=== PATIENT | female | born 1945 | race Caucasian/White ===

== ENCOUNTER 2024-04-15 18:54 | Inpatient (IN) ==
[2024-04-15 19:12] VITALS: TEMP 98.8
[2024-04-15] MEDS: SODIUM CHLORIDE 0.9% 1,000 ML IV ONE ×2 (19:20→19:53)
[2024-04-15] MEDS: ONDANSETRON INJ 2 MG/ML 2 ML VIAL IV STA (19:20)
--- NOTE | 2024-04-15 19:23 | Emergency Department Note ---
Impression & Plan Nausea, vomiting, and diarrhea, Acute hyponatremia, Hypomagnesemia, Hypocalcemia ED Provider Note HISTORY OF PRESENT ILLNESS: Patient is a 78-year-old female presenting with nausea, vomiting and diarrhea. Patient reports that she woke up this morning was feeling very nauseous. She went to get a CT scan from "my neck to my pelvis" earlier today. She reports that she was given contrast during that study and was feeling quite nauseous after the CT imaging. She went home and had a small breakfast and started vomiting that up. She also has had 3 episodes of vomiting throughout the day today. She went to [facility] to have radiation treatment for the metastases to her C1 and C2 vertebrae. Patient reports she has thyroid cancer with mets to the spine. Reports that she was very nauseous during her radiation, but on her way home to [place] she had multiple episodes of vomiting. She states has been unable to keep anything down since this morning. Reports feeling very weak and rundown. She reports that she was previously on oral chemotherapy, but has not been on any since mid February 2024. Denies any fevers or chills. Denies any abdominal pain. Denies any sick contact exposures. She denies any dysuria or hematuria. She currently feels very dehydrated and like her mouth is very dry. ROS: as above PHYSICAL EXAM: Constitutional: Patient appears in no acute distress. HENT: Head: Normocephalic and atraumatic. Eyes: EOMI, PERRL Mouth/Throat: Mucous membranes dry. Neck: Trachea midline. Neck supple. Cardiovascular: RRR, No murmurs, rubs or gallops. Intact distal pulses. Pulmonary/Chest: No respiratory distress. Breath sounds clear and equal bilaterally. No wheezes or rales. Abdominal: Abdomen soft, no tenderness, rebound or guarding. Musculoskeletal: No edema, tenderness or deformity noted. Skin: Warm and dry. No rash, erythema, pallor or cyanosis Psychiatric: Appropriate mood and affect for situation. Neurological: Alert and keenly responsive. CN II-XII grossly intact, moving all extremities equally and fully. MDM: - Vitals signs showed hypertension - History obtained via patient. History as above. - Chronic conditions affecting care: HTN; metastatic thyroid cancer; hx of Afib - Differential diagnoses include, but are not limited to: Electrolyte abnormality; ACS; dysrhythmia; bowel obstruction; viral syndrome - Order placed for continuous cardiac monitoring. At this time, monitor showed rate of 66 bpm with normal sinus rhythm, per my interpretation. - External medical records reviewed. [facility] radiation oncology note from [facility] dated 04/15/2024 was reviewed. Patient was being seen in clinic for her recurrent/metastatic papillary carcinoma of the thyroid with new osseous involvement of her C1/C2 spine causing pain. She declined surgical stabilization and was proceeding with palliative radiation. Patient had a CT chest/abdomen/pelvis with IV and oral contrast at [facility], but imaging has not been released as of yet. - EKG interpreted by myself showed normal sinus rhythm. Rate 65 bpm. QT 470. No acute ischemic changes. - Laboratory workup interpreted by myself showed normal WBC; normal PT/INR; hyponatremia (Na 128); hypomagnesemia (Mg 1.4); hypocalcemia (Ca 8.3); normal troponin; normal lipase; low TSH - Viral respiratory panel negative - UA negative for infection, but noted to have ketonuria. - Patient given 2L NS in ER. Given 4 mg IV zofran for nausea. Given 1g IV calcium and 1g IV magnesium for electrolyte abnormality - CT abdomen/pelvis with IV contrast was ordered to further workup the patient's nausea and vomiting. However, the patient declined her CT imaging because she just had it performed through the [facility] system earlier today. However, we do not have access to reports as of yet. - Discussion was had with family service caseworker about patient's case and need for admission - Hospitalist, Dr. Machuca, consulted for admission - Patient admitted to [facility] hospitalist service for further evaluation and management. ASSESSMENT AND PLAN: Diagnosis: Nausea, vomiting and diarrhea; acute hyponatremia; hypocalcemia; hypomagnesemia Plan: Admit Past Med/Surg History Problem List Hypocalcemia (Acute) Hypomagnesemia (Acute) Acute hyponatremia (Acute) Nausea, vomiting, and diarrhea (Acute) COVID-19 (Acute) Anal fissure (Chronic) Hypertension (Chronic) Encounter for pre-operative examination Thyroid cancer (Chronic) dx 2011; sx + radioactive iodine x 2 History of cholecystectomy (Chronic) H/O thyroidectomy (Chronic) Hx of tonsillectomy (Chronic) H/O knee surgery (Chronic) Medical History DDD (degenerative disc disease) History of atrial fibrillation follows with Dr. Alvarenga History of COVID-19 03/2021; fatigue, congestion, sore throat, cough, fever, poor appetite; resolved. 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 Osteoarthritis PONV (postoperative nausea and vomiting) Thyroid cancer dx 2011; sx + radioactive iodine x 2 Surgical History H/O knee surgery H/O thyroidectomy History of cardiac catheterization 2013 - no stents History of cataract surgery RT History of cholecystectomy History of colonoscopy History of eyelid surgery Hx of tonsillectomy S/P anal fissurectomy Family History Other Myocardial infarction Social History Smoking Status: Never smoker Second Hand Exposure: Yes (as a child); Do You Dip or Chew Tobacco: No; Hx Alcohol Use: No Hx Substance Use: No Preferred Language: Yi Communication Ability: Effective [employer]creational [employer] Director Required: No Beliefs That Will Affect Care: None Current Living Situation: Spouse Feels Safe at Home: Yes Assistive Devices: Glasses Allergies Allergies Allergy/AdvReac Type Severity Reaction Status Date / Time adhesive Allergy Mild Rash Verified 07/19/22 21:51 latex Allergy Mild Rash Verified 07/19/22 21:51 Home Meds Home Medications Medication Instructions Recorded Confirmed ascorbic acid (vitamin C) 500 mg 500 mg PO QPM 12/10/17 04/15/24 tablet (Vitamin C) cholecalciferol (vitamin D3) 50 2,000 unit PO QAM 12/10/17 04/15/24 mcg (2,000 unit) capsule ibuprofen 200 mg tablet (Advil) 400 mg PO BID PRN Fever Or Pain 12/10/17 04/15/24 levothyroxine 125 mcg tablet 125 mcg PO QAM 12/10/17 04/15/24 lisinopril 5 mg tablet 5 mg PO QAM 12/10/17 04/15/24 omega-3 fatty acids 1,000 mg 1,000 mg PO QAM 12/10/17 04/15/24 capsule aspirin 81 mg tablet,delayed 81 mg PO QPM 06/07/21 04/15/24 release metoprolol succinate 50 mg 50 mg PO BID 05/17/23 04/15/24 tablet,extended release 24 hr Results & Data (ED) Vital Signs Vital Signs - 24 hr 04/15/24 19:03 04/15/24 19:06 04/15/24 21:15 Temperature 37.1 C Temperature Source Oral Pulse Rate 73 70 66 Pulse Rate from SpO2 Sensor 65 Respiratory Rate 14 22 Blood Pressure 165/84 H 135/83 Blood Pressure Mean 111 100 Pulse Oximetry 96 95 Oxygen Delivery Method Room Air Sepsis Recent Fever Within 48 Hours No Sepsis New/Unexplained Change in Mental Status No Sepsis Action Taken by Nursing No Action Required Laboratory Data 04/15/24 19:03 04/15/24 19:03 Lab Results 04/15/24 04/15/24 04/15/24 Range/Units 19:03 19:06 Unknown WBC 6.64 (4.8-10.8) K/ul RBC 4.44 (4.20-5.40) M/uL Hgb 12.7 (12.0-16.0) g/dl Hct 37.2 (37.0-47.0) % MCV 83.8 (80.0-100.0) fL MCH 28.6 (25.0-34.0) pg MCHC 34.1 (32.0-36.0) g/dL RDW Std Deviation 42.9 (36.4-46.3) fL RDW Coeff of [place] 14.0 (11.5-14.5) % Plt Count 227 (130-400) K/uL MPV 9.2 L (9.4-12.4) fL Immature Gran % (Auto) 0.5 % Neut % (Auto) 83.3 % Lymph % (Auto) 9.3 % [place] % (Auto) 6.3 % Eos % (Auto) 0.3 % Baso % (Auto) 0.3 % Neut # (Auto) 5.53 (1.40-6.50) K/uL Lymph # (Auto) 0.62 L (1.20-3.40) K/uL [place] # (Auto) 0.42 (0.11-0.59) K/uL Eos # (Auto) 0.02 (0.00-0.50) K/uL Baso # (Auto) 0.02 (0.00-0.20) K/uL Immature Gran # (Auto) 0.03 (0.01-0.20) K/uL PT 10.7 (9.0-12.0) Seconds INR 1.0 (0.9-1.1) Sodium 128 L (136-145) mmol/L Potassium 4.0 (3.5-5.1) mmol/L Chloride 96 L (98-107) mmol/L Carbon Dioxide 25 (21-32) mmol/L Anion Gap 7 (3-11) BUN 13 (6-23) mg/dl Creatinine 0.69 (0.6-1.2) mg/dl Est Cr Clr Drug Dosing 70.6 ml/min eGFR 88.23 BUN/Creatinine Ratio 18.8 (10-20) Glucose 117 H (70-99(Fasting)) mg/dl Osmolality 270 L (280-300) mOsm/kg Calcium 8.3 L (8.6-10.3) mg/dl Magnesium 1.4 L (1.7-2.4) mg/dl Total Bilirubin 0.8 (0.2-1.0) mg/dl AST 17 (13-39) U/L ALT 12 (7-52) U/L Alkaline Phosphatase 67 (34-104) U/L Troponin I High Sens 6.8 (0-14) pg/ml Total Protein 6.8 (6.0-8.3) gm/dl Albumin 3.7 (3.4-5.0) gm/dl Globulin 3.1 (2.5-4.0) gm/dl Albumin/Globulin Ratio 1.2 (0.9-2) Lipase 11 (11-82) U/L TSH 0.226 L (0.300-4.500) uIu/ml Free T4 1.83 H (0.61-1.60) ng/dl Urine Color Yellow Urine Appearance Clear (Clear) Urine pH 6.5 (4.5-7.5) Ur Specific [place] 1.008 (1.000-1.030) Urine Protein Negative (Negative) Urine Glucose (UA) Negative (Negative) Urine Ketones 1+ H (Negative) Urine Blood Negative (Negative) Urine Nitrite Negative (Negative) Urine Bilirubin Negative (Negative) Urine Urobilinogen Negative (Negative) Ur Leukocyte Esterase Negative (Negative) Urine Osmolality 173 L (500-800) mOsm/kg Ur Random Sodium 45 mmol/L Adenovirus (PCR) Not Detected (NotDetected) B. pertussis DNA (PCR) Not Detected (NotDetected) B.parapertussis DNA PCR Not Detected (NotDetected) C. pneumoniae DNA (PCR) Not Detected (NotDetected) Coronavirus OC43 (PCR) Not Detected (NotDetected) Coronavirus HKU1 (PCR) Not Detected (NotDetected) Coronavirus 229E (PCR) Not Detected (NotDetected) SARS-CoV-2 (PCR) Not Detected (NotDetected) Coronavirus NL63 (PCR) Not Detected (NotDetected) Human Metapneumovir PCR Not Detected (NotDetected) Influenza Type A (PCR) Not Detected (NotDetected) Influenza Type B (PCR) Not Detected (NotDetected) M. pneumoniae (PCR) Not Detected (NotDetected) Parainfluenza 1 (PCR) Not Detected (NotDetected) Parainfluenza 2 (PCR) Not Detected (NotDetected) Parainfluenza 3 (PCR) Not Detected (NotDetected) Parainfluenza 4 (PCR) Not Detected (NotDetected) RSV (PCR) Not Detected (NotDetected) Entero/Rhino (PCR) Not Detected (NotDetected) Administered Medications Discontinued Medications Sodium Chloride (Nss) 1,000 mls @ 999 mls/hr IV .Q1H1M ONE Stop: 04/15/24 20:04 Last Infusion: 04/15/24 19:53 Dose: Infused Documented By: Admin: 04/15/24 19:20 Dose: 999 mls/hr Documented By: RINA Sodium Chloride (Nss) 1,000 mls @ 999 mls/hr IV .Q1H1M ONE Stop: 04/15/24 20:41 Last Infusion: 04/15/24 20:47 Dose: Infused Documented By: NRRafaela Admin: 04/15/24 19:53 Dose: 999 mls/hr Documented By: RINA Magnesium Sulfate/Dextrose (Magnesium Sulfate / D5w) 1 gm in 100 mls @ 100 mls/hr IV NOW STA Stop: 04/15/24 20:40 Last Infusion: 04/15/24 21:29 Dose: Infused Documented By: Admin: 04/15/24 20:13 Dose: 100 mls/hr Documented By: RINA Calcium Gluconate () 1,000 mg in 60 mls @ 240 mls/hr IV NOW STA Stop: 04/15/24 19:55 Last Infusion: 04/15/24 20:13 Dose: Infused Documented By: NRRafaela Admin: 04/15/24 19:49 Dose: 240 mls/hr Documented By: RINA Ondansetron HCl (Ondansetron Inj 2 Mg/Ml 2 Ml Vial) 4 mg IV NOW STA Stop: 04/15/24 19:05 Last Admin: 04/15/24 19:20 Dose: 4 mg Documented By: RINA Discharge Plan Visit Data Chief Complaint: Nausea Stated Complaint: NAUSEA ED Provider: Lupis Zhong Discharge Problem: Nausea, vomiting, and diarrhea, Acute hyponatremia, Hypomagnesemia, Hypocalcemia Forms Stand Alone Forms: My [facility] [employer] Prescriptions Prescriptions: No Action omega-3 fatty acids 1,000 mg Capsule 1,000 mg PO QAM ascorbic acid (vitamin C) [Vitamin C] 500 mg Tablet 500 mg PO QPM levothyroxine 125 mcg Tablet 125 mcg PO QAM Rx Instructions: PER PT "ON THE 7TH DAY, TAKE 250 MCG, ALL OTHER DAYS 125 MCG". tuesdays take 2 ibuprofen [Advil] 200 mg Tablet 400 mg PO BID PRN (Reason: Fever Or Pain) lisinopril 5 mg Tablet 5 mg PO QAM cholecalciferol (vitamin D3) 2,000 unit Capsule 2,000 unit PO QAM aspirin 81 mg Tablet,Delayed Release (Dr/Ec) 81 mg PO QPM metoprolol succinate 50 mg tablet extended release 24 hr 50 mg PO BID Referrals Referrals: Otilia Burgos DO [Primary Care Provider] -
[2024-04-15 19:24] LABS: Basophils # (auto) 0.02 K/uL (0.00-0.20); Basophils % (auto) 0.3 %; Eosinophils # (auto) 0.02 K/uL (0.00-0.50); Eosinophils % (auto) 0.3 %; Hematocrit (blood only) 37.2 % (37.0-47.0); Hemoglobin 12.7 g/dl (12.0-16.0); Immature Granulocytes # (auto) 0.03 K/uL (0.01-0.20); Immature Granulocytes % (auto) 0.5 %; Lymphocytes # (auto) 0.62 K/uL (1.20-3.40); Lymphocytes % (auto) 9.3 %; Mean Corpuscular Hemoglobin 28.6 pg (25.0-34.0); Mean Corpuscular Hgb Conc 34.1 g/dL (32.0-36.0); Mean Corpuscular Volume 83.8 fL (80.0-100.0); Mean Platelet Volume 9.2 fL (9.4-12.4); Monocytes # (auto) 0.42 K/uL (0.11-0.59); Monocytes % (auto) 6.3 %; Neutrophils # (auto) 5.53 K/uL (1.40-6.50); Neutrophils % (auto) 83.3 %; Platelet Count 227 K/uL (130-400); RDW Standard Deviation 42.9 fL (36.4-46.3); Red Blood Count 4.44 M/uL (4.20-5.40); White Blood Count 6.64 K/ul (4.8-10.8)
[2024-04-15 19:38] LABS: Albumin Globulin Ratio 1.2 (0.9-2); Albumin Level 3.7 gm/dl (3.4-5.0); BUN Creatinine Ratio 18.8 (10-20); Bilirubin,Total 0.8 mg/dl (0.2-1.0); Calcium 8.3 mg/dl (8.6-10.3); Creatinine Clr Calc Pharmacy 70.6 ml/min; Globulin 3.1 gm/dl (2.5-4.0); Magnesium 1.4 mg/dl (1.7-2.4); Total Protein 6.8 gm/dl (6.0-8.3)
[2024-04-15 19:45] LABS: Troponin I High Sensitivity 6.8 pg/ml (0-14)
[2024-04-15 19:49] LABS: Prothrombin Time 10.7 Seconds (9.0-12.0)
[2024-04-15] MEDS: CALCIUM GLUCONATE 1,000 MG/60 ML BAG IV STA (19:49)
[2024-04-15] MEDS: MAGNESIUM SULFATE / D5W 1 GM/100 ML BAG IV STA (20:13)
[2024-04-15 20:32] LABS: Adenovirus PCR Not Detected (NotDetected); Bordetella parapertussis PCR Not Detected (NotDetected); Bordetella pertussis PCR Not Detected (NotDetected); Chlamydia pneumoniae PCR Not Detected (NotDetected); Coronavirus 229E PCR Not Detected (NotDetected); Coronavirus CoV-2 (COVID19)PCR Not Detected (NotDetected); Coronavirus HKU1 PCR Not Detected (NotDetected); Coronavirus NL63 PCR Not Detected (NotDetected); Coronavirus OC43PCR Not Detected (NotDetected); Human Metapneumovirus PCR Not Detected (NotDetected); Influenza A PCR Not Detected (NotDetected); Influenza B PCR Not Detected (NotDetected); Mycoplasma pneumoniae PCR Not Detected (NotDetected); Parainfluenza Virus 1 PCR Not Detected (NotDetected); Parainfluenza Virus 2 PCR Not Detected (NotDetected); Parainfluenza Virus 3 PCR Not Detected (NotDetected); Parainfluenza Virus 4 PCR Not Detected (NotDetected); Respiratory Syncytial VirusPCR Not Detected (NotDetected); Rhinovirus/Enterovirus PCR Not Detected (NotDetected)
[2024-04-15 21:38] LABS: Appearance Urine Clear (Clear); Bilirubin Urine Negative (Negative); Blood Urine Negative (Negative); Color Urine Yellow; Glucose Urine UA Negative (Negative); Ketones Urine 1+ (Negative); Leukocyte Esterase Urine Negative (Negative); Nitrite Urine Negative (Negative); Protein Urine Negative (Negative); Specific Gravity Urine 1.008 (1.000-1.030); Urobilinogen Urine Negative (Negative); pH Urine 6.5 (4.5-7.5)
[2024-04-15 21:39] LABS: Thyroid Stimulating Hormone 0.226 uIu/ml (0.300-4.500)
[2024-04-15 22:15] LABS: T4 Free Thyroxine 1.83 ng/dl (0.61-1.60)
[2024-04-16] MEDS ORDERED: ONDANSETRON INJ 2 MG/ML 2 ML VIAL IV PRN
[2024-04-16] MEDS ORDERED: NITROGLYCERIN SL 0.4 MG/TAB TAB SL PRN
[2024-04-16] MEDS ORDERED: HYDROmorphone INJ 0.5 MG/0.5 ML SYR IV PRN
[2024-04-16] MEDS ORDERED: ACETAMINOPHEN 1,000 MG/100 ML VIAL IV PRN
[2024-04-16] MEDS: MAGNESIUM SULFATE / D5W 1 GM/100 ML BAG IV SCH (00:05)
[2024-04-16] MEDS: D5W AND 1/2NSS 1,000 ML IV SCH (00:31)
[2024-04-16] MEDS: D5W AND NSS 1,000 ML IV SCH (04:06)
--- OUTSIDE RECORDS SUMMARY | 2024-04-16 04:50 | External Medical Summary | Summary of Care ---
Author Name Unknown Organization [facility] Address [address] [place] [address] Phone [phone] Care Team Providers Care Mobile Home Park Manager Name Role Phone Otilia Burgos Primary Care Provider Reason for Visit * Reason Onset Date Comments Patient Assistance Program 03/23/2024 28 Ch ristine B mek/taf f/u apr 24 Encounter Details Date Type Department Care Team (Late st Contact Info) Description 03/23/2024 Telephone Hematology Oncology [facility] [address] [place] [address] Rafi Goncalves MD [address] [place] [address] Patient Assistance Program (28 Blanka Winston.. Allergies Active Allergy Reactions Criticality Noted Date Comments Adhesive Tape Other (Please comment) Low 04/16/2013 Skin becomes red and sore Other reaction(s): Rash Lactose Diarrhea 08/12/2015 Latex Low 06/26/2021 Other reaction(s): Rash documented as of this encounter (statuses as of 04/15/2024) Medications FISH OIL 1000 MG PO CAPS 1 daily Active VITAMIN D 2000 UNITS PO CAPS 1 daily Active Aspirin EC 81 MG Oral Tablet Delayed Release Take 1 Tablet by mouth in the morning. 12/07/19 20 Active Emergen-C Vitamin C Oral Packet Take by mouth. Act alexis Ketoconazole 2 % External Cream Apply to right foot as needed 60 g 3 10/03/19 23 Active Mupirocin 2 % External Ointment (Bactroban)Indicati ons:Internal nasal lesion Apply to lesion on inside of nose three times daily 22 g 3 10/24/19 23 Active Ketoconazole 2 % External Shampoo (Nizoral)Indication s:Seborrheic dermatitis Apply topically to affected area every 3 days. Apply to scalp 120 mL 11 10/24/19 23 Active Multivitamin Adult Oral Tablet Take by mouth. Act alexis Clotrimazole-Betame thasone 1-0.05 % External Cream (Lotrisone)Indicati ons:Tinea pedis of right foot Apply topically to affected area 2 times a day. 45 g 3 06/17/19 24 Active Dabrafenib Mesylate 50 MG Oral Capsule (Tafinlar)Indicatio ns:Malignant neoplasm metastatic to lung, unspecified laterality (HCC),Papillary thyroid carcinoma (HCC),Recurrent thyroid cancer (HCC),Secondary and unspecified ma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, face and neck (HCC) Take 100 mg by mouth in the morning and 100 mg before bedtime. Take on an empty stomach.. 120 Capsule 5 06/26/19 24 Active Additional Information Patient not taking.Reported on 04/13/2024 Trametinib Dimethyl Sulfoxide 0.5 MG Oral Tablet (Mekinist)Indicatio ns:Malignant neoplasm metastatic to lung, unspecified laterality (HCC),Papillary thyroid carcinoma (HCC),Recurrent thyroid cancer (HCC),Secondary and unspecified ma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, face and neck (HCC) Take 1.5 mg by mouth daily. Take on an empty stomach. Keep refrigerated. 90 Tablet 5 06/26/19 24 Active Additional Information Patient not taking.Reported on 04/13/2024 Trametinib Dimethyl Sulfoxide 0.5 MG Oral Tablet (Mekinist)Indicatio ns:Malignant neoplasm metastatic to lung, unspecified laterality (HCC),Papillary thyroid carcinoma (HCC),Recurrent thyroid cancer (HCC),Secondary and unspecified ma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, face and neck (HCC) Take 1.5 mg by mouth daily. For 21 days on then 7 day off. Take on an empty stomach. Keep refrigerated. 63 Tablet 5 09/19/19 24 Active Additional Information Patient not taking.Reported on 04/13/2024 Dabrafenib Mesylate 50 MG Oral Capsule (Tafinlar)Indicatio ns:Malignant neoplasm metastatic to lung, unspecified laterality (HCC),Papillary thyroid carcinoma (HCC),Recurrent thyroid cancer (HCC),Secondary and unspecified ma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, face and neck (HCC) Take 100 mg by mouth in the morning and 100 mg before bedtime. Take 21 days on then 7 days off. Take on an empty stomach.. 84 Capsule 5 09/19/19 24 Active Additional Information Patient not taking.Reported on 04/13/2024 Sennosides 8.6 MG Oral Tablet (Senokot) Take 1 Tablet by mouth at bedtime as needed for Constipation. Active Docusate Sodium 100 MG Oral Capsule (Colace) Take 3 Capsules by mouth daily. Active Lisinopril 5 MG Oral Tablet (Prinivil)Indicatio ns:HTN, goal below 140/90 TAKE ONE TABLET BY MOUTH EVERY MORNING 100 Tablet 3 4 10:06 AM EST 11/03/19 24 025 Active Hydrocortisone 2.5 % External CreamIndications:Dr eddy rash Apply topically to affected area 2 times a day. 30 g 1 11/15/19 24 Active Fluocinonide 0.05 % External Solution Apply to scalp once to twice a day when scalp is inflamed and itchy. Can apply up to 2 weeks then as needed 60 mL 1 11/26/19 24 Active Additional Information Patient not taking.Reported on 04/13/2024 Synthroid 125 MCG Oral TabletIndications:P ostoperative hypothyroidism Take one tablet by mouth six days a week and take two tablets once weekly 105 Tablet 3 4 10:12 AM EST 02/17/20 24 Active tiZANidine HCl 2 MG Oral Tablet (Zanaflex)Ernytio ns:Neck pain Take 1 Tablet by mouth every 8 hours as needed for Muscle spasms. 30 Tablet 03/10/20 24 Active Additional Information Patient not taking.Reported on 04/13/2024 Metoprolol Succinate ER 50 MG Oral Tablet Extended Release 24 Hour (toPROL XL)Indications:HTN, goal below 140/90,Paroxysmal atrial fibrillation (HCC),PSVT (paroxysmal supraventricular tachycardia) (HCC) Take 1 Tablet by mouth in the morning and 1 Tablet before bedtime. 180 Tablet 5 1:56 PM EST 03/20/19 25 Active predniSONE 10 MG Oral Tablet (Deltasone)Indicati ons:DDD (degenerative disc disease), cervical,Recurrent thyroid cancer (HCC),Neck pain Take 5 tabs for 2 days, 4 tabs for 2 days, 3 tabs for 2 days, 2 tabs for 2 days 1 tab for 2 days 30 Tablet 03/12/19 25 025 Discontin ued(End of Procedure ) documented as of this encounter (statuses as of 04/15/2024) Active Problems Problem Noted Date Diagnosed Date Metastatic cancer to spine 03/30/2024 Hyponatremia 05/30/2023 Malignant neoplasm metastatic to both lungs 04/12 Malignant neoplasm metastatic to lung 04/11/2021 Secondary and unspecified ma 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, face and neck 11/05/2017 Lung nodules 10/01/2016 Recurrent thyroid cancer 02/08/2016 Paroxysmal atrial fibrillation 08/23/2015 Postoperative hypothyroidism 03/23/2015 Papillary thyroid carcinoma 08/22/2011 Vitamin D deficiency 08/09/2011 HTN, goal below 140/90 05/13/2009 Dyslipidemia, goal LDL below 130 05/13/2009 documented as of this encounter (statuses as of 04/15/2024) Resolved Problems Problem Noted Date Diagnosed Date Resolved Date Kidney disease, chronic, sta ge III (GFR 30-59 ml/min) 09/19/2015 06/04/2016 Overview: Per CKD protocol #1 Other stomatitis and mucositis (ulcerative) 07/27/2012 12/16/2017 Hypothyroidism 06/30/2012 03/23/2015 Throat pain 01/07/2012 05/07/2017 Dyspareunia 03/13/2010 07/05/2016 Joint pain, hip 03/13/2010 03/19/2017 Palpitations 03/13/2010 03/19/2017 documented as of this encounter (statuses as of 04/15/2024) Immunizations Name Administration Dates Next Due COVID-19 mRNA, LNP-s, No Pre serve, 2-Dose Series ([employer]) 06/09/2020,05/19/2020 Pneumococcal Conjugate Vacc, 13 Valent (Prevnar) 01/17/2016 Pneumococcal Polysaccharide PPV23 (Pneumovax) TDAP (age 10 and older)(Boostrix) 09/15/2013 Zoster Vaccine Recombinant (Shingrix) 04/12/2022 ,09/14/2021 documented as of this encounter Social History Tobacco Use Types Packs/Day Years Used Date Smoking Tobacco: Never Passive Smoke Exposure: Past Smokeless Tobacco: Never Alcohol Use Standard Drinks/Week Comments Not Currently 0 (1 standard drink = 0.6 oz pur e alcohol) PHQ-2 Answer Date Recorded PHQ Adult Total Score 3 05/10/2023 Hunger Vital Sign Answer Date Recorded Within the past 12 months, y ou worried that your food would run out before you got the money to buy more. Never true 01/20/20 24 Within the past 12 months, t he food you bought just didn't last and you didn't have money to get more. Never true 01/20/2024 Childcare Answer Date Recorded Do you feel overwhelmed with taking care of a child, family member or friend? No 01/20/2024 Does your family need help f inding childcare? (Household - for ages 0-17 years) Not on file 01/20/2024 Clothing Answer Date Recorded Have you been unable to get clothing when it was really needed? No 01/20/2024 Is your family able to get c lothes or diapers when needed? (Household - for ages 0-17 years) Not on file 01/20/2024 Personal Safety Answer Date Recorded Do you feel unsafe or have concerns for your saf ety? No 01/20/2024 Do you have concerns for you r family's safety? (Household - for ages 0-17 years) Not on file 01/20/2024 Utilities Answer Date Recorded Do you have trouble paying y our heating, water, or electric bill? No 01/20/2024 Is your family able to pay t he heat, water, or electric bill? (Household - for ages 0-17 years) Not on file 01/20/2024 Does your family have access to good internet? (Household - for ages 0-17 years) Not on file 01/20/2024 Employment Status Answer Date Recorded Are you unemployed or without regular income? No 01/20/2024 Does the household have a re gular source of income? (Household - for ages 0-17 years) Not on file 01/20/2024 Social Connections Answer Date Recorded How often do you feel lonely or isolated from th ose around you? Rarely 01/20/2024 Financial Resource Strain Answer Date R ecorded Do you have any trouble payi ng for your medications, or do you think you might in the future? No 01/20/2024 Does your family have troubl e paying for medicine? (Household - for ages 0-17 years) Not on file 01/20/2024 Transportation Needs Answer Date Record ed Do you have trouble getting a ride to medical visits or work? (Adult - for ages 18 years and over) Not on file 01/20/2024 Does your family have a hard time getting a ride to doctors visits? (Household - for ages 0-17 years) Not on file 01/20/2024 Has lack of transportation k ept you from medical appointments, meetings, work, or from getting things needed for daily living? Check all that apply. No 01/20/2024 Do you (or your family) have trouble finding or paying for a ride (transportation)? (Household - for ages 0-17 years) Not on file 01/20/2024 Housing Stability Answer Date Recorded Do you currently live in a s helter or have no steady place to sleep at night? No 01/20/2024 Do you think you are at risk of becoming homeless? (Adult - for ages 18 years and over) Not on file 01/20/2024 Does your family worry about paying for your home or becoming homeless? (Household - for ages 0-17 years) Not on file 1 03/21/2023 Are you homeless or worried that you might be in the future? No 01/20/2024 Are you (or your family) chavez eless or worried that you might be in the future? (Household - for ages 0-17 years) Not on file Food Insecurity Answer Date Recorded Do you need food for this week? No 01/20/2024 Are you able to get enough f ood for your family? (Household - for ages 0-17 years) Not on file 01/20/2024 Does your family need food t his week? (Household - for ages 0-17 years) Not on file 01/20/2024 Do you always have enough fo od for your family? (Household - for ages 0-17 years) Not on file 01/20/2024 Comments No Sex and Gender Information Value Date Recorded Sex Assigned at Female 09/23/2018 10:07 AM EDT Legal Sex Female 6:45 AM EST Gender Identity Female 09/23/2018 10:07 AM EDT Sexual Orientation Straight 09/23/2018 10 :07 AM EDT Occupation Industry Job Start Date Job End Date Not on file Not on file Not on file Not on file documented as of this encounter Miscellaneous Notes * Telephone Encounter - Blanka Montesinos OSA - 04/14/2024 4:20 PM EST Patient has stopped mekinst and Taflinar / she goes and see him on apr 24 to see if she will continue, she no longer eligible for [employer], we will wait until apr 24 to see if patient will continue. I will follow up with patient than, she has enough medication until June 2024 ,Blanka Montesinos Medication Wind Site Manager 04/14/24.4:20 PM * Telephone Encounter - Blanka Montesinos OSA - 04/07/2024 12:19 PM EST Additional information requested from [facility] foundation on dx submitted today pending davon. Blanka Montesinos Medication Wind Site Manager 04/07/24.12:19 PM * Telephone Encounter - Blanka Montesinos OSA - 04/02/2024 9:05 AM EST Faxed request form to [facility] to [phone] pending review. Blanka Montesinos Medication Wind Site Manager 04/02/2024.9:05 AM * Telephone Encounter - Blanka Montesinos OSA - 03/31/2024 12:04 PM EST Received provider form that needs to be completed by Dr. Mckee sent to be signed. Blanka Montesinos Medication Wind Site Manager 03/31/2024.12:04 PM * Telephone Encounter - Blanka Montesinos OSA - 03/23/2024 7:03 AM EST Patient Assistance Name of Medication: mekinist /taflinar Was patient spoken to: : YES Type of assistance: other grants open for this medication but not dx , [facility] however application is pending review. Applications mailed: : NO Follow up: 2 days Blanka Montesinos Medication Wind Site Manager 03/23/2024.7:03 AM * Telephone Encounter - Amparo Gaspar OSA - 03/23/2024 5:49 AM EST [facility] can fill mekinist. Please route prescription to [phone]. Patient's co-pay will be $1994.76. Co-pay assistance required: yes [facility] will help search for additional assistance Thank you, ABDIEL Braga [facility] 03/23/24,5:48 AM documented in this encounter Plan of Treatment Upcoming Encounters Date Type Department Care Team (Late st Contact Info) Description 04/15/2024 8:45 AM EST Imaging Radiology [address], [place] [address] [place] [phone] 04/15/2024 9:30 AM EST Treatment Radiation Oncology, [facility] [address] [facility] [place] [address] 04/15/2024 9:45 AM EST Documentation Radiation Oncology, [facility] [address] [facility] [place] [address] IovolDelonte lopez MD [address] [place] [id number] 04/16/2024 1:00 PM EST Office Visit Family Practice [address], [place] [address] [place] [address] Otilia Burgos DO [address] [place] [address] 04/23/2024 2:00 PM EST Office Visit Hematology Oncology [facility] [address] [place] [phone] Rafi Goncalves MD [address] [place] [address] 04/30/2024 11:45 AM EST Pharmacy Pharmacy Hematology Oncology [facility] [address] [place] [address] [facility] [address] [place] [address] 06/18/2024 3:00 PM EDT Office Visit Cardiology, [facility] [address] [place] [address] Lucinda Ryan CRNP [address] [place] [address] 06/29/2024 2:15 PM EDT Imaging Radiology [facility] [address] [facility] [address] [place] [phone] 08/17/2024 10:30 AM EDT Imaging Radiology [facility] 2nd [facility], [place] [address] [place] [address] 11/26/2024 12:50 PM EDT Office Visit Dermatology, [facility] [address] [place] [address] Vanda Manrique PA-C [address] [place] [address] 02/22/2025 3:00 PM EST Office Visit Endocrinology Rohit Bansal Dr [address] [place] [phone] Shaina George MD [address] [facility] [place] [address] Scheduled Procedures Name Priority Associated Diagnoses Date/Ti me COLONOSCOPY FLEXIBLE PROXIMA L DIAGNOSTIC Recall History of colonic polyps Health Maintenance Due Date Last Done Comments DXA Scan 04/04/2018 04/04/2011, 04/04/2011 COVID-19 Vaccine (3 - Pfizer risk series) 07/07/2020 06/09/2020, 05/19/2020 DTap/Tdap Vaccines (2 - Td or Tdap) 09/16/2023 09/15/2013 Influenza Vaccine (FLU shot) (#1) 2023 12/16/2017 (Refused) Adult Wellness Visit 05/09/2024 05/10/2023, 05/08/19 23 Depression Screening 05/09/2024 05/10/2023 Albumin/Creatinine Ratio 09/18/2024 09/18/2021 GFR 11/28/2024 11/29/2023, 0 08/2023, 09/11/2023, Additional history exists TSH 02/04/2025 02/05/2024, 090 08/2023, 10/15/2023, Additional history exists Colonoscopy 02/15/2027 02/15/2022, 120 10/2021, 07/06/2015, Additional history exists Pneumococcal Vaccine: 50+ Years Completed 03/19/2017, 01/17/2016 RETIRED - COLONOSCOPY-EVERY 5 YRS AGES 18-100 Discontinued 02/15/2022, 02/15/2022, 07/06/2015, Additional history exists Zoster Vaccines Completed 04/12/2022, 09/14/2021 HPV (Gardasil) Vaccine Aged Out No lo nger eligible based on patient's age to complete this topic Hepatitis B Vaccine Aged Out No longe r eligible based on patient's age to complete this topic MENINGOCOCCAL (MENACTRA/MENVEO) Aged Out No longer eligible based on patient's age to complete this topic documented as of this encounter Medical Devices Not on filedocumented as of this encounter Advance Directives Documents on File Type Date Recorded Patient Frozen Meat Cutter Expl anation POLST 09/26/2021 1:05 PM POLST * Full Code (Latest Code Status on File) Date Activated Date Inactivated Comments 06/28/2011 6:10 PM 06/29/2011 4:46 PM This order r eflects the patients wishes and were consensually agreed upon. Care Teams Mobile Home Park Manager Relationship Specialty Start Date End Date Otilia Burgos DO [address] [place] [address] PCP - General Family Medicine 10/14/23 documented as of this encounter
--- OUTSIDE RECORDS SUMMARY | 2024-04-16 04:50 | External Medical Summary | Summary of Care ---
Author Name Unknown Organization [facility] Address [address] [place] [address] Phone [phone] Care Team Providers Care Page Technician Name Role Phone Otilia Burgos Primary Care Provider Reason for Visit * Reason Comments Weekly Check C1-C2 Encounter Details Date Type Department Care Team (Late st Contact Info) Description 04/13/2024 9:45 AM EST Documentation Radiation Oncology, [facility] [address] [place] [address] Sid Flores MD [address] [place] [address] [place] [id number] Metastatic cancer to spine (HCC)*; Xerostomia; Recurrent thyroid cancer (HCC) Allergies Active Allergy Reactions Criticality Noted Date Comments Adhesive Tape Other (Please comment) Low 04/16/2013 Skin becomes red and sore Other reaction(s): Rash Lactose Diarrhea 08/12/2015 Latex Low 06/26/2021 Other reaction(s): Rash documented as of this encounter (statuses as of 04/13/2024) Medications FISH OIL 1000 MG PO CAPS 1 daily Active VITAMIN D 2000 UNITS PO CAPS 1 daily Active Aspirin EC 81 MG Oral Tablet Delayed Release Take 1 Tablet by mouth in the morning. 12/07/19 20 Active Emergen-C Vitamin C Oral Packet Take by mouth. Act alexis Ketoconazole 2 % External Cream Apply to right foot as needed 60 g 10/03/19 23 Active Mupirocin 2 % External Ointment (Bactroban)Indicatio ns:Internal nasal lesion Apply to lesion on inside of nose three times daily 22 g 10/24/19 23 Active Ketoconazole 2 % External Shampoo (Nizoral)Indications :Seborrheic dermatitis Apply topically to affected area every 3 days. Apply to scalp 120 mL 10/24/19 23 Active Multivitamin Adult Oral Tablet Take by mouth. Act alexis Clotrimazole-Betamet hasone 1-0.05 % External Cream (Lotrisone)Indicatio ns:Tinea pedis of right foot Apply topically to affected area 2 times a day. 45 g 06/17/19 24 Active Dabrafenib Mesylate 50 MG Oral Capsule (Tafinlar)Indication s:Malignant neoplasm metastatic to lung, unspecified laterality (HCC),Papillary thyroid carcinoma (HCC),Recurrent thyroid cancer (HCC),Secondary and unspecified ma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, face and neck (HCC) Take 100 mg by mouth in the morning and 100 mg before bedtime. Take on an empty stomach.. 120 Capsule 06/26/19 24 Active Additional Information Patient not taking.Reported on 04/13/2024 Trametinib Dimethyl Sulfoxide 0.5 MG Oral Tablet (Mekinist)Indication s:Malignant neoplasm metastatic to lung, unspecified laterality (HCC),Papillary thyroid carcinoma (HCC),Recurrent thyroid cancer (HCC),Secondary and unspecified ma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, face and neck (HCC) Take 1.5 mg by mouth daily. Take on an empty stomach. Keep refrigerated. 90 Tablet 06/26/19 24 Active Additional Information Patient not taking.Reported on 04/13/2024 Trametinib Dimethyl Sulfoxide 0.5 MG Oral Tablet (Mekinist)Indication s:Malignant neoplasm metastatic to lung, unspecified laterality (HCC),Papillary thyroid carcinoma (HCC),Recurrent thyroid cancer (HCC),Secondary and unspecified ma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, face and neck (HCC) Take 1.5 mg by mouth daily. For 21 days on then 7 day off. Take on an empty stomach. Keep refrigerated. 63 Tablet 09/19/19 24 Active Additional Information Patient not taking.Reported on 04/13/2024 Dabrafenib Mesylate 50 MG Oral Capsule (Tafinlar)Indication s:Malignant neoplasm metastatic to lung, unspecified laterality (HCC),Papillary [...] daily. Active Lisinopril 5 MG Oral Tablet (Prinivil)Indication s:HTN, goal below 140/90 TAKE ONE TABLET BY MOUTH EVERY MORNING 100 Tablet 3 4 10:06 AM EST 11/03/19 24 025 Active Hydrocortisone 2.5 % External CreamIndications:Patrick g rash Apply topically to affected area 2 times a day. 30 g 1 11/15/19 24 Active Fluocinonide 0.05 % External Solution Apply to scalp once to twice a day when scalp is inflamed and itchy. Can apply up to 2 weeks then as needed 60 mL 1 11/26/19 24 Active Additional Information Patient not taking.Reported on 04/13/2024 Synthroid 125 MCG Oral TabletIndications:Po stoperative hypothyroidism Take one tablet by mouth six days a week and take two tablets once weekly 105 Tablet 3 4 10:12 AM EST 02/17/20 24 Active tiZANidine HCl 2 MG Oral Tablet (Zanaflex)Indication s:Neck pain Take 1 Tablet by mouth every [...] 5 1:56 PM EST 03/20/19 25 Active Pilocarpine HCl 7.5 MG Oral Tablet (Salagen)Indications :Xerostomia Take 1 Tablet by mouth in the morning and 1 Tablet before bedtime. 60 Tablet 5 04/13/19 25 025 Active HYDROcodone-Acetamin ophen 5-325 MG Oral TabletIndications:Me tastatic cancer to spine (HCC) Take 1 Tablet by mouth every 6 hours as needed for Pain, Mild. 20 Tablet 04/13/19 25 Active documented as of this encounter (statuses as of 04/13/2024) Active Problems Problem Noted Date Diagnosed Date [...] as of this encounter (statuses as of 04/13/2024) Resolved Problems Problem Noted Date Diagnosed Date Resolved Date Kidney disease, chronic, sta ge III (GFR 30-59 ml/min) 09/19/2015 06/04/2016 Overview: Per CKD protocol #1 Other stomatitis and mucositis (ulcerative) 07/27/2012 12/16/2017 Hypothyroidism 06/30/2012 03/23/2015 Throat pain 01/07/2012 05/07/2017 Dyspareunia 03/13/2010 07/05/2016 Joint pain, hip 03/13/2010 03/19/2017 Palpitations 03/13/2010 03/19/2017 documented as of this encounter (statuses as of 04/13/2024) Immunizations Name Administration Dates Next Due COVID-19 mRNA, LNP-s, No Pre serve, 2-Dose Series (Symetis) 06/09/2020,05/19/2020 Pneumococcal Conjugate Vacc, 13 Valent (Prevnar) 01/17/2016 Pneumococcal Polysaccharide PPV23 (Pneumovax) TDAP (age 10 and older)(Boostrix) 09/15/2013 Zoster Vaccine Recombinant (Shingrix) 04/12/2022 ,09/14/2021 documented as of this encounter Social History Tobacco Use Types Packs/Day Years Used Date Smoking Tobacco: Never Passive Smoke Exposure: Past Smokeless Tobacco: Never Tobacco Cessation:Counseling Given: Not Answered Alcohol Use Standard Drinks/Week Comments Not Currently [...] No 01/20/2024 Are you (or your family) chavze eless or worried that you might be [...] on file documented as of this encounter Last Filed Vital Signs Vital Sign Reading Time Taken Comments Blood Pressure 163/89 04/13/2024 9:43 AM EST Pulse 56 04/13/2024 9:43 AM EST Temperature 36.2 C (97.2 F) 04/13/2024 9:43 AM ES T Respiratory Rate 16 04/13/2024 9:43 AM EST Oxygen Saturation 100% 04/13/2024 9:43 AM EST Inhaled Oxygen Concentration - - Weight 78.1 kg (172 lb 1.6 oz) 04/13/2024 9:43 A M EST Height - - Body Mass Index 27.99 03/10/2024 10:16 AM EST documented in this encounter Progress Notes * Sid Flores MD - 04/13/2024 9:43 AM EST RADIATION ONCOLOGY: ON TREATMENT PROGRESS NOTE Megan Dvorsky [id number] 04/13/2024 Radiation Treatments Plan Last Treated On Elapsed Days Fractions Treated Prescribed Fraction Dose (cGy) Prescribed TotalDose (cGy) 10-C1-C2 04/13/2024 11 8 of 10 300 3,000 Reference Point Last Treated On Elapsed Days Most Recent Session Dose (cGy) Total Dose (cGy) PTV C1-C2 04/13/2024 11 300 2,400 VITAL SIGNS: Wt Readings from Last 2 Encounters: 04/13/24 78.1 kg (172 lb 1.6 oz) 04/06/24 79.4 kg (175 lb) LABORATORY STUDIES: COMMENTS: 1. Patient notes increasing neck pain at night and in the morning. As bad as 8/10 in the morning but usually gets better during the day. She reports no dysphagia or odynophagia. 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 2. Medications were reviewed and reconciled. 3. Concurrent chemotherapy: no 4. Examination reveals no radiation-induced changes. 5. Weight graph was reviewed. 6. Recent labs were reviewed. 7. Weekly localization images, patient setup, and dosimetery were reviewed by myself. ECOG Performance Status: (1) Restricted in physically strenuous activity, ambulatory and able to dowork of light nature Acute Radiation Toxicity (CTCAE version 5.0) Grade 3 or higher acute radiation toxicity-none PLAN/RECOMMENDATIONS: Continue radiation therapy. Prescribed a short course of low-dose (5 mg) hydrocodone. She is currently taking significant amounts of ibuprofen and acetaminophen. Also offered her a trial course of pilocarpine (7.5 mg b.i.d.) for her chronic xerostomia. Sid Flores MD Radiation Oncology, [place] [address] documented in this encounter Nursing Notes * Alisia Smith CMA - 04/13/2024 9:50 AM EST Chief Complaint Patient presents with Weekly Check C1-C2 Patient presents alone for weekly check today. She has completed 8 out of 10 fractions to C1-C2. Patient reports she had a rough weekend due to neck pain. She is taking Tylenol (650 mg) and ibuprofen (400 mg) OTC for this at one time in addition to 600mg ibuprofen 6 hours later. Patient was instructed to not get up on the exam table/exam chair until directed and assisted by their provider; patient is to remain seated in the chair/wheelchair/exam table/exam chair for fall prevention and safety reasons. Patient is aware to have assistance to step down off exam table/exam chair with personnel. Patient voiced full comprehension of instructions. documented in this encounter Miscellaneous Notes * Addendum Note - Sid Flores MD - 04/13/2024 11:21 AM ESTAddended by: SID FLORES on: 04/13/2024 11:21 AM Modules accepted: Orders documented in this encounter Plan of Treatment Upcoming Encounters Date Type Department Care Team (Late st Contact Info) Description 04/14/2024 9:30 AM EST Treatment Radiation Oncology, [facility] [address] [place] [address] 04/15/2024 8:45 AM EST Imaging Radiology [place] 1st [facility] [address] [place] [phone] 04/15/2024 9:30 AM EST Treatment Radiation Oncology, [facility] [address] [place] [address] 04/15/2024 9:45 AM EST Documentation Radiation Oncology, [facility] [address] [place] [address] IovoliDelonte MD [address] [place] [address] 04/16/2024 1:00 PM EST Office Visit Family [address] [place] [address] Otilia Burgos DO [address] [place] [address] 04/23/2024 2:00 PM EST Office Visit Hematology Oncology [address] [phone] Rafi Goncalves MD [address] [place] [address] 04/30/2024 11:45 AM EST Pharmacy Pharmacy Hematology Oncology [address] [place] [address] [facility] Hem/Onc [address] [place] [address] 06/18/2024 3:00 PM EDT Office Visit Cardiology, [facility] 132 [facility] [place] [address] Lucinda Ryan CRNP 132 [facility] [place] [address] 06/29/2024 2:15 PM EDT Imaging Radiology [address] 132 [facility] [place] [phone] 08/17/2024 10:30 AM EDT Imaging Radiology [place] [facility] 132 [facility] [place] [address] 11/26/2024 12:50 PM EDT Office Visit Dermatology, [facility] [address] [place] [address] Vanda Manrique PA-C [address] [place] [address] 02/22/2025 3:00 PM EST Office Visit Endocrinology Rohit [address] [place] [phone] Shaina George MD [address] [place] [address] Scheduled Procedures Name Priority Associated Diagnoses Date/Ti [...] Albumin/Creatinine Ratio 09/18/2024 09/18/2021 GFR 11/28/2024 11/29/2023, 09/0 08/2023, 09/11/2023, Additional history exists TSH 02/04/2025 02/05/2024, 09/0 08/2023, 10/15/2023, Additional history exists Colonoscopy 02/15/2027 02/15/2022, 10/2021, 07/06/2015, Additional history exists Pneumococcal Vaccine: [...] Not on filedocumented as of this encounter Visit Diagnoses Diagnosis Metastatic cancer to spine (HCC)- Primary Secondary malignant neoplasm of bone and bone marrow Xerostomia Disturbance of salivary secretion Recurrent thyroid cancer (HCC) Malignant neoplasm of thyroid gland documented in this encounter Advance Directives Documents on File Type Date Recorded Patient Long Distance 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 Care Teams Page Technician Relationship Specialty Start Date End Date Otilia Burgos DO [address] [place] [address] PCP - General Family Medicine 10/14/23 documented as of this encounter
--- OUTSIDE RECORDS SUMMARY | 2024-04-16 04:50 | External Medical Summary | Summary of Care ---
Author Name Unknown Organization [facility] Address [address] [place] [address] Phone [phone] Care Team Providers Care Sprinkler Tender Name Role Phone Otilia Burgos Primary Care Provider Reason for Visit * Reason Comments Weekly Check C1-C2 Encounter Details Date Type Department Care Team (Late st Contact Info) Description 04/13/2024 9:45 AM EST Documentation Radiation Oncology, [facility] [address] [place] [address] Sid Flores MD [address] [place] [address] [place] [address] Metastatic cancer to spine [...] mRNA, LNP-s, No Pre serve, 2-Dose Series (KartoonArt) 06/09/2020,05/19/2020 Pneumococcal Conjugate Vacc, 13 Valent (Prevnar) [...] ONCOLOGY: ON TREATMENT PROGRESS NOTE Megan Dvorsky [id number] 04/13/2024 Radiation Treatments Plan Last Treated On [...] chronic xerostomia. Sid Flores MD Radiation Oncology, [place] [address] documented in this encounter Nursing Notes * [...] 04/14/2024 9:30 AM EST Treatment Radiation Oncology, [facility] [address] [place] [address] 04/15/2024 8:45 AM EST Imaging Radiology [facility] 1st [facility] [address] [place] [phone] 04/15/2024 9:30 AM EST Treatment Radiation Oncology, [facility] [address] [place] [address] 04/15/2024 9:45 AM EST Documentation Radiation Oncology, [facility] [address] [place] [address] IovoliDelonte MD [address] [place] [address] 04/16/2024 1:00 PM EST Office Visit Family [address] [place] [address] Otilia Burgos DO [address] [place] [address] 04/23/2024 2:00 PM EST Office Visit Hematology Oncology [address] [phone] Rafi Goncalves MD [address] [place] [address] 04/30/2024 11:45 AM EST Pharmacy Pharmacy Hematology Oncology [address] [place] [address] [facility] [place] Hem/Onc [address] [place] [address] 06/18/2024 3:00 PM EDT Office Visit Cardiology, [facility] 132 [place] [address] Lucinda Ryan CRNP 132 [facility] [place] [address] 06/29/2024 2:15 PM EDT Imaging Radiology [address] 132 [facility] [place] [phone] 08/17/2024 10:30 AM EDT Imaging Radiology [facility] 2nd [facility] [address] [facility] [place] [address] 11/26/2024 12:50 PM EDT Office Visit Dermatology, [facility] [address] [place] [address] Vanda Manrique PA-C [address] [place] [address] 02/22/2025 3:00 PM EST Office Visit Endocrinology Rohit [address]al Dr [address] [place] [phone] Shaina George MD [address] [place] [address] Scheduled Procedures Name Priority Associated Diagnoses Date/Ti [...] Documents on File Type Date Recorded Patient Display Fabricator Expl anation POLST 09/26/2021 1:05 PM POLST * Full Code (Latest Code Status on File) Date Activated Date Inactivated Comments 06/28/2011 6:10 PM 06/29/2011 4:46 PM This order r eflects the patients wishes and were consensually agreed upon. Care Teams Sprinkler Tender Relationship Specialty Start Date End Date Otilia Burgos DO [address] [place] [address] PCP - General Family Medicine 10/14/23 documented as of this encounter
--- OUTSIDE RECORDS SUMMARY | 2024-04-16 04:50 | External Medical Summary | Summary of Care ---
Author Name Unknown Organization [facility] Address [address] [place] [address] Phone [phone] Care Team Providers Care Armoured Car Escort Name Role Phone Otilia Burgos Primary Care Provider Reason for Visit * Reason Onset Date Comments Patient Assistance Program 03/23/2024 28 Ch ristine B mek/taf f/u apr 24 Encounter Details Date Type Department Care Team (Late st Contact Info) Description 03/23/2024 Telephone Hematology Oncology [facility] [address] [place] [address] Rafi Goncalves MD [address] [place] [address] Patient Assistance Program (28 Blanka [...] Active tiZANidine HCl 2 MG Oral Tablet (Zanaflex)Eryntio ns:Neck pain Take 1 Tablet by mouth [...] mRNA, LNP-s, No Pre serve, 2-Dose Series ([employer]) 06/09/2020,05/19/2020 Pneumococcal Conjugate Vacc, 13 Valent (Prevnar) [...] medication until June 2024 ,Blanka Montesinos Medication French Professor 04/14/24.4:20 PM * Telephone Encounter - Blanka Montesinos OSA - 04/07/2024 12:19 PM EST Additional information requested from [facility] foundation on dx submitted today pending davon. Blanka Montesinos Medication French Professor 04/07/24.12:19 PM * Telephone Encounter - Blanka Montesinos OSA - 04/02/2024 9:05 AM EST Faxed request form to [facility] to [phone] pending review. Blanka Montesinos Medication French Professor 04/02/2024.9:05 AM * Telephone Encounter - Blanka Montesinos OSA - 03/31/2024 12:04 PM EST Received provider form that needs to be completed by Dr. Mckee sent to be signed. Blanka Montesinos Medication French Professor 03/31/2024.12:04 PM * Telephone Encounter - Blanka Montesinos OSA - 03/23/2024 7:03 AM EST Patient Assistance Name of Medication: mekinist /taflinar Was patient spoken to: : YES Type of assistance: other grants open for this medication but not dx , [facility] however application is pending review. Applications mailed: : NO Follow up: 2 days Blanka Montesinos Medication French Professor 03/23/2024.7:03 AM * Telephone Encounter - Amparo Gaspar OSA - 03/23/2024 5:49 AM EST [facility] can fill mekinist. Please route prescription to [id number]. Patient's co-pay will be $1994.76. Co-pay assistance required: yes [facility] will help search for additional assistance Thank you, ABDIEL Braga [facility] 03/23/24,5:48 AM documented in this encounter Plan of Treatment Upcoming Encounters Date Type Department Care Team (Late st Contact Info) Description 04/15/2024 8:45 AM EST Imaging Radiology [address], [place] [address] [place] [phone] 04/15/2024 9:30 AM EST Treatment Radiation Oncology, [facility] [address] [facility] [place] [address] 04/15/2024 9:45 AM EST Documentation Radiation Oncology, [facility] [address] [facility] [place] [address] IovolDelonte lopez MD [address] [place] [phone] 04/16/2024 1:00 PM EST Office Visit Family Practice [address], [place] [address] [facility] [place] [address] Otilia Burgos DO [address] [facility] [place] [address] 04/23/2024 2:00 PM EST Office Visit Hematology Oncology [facility] [address] [place] [phone] Rafi Goncalves MD [address] [place] [address] 04/30/2024 11:45 AM EST Pharmacy Pharmacy Hematology Oncology [facility] [address] [place] [address] [facility] [address] [place] [address] 06/18/2024 3:00 PM EDT Office Visit Cardiology, [facility] [address] [place] [address] Lucinda Ryan CRNP [address] [place] [address] 06/29/2024 2:15 PM EDT Imaging Radiology [facility] 1st [facility] [address] [place] [phone] 08/17/2024 10:30 AM EDT Imaging Radiology [facility] 2nd [facility], [place] [address] [place] [address] 11/26/2024 12:50 PM EDT Office Visit Dermatology, [facility] [address] [place] [address] Vanda Manrique PA-C [address] [place] [address] 02/22/2025 3:00 PM EST Office Visit Endocrinology Rohit [address]ansal Dr [address] [place] [phone] Shaina George MD [address] [facility] [place] [address] Scheduled Procedures Name Priority [...] Documents on File Type Date Recorded Patient Grocery Packer Expl anation POLST 09/26/2021 1:05 PM POLST * Full Code (Latest Code Status on File) Date Activated Date Inactivated Comments 06/28/2011 6:10 PM 06/29/2011 4:46 PM This order r eflects the patients wishes and were consensually agreed upon. Care Teams Armoured Car Escort Relationship Specialty Start Date End Date Otilia Burgos DO [address] [place] [facility] [place] [address] PCP - General Family Medicine 10/14/23 documented as of this encounter
--- OUTSIDE RECORDS SUMMARY | 2024-04-16 04:50 | External Medical Summary | Summary of Care ---
Author Name Unknown Organization [facility] Address [address] [place] [address] Phone [phone] Care Team Providers Care Golf Instructor Name Role Phone Otilia Burgos Primary Care Provider Reason for Visit * Reason Onset Date Comments Patient Assistance Program 03/23/2024 28 Ch ristine B mek/taf f/u apr 24 Encounter Details Date Type Department Care Team (Late st Contact Info) Description 03/23/2024 Telephone Hematology Oncology [facility] [address] [place] [address] Rafi Goncalves MD [address] [place] [address] Patient Assistance Program (28 Blanka [...] mRNA, LNP-s, No Pre serve, 2-Dose Series (Chirply) 06/09/2020,05/19/2020 Pneumococcal Conjugate Vacc, 13 Valent (Prevnar) [...] medication until June 2024 ,Blanka Montesinos Medication Anode Worker 04/14/24.4:20 PM * Telephone Encounter - Blanka Montesinos OSA - 04/07/2024 12:19 PM EST Additional information requested from [facility] foundation on dx submitted today pending davon. Blanka Montesinos Medication Anode Worker 04/07/24.12:19 PM * Telephone Encounter - Blanka Montesinos OSA - 04/02/2024 9:05 AM EST Faxed request form to [facility] to [phone] pending review. Blanka Montesinos Medication Anode Worker 04/02/2024.9:05 AM * Telephone Encounter - Blanka Montesinos OSA - 03/31/2024 12:04 PM EST Received provider form that needs to be completed by Dr. Mkcee sent to be signed. Blanka Montesinos Medication Anode Worker 03/31/2024.12:04 PM * Telephone Encounter - Blanka Montesinos OSA - 03/23/2024 7:03 AM EST Patient Assistance Name of Medication: mekinist /taflinar Was patient spoken to: : YES Type of assistance: other grants open for this medication but not dx , [facility] however application is pending review. Applications mailed: : NO Follow up: 2 days Blanka Montesinos Medication Anode Worker 03/23/2024.7:03 AM * Telephone Encounter - Amparo Gaspar OSA - 03/23/2024 5:49 AM EST [facility] can fill mekinist. Please route prescription to [phone]. Patient's co-pay will be $1994.76. Co-pay assistance required: yes [facility] will help search for additional assistance Thank you, ABDIEL Braga [facility] 03/23/24,5:48 AM documented in this encounter Plan of Treatment Upcoming Encounters Date Type Department Care Team (Late st Contact Info) Description 04/15/2024 8:45 AM EST Imaging Radiology [address], [place] [address] [place] [address] 04/15/2024 9:30 AM EST Treatment Radiation Oncology, [facility] [address] [facility] [place] [address] 04/15/2024 9:45 AM EST Documentation Radiation Oncology, [facility] [address] [facility] [place] [address] IovolDelonte lopez MD [address] [place] [phone] 04/16/2024 1:00 PM EST Office Visit Family Practice [address], [place] 293 [facility] [place] [address] Otilia Burgos DO 293 [place] [address] 04/23/2024 2:00 PM EST Office Visit Hematology Oncology [facility] [address] [place] [phone] Rafi Goncalves MD [address] [place] [address] 04/30/2024 11:45 AM EST Pharmacy Pharmacy Hematology Oncology [facility] [address] [place] [address] [facility] [address] [place] [address] 06/18/2024 3:00 PM EDT Office Visit Cardiology, [facility] [address] [place] [address] Lucinda Ryan CRNP [address] [place] [address] 06/29/2024 2:15 PM EDT Imaging Radiology [facility] 1st [facility] [address] [place] [phone] 08/17/2024 10:30 AM EDT Imaging Radiology [facility] 2nd [facility], [place] [address] [place] [address] 11/26/2024 12:50 PM EDT Office Visit Dermatology, [facility] [address] [place] [address] Vanda Manrique PA-C [address] [place] [address] 02/22/2025 3:00 PM EST Office Visit Endocrinology Rohit Bansal Dr [address] [place] [address] Shaina George MD [address] [facility] [place] [address] Scheduled Procedures Name Priority [...] Documents on File Type Date Recorded Patient Sole Stitcher Hand Expl anation POLST 09/26/2021 1:05 PM POLST * Full Code (Latest Code Status on File) Date Activated Date Inactivated Comments 06/28/2011 6:10 PM 06/29/2011 4:46 PM This order r eflects the patients wishes and were consensually agreed upon. Care Teams Golf Instructor Relationship Specialty Start Date End Date Otilia Burgos DO [address] [facility] [address] PCP - General Family Medicine 10/14/23 documented as of this encounter
--- OUTSIDE RECORDS SUMMARY | 2024-04-16 04:51 | External Medical Summary | Summary of Care ---
Author Name Unknown Organization [facility] Address [address] [place] [address] Phone [phone] Care Team Providers Care Eyedotter Name Role Phone Otilia Burgos Primary Care Provider Encounter Details Date Type Department Care Team (Late st Contact Info) Description 04/13/2024 Orders Only Radiation Oncology, [facility] [address] [place] [address] IovolDelonte lopez MD [address] [place] [address] Allergies Active Allergy Reactions Criticality Noted Date [...] Active Additional Information Patient not taking.Reported on 03/31/2024 Trametinib Dimethyl Sulfoxide 0.5 MG Oral Tablet (Mekinist)Indication s:Malignant neoplasm metastatic to lung, unspecified laterality (HCC),Papillary thyroid carcinoma (HCC),Recurrent thyroid cancer (HCC),Secondary and unspecified ma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, face and neck (HCC) Take 1.5 mg by mouth daily. Take on an empty stomach. Keep refrigerated. 90 Tablet 06/26/19 24 Active Additional Information Patient not taking.Reported on 03/31/2024 Trametinib Dimethyl Sulfoxide 0.5 MG Oral Tablet [...] Active Additional Information Patient not taking.Reported on 03/31/2024 Dabrafenib Mesylate 50 MG Oral Capsule (Tafinlar)Indication [...] Active Additional Information Patient not taking.Reported on 03/31/2024 Sennosides 8.6 MG Oral Tablet (Senokot) Take [...] needed 60 mL 1 11/26/19 24 Active Synthroid 125 MCG Oral TabletIndications:Po stoperative hypothyroidism Take one tablet by mouth six days a week and take two tablets once weekly 105 Tablet 3 4 10:12 AM EST 02/17/20 24 Active tiZANidine HCl 2 MG Oral Tablet (Zanaflex)Indication s:Neck pain Take 1 Tablet by mouth every 8 hours as needed for Muscle spasms. 30 Tablet 03/10/20 24 Active Metoprolol Succinate ER 50 MG Oral Tablet Extended Release 24 Hour (toPROL XL)Indications:HTN, goal below 140/90,Paroxysmal atrial fibrillation (HCC),PSVT (paroxysmal supraventricular tachycardia) (HCC) Take 1 Tablet by mouth in the morning and 1 Tablet before bedtime. 180 Tablet 5 1:56 PM EST 03/20/19 25 Active documented as of this encounter [...] mRNA, LNP-s, No Pre serve, 2-Dose Series (Pfizer) 06/09/2020,05/19/2020 Pneumococcal Conjugate Vacc, 13 Valent (Prevnar) [...] 01/20/2024 Does the household have a re lar source of income? (Household - for ages [...] on file documented as of this encounter Plan of Treatment Upcoming Encounters Date Type Department Care Team (Late st Contact Info) Description 04/14/2024 9:30 AM EST Treatment Radiation Oncology, [facility] [address] [place] [address] 04/15/2024 8:45 AM EST Imaging Radiology [address] 132 [facility] [place] [phone] 04/15/2024 9:30 AM EST Treatment Radiation Oncology, [facility] [address] [place] [address] 04/15/2024 9:45 AM EST Documentation Radiation Oncology, [facility] [address] [place] [address] IovoliDelonte MD [address] [place] [address] 04/16/2024 1:00 PM EST Office Visit Family [address] [place] [address] Otilia Burgos DO [address] [place] [address] 04/23/2024 2:00 PM EST Office Visit Hematology Oncology [place] [address] [place] [phone] Rafi Goncalves MD [address] [place] [address] 04/30/2024 11:45 AM EST Pharmacy Pharmacy Hematology Oncology [facility] [address] [place] [address] [facility] Hem/Onc [address] [place] [address] 06/18/2024 3:00 PM EDT Office Visit Cardiology, [facility] 132 [facility] [place] [address] Lucinda Ryan CRNP [address] [place] [address] 06/29/2024 2:15 PM EDT Imaging Radiology [address] [place] [address] 08/17/2024 10:30 AM EDT Imaging Radiology [address] [place] [address] 11/26/2024 12:50 PM EDT Office Visit Dermatology, [place] [address] [place] [address] Vanda Manrique PA-C [address] [place] [address] 02/22/2025 3:00 PM EST Office Visit Endocrinology Rohit Bansal Dr [address] [place] [phone] Shaina George MD [address] [facility] [place] [address] Scheduled Procedures Name Priority Associated Diagnoses [...] Albumin/Creatinine Ratio 09/18/2024 09/18/2021 GFR 11/28/2024 11/29/2023, 08/2023, 09/11/2023, Additional history exists TSH 02/04/2025 02/05/2024, 08/2023, 10/15/2023, Additional history exists Colonoscopy 02/15/2027 [...] Not on filedocumented as of this encounter Procedures Procedure Name Priority Date/Time Associated Diagnosis Comments RAD ONC ARIA SESSION SUMMARY Routine 04/13/2024 9:38 AM EST documented in this encounter Results * RAD ONC ARIA SESSION SUMMARY (04/13/2024 9:38 AM EST) Course ID C1 ARIA RADIATION ONCOLOGY Course Intent Palliative ARIA RADIATION ONCOLOGY Course Start Date 03/30/2024 1:12 PM ARIA RADIATION ONCOLOGY RAD ONC ARIA SESSION NUMBER 8 ARIA RADIATION ONCOLOGY Course First Treatment Date 04/02/2024 9:33 AM ARIA RADIATION ONCOLOGY Course Last Treatment Date 04/13/2024 9:36 AM ARIA RADIATION ONCOLOGY Course Elapsed Days 11 ARIA RADIATION ONCOLOGY Reference Point ID PTV C1-C2 ARIA RADIATION ONCOLOGY Reference Point Dosage Given to Date 24 Gy ARIA RADIATION ONCOLOGY Reference Point Session Dosage Given 3 Gy ARIA RADIATION ONCOLOGY Plan ID 10-C1-C2 ARIA RADIATION ONCOLOGY Plan Fractions Treated to Date 8 ARIA RADIATION ONCOLOGY Plan Total Fractions Prescribed 10 ARIA RADIATION ONCOLOGY Plan Prescribed Dose Per Fraction 3 Gy ARIA RADIATION ONCOLOGY Plan Total Prescribed Dose 3,000 cGy ARIA RADIATION ONCOLOGY Plan Primary Reference Point PTV C1-C2 ARIA RADIATION ONCOLOGY 04/13/2024 9:38 AM EST us No Physician Data Unknown DRESSINGS Final Result DARELL RADIATION ONCOLOGY documented in this encounter Advance Directives Documents on File Type Date Recorded Patient Speech Pathologist Expl anation POLST 09/26/2021 1:05 PM POLST * Full Code (Latest Code Status on File) Date Activated Date Inactivated Comments 06/28/2011 6:10 PM 06/29/2011 4:46 PM This order r eflects the patients wishes and were consensually agreed upon. Care Teams Eyedotter Relationship Specialty Start Date End Date Otilia Burgos DO [address] [facility] [place] [address] PCP - General Family Medicine 10/14/23 documented as of this encounter
--- OUTSIDE RECORDS SUMMARY | 2024-04-16 04:51 | External Medical Summary | Summary of Care ---
Author Name Unknown Organization [facility] Address [address] [place] [address] Phone [phone] Care Team Providers Care Printer Machine Name Role Phone Otilia Burgos Primary Care Provider Reason for Visit * Reason Comments Weekly Check C1-C2 Encounter Details Date Type Department Care Team (Late st Contact Info) Description 04/06/2024 9:45 AM EST Documentation Radiation Oncology, [facility] [address] [place] [address] IovolDelonte lopez MD [address] [place] [address] Allergies Active Allergy Reactions Criticality Noted Date Comments Adhesive Tape Other (Please comment) Low 04/16/2013 Skin becomes red and sore Other reaction(s): Rash Lactose Diarrhea 08/12/2015 Latex Low 06/26/2021 Other reaction(s): Rash documented as of this encounter (statuses as of 04/06/2024) Medications FISH OIL 1000 MG PO CAPS [...] as of this encounter (statuses as of 04/06/2024) Active Problems Problem Noted Date Diagnosed Date [...] as of this encounter (statuses as of 04/06/2024) Resolved Problems Problem Noted Date Diagnosed Date Resolved Date Kidney disease, chronic, sta ge III (GFR 30-59 ml/min) 09/19/2015 06/04/2016 Overview: Per CKD protocol #1 Other stomatitis and mucositis (ulcerative) 07/27/2012 12/16/2017 Hypothyroidism 06/30/2012 03/23/2015 Throat pain 01/07/2012 05/07/2017 Dyspareunia 03/13/2010 07/05/2016 Joint pain, hip 03/13/2010 03/19/2017 Palpitations 03/13/2010 03/19/2017 documented as of this encounter (statuses as of 04/06/2024) Immunizations Name Administration Dates Next Due COVID-19 mRNA, LNP-s, No Pre serve, 2-Dose Series (GetIntent) 06/09/2020,05/19/2020 Pneumococcal Conjugate Vacc, 13 Valent (Prevnar) [...] No 01/20/2024 Does the household have a unm cancer centerlar source of income? (Household - for ages [...] Sign Reading Time Taken Comments Blood Pressure 163/84 04/06/2024 9:15 AM EST Pulse 60 04/06/2024 9:15 AM EST Temperature 36.3 C (97.3 F) 04/06/2024 9:15 AM ES T Respiratory Rate 18 04/06/2024 9:15 AM EST Oxygen Saturation 100% 04/06/2024 9:15 AM EST Inhaled Oxygen Concentration - - Weight 79.4 kg (175 lb) 04/06/2024 9:15 AM EST Height - - Body Mass Index 28.46 03/10/2024 10:16 AM EST documented in this encounter Nursing Notes * Michelle Hurtado LPN - 04/06/2024 9:16 AM EST Chief Complaint Patient presents with Weekly Check C1-C2 Patient presents alone for weekly check. She has completed 3 out of 10 fractions to the C1-C2 area so far. Reports she has some discomfort in her neck/shoulders today. No falls reported. Patient was instructed to not get up on the exam table/exam chair until directed and assisted by their provider; patient is to remain seated in the chair/wheelchair/exam table/exam chair for fall prevention and safety reasons. Patient is aware to have assistance to step down off exam table/exam chair with personnel. Patient voiced full comprehension of instructions. documented in this encounter Miscellaneous Notes * Radiation OTV Note - Delonte Morocho MD - 04/06/2024 9:17 AM EST RADIATION ONCOLOGY WEEKLY ON TREATMENT VISIT NOTE Date: 04/06/2024 Patient: Megan Phillips HISTORY OF PRESENT ILLNESS Ms. Phillips is a 78 year old female with recurrent/metastatic papillary carcinoma of the thyroid presenting with new osseous involvement of her C1-2 spine causing pain. She was evaluated at neuro [facility] felt to have stable findings. She has declined surgical stabilization and we are proceeding with palliative radiation. Concurrent chemotherapy: no RADIATION TREATMENT Lab Results Component Value Date/Time ARIA PLAN ID 10-C1-C2 04/03/2024 09:34 AM ARIA COURSE INTENT Palliative 04/03/2024 09:34 AM ARIA PLAN TOTAL PRESCRIBED DOSE 3,000 04/03/2024 09:34 AM ARIA COURSE ELAPSED DAYS 1 04/03/2024 09:34 AM ARIA COURSE FIRST TREATMENT DATE 04/02/2024 9:33 AM 04/03/2024 09:34 AM ARIA COURSE LAST TREATMENT DATE 04/03/2024 9:32 AM 04/03/2024 09:34 AM ARIA PLAN FRACTIONS TREATED TO DATE 2 04/03/2024 09:34 AM ARIA PLAN TOTAL FRACTIONS PRESCRIBED 10 04/03/2024 09:34 AM SUBJECTIVE Patient notes no radiation side effects. Her cervical neck pain has been hit or miss depending on the day, she does not note any improvement yet. She is wearing a cervical neck brace and feels this has helped. She is worried about cervical spine compression fracture. OBJECTIVE Examination reveals no radiation-induced changes. ECOG Performance Status: 0 = Fully active, able to carry on all pre-disease performance without restriction VITAL SIGNS: Temp 36.3 C (97.3 F) (Infrared ) | Resp 18 | Wt 79.4 kg (175 lb) | BMI 28.46 kg/m | BSA 1.92 m Wt Readings from Last 5 Encounters: 04/06/24 79.4 kg (175 lb) 03/31/24 78.7 kg (173 lb 9.6 oz) 03/30/24 78.6 kg (173 lb 3.2 oz) 03/10/24 78.2 kg (172 lb 4.8 oz) 02/27/24 78.9 kg (173 lb 14.4 oz) IMAGING/LAB RESULTS: Weekly localization images, patient setup, dosimetry, and patient labs were reviewed by myself. Results for orders placed or performed in visit on 11/29/23 CBC Result Value Ref Range WBC 3.44 (L) 4.00 - 10.80 K/uL RBC 4.39 3.85 - 5.15 M/uL HGB 12.7 12.0 - 15.3 g/dL HCT 38.4 36.0 - 45.2 % MCV 87.5 81.5 - 97.5 fL MCH 28.9 27.0 - 34.0 pg MCHC 33.1 32.0 - 36.0 g/dL RDW 15.0 11.5 - 15.5 % PLT 180 140 - 400 K/uL MPV 8.9 6.6 - 11.1 fL Results for orders placed or performed in visit on 11/29/23 COMPREHENSIVE METABOLIC PANEL Result Value Ref Range BUN 22 (H) 6 - 20 mg/dL CREATININE 1.1 (H) 0.5 - 1.0 mg/dL EGFR 51 (L) >=60 mL/min SODIUM 134 (L) 135 - 146 mmol/L POTASSIUM 4.3 3.5 - 5.1 mmol/L CHLORIDE 99 98 - 107 mmol/L CO2 24 22 - 32 mmol/L ANION GAP 11 7 - 15 mmol/L GLUCOSE 110 70 - 120 mg/dL Albumin 3.5 (L) 3.8 - 5.0 g/dL AST 34 10 - 35 U/L Alkaline Phosphatase 109 35 - 130 U/L Bilirubin, Total 0.3 <=1.2 mg/dL CALCIUM 8.5 8.4 - 10.2 mg/dL Protein 6.4 6.0 - 8.3 g/dL ALT 17 10 - 35 U/L Acute Radiation Toxicity (CTCAE version 5.0): Dermatitis radiation: no Dry mouth: no Mucositis: no Esophagitis: no Nausea: no Vomiting: no Cystitis non-infective: no Proctitis: no Diarrhea: no Weight loss: no Fatigue: no Other (specify): N/A ASSESSMENT/PLAN: Tolerating treatment well with no radiation side effects. Discussed with her risk of cervical spine compression fracture is low. Continue radiation therapy. Delonte Morocho MD Radiation Oncology, [address] [address] documented in this encounter Plan of Treatment Upcoming Encounters Date Type Department Care Team (Late st Contact Info) Description 04/07/2024 9:30 AM EST Treatment Radiation Oncology, [address] [address] 04/15/2024 8:45 AM EST Imaging Radiology [address] [place] [address] 04/16/2024 1:00 PM EST Office Visit Family Practice [address], [place] [address] [place] [address] Otilia Burgos DO [address] [place] [address] 04/23/2024 2:00 PM EST Office Visit Hematology Oncology [facility] [address] [place] [phone] Rafi Goncalves MD [address] [place] [address] 04/30/2024 11:45 AM EST Pharmacy Pharmacy Hematology Oncology [facility] [address] [place] [address] [facility] [address] [place] [address] 06/18/2024 3:00 PM EDT Office Visit Cardiology, [facility] 132 [facility] [place] [address] Lucinda Ryan CRNP 132 [facility] [place] [address] 08/17/2024 10:30 AM EDT Imaging Radiology [facility] 2nd [facility] 132 [facility] [place] [address] 11/26/2024 12:50 PM EDT Office Visit Dermatology, Jarrod Olguin [address] [place] [address] Vanda Manrique PA-C [address] [place] [address] 02/22/2025 3:00 PM EST Office Visit Endocrinology Rohit Bansal Dr [address] [place] [address] Shaina George MD [address] [place] [address] Scheduled Procedures Name Priority Associated Diagnoses Date/Ti [...] Documents on File Type Date Recorded Patient Rivet Hammer Machine 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 Care Teams Printer Machine Relationship Specialty Start Date End Date Otilia Burgos DO [address] [place] [address] PCP - General Family Medicine 10/14/23 documented as of this encounter"
--- OUTSIDE RECORDS SUMMARY | 2024-04-16 04:51 | External Medical Summary | Summary of Care ---
Author Name Unknown Organization [facility] Address [address] [place] [address] Phone [phone] Care Team Providers Care Sales Promotion Officer Name Role Phone Otilia Burgos Primary Care Provider Encounter Details Date Type Department Care Team (Late st Contact Info) Description 04/09/2024 Orders Only Radiation Oncology, [facility] [address] [place] [address] IovolDelonte lopez MD [address] [place] [address] Allergies Active Allergy Reactions Criticality Noted Date Comments Adhesive Tape Other (Please comment) Low 04/16/2013 Skin becomes red and sore Other reaction(s): Rash Lactose Diarrhea 08/12/2015 Latex Low 06/26/2021 Other reaction(s): Rash documented as of this encounter (statuses as of 04/09/2024) Medications FISH OIL 1000 MG PO CAPS [...] as of this encounter (statuses as of 04/09/2024) Active Problems Problem Noted Date Diagnosed Date [...] as of this encounter (statuses as of 04/09/2024) Resolved Problems Problem Noted Date Diagnosed Date Resolved Date Kidney disease, chronic, sta ge III (GFR 30-59 ml/min) 09/19/2015 06/04/2016 Overview: Per CKD protocol #1 Other stomatitis and mucositis (ulcerative) 07/27/2012 12/16/2017 Hypothyroidism 06/30/2012 03/23/2015 Throat pain 01/07/2012 05/07/2017 Dyspareunia 03/13/2010 07/05/2016 Joint pain, hip 03/13/2010 03/19/2017 Palpitations 03/13/2010 03/19/2017 documented as of this encounter (statuses as of 04/09/2024) Immunizations Name Administration Dates Next Due COVID-19 [...] Description 04/15/2024 8:45 AM EST Imaging Radiology [facility] 1st [facility] 132 [facility] [place] [phone] 04/16/2024 1:00 PM EST Office Visit Family Practice [address], [place] [address] [place] [address] Otilia Bugros DO 293 [facility] [address] 04/23/2024 2:00 PM EST Office Visit Hematology Oncology [facility] [address] [place] [phone] Rafi Goncalves MD [address] [place] [address] 04/30/2024 11:45 AM EST Pharmacy Pharmacy Hematology Oncology [facility] [address] [place] [address] [facility], [facility] Hem/Onc [address] [place] [address] 06/18/2024 3:00 PM EDT Office Visit Cardiology, [facility] [address] [facility] [place] [address] Lucinda Ryan CRNP 132 [facility] [place] [address] 08/17/2024 10:30 AM EDT Imaging Radiology [facility] 2nd [facility] [address] [facility] [place] [address] 11/26/2024 12:50 PM EDT Office Visit Dermatology, Jarrod Olguin [address] [place] [address] Vanda Manrique PA-C [address] [place] [address] 02/22/2025 3:00 PM EST Office Visit Endocrinology Rohit Bansal Dr [address] [place], [place] [phone] Shaina George MD [address] [facility] [place] [address] Scheduled Procedures Name Priority [...] Comments RAD ONC ARIA SESSION SUMMARY Routine 04/09/2024 9:25 AM EST documented in this encounter Results * RAD ONC ARIA SESSION SUMMARY (04/09/2024 9:25 AM EST) Course ID C1 ARIA RADIATION ONCOLOGY Course Intent Palliative ARIA RADIATION ONCOLOGY Course Start Date 03/30/2024 1:12 PM ARIA RADIATION ONCOLOGY RAD ONC ARIA SESSION NUMBER 6 ARIA RADIATION ONCOLOGY Course First Treatment Date 04/02/2024 9:33 AM ARIA RADIATION ONCOLOGY Course Last Treatment Date 04/09/2024 9:23 AM ARIA RADIATION ONCOLOGY Course Elapsed Days 7 ARIA RADIATION ONCOLOGY Reference Point ID PTV C1-C2 ARIA RADIATION ONCOLOGY Reference Point Dosage Given to Date 18 Gy ARIA RADIATION ONCOLOGY Reference Point Session Dosage Given 3 Gy ARIA RADIATION ONCOLOGY Plan ID 10-C1-C2 ARIA RADIATION ONCOLOGY Plan Fractions Treated to Date 6 ARIA RADIATION ONCOLOGY Plan Total Fractions Prescribed 10 ARIA RADIATION ONCOLOGY Plan Prescribed Dose Per Fraction 3 Gy ARIA RADIATION ONCOLOGY Plan Total Prescribed Dose 3,000 cGy ARIA RADIATION ONCOLOGY Plan Primary Reference Point PTV C1-C2 ARIA RADIATION ONCOLOGY 04/09/2024 9:25 AM EST us No Physician Data Unknown DRESSINGS Final Result ARIA RADIATION ONCOLOGY documented in this encounter Advance Directives Documents on File Type Date Recorded Patient Blind Escort Expl anation POLST 09/26/2021 1:05 PM POLST * Full Code (Latest Code Status on File) Date Activated Date Inactivated Comments 06/28/2011 6:10 PM 06/29/2011 4:46 PM This order r eflects the patients wishes and were consensually agreed upon. Care Teams Sales Promotion Officer Relationship Specialty Start Date End Date Otilia Burgos DO [address] [place] [address] PCP - General Family Medicine 10/14/23 documented as of this encounter
--- OUTSIDE RECORDS SUMMARY | 2024-04-16 04:51 | External Medical Summary | Summary of Care ---
Author Name Unknown Organization [facility] Address [address] [place] [address] Phone [phone] Care Team Providers Care Needle Punch Operator Name Role Phone Otilia uBrgos DO Primary Care Provider Reason for Visit * Reason Onset Date Comments Patient Assistance Program 03/23/2024 28 Ch ristine B mek/taf PAF davon pending Encounter Details Date Type Department Care Team (Late st Contact Info) Description 03/23/2024 Telephone Hematology Oncology [facility] [address] [place] [address] Rafi Goncalves MD [address] [place] [address] Patient Assistance Program (28 Blanka Russo... Allergies Active Allergy Reactions Criticality Noted Date [...] 03/31/2024 Dabrafenib Mesylate 50 MG Oral Capsule (Tafinlar)Indicatio [...] 025 Active Hydrocortisone 2.5 % External CreamIndications:Dr surjit rash Apply topically to affected area 2 times a day. 30 g 1 11/15/19 24 Active Fluocinonide 0.05 % External Solution Apply to scalp once to twice a day when scalp is inflamed and itchy. Can apply up to 2 weeks then as needed 60 mL 1 11/26/19 24 Active Synthroid 125 MCG Oral TabletIndications:P ostoperative hypothyroidism Take one tablet by mouth six days a week and take two tablets once weekly 105 Tablet 3 4 10:12 AM EST 02/17/20 24 Active tiZANidine HCl 2 MG Oral Tablet (Zanaflex)Indicatio ns:Neck pain Take 1 Tablet by mouth [...] mRNA, LNP-s, No Pre serve, 2-Dose Series ([employer]) 06/09/2020,05/19/2020 Pneumococcal Conjugate Vacc, 13 Valent (Prevnar) [...] 12:19 PM EST Additional information requested from [facility] foundation on dx submitted today pending davon. Blanka Montesinos Medication English Lecturer 04/07/24.12:19 PM * Telephone Encounter - Blanka Montesinos OSA - 04/02/2024 9:05 AM EST Faxed request form to [facility] to [phone] pending review. Blanka Montesinos Medication English Lecturer 04/02/2024.9:05 AM * Telephone Encounter - Blanka Montesinos OSA - 03/31/2024 12:04 PM EST Received provider form that needs to be completed by Dr. Mckee sent to be signed. Blanka Montesinos Medication English Lecturer 03/31/2024.12:04 PM * Telephone Encounter - Blanka Montesinos OSA - 03/23/2024 7:03 AM EST Patient Assistance Name of Medication: tacho /silvia Was patient spoken to: : YES Type of assistance: other grants open for this medication but not dx , was able to apply to [employer] davon however application is pending review. Applications mailed: : NO Follow up: 2 days Blanka Montesinos Medication English Lecturer 03/23/2024.7:03 AM * Telephone Encounter - Amparo Gaspar OSA - 03/23/2024 5:49 AM EST [facility] can fill mekinist. Please route prescription to [phone]. Patient's co-pay will be $1994.76. Co-pay assistance required: yes [facility] will help search for additional assistance Thank you, ABDIEL Braga [facility] 03/23/24,5:48 AM documented in this encounter Plan of Treatment Upcoming Encounters Date Type Department Care Team (Late st Contact Info) Description 04/15/2024 8:45 AM EST Imaging Radiology [facility] 1st [facility] [address] [place] [phone] 04/16/2024 1:00 PM EST Office Visit Family Practice [address], [place] [address] [place] [address] Otilia Burgos DO [address] [place] [address] 04/23/2024 2:00 PM EST Office Visit Hematology Oncology [facility] [address] [place] [address] Rafi Goncalves MD [address] [place] [address] 04/30/2024 11:45 AM EST Pharmacy Pharmacy Hematology Oncology [facility] [address] [place], [place] [phone] [facility], [facility] Hem/Onc [address] [place] [address] 06/18/2024 3:00 PM EDT Office Visit Cardiology, [facility] [address] [place] [address] Lucinda Ryan CRNP [address] [place] [address] 08/17/2024 10:30 AM EDT Imaging Radiology [facility] 2nd [facility] 132 [facility] [place] [address] 11/26/2024 12:50 PM EDT Office Visit Dermatology, Jarrod Olguin [address] [place] [address] Vanda Manrique PA-C [address] [place] [address] 02/22/2025 3:00 PM EST Office Visit Endocrinology Rohit Bansal Dr [address] [place] [phone] Shaina George MD [address] [facility] [place] [address] Scheduled Procedures Name Priority Associated Diagnoses Date/Ti [...] Albumin/Creatinine Ratio 09/18/2024 09/18/2021 GFR 11/28/2024 11/29/2023, 090 08/2023, 09/11/2023, Additional history exists TSH 02/04/2025 [...] Documents on File Type Date Recorded Patient Instruction Assistant Principal Expl anation POLST 09/26/2021 1:05 PM POLST * Full Code (Latest Code Status on File) Date Activated Date Inactivated Comments 06/28/2011 6:10 PM 06/29/2011 4:46 PM This order r eflects the patients wishes and were consensually agreed upon. Care Teams Needle Punch Operator Relationship Specialty Start Date End Date Otilia Burgos DO [address] [place] [address] PCP - General Family Medicine 10/14/23 documented as of this encounter
--- OUTSIDE RECORDS SUMMARY | 2024-04-16 04:51 | External Medical Summary | Summary of Care ---
Author Name Unknown Organization [facility] Address [address] [place] [address] Phone [phone] Care Team Providers Care Education Intern Name Role Phone Otilia Burgos Primary Care Provider Encounter Details Date Type Department Care Team (Late st Contact Info) Description 04/10/2024 Orders Only Radiation Oncology, [facility] [address] [place] [address] IovolDelonte lopez MD [address] [place] [address] Allergies Active Allergy Reactions Criticality Noted Date Comments Adhesive Tape Other (Please comment) Low 04/16/2013 Skin becomes red and sore Other reaction(s): Rash Lactose Diarrhea 08/12/2015 Latex Low 06/26/2021 Other reaction(s): Rash documented as of this encounter (statuses as of 04/10/2024) Medications FISH OIL 1000 MG PO CAPS [...] as of this encounter (statuses as of 04/10/2024) Active Problems Problem Noted Date Diagnosed Date [...] as of this encounter (statuses as of 04/10/2024) Resolved Problems Problem Noted Date Diagnosed Date Resolved Date Kidney disease, chronic, sta ge III (GFR 30-59 ml/min) 09/19/2015 06/04/2016 Overview: Per CKD protocol #1 Other stomatitis and mucositis (ulcerative) 07/27/2012 12/16/2017 Hypothyroidism 06/30/2012 03/23/2015 Throat pain 01/07/2012 05/07/2017 Dyspareunia 03/13/2010 07/05/2016 Joint pain, hip 03/13/2010 03/19/2017 Palpitations 03/13/2010 03/19/2017 documented as of this encounter (statuses as of 04/10/2024) Immunizations Name Administration Dates Next Due COVID-19 [...] Description 04/15/2024 8:45 AM EST Imaging Radiology [facility] 1st [facility] [place] [phone] 04/15/2024 9:45 AM EST Documentation Radiation Oncology, [facility] [address] [facility] [place] [address] IovoliDelonte MD [address] [place] [phone] 04/16/2024 1:00 PM EST Office Visit Family Practice [address], [place] [address] [facility] [place] [address] Otilia Burgos DO 293 [place] [address] 04/23/2024 2:00 PM EST Office Visit Hematology Oncology [facility] [address] [place] [phone] Rafi Goncalves MD [address] [place] [address] 04/30/2024 11:45 AM EST Pharmacy Pharmacy Hematology Oncology [facility] [address] [place] [address] [facility], [facility] Hem/Onc [address] [place] [address] 06/18/2024 3:00 PM EDT Office Visit Cardiology, [facility] 132 [facility] [place] [address] Lucinda Ryan CRNP [address] [place] [address] 08/17/2024 10:30 AM EDT Imaging Radiology [facility] 2nd [facility] [address] [place] [address] 11/26/2024 12:50 PM EDT Office Visit Dermatology, [place] JonesJar[place] [address] [place] [address] Vanda Manrique PA-C [address] [place] [address] 02/22/2025 3:00 PM EST Office Visit Endocrinology Rohit Bansal Dr [address] [place], [place] [address] Shaina George MD 100 [address] [facility] [place] [address] Scheduled Procedures Name [...] Comments RAD ONC ARIA SESSION SUMMARY Routine 04/10/2024 9:23 AM EST documented in this encounter Results * RAD ONC ARIA SESSION SUMMARY (04/10/2024 9:23 AM EST) Course ID C1 ARIA RADIATION ONCOLOGY Course Intent Palliative ARIA RADIATION ONCOLOGY Course Start Date 03/30/2024 1:12 PM ARIA RADIATION ONCOLOGY RAD ONC ARIA SESSION NUMBER 7 ARIA RADIATION ONCOLOGY Course First Treatment Date 04/02/2024 9:33 AM ARIA RADIATION ONCOLOGY Course Last Treatment Date 04/10/2024 9:21 AM ARIA RADIATION ONCOLOGY Course Elapsed Days 8 ARIA RADIATION ONCOLOGY Reference Point ID PTV C1-C2 ARIA RADIATION ONCOLOGY Reference Point Dosage Given to Date 21 Gy ARIA RADIATION ONCOLOGY Reference Point Session Dosage Given 3 Gy ARIA RADIATION ONCOLOGY Plan ID 10-C1-C2 ARIA RADIATION ONCOLOGY Plan Fractions Treated to Date 7 ARIA RADIATION ONCOLOGY Plan Total Fractions Prescribed 10 ARIA RADIATION ONCOLOGY Plan Prescribed Dose Per Fraction 3 Gy ARIA RADIATION ONCOLOGY Plan Total Prescribed Dose 3,000 cGy ARIA RADIATION ONCOLOGY Plan Primary Reference Point PTV C1-C2 ARIA RADIATION ONCOLOGY 04/10/2024 9:23 AM EST us No Physician Data Unknown DRESSINGS Final Result ARIA RADIATION ONCOLOGY documented in this encounter Advance Directives Documents on File Type Date Recorded Patient Dynamo Tender Expl anation POLST 09/26/2021 1:05 PM POLST * Full Code (Latest Code Status on File) Date Activated Date Inactivated Comments 06/28/2011 6:10 PM 06/29/2011 4:46 PM This order r eflects the patients wishes and were consensually agreed upon. Care Teams Education Intern Relationship Specialty Start Date End Date Otilia Burgos DO [address] [facility] [place] [address] PCP - General Family Medicine 10/14/23 documented as of this encounter
--- OUTSIDE RECORDS SUMMARY | 2024-04-16 04:52 | External Medical Summary | Summary of Care ---
Author Name Unknown Organization [facility] Address [address] [place] [address] Phone [phone] Care Team Providers Care Honing Job Setter Name Role Phone Otilia Burgos DO Primary Care Provider Reason for Visit * Reason Onset Date Comments Patient Assistance Program 03/23/2024 23 Ch ristine B mek/taf PAF davon pending Encounter Details Date Type Department Care Team (Late st Contact Info) Description 03/23/2024 Telephone Hematology Oncology [facility] [address] [place] [address] Rafi Goncalves MD [address] [place] [address] Patient Assistance Program (23 Blanka B... Allergies Active Allergy Reactions Criticality Noted Date Comments Adhesive Tape Other (Please comment) Low 04/16/2013 Skin becomes red and sore Other reaction(s): Rash Lactose Diarrhea 08/12/2015 Latex Low 06/26/2021 Other reaction(s): Rash documented as of this encounter (statuses as of 04/03/2024) Medications FISH OIL 1000 MG PO CAPS [...] as of this encounter (statuses as of 04/03/2024) Active Problems Problem Noted Date Diagnosed Date [...] as of this encounter (statuses as of 04/03/2024) Resolved Problems Problem Noted Date Diagnosed Date Resolved Date Kidney disease, chronic, sta ge III (GFR 30-59 ml/min) 09/19/2015 06/04/2016 Overview: Per CKD protocol #1 Other stomatitis and mucositis (ulcerative) 07/27/2012 12/16/2017 Hypothyroidism 06/30/2012 03/23/2015 Throat pain 01/07/2012 05/07/2017 Dyspareunia 03/13/2010 07/05/2016 Joint pain, hip 03/13/2010 03/19/2017 Palpitations 03/13/2010 03/19/2017 documented as of this encounter (statuses as of 04/03/2024) Immunizations Name Administration Dates Next Due COVID-19 mRNA, LNP-s, No Pre serve, 2-Dose Series ([employer]) 06/09/2020,05/19/2020 Pneumococcal Conjugate Vacc, 13 Valent (Prevnar) [...] 9:05 AM EST Faxed request form to [facility] to [phone] pending review. Blanka Montesinos Medication Packer And Carry Out 04/02/2024.9:05 AM * Telephone Encounter - Blanka Montesinos OSA - 03/31/2024 12:04 PM EST Received provider form that needs to be completed by Dr. Mckee sent to be signed. Blanka Montesinos Medication Packer And Carry Out 03/31/2024.12:04 PM * Telephone Encounter - Blanka Montesinos OSA - 03/23/2024 7:03 AM EST Patient Assistance Name of Medication: mekinist /taflinar Was patient spoken to: : YES Type of assistance: other grants open for this medication but not dx , was able to apply to [employer] davon however application is pending review. Applications mailed: : NO Follow up: 2 days Blanka Montesinos Medication Packer And Carry Out 03/23/2024.7:03 AM * Telephone Encounter - Amparo Gaspar OSA - 03/23/2024 5:49 AM EST [facility] can fill mekinist. Please route prescription to [phone]. Patient's co-pay will be $1994.76. Co-pay assistance required: yes [facility] will help search for additional assistance Thank you, ABDIEL Braga [facility] 03/23/24,5:48 AM documented in this encounter Plan of Treatment Upcoming Encounters Date Type Department Care Team (Late st Contact Info) Description 04/06/2024 9:30 AM EST Treatment Radiation Oncology, [facility] [address] [place] [address] 04/07/2024 9:30 AM EST Treatment Radiation Oncology, [facility] [address] [place] [address] 04/15/2024 8:45 AM EST Imaging Radiology [facility] 1st [facility] [address] [place] [phone] 04/16/2024 1:00 PM EST Office Visit Family Practice 65 [facility] [address] [place] [address] tOilia Burgos DO [address] [place] [address] 04/23/2024 2:00 PM EST Office Visit Hematology Oncology [address] [phone] Rafi Goncalves MD [address] [place] [address] 04/30/2024 11:45 AM EST Pharmacy Pharmacy Hematology Oncology [address] [address] [facility], [facility] Hem/Onc [facility] [address] [place], [place] [address] 06/18/2024 3:00 PM EDT Office Visit Cardiology, [facility] [address] [place] [address] Lucinda Ryan CRNP 132 [facility] [place] [address] 08/17/2024 10:30 AM EDT Imaging Radiology [facility] 2nd [facility] [address] [place] [address] 11/26/2024 12:50 PM EDT Office Visit Dermatology, Jarrod Olguin [address] [place] [phone] Vanda Manrique PA-C [address] [place] [address] 02/22/2025 3:00 PM EST Office Visit Endocrinology Rohit Bansal Dr [address] [place] [address] Shaina George MD [address] [place] [facility] [place] [address] Scheduled Procedures Name Priority Associated Diagnoses Date/Ti me COLONOSCOPY FLEXIBLE PROXIMA L DIAGNOSTIC Recall History of colonic polyps Health Maintenance Due Date Last Done Comments DXA Scan 04/04/2018 04/04/2011, 04/04/2011 COVID-19 Vaccine (3 - Pfizer risk series) 07/07/2020 06/09/2020, 05/19/2020 DTap/Tdap Vaccines (2 - Td or Tdap) 09/16/2023 09/15/2013 Influenza Vaccine (FLU shot) (#1) 2023 12/16/2017 (Refused) Adult Wellness Visit 05/09/2024 05/10/2023, 05/08/19 Depression Screening 05/09/2024 05/10/2023 Albumin/Creatinine Ratio 09/18/2024 09/18/2021 GFR 11/28/2024 11/29/2023, 0 08/2023, 09/11/2023, Additional history exists TSH 02/04/2025 02/05/2024, 0 08/2023, 10/15/2023, Additional history exists Colonoscopy 02/15/2027 [...] Documents on File Type Date Recorded Patient Associate Project Manager Expl anation POLST 09/26/2021 1:05 PM POLST * Full Code (Latest Code Status on File) Date Activated Date Inactivated Comments 06/28/2011 6:10 PM 06/29/2011 4:46 PM This order r eflects the patients wishes and were consensually agreed upon. Care Teams Honing Job Setter Relationship Specialty Start Date End Date Otilia Burgos DO [address] [place] [address], [place] [address] PCP - General Family Medicine 10/14/23 documented as of this encounter
--- OUTSIDE RECORDS SUMMARY | 2024-04-16 04:52 | External Medical Summary | Summary of Care ---
Author Name Unknown Organization [facility] Address [address] [place] [address] Phone [phone] Care Team Providers Care Sock And Stocking Ironer Name Role Phone Otilia Burgos Primary Care Provider Encounter Details Date Type Department Care Team (Late st Contact Info) Description 04/02/2024 Orders Only Radiation Oncology, [facility] [address] [place] [address] IovolDelonte lopez MD [address] [place] [address] Allergies Active Allergy Reactions Criticality Noted Date Comments Adhesive Tape Other (Please comment) Low 04/16/2013 Skin becomes red and sore Other reaction(s): Rash Lactose Diarrhea 08/12/2015 Latex Low 06/26/2021 Other reaction(s): Rash documented as of this encounter (statuses as of 04/02/2024) Medications FISH OIL 1000 MG PO CAPS [...] as of this encounter (statuses as of 04/02/2024) Active Problems Problem Noted Date Diagnosed Date [...] as of this encounter (statuses as of 04/02/2024) Resolved Problems Problem Noted Date Diagnosed Date Resolved Date Kidney disease, chronic, sta ge III (GFR 30-59 ml/min) 09/19/2015 06/04/2016 Overview: Per CKD protocol #1 Other stomatitis and mucositis (ulcerative) 07/27/2012 12/16/2017 Hypothyroidism 06/30/2012 03/23/2015 Throat pain 01/07/2012 05/07/2017 Dyspareunia 03/13/2010 07/05/2016 Joint pain, hip 03/13/2010 03/19/2017 Palpitations 03/13/2010 03/19/2017 documented as of this encounter (statuses as of 04/02/2024) Immunizations Name Administration Dates Next Due COVID-19 [...] Care Team (Late st Contact Info) Description 04/03/2024 9:30 AM EST Treatment Radiation Oncology, [facility] [address] [facility] [place] [address] 04/06/2024 9:30 AM EST Treatment Radiation Oncology, [facility] [address] [facility] [place] [address] 04/07/2024 9:30 AM EST Treatment Radiation Oncology, [facility] [address] [place] [address] 04/15/2024 8:45 AM EST Imaging Radiology [facility] 1st [facility] [address] [facility] [phone] 04/16/2024 1:00 PM EST Office Visit Family Practice [address] [place] [address] [address] [place] [address] Otilia Burgos DO [address] [place] [address] 04/23/2024 2:00 PM EST Office Visit Hematology Oncology [facility] [address] [place] [phone] Rafi Goncalves MD [address] [place] [address] 04/30/2024 11:45 AM EST Pharmacy Pharmacy Hematology Oncology [facility] [address] [place] [address] [facility]c [address] [place] [address] 06/18/2024 3:00 PM EDT Office Visit Cardiology, [facility] 132 [facility] [place] [address] Lucinda Ryan CRNP [facility] [place] [address] 08/17/2024 10:30 AM EDT Imaging Radiology [facility] 2nd [facility] [place] [address] [place] [address] 11/26/2024 12:50 PM EDT Office Visit Dermatology, [facility] [address] [place] [address] Vanda Manrique PA-C [address] [place] [address] 02/22/2025 3:00 PM EST Office Visit Endocrinology Rohit Bansal Dr [address] [place] [phone] Shaina George MD 100 [address] [facility] [place] [address] Scheduled Procedures Name [...] Comments RAD ONC ARIA SESSION SUMMARY Routine 04/02/2024 9:37 AM EST documented in this encounter Results * RAD ONC ARIA SESSION SUMMARY (04/02/2024 9:37 AM EST) Course ID C1 ARIA RADIATION ONCOLOGY Course Intent Palliative ARIA RADIATION ONCOLOGY Course Start Date 03/30/2024 1:12 PM ARIA RADIATION ONCOLOGY RAD ONC ARIA SESSION NUMBER 1 ARIA RADIATION ONCOLOGY Course First Treatment Date 04/02/2024 9:33 AM ARIA RADIATION ONCOLOGY Course Last Treatment Date 04/02/2024 9:34 AM ARIA RADIATION ONCOLOGY Course Elapsed Days 0 ARIA RADIATION ONCOLOGY Reference Point ID PTV C1-C2 ARIA RADIATION ONCOLOGY Reference Point Dosage Given to Date 3 Gy ARIA RADIATION ONCOLOGY Reference Point Session Dosage Given 3 Gy ARIA RADIATION ONCOLOGY Plan ID 10-C1-C2 ARIA RADIATION ONCOLOGY Plan Fractions Treated to Date 1 ARIA RADIATION ONCOLOGY Plan Total Fractions Prescribed 10 ARIA RADIATION ONCOLOGY Plan Prescribed Dose Per Fraction 3 Gy ARIA RADIATION ONCOLOGY Plan Total Prescribed Dose 3,000 cGy ARIA RADIATION ONCOLOGY Plan Primary Reference Point PTV C1-C2 ARIA RADIATION ONCOLOGY 04/02/2024 9:37 AM EST us No Physician Data Unknown DRESSINGS Final Result ARIA RADIATION ONCOLOGY documented in this encounter Advance Directives Documents on File Type Date Recorded Patient Scooper Expl anation POLST 09/26/2021 1:05 PM POLST * Full Code (Latest Code Status on File) Date Activated Date Inactivated Comments 06/28/2011 6:10 PM 06/29/2011 4:46 PM This order r eflects the patients wishes and were consensually agreed upon. Care Teams Sock And Stocking Ironer Relationship Specialty Start Date End Date Otilia Burgos DO [address] [place] [address] PCP - General Family Medicine 10/14/23 documented as of this encounter
--- OUTSIDE RECORDS SUMMARY | 2024-04-16 04:52 | External Medical Summary | Summary of Care ---
Author Name Unknown Organization [facility] Address [address] [place] [address] Phone [phone] Care Team Providers Care Peoplesoft Programmer Name Role Phone Otilia Burgos DO Primary Care Provider [phone] Reason for Referral * Precert (Within 10 days (routine)) - Pending Review Specialty Diagnoses / Procedures Referred By Nina silverman Referred To Contact Radiology Diagnoses DDD (degenerative disc disease), cervical Recurrent thyroid cancer (HCC) Neck pain Procedures MRI C SPINE W WO CONTRAST MRI C SPINE W CONT Keon Bautista DO [address] [place] [address] Phone: tel: fax: Referral ID Status Reason Start Date Expiration Date V isits Requested Visits Authorized [id number] Pending Review 03/12/[phone] * Evaluate & Treat - Unlimited Visits (Within 30 days (routine)) - Pending Review Specialty Diagnoses / Procedures Referred By Nina silverman Referred To Contact Physical Therapy / Physical Medicine And Rehab Diagnoses DDD (degenerative disc disease), cervical Recurrent thyroid cancer (HCC) Neck pain Otilia Burgos DO [address] [place] [address] Phone: tel: fax: Referral ID Status Reason Start Date Expiration Date Visits Requested Visits Authorized [id number] Pending Review Specialty Services Required 03/12/2024 [id number] Question Answer Referral Priority Within 30 days (routine) Where should this appointment be scheduled? [facility] Reason for Visit * Reason Onset Date Comments Test Results 03/12/202403/12 Appointment 03/12/2024 Encounter Details Date Type Department Care Team (Late st Contact Info) Description 03/12/2024 Telephone Family Practice [address], [place] [address] [place] [address] Otilia Burgos DO [address] [place] [address] Test Results (03/12); Appointment Allergies Active Allergy Reactions Criticality Noted Date [...] Vitamin C Oral Packet Take by mouth. Active Ketoconazole 2 % External Cream Apply to [...] Multivitamin Adult Oral Tablet Take by mouth. Active Clotrimazole-Betamet hasone 1-0.05 % External Cream (Lotrisone)Indicatio [...] empty stomach.. 120 Capsule 06/26/19 24 Active Trametinib Dimethyl Sulfoxide 0.5 MG Oral Tablet (Mekinist)Indication s:Malignant neoplasm metastatic to lung, unspecified laterality (HCC),Papillary thyroid carcinoma (HCC),Recurrent thyroid cancer (HCC),Secondary and unspecified ma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, face and neck (HCC) Take 1.5 mg by mouth daily. Take on an empty stomach. Keep refrigerated. 90 Tablet 06/26/19 24 Active Trametinib Dimethyl Sulfoxide 0.5 MG Oral Tablet (Mekinist)Indication s:Malignant neoplasm metastatic to lung, unspecified laterality (HCC),Papillary thyroid carcinoma (HCC),Recurrent thyroid cancer (HCC),Secondary and unspecified ma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, face and neck (HCC) Take 1.5 mg by mouth daily. For 21 days on then 7 day off. Take on an empty stomach. Keep refrigerated. 63 Tablet 09/19/19 24 Active Dabrafenib Mesylate 50 MG Oral [...] Take on an empty stomach.. 84 Capsule 09/19/19 24 Active Sennosides 8.6 MG Oral Tablet (Senokot) Take [...] Muscle spasms. 30 Tablet 03/10/20 24 Active methylPREDNISolone 4 MG Oral Tablet Therapy Pack (Medrol Dosepack)Indications :Rash follow package directions 21 Tablet 06/05/19 24 025 Discontin ued(Medic ation List Clean Up) Metoprolol Succinate ER 50 MG Oral Tablet Extended Release 24 Hour (toPROL XL)Indications:HTN, goal below 140/90,Paroxysmal atrial fibrillation (HCC),PSVT (paroxysmal supraventricular tachycardia) (HCC) Take 1 Tablet by mouth in the morning and 1 Tablet before bedtime. 180 Tablet 4 9:27 AM EDT 12/24/19 24 025 Discontin ued(Refil l) predniSONE 10 MG Oral Tablet (Deltasone)Indicatio ns:DDD (degenerative disc disease), cervical,Recurrent thyroid cancer (HCC),Neck pain Take 5 tabs for 2 days, 4 tabs for 2 days, 3 tabs for 2 days, 2 tabs for 2 days 1 tab for 2 days 30 Tablet 03/12/19 25 025 Discontin ued(End of Procedure ) documented as of this encounter (statuses as of 04/06/2024) Active Problems Problem Noted Date Diagnosed Date Hyponatremia 05/30/2023 Malignant neoplasm metastatic to both [...] No 01/20/2024 Does the household have a [facility] source [facility] income? (Household - for ages [...] encounter Miscellaneous Notes * Telephone Encounter - Rafi Goncalves MD - 03/26/2024 4:24 PM EST Thank you. Hard to know how long this has been present. I will reach otu to her. She is due to see me 04/23 with scans and we can move that up. Rafi Goncalves MD * Telephone Encounter - Otilia Burgos DO - 03/26/2024 3:31 PM EST Attempted to call pt to review. Message left. Please let pt know: MRI shows like spread of the cancer to her spine. I have sent a message to her oncologist. Dr. Goncalves, please see MRI results. 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 * Telephone Encounter - Carmen Kaur OSA - 03/13/2024 10:37 AM EST Contacted patient and was able to schedule the MRI. Pt was also setting up her PT while I was talking to her. * Telephone Encounter - Keon Bautista DO - 03/12/2024 3:42 PM EST Schedule MRI cervical spine * Telephone Encounter - Hillary Johnson LPN - 03/12/2024 3:39 PM EST No implanted devices. * Telephone Encounter - Hillary Johnson LPN - 03/12/2024 1:12 PM EST Patient is aware and will comply. Patient does have a concern of the cancer diagnosis with prednisone, she can take prednisone with cancer and being off chemo? Just to confirm. Will call back with which PT she prefers to use. Will complete mri Pharmacy confirmed. * Telephone Encounter - Keon Bautista DO - 03/12/2024 11:53 AM EST Start prednisone taper Refer to PT Check MRI of cervical spine. * Telephone Encounter - Hillary Johnson LPN - 03/12/2024 10:55 AM EST Patient is aware, can't take muscle relaxers due to fatigue. Took advil and tylenol this morning. States extreme pain.. Does not want pain med, afraid that she will fall. Could PT be ordered, other medication? Thank you * Telephone Encounter - Hillary Johnson LPN - 03/12/2024 10:55 AM EST DJD/DDD of cervical spine present on X-rays * Telephone Encounter - Hillary Johnson LPN - 03/12/2024 10:54 AM EST ----- Message from Keon Bautista DO sent at 03/11/2024 5:44 PM EST ----- ... documented in this encounter Plan of Treatment Upcoming Encounters Date Type Department Care Team (Late st Contact Info) Description 04/06/2024 9:30 AM EST Treatment Radiation On[facility], [facility] [address] 04/06/2024 9:45 AM EST Documentation Radiation Oncology, [facility] [address] Delonte Morocho MD [address] [place] [phone] 04/07/2024 9:30 AM EST Treatment Radiation Oncology, [place] [address] [address] [facility] [place] [address] 04/15/2024 8:45 AM EST Imaging Radiology [facility] [address] [facility] [address] [place] [phone] 04/16/2024 1:00 PM EST Office Visit Family Practice [address], [place] [address] [place] [address] Otilia Burgos, 293 [facility] [place] [address] 04/23/2024 2:00 PM EST Office Visit Hematology Oncology [facility] [address] [place] [phone] Rafi Goncalves MD [address] [place] [address] 04/30/2024 11:45 AM EST Pharmacy Pharmacy Hematology Oncology [facility] [address] [place] [address] [facility] [place], [facility] Hem/Onc [address] [place] [address] 06/18/2024 3:00 PM EDT Office Visit Cardiology, [facility] [address] [place] [address] Lucinda Ryan CRNP 132 [facility] [place] [address] 08/17/2024 10:30 AM EDT Imaging Radiology [facility] [address] [facility] [address] [place] [address] 11/26/2024 12:50 PM EDT Office Visit Dermatology, [place]in [address] [place] [address] Vanda Manrique PA-C [address] [place] [address] 02/22/2025 3:00 PM EST Office Visit Endocrinology Rohit Bansal Dr [address] [place], [place] [address] Shaina George MD [address] [facility] [place] [address] Scheduled Procedures Name Priority Associated Diagnoses Date/Ti me COLONOSCOPY FLEXIBLE PROXIMA L DIAGNOSTIC Recall History of colonic polyps Scheduled Referrals Name Type Priority Associated Diagnoses Orde r Schedule PHYSICAL THERAPY REFERRAL OP Referral Within 30 days (routine) DDD (degenerative disc disease), cervical Recurrent thyroid cancer (HCC) Neck pain Ordered: 03/12/2024 Health Maintenance Due Date Last Done Comments [...] 10/15/2023, Additional history exists Colonoscopy 02/15/2027 02/15/2022, 1210/2021, 07/06/2015, Additional history exists Pneumococcal Vaccine: 50+ [...] Not on filedocumented as of this encounter Results * MRI C SPINE W WO CONTRAST (03/26/2024 1:33 PM EST) Anatomical Region Laterality Modality Vertebra, Spine Magnetic Resonan ce 03/26/2024 2:46 PM EST Narrative 03/26/2024 2:44 PM EST EXAM: MRI CERVICAL SPINE WITHOUT AND WITH CONTRAST HISTORY: Cervical disc disease and metastatic cancer with uncontrolled pain COMPARISON: Radiograph 03/10/2024 TECHNIQUE: Multiplanar multisequence MRI of the cervical spine without and with intravenous contrast was performed and reviewed. FINDINGS: VERTEBRAE: Marrow replacing enhancing lesions involving the odontoid, C2 body, odontoid, anterior arch and left lateral body of C1 with probable pathological fracture/cortical dehiscence mild bony expansion. Areas of marrow replacement shoe restricted diffusion with low ADC values. Surrounding inflammatory changes with edema in the prevertebral soft tissues and retro dental ligamentous thickening. C1-C2 articulation is otherwise preserved. Mild retrolisthesis of C4 on C5 and anterolisthesis of C5 on C6. Anterolisthesis of C7 on T1. Other vertebral body heights are maintained. POSTERIOR FOSSA/CERVICAL CORD: Normal cord signal characteristics without expansion or atrophy. Visualized posterior fossa is unremarkable. DISC LEVELS: C2-C3: Facet arthrosis with mild bilateral foraminal stenosis C3-C4: Uncovertebral facet hypertrophy with moderate right and mild left foraminal stenosis C4-C5: Left central disc osteophyte indenting the underlying cord. Uncovertebral facet hypertrophy with severe left and moderate right foraminal stenosis C5-C6: Mild bilateral foraminal stenosis due to uncovertebral hypertrophy C6-C7: Uncovertebral facet hypertrophy with moderate left and mild right foraminal stenosis C7-T1: Anterolisthesis and facet arthrosis with mild bilateral foraminal stenosis. IMPRESSION: Marrow replacing enhancing lesions involving the C1 and C2, likely osseous metastasis, with mild bony expansion, cortical break/fracture and no extraosseous soft tissue component. Procedure Note Andrea Hills MD - 03/26/2024 EXAM: MRI CERVICAL SPINE WITHOUT AND WITH CONTRAST HISTORY: Cervical disc disease and metastatic cancer with uncontrolled pain COMPARISON: Radiograph 03/10/2024 TECHNIQUE: Multiplanar multisequence MRI of the cervical spine without and withintravenous contrast was performed and reviewed. FINDINGS: VERTEBRAE: Marrow replacing enhancing lesions involving the odontoid, C2body, odontoid, anterior arch and left lateral body of C1 with probablepathological fracture/cortical dehiscence mild bony expansion. Areas ofmarrow replacement shoe restricted diffusion with low ADC values.Surrounding inflammatory changes with edema in the prevertebral softtissues and retro dental ligamentous thickening. C1-C2 articulation isotherwise preserved. Mild retrolisthesis of C4 on C5 and anterolisthesisof C5 on C6. Anterolisthesis of C7 on T1. Other vertebral body heightsare maintained. POSTERIOR FOSSA/CERVICAL CORD: Normal cord signal characteristics withoutexpansion or atrophy. Visualized posterior fossa is unremarkable. DISC LEVELS: C2-C3: Facet arthrosis with mild bilateral foraminal stenosis C3-C4: Uncovertebral facet hypertrophy with moderate right and mild leftforaminal stenosis C4-C5: Left central disc osteophyte indenting the underlying cord.Uncovertebral facet hypertrophy with severe left and moderate rightforaminal stenosis C5-C6: Mild bilateral foraminal stenosis due to uncovertebralhypertrophy C6-C7: Uncovertebral facet hypertrophy with moderate left and mild rightforaminal stenosis C7-T1: Anterolisthesis and facet arthrosis with mild bilateral foraminalstenosis. IMPRESSION: Marrow replacing enhancing lesions involving the C1 and C2, likely osseousmetastasis, with mild bony expansion, cortical break/fracture and noextraosseous soft tissue component. 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 Care Teams Peoplesoft Programmer Relationship Specialty Start Date End Date Otilia Burgos DO [address] [place] [address] PCP - General Family Medicine 10/14/23 documented as of this encounter
--- OUTSIDE RECORDS SUMMARY | 2024-04-16 04:52 | External Medical Summary | Summary of Care ---
Author Name Unknown Organization [facility] Address [address] [place] [address] Phone [phone] Care Team Providers Care Manager Underwriting Name Role Phone Otilia Burgos Primary Care Provider Encounter Details Date Type Department Care Team (Late st Contact Info) Description 04/06/2024 Orders Only Radiation Oncology, [facility] [address] [place] [address] IovolDelonte lopez MD [address] [place] [address] Allergies Active Allergy Reactions Criticality [...] 04/07/2024 9:30 AM EST Treatment Radiation Oncology, [facility] [address] [place], [place] [address] 04/15/2024 8:45 AM EST Imaging Radiology [facility] 1st [facility] [address] [place] [address] 04/16/2024 1:00 PM EST Office Visit Family Practice [address], [place] [address] [place] [address] Otilia Burgos DO [address] [place] [address] 04/23/2024 2:00 PM EST Office Visit Hematology Oncology [facility] [address] [place] [phone] Rafi Goncalves MD [address] [place] [address] 04/30/2024 11:45 AM EST Pharmacy Pharmacy Hematology Oncology [facility] [address] [place] [address] [facility] [place] Hem[facility]Onc [address] [place] [address] 06/18/2024 3:00 PM EDT Office Visit Cardiology, [facility] [address] [place] [address] Lucinda Ryan CRNP 132 [facility] [place] [address] 08/17/2024 10:30 AM EDT Imaging Radiology [facility] 2nd [facility] [address] [address] 11/26/2024 12:50 PM EDT Office Visit Dermatology, Jarrod Olguin [address] [facility] [address] [place] [address] Vanda Manrique PA-C [address] [place] [address] 02/22/2025 3:00 PM EST Office Visit Endocrinology Rohit Bansal Dr [address] [place] [address] Shaina George MD 100 [address] [facility] [place] [address] Scheduled Procedures Name Priority [...] Comments RAD ONC ARIA SESSION SUMMARY Routine 04/06/2024 9:37 AM EST documented in this encounter Results * RAD ONC ARIA SESSION SUMMARY (04/06/2024 9:37 AM EST) Course ID C1 ARIA RADIATION ONCOLOGY Course Intent Palliative ARIA RADIATION ONCOLOGY Course Start Date 03/30/2024 1:12 PM ARIA RADIATION ONCOLOGY RAD ONC ARIA SESSION NUMBER 3 ARIA RADIATION ONCOLOGY Course First Treatment Date 04/02/2024 9:33 AM ARIA RADIATION ONCOLOGY Course Last Treatment Date 04/06/2024 9:34 AM ARIA RADIATION ONCOLOGY Course Elapsed Days 4 ARIA RADIATION ONCOLOGY Reference Point ID PTV C1-C2 ARIA RADIATION ONCOLOGY Reference Point Dosage Given to Date 9 Gy ARIA RADIATION ONCOLOGY Reference Point Session Dosage Given 3 Gy ARIA RADIATION ONCOLOGY Plan ID 10-C1-C2 ARIA RADIATION ONCOLOGY Plan Fractions Treated to Date 3 ARIA RADIATION ONCOLOGY Plan Total Fractions Prescribed 10 ARIA RADIATION ONCOLOGY Plan Prescribed Dose Per Fraction 3 Gy ARIA RADIATION ONCOLOGY Plan Total Prescribed Dose 3,000 cGy ARIA RADIATION ONCOLOGY Plan Primary Reference Point PTV C1-C2 ARIA RADIATION ONCOLOGY 04/06/2024 9:37 AM EST us No Physician Data Unknown DRESSINGS Final Result Performing Organization Address City/State/[facility] Co de Phone Number ARIA RADIATION ONCOLOGY documented in this encounter Advance Directives Documents on File Type Date Recorded Patient Pad Tufter Expl anation POLST 09/26/2021 1:05 PM POLST * Full Code (Latest Code Status on File) Date Activated Date Inactivated Comments 06/28/2011 6:10 PM 06/29/2011 4:46 PM This order r eflects the patients wishes and were consensually agreed upon. Care Teams Manager Underwriting Relationship Specialty Start Date End Date Otilia Burgos DO [address] [place], [place] [address] [place] [address] PCP - General Family Medicine 10/14/23 documented as of this encounter
--- OUTSIDE RECORDS SUMMARY | 2024-04-16 04:52 | External Medical Summary | Summary of Care ---
Author Name Unknown Organization [facility] Address [address] [place] [address] Phone [phone] Care Team Providers Care Outlet Manager Name Role Phone Otilia Burgos DO Primary Care Provider Reason for Visit * Reason Onset Date Comments Patient Assistance Program 03/23/2024 23 Ch ristine B mek/taf PAF davon pending Encounter Details Date Type Department Care Team (Late st Contact Info) Description 03/23/2024 Telephone Hematology Oncology [facility] ([facility] [address] [place] [address] Rafi Goncalves MD [address] [place] [address] Patient Assistance Program (23 Blanka [...] mRNA, LNP-s, No Pre serve, 2-Dose Series (CybEye) 06/09/2020,05/19/2020 Pneumococcal Conjugate Vacc, 13 Valent (Prevnar) [...] 9:05 AM EST Faxed request form to [facility] to [phone] pending review. Blanka Montesinos Medication Pleat Patternmaker 04/02/2024.9:05 AM * Telephone Encounter - Blanka Montesinos OSA - 03/31/2024 12:04 PM EST Received provider form that needs to be completed by Dr. Mckee sent to be signed. Blanka Montesinos Medication Pleat Patternmaker 03/31/2024.12:04 PM * Telephone Encounter - Blanka Montesinos OSA - 03/23/2024 7:03 AM EST Patient Assistance Name of Medication: mekinist /taflinar Was patient spoken to: : YES Type of assistance: other grants open for this medication but not dx , was able to apply to [employer] davon however application is pending review. Applications mailed: : NO Follow up: 2 days Blanka Montesinos Medication Pleat Patternmaker 03/23/2024.7:03 AM * Telephone Encounter - Amparo Gaspar OSA - 03/23/2024 5:49 AM EST [facility] can fill mekinist. Please route prescription to . Patient's co-pay will be $1994.76. Co-pay assistance required: yes [facility] will help search for additional assistance Thank you, ABDIEL Braga [facility] 03/23/24,5:48 AM documented in this encounter Plan of Treatment Upcoming Encounters Date Type Department Care Team (Late st Contact Info) Description 04/02/2024 9:30 AM EST Treatment Radiation Oncology, [address] [address] 04/03/2024 9:30 AM EST Treatment Radiation Oncology, [address] [address] 04/06/2024 9:30 AM EST Treatment Radiation Oncology, [address] [address] 04/07/2024 9:30 AM EST Treatment Radiation Oncology, [address] [address] 04/15/2024 8:45 AM EST Imaging Radiology [address] [place] [phone] 04/16/2024 1:00 PM EST Office Visit Family Practice 65 [facility] [place] [address] [place] [address] Otilia Burgos DO 293 [place] [address] 04/23/2024 2:00 PM EST Office Visit Hematology Oncology [facility] ([facility] [address] [place] [phone] Rafi Goncalves MD [address] [place] [address] 04/30/2024 11:45 AM EST Pharmacy Pharmacy Hematology Oncology [facility] [place] [address] [place] [facility] [place] [address] [facility], [facility] Hem/Onc [address] [place] [address] 06/18/2024 3:00 PM EDT Office Visit Cardiology, [facility] 132 [place] [address] Lucinda Ryan CRNP 132 [place] [address] 08/17/2024 10:30 AM EDT Imaging Radiology [facility] 2nd [facility] 132 [place] [address] 11/26/2024 12:50 PM EDT Office Visit Dermatology, [place] [address] [place] [address] Vanda Manrique PA-C [address] [place] [address] 02/22/2025 3:00 PM EST Office Visit Endocrinology Rohit [address] [place] 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 Care Teams Outlet Manager Relationship Specialty Start Date End Date Otilia Burgos DO 293 [facility] [address] PCP - General Family Medicine 10/14/23 documented as of this encounter
--- OUTSIDE RECORDS SUMMARY | 2024-04-16 04:52 | External Medical Summary | Summary of Care ---
Author Name Unknown Organization [facility] Address [address] [place] [address] Phone [phone] Care Team Providers Care Air Bag Builder Name Role Phone Otilia Burgos Primary Care Provider Reason for Visit * Reason Onset Date Comments Patient Assistance Program 03/23/2024 21 Ch ristine B mek/taf PAF davon pending Encounter Details Date Type Department Care Team (Late st Contact Info) Description 03/23/2024 Telephone Hematology Oncology [facility] [address] [place] [address] Rafi Goncalves MD [address] [place] [address] Patient Assistance Program (21 Blanka B... Allergies Active Allergy Reactions Criticality [...] mRNA, LNP-s, No Pre serve, 2-Dose Series ([employer]) 06/09/2020,05/19/2020 Pneumococcal Conjugate Vacc, 13 Valent (Prevnar) [...] sent to be signed. Blanka Montesinos Medication Rug Frame Mounter 03/31/2024.12:04 PM * Telephone Encounter - Blanka Montesinos OSA - 03/23/2024 7:03 AM EST Patient Assistance Name of Medication: mekinist /taflinar Was patient spoken to: : YES Type of assistance: other grants open for this medication but not dx , was able to apply to [employer] davon however application is pending review. Applications mailed: : NO Follow up: 2 days Blanka Montesinos Medication Rug Frame Mounter 03/23/2024.7:03 AM * Telephone Encounter - Amparo Gaspar OSA - 03/23/2024 5:49 AM EST [facility] can fill mekinist. Please route prescription to [id number]. Patient's co-pay will be $1994.76. Co-pay assistance required: yes [facility] will help search for additional assistance Thank you, ABDIEL Braga [facility] 03/23/24,5:48 AM documented in this encounter Plan of Treatment Upcoming Encounters Date Type Department Care Team (Late st Contact Info) Description 04/02/2024 9:30 AM EST Treatment Radiation Oncology, [facility] [address] [facility] [place] [address] 04/03/2024 9:30 AM EST Treatment Radiation Oncology, [facility] [address] [place] [address] 04/06/2024 9:30 AM EST Treatment Radiation Oncology, [facility] [address] [place] [address] 04/07/2024 9:30 AM EST Treatment Radiation Oncology, [facility] [address] [place] [address] 04/15/2024 8:45 AM EST Imaging Radiology [address] [place] [address] 04/16/2024 1:00 PM EST Office Visit Family Practice 65 [facility] [place] [address] [place] [address] Otilia Burgos DO [address] [place] [address] 04/23/2024 2:00 PM EST Office Visit Hematology Oncology [address] [phone] Rafi Goncalves MD [facility] [place] [address] 04/30/2024 11:45 AM EST Pharmacy Pharmacy Hematology Oncology [place] [address] [place] [address] [facility] Hem/Onc [facility] [place] [address] 06/18/2024 3:00 PM EDT Office Visit Cardiology, [facility] [address] [place] [address] Lucinda Ryan CRNP [address] [place] [address] 08/17/2024 10:30 AM EDT Imaging Radiology [facility] 2nd [facility] [place] [address] [place] [address] 11/26/2024 12:50 PM EDT Office Visit Dermatology, [place] [address] [place] [address] Vanda Manrique PA-C [address] [place] [address] 02/22/2025 3:00 PM EST Office Visit Endocrinology Rohit [address] [place] [address] Shaina George MD [address] [place] [address] Scheduled Procedures Name Priority Associated Diagnoses [...] Documents on File Type Date Recorded Patient Roofing Subcontractor Expl anation POLST 09/26/2021 1:05 PM POLST * Full Code (Latest Code Status on File) Date Activated Date Inactivated Comments 06/28/2011 6:10 PM 06/29/2011 4:46 PM This order r eflects the patients wishes and were consensually agreed upon. Care Teams Air Bag Builder Relationship Specialty Start Date End Date Otilia Burgos DO [address] [place] [address] PCP - General Family Medicine 10/14/23 documented as of this encounter
--- OUTSIDE RECORDS SUMMARY | 2024-04-16 04:52 | External Medical Summary | Summary of Care ---
Author Name Unknown Organization [facility] Address [address] [place] [address] Phone [phone] Care Team Providers Care Credit Relationship Manager Name Role Phone Otilia Burgos DO Primary Care Provider [phone] Reason for Visit * Reason Onset Date Comments Patient Assistance Program 03/23/2024 23 Ch ristine B mek/taf PAF davon pending Encounter Details Date Type Department Care Team (Late st Contact Info) Description 03/23/2024 Telephone Hematology Oncology [facility] [address] [place] [address] Rafi Goncalves MD [address] [place] [address] Patient Assistance Program (23 Blanka [...] mRNA, LNP-s, No Pre serve, 2-Dose Series ([employer]) 06/09/2020,05/19/2020 Pneumococcal Conjugate Vacc, 13 Valent (Prevnar) [...] 9:05 AM EST Faxed request form to [facility] to [phone] pending review. Blanka Montesinos Medication Grinding Machine Operator Automatic 04/02/2024.9:05 AM * Telephone Encounter - Blanka Montesinos OSA - 03/31/2024 12:04 PM EST Received provider form that needs to be completed by Dr. Mckee sent to be signed. Blanka Montesinos Medication Grinding Machine Operator Automatic 03/31/2024.12:04 PM * Telephone Encounter - Blanka Montesinos OSA - 03/23/2024 7:03 AM EST Patient Assistance Name of Medication: mekinist /taflinar Was patient spoken to: : YES Type of assistance: other grants open for this medication but not dx , was able to apply to [employer] davon however application is pending review. Applications mailed: : NO Follow up: 2 days Blanka Montesinos Medication Grinding Machine Operator Automatic 03/23/2024.7:03 AM * Telephone Encounter - Amparo Gaspar OSA - 03/23/2024 5:49 AM EST [facility] can fill mekinist. Please route prescription to . Patient's co-pay will be $1994.76. Co-pay assistance required: yes [facility] will help search for additional assistance Thank you, ABDIEL Braga [facility] 03/23/24,5:48 AM documented in this encounter Plan of Treatment Upcoming Encounters Date Type Department Care Team (Late st Contact Info) Description 04/06/2024 9:30 AM EST Treatment Radiation Oncology, [facility] [address] [place] [address] 04/06/2024 9:45 AM EST Documentation Radiation Oncology, [facility] [address] [place] [address] IovoliDelonte MD [address] [place] [address] 04/07/2024 9:30 AM EST Treatment Radiation Oncology, [facility] [address] [place] [address] 04/15/2024 8:45 AM EST Imaging Radiology [facility] 1st [facility] [address] [place] [phone] 04/16/2024 1:00 PM EST Office Visit Family Practice [address], [place] 293 [place] [address] Otilia Burgos DO 293 [facility] [place] [address] 04/23/2024 2:00 PM EST Office Visit Hematology Oncology [facility] [address] [place] [phone] Rafi Goncalves MD [address] [place] [address] 04/30/2024 11:45 AM EST Pharmacy Pharmacy Hematology Oncology [facility] [place] [address] [place] [address] [facility], [facility] Hem/Onc [address] [place] [address] 06/18/2024 3:00 PM EDT Office Visit Cardiology, [facility] 132 [place] [address] Lucinda Ryan CRNP 132 [place] [address] 08/17/2024 10:30 AM EDT Imaging Radiology [facility] 2nd [facility] 132 [place] [address] 11/26/2024 12:50 PM EDT Office Visit Dermatology, [address] [place] [address] [place] [address] Vanda Manrique PA-C [address] [place] [address] 02/22/2025 3:00 PM EST Office Visit Endocrinology Rohit [address] [place] [address] Shaina George MD [address] [place] [address] Scheduled Procedures Name Priority Associated Diagnoses Date/Ti [...] Documents on File Type Date Recorded Patient Scraper Meat Expl anation POLST 09/26/2021 1:05 PM POLST * Full Code (Latest Code Status on File) Date Activated Date Inactivated Comments 06/28/2011 6:10 PM 06/29/2011 4:46 PM This order r eflects the patients wishes and were consensually agreed upon. Care Teams Credit Relationship Manager Relationship Specialty Start Date End Date Otilia Burgos DO 293 [facility] [place] [address] PCP - General Family Medicine 10/14/23 documented as of this encounter
--- OUTSIDE RECORDS SUMMARY | 2024-04-16 04:52 | External Medical Summary | Summary of Care ---
Author Name Unknown Organization [facility] Address [address] [place] [address] Phone [phone] Care Team Providers Care Atomic Spectroscopist Name Role Phone Otilia Burgos DO Primary Care Provider Reason for Visit * Reason Onset Date Comments Patient Assistance Program 03/23/2024 23 Ch ristine B mek/taf PAF davon pending Encounter Details Date Type Department Care Team (Late st Contact Info) Description 03/23/2024 Telephone Hematology Oncology [facility] [address] [place] [address] Rafi Goncalevs MD [address] [place] [address] Patient Assistance Program (23 Blanka [...] mRNA, LNP-s, No Pre serve, 2-Dose Series (Tw[employer]) 06/09/2020,05/19/2020 Pneumococcal Conjugate Vacc, 13 Valent (Prevnar) [...] 9:05 AM EST Faxed request form to [facility] to [phone] pending review. Blanka Montesinos Medication Steam Shovel Operator 04/02/2024.9:05 AM * Telephone Encounter - Blanka Montesinos OSA - 03/31/2024 12:04 PM EST Received provider form that needs to be completed by Dr. Mckee sent to be signed. Blanka Montesinos Medication Steam Shovel Operator 03/31/2024.12:04 PM * Telephone Encounter - Blanka Montesinos OSA - 03/23/2024 7:03 AM EST Patient Assistance Name of Medication: mekinist /taflinar Was patient spoken to: : YES Type of assistance: other grants open for this medication but not dx , was able to apply to [employer] davon however application is pending review. Applications mailed: : NO Follow up: 2 days Blanka Montesinos Medication Steam Shovel Operator 03/23/2024.7:03 AM * Telephone Encounter - Amparo Gaspar OSA - 03/23/2024 5:49 AM EST [facility] can fill mekinist. Please route prescription to . Patient's co-pay will be $1994.76. Co-pay assistance required: yes [facility] will help search for additional assistance Thank you, ABDIEL Braga [facility] 03/23/24,5:48 AM documented in this encounter Plan of Treatment Upcoming Encounters Date Type Department Care Team (Late st Contact Info) Description 04/06/2024 9:30 AM EST Treatment Radiation Oncology, [facility] [address] [place] [address] 04/06/2024 9:45 AM EST Documentation Radiation Oncology, [facility] [address] [place] [address] IovoliDelonte MD [address] [place] [address] 04/07/2024 9:30 AM EST Treatment Radiation Oncology, [facility] [address] [place] [address] 04/15/2024 8:45 AM EST Imaging Radiology [facility]st [facility] [address] [place] [phone] 04/16/2024 1:00 PM EST Office Visit Family Practice [address], [place] 293 [place] [address] Otilia Burgos DO 293 [place] [address] 04/23/2024 2:00 PM EST Office Visit Hematology Oncology [facility] [address] [place] [phone] Rafi Goncalves MD [address] [place] [address] 04/30/2024 11:45 AM EST Pharmacy Pharmacy Hematology Oncology [facility] [place] [address] [place] [address] [facility] Hem[facility]Onc [address] [place] [address] 06/18/2024 3:00 PM EDT Office Visit Cardiology, [facility] 132 [place] [address] Lucinda Ryan CRNP 132 [facility] [address] 08/17/2024 10:30 AM EDT Imaging Radiology [facility] 2nd [facility] 132 [place] [address] 11/26/2024 12:50 PM EDT Office Visit Dermatology, [address] [place] [address] [place] [address] Vanda Manrique PA-C [address] [place] [address] 02/22/2025 3:00 PM EST Office Visit Endocrinology Rohit [address] Dr [address] [place] [address] Shaina George MD [address] [place] [address] Scheduled Procedures Name Priority Associated Diagnoses Date/Ti [...] Documents on File Type Date Recorded Patient Slide Developer Expl anation POLST 09/26/2021 1:05 PM POLST * Full Code (Latest Code Status on File) Date Activated Date Inactivated Comments 06/28/2011 6:10 PM 06/29/2011 4:46 PM This order r eflects the patients wishes and were consensually agreed upon. Care Teams Atomic Spectroscopist Relationship Specialty Start Date End Date Otilia Burgos DO [address] [place] [address] PCP - General Family Medicine 10/14/23 documented as of this encounter
--- OUTSIDE RECORDS SUMMARY | 2024-04-16 04:52 | External Medical Summary | Summary of Care ---
Author Name Unknown Organization [facility] Address [address] [place] [address] Phone [phone] Care Team Providers Care Billiard Parlor Manager Name Role Phone Otilia Burgos Primary Care Provider [phone] Reason for Visit * Reason Onset Date Comments Order Request 04/02/2024 Encounter Details Date Type Department Care Team (Late st Contact Info) Description 04/02/2024 Telephone Radiation Oncology, [facility] [address] [place] [address] IoDelonte garcía MD [address] [place] [address] Order Request Allergies Active Allergy Reactions Criticality Noted Date [...] mRNA, LNP-s, No Pre serve, 2-Dose Series ([employer]) 06/09/2020,05/19/2020 Pneumococcal Conjugate Vacc, 13 Valent (Prevnar) [...] encounter Miscellaneous Notes * Telephone Encounter - Alisia Smith CMA - 04/03/2024 11:21 AM EST Patient paid for neck brace out of pocket yesterday. * Telephone Encounter - Alisia Smith CMA - 04/02/2024 9:54 AM EST Patient presented to clinic for first radiation treatment to C spine today. She is requesting neck brace to help with discomfort. DME ordered per Dr. Morocho. documented in this encounter Plan of Treatment Upcoming Encounters Date Type Department Care Team (Late st Contact Info) Description 04/06/2024 9:30 AM EST Treatment Radiation Oncology, [facility] [address] [place] [address] 04/07/2024 9:30 AM EST Treatment Radiation Oncology, [facility] [address] [place] [address] 04/15/2024 8:45 AM EST Imaging Radiology [facility] 1st [facility] [address] [facility] [place] [address] 04/16/2024 1:00 PM EST Office Visit Family Practice 65 [facility] [place] [address] [place] [address] Otilia Burgos DO 293 [place] [address] 04/23/2024 2:00 PM EST Office Visit Hematology Oncology [address] [phone] Rafi Goncalves MD [address] [place] [address] 04/30/2024 11:45 AM EST Pharmacy Pharmacy Hematology Oncology [place] [address] [place] [address] [facility], [facility] Hem/Onc [address] [place] [address] 06/18/2024 3:00 PM EDT Office Visit Cardiology, [facility] [place] [address] Lucinda Ryan CRNP 132 [place] [address] 08/17/2024 10:30 AM EDT Imaging Radiology [facility] 2nd [facility] 132 [facility] [address] 11/26/2024 12:50 PM EDT Office Visit Dermatology, [place] [address] [place] [phone] Vanda Manrique PA-C [address] [place] [address] 02/22/2025 3:00 PM EST Office Visit Endocrinology Roh[address] [place] [address] Shaina George MD [address] [place], [place] [address] Scheduled Procedures Name Priority Associated Diagnoses Date/Ti [...] malignant neoplasm of bone and bone marrow documented in this encounter Advance Directives Documents on File Type Date Recorded Patient Call Out 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 Care Teams Billiard Parlor Manager Relationship Specialty Start Date End Date Otilia Burgos DO [address] [facility] [place] [address] PCP - General Family Medicine 10/14/23 documented as of this encounter
--- OUTSIDE RECORDS SUMMARY | 2024-04-16 04:52 | External Medical Summary | Summary of Care ---
Author Name Unknown Organization [facility] Address [address] [place] [address] Phone [phone] Care Team Providers Care Noc Analyst Name Role Phone Otilia Burgos Primary Care Provider Encounter Details Date Type Department Care Team (Late st Contact Info) Description 04/03/2024 Orders Only Radiation Oncology, [facility] [address] [place] [address] IovolDelonte lopez MD [address] [place] [address] Allergies Active Allergy Reactions Criticality [...] Treatment Radiation Oncology, [facility] [address] [place] [place] [address] 04/07/2024 9:30 AM EST Treatment Radiation Oncology, [facility] [address] [place] [address] 04/15/2024 8:45 AM EST Imaging Radiology [facility] 1st [facility] [place] [address] 04/16/2024 1:00 PM EST Office Visit Family Practice [address], [place] 293 [place] [address] Otilia Burgos DO 293 [place] [address] 04/23/2024 2:00 PM EST Office Visit Hematology Oncology [facility] [address] [place] [address] Rafi Goncalves MD [address] [place] [address] 04/30/2024 11:45 AM EST Pharmacy Pharmacy Hematology Oncology [facility] [address] [place] [address] [facility] Hem/Onc [address] [place] [address] 06/18/2024 3:00 PM EDT Office Visit Cardiology, [facility] [address] [place] [address] Lucinda Ryan CRNP [address] [place] [address] 08/17/2024 10:30 AM EDT Imaging Radiology [facility] 2nd [facility] [address] [place] [address] 11/26/2024 12:50 PM EDT Office Visit Dermatology, [place] [facility] [address] [place] [address] Vanda Manrique PA-C [address] [place] [address] 02/22/2025 3:00 PM EST Office Visit Endocrinology Rohit Bansal Dr [address], [place] [address] Shaina George MD 100 [address] [facility] [place] [address] Scheduled Procedures Name [...] Comments RAD ONC ARIA SESSION SUMMARY Routine 04/03/2024 9:34 AM EST documented in this encounter Results * RAD ONC ARIA SESSION SUMMARY (04/03/2024 9:34 AM EST) Course ID C1 ARIA RADIATION ONCOLOGY Course Intent Palliative ARIA RADIATION ONCOLOGY Course Start Date 03/30/2024 1:12 PM ARIA RADIATION ONCOLOGY RAD ONC ARIA SESSION NUMBER 2 ARIA RADIATION ONCOLOGY Course First Treatment Date 04/02/2024 9:33 AM ARIA RADIATION ONCOLOGY Course Last Treatment Date 04/03/2024 9:32 AM ARIA RADIATION ONCOLOGY Course Elapsed Days 1 ARIA RADIATION ONCOLOGY Reference Point ID PTV C1-C2 ARIA RADIATION ONCOLOGY Reference Point Dosage Given to Date 6 Gy ARIA RADIATION ONCOLOGY Reference Point Session Dosage Given 3 Gy ARIA RADIATION ONCOLOGY Plan ID [id number] ARIA RADIATION ONCOLOGY Plan Fractions Treated to Date 2 ARIA RADIATION ONCOLOGY Plan Total Fractions Prescribed 10 ARIA RADIATION ONCOLOGY Plan Prescribed Dose Per Fraction 3 Gy ARIA RADIATION ONCOLOGY Plan Total Prescribed Dose 3,000 cGy ARIA RADIATION ONCOLOGY Plan Primary Reference Point PTV C1-C2 ARIA RADIATION ONCOLOGY 04/03/2024 9:34 AM EST us No Physician Data Unknown DRESSINGS Final Result ARIA RADIATION ONCOLOGY documented in this encounter Advance Directives Documents on File Type Date Recorded Patient Ophthalmic Tech Expl anation POLST 09/26/2021 1:05 PM POLST * Full Code (Latest Code Status on File) Date Activated Date Inactivated Comments 06/28/2011 6:10 PM 06/29/2011 4:46 PM This order r eflects the patients wishes and were consensually agreed upon. Care Teams Noc Analyst Relationship Specialty Start Date End Date Otilia Burgos DO [address] [place] [address] PCP - General Family Medicine 10/14/23 documented as of this encounter
--- OUTSIDE RECORDS SUMMARY | 2024-04-16 04:53 | External Medical Summary | Summary of Care ---
Author Name Unknown Organization [facility] Address [address] [place] [address] Phone [phone] Care Team Providers Care Kindergarten Instructional Assistant Name Role Phone Otilia Burgos Primary Care Provider Encounter Details Date Type Department Care Team (Late st Contact Info) Description 03/31/2024 Population Health External Data Unspecified Department Allergies Active Allergy Reactions Criticality Noted Date Comments Adhesive Tape Other (Please comment) Low 04/16/2013 Skin becomes red and sore Other reaction(s): Rash Lactose Diarrhea 08/12/2015 Latex Low 06/26/2021 Other reaction(s): Rash documented as of this encounter (statuses as of 03/31/2024) Medications FISH OIL 1000 MG PO CAPS [...] as of this encounter (statuses as of 03/31/2024) Active Problems Problem Noted Date Diagnosed Date [...] as of this encounter (statuses as of 03/31/2024) Resolved Problems Problem Noted Date Diagnosed Date Resolved Date Kidney disease, chronic, sta ge III (GFR 30-59 ml/min) 09/19/2015 06/04/2016 Overview: Per CKD protocol #1 Other stomatitis and mucositis (ulcerative) 07/27/2012 12/16/2017 Hypothyroidism 06/30/2012 03/23/2015 Throat pain 01/07/2012 05/07/2017 Dyspareunia 03/13/2010 07/05/2016 Joint pain, hip 03/13/2010 03/19/2017 Palpitations 03/13/2010 03/19/2017 documented as of this encounter (statuses as of 03/31/2024) Immunizations Name Administration Dates Next Due COVID-19 [...] 04/02/2024 9:30 AM EST Treatment Radiation Oncology, [facility] [address] [facility] [address] 04/03/2024 9:30 AM EST Treatment Radiation Oncology, [facility] [address] [facility] [address] 04/06/2024 9:30 AM EST Treatment Radiation Oncology, [address], [place] [address] 04/07/2024 9:30 AM EST Treatment Radiation Oncology, [address], [place] [address] 04/08/2024 9:30 AM EST Treatment Radiation Oncology, [address], [place] [address] 04/09/2024 9:30 AM EST Treatment Radiation Oncology, [address], [place] [address] 04/10/2024 9:30 AM EST Treatment Radiation Oncology, [address], [place] [address] 04/13/2024 9:30 AM EST Treatment Radiation Oncology, [address], [place] [address] 04/14/2024 9:30 AM EST Treatment Radiation Oncology, [address], [place] [address] 04/15/2024 8:45 AM EST Imaging Radiology [address] [place] [address] 04/15/2024 9:30 AM EST Treatment Radiation Oncology, [address], [place] [address] 04/16/2024 1:00 PM EST Office Visit Family Practice 65 [facility] [place] 293 [facility], [place] [address] Otilia Burgos DO 293 [facility], [place] [address] 04/23/2024 2:00 PM EST Office Visit Hematology Oncology [address] [place] [address] Rafi Goncalves MD [address] [place] [address] 04/30/2024 11:45 AM EST Pharmacy Pharmacy Hematology Oncology [facility] [address] [place] [address] [facility], [facility] Hem/Onc [address] [place] [address] 06/18/2024 3:00 PM EDT Office Visit Cardiology, [facility] [address] [place] [address] Lucinda Ryan CRNP [address] [place] [address] 08/17/2024 10:30 AM EDT Imaging Radiology [facility] 2nd [facility] [address] [place] [address] 11/26/2024 12:50 PM EDT Office Visit Dermatology, Jarrod Olguin [address] [place] [address] Vanda Manrique PA-C [address] [place] [address] 02/22/2025 3:00 PM EST Office Visit Endocrinology Rohit Bansal Dr [address], [place] [address] Shaina George MD [address] [place] [address] Scheduled Procedures Name Priority Associated [...] Documents on File Type Date Recorded Patient Lumber Tailer Expl anation POLST 09/26/2021 1:05 PM POLST * Full Code (Latest Code Status on File) Date Activated Date Inactivated Comments 06/28/2011 6:10 PM 06/29/2011 4:46 PM This order r eflects the patients wishes and were consensually agreed upon. Care Teams Kindergarten Instructional Assistant Relationship Specialty Start Date End Date Otilia Burgos DO [address] [place] [address] PCP - General Family Medicine 8/5/24 documented as of this encounter
--- OUTSIDE RECORDS SUMMARY | 2024-04-16 04:53 | External Medical Summary | Summary of Care ---
Author Name Unknown Organization [facility] Address [address] [place] [address] Phone [phone] Care Team Providers Care Articulation Officer Name Role Phone Otilia Burgos DO Primary Care Provider Reason for Visit * Reason Onset Date Comments Patient Assistance Program 03/23/2024 21 Ch ristine B mek/taf PAF davon pending Encounter Details Date Type Department Care Team (Late st Contact Info) Description 03/23/2024 Telephone Hematology Oncology [facility] [address] [place] [address] Rafi Goncalves MD [address] [place] [address] Patient Assistance Program (21 Blanka [...] mRNA, LNP-s, No Pre serve, 2-Dose Series (nCino) 06/09/2020,05/19/2020 Pneumococcal Conjugate Vacc, 13 Valent (Prevnar) [...] sent to be signed. Blanka Montesinos Medication Lacquer Polisher 03/31/2024.12:04 PM * Telephone Encounter - Blanka Montesinos OSA - 03/23/2024 7:03 AM EST Patient Assistance Name of Medication: mekinist /taflinar Was patient spoken to: : YES Type of assistance: other grants open for this medication but not dx , was able to apply to [employer] [place] however application is pending review. Applications mailed: : NO Follow up: 2 days Blanka Montesinos Medication Lacquer Polisher 03/23/2024.7:03 AM * Telephone Encounter - Amparo Gaspar OSA - 03/23/2024 5:49 AM EST [facility] can fill mekinist. Please route prescription to [id number]. Patient's co-pay will be $1994.76. Co-pay assistance required: yes [facility] will help search for additional assistance Thank you, ABDIEL Braga [facility] 03/23/24,5:48 AM documented in this encounter Plan of Treatment Upcoming Encounters Date Type Department Care Team (Late st Contact Info) Description 04/02/2024 9:30 AM EST Treatment Radiation Oncology, [address] [address] 04/03/2024 9:30 AM EST Treatment Radiation Oncology, [address] [address] 04/06/2024 9:30 AM EST Treatment Radiation Oncology, [address] [address] 04/07/2024 9:30 AM EST Treatment Radiation Oncology, [address] [address] 04/08/2024 9:30 AM EST Treatment Radiation Oncology, [address] [address] 04/09/2024 9:30 AM EST Treatment Radiation Oncology, [address] [address] 04/10/2024 9:30 AM EST Treatment Radiation Oncology, [address] [address] 04/13/2024 9:30 AM EST Treatment Radiation Oncology, [address] [place] [address] 04/14/2024 9:30 AM EST Treatment Radiation Oncology, [address] [place] [address] 04/15/2024 8:45 AM EST Imaging Radiology [facility] 1st [facility], [place] [address] [place] [address] 04/15/2024 9:30 AM EST Treatment Radiation Oncology, [address] [address] 04/16/2024 1:00 PM EST Office Visit Family Practice [address], [place] 293 [facility] [place] [address] Otilia Burgos DO 293 [place] [address] 04/23/2024 2:00 PM EST Office Visit Hematology Oncology [facility] [address] [place] [phone] Rafi Goncalves MD [address] [place] [address] 04/30/2024 11:45 AM EST Pharmacy Pharmacy Hematology Oncology [facility] [address] [place] [address] [facility] Hem[facility]Onc [facility] [place] [address] 06/18/2024 3:00 PM EDT Office Visit Cardiology, [facility] 132 [facility] [place] [address] Lucinda Ryan CRNP 132 [facility] [place] [address] 08/17/2024 10:30 AM EDT Imaging Radiology [address] 132 [facility] [place] [address] 11/26/2024 12:50 PM EDT Office Visit Dermatology, Jarrod Olguin [address] [place] [address] aVnda Manrique PA-C [address] [place] [address] 02/22/2025 3:00 PM EST Office Visit Endocrinology Rohit Bansal Dr [address] [place] 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 Care Teams Articulation Officer Relationship Specialty Start Date End Date Otilia Burgos DO [address] [place] [address] PCP - General Family Medicine 10/14/23 documented as of this encounter
--- OUTSIDE RECORDS SUMMARY | 2024-04-16 04:53 | External Medical Summary | Summary of Care ---
Author Name Unknown Organization [facility] Address [address] [place] [address] Phone [phone] Care Team Providers Care Line Server Name Role Phone Otilia Burgos DO Primary Care Provider Reason for Visit * Reason Onset Date Comments Patient Assistance Program 03/23/2024 21 Ch ristine B mek/taf PAF davon pending Encounter Details Date Type Department Care Team (Late st Contact Info) Description 03/23/2024 Telephone Hematology Oncology [facility] [address] [place] [address] Rafi Goncalves MD [address] [place] [address] Patient Assistance Program (21 Blanka [...] mRNA, LNP-s, No Pre serve, 2-Dose Series (Pylba) 06/09/2020,05/19/2020 Pneumococcal Conjugate Vacc, 13 Valent (Prevnar) [...] sent to be signed. Blanka Montesinos Medication Counselor At Law 03/31/2024.12:04 PM * Telephone Encounter - Blanka Montesinos OSA - 03/23/2024 7:03 AM EST Patient Assistance Name of Medication: mekinist /taflinar Was patient spoken to: : YES Type of assistance: other grants open for this medication but not dx , was able to apply to [employer] [place] however application is pending review. Applications mailed: : NO Follow up: 2 days Blanka Montesinos Medication Counselor At Law 03/23/2024.7:03 AM * Telephone Encounter - Amparo Gaspar OSA - 03/23/2024 5:49 AM EST [facility] can fill mekinist. Please route prescription to [id number]. Patient's co-pay will be $1994.76. Co-pay assistance required: yes [facility] will help search for additional assistance Thank you, ABDIEL Braga [facility] 03/23/24,5:48 AM documented in this encounter Plan of Treatment Upcoming Encounters Date Type Department Care Team (Late st Contact Info) Description 04/02/2024 9:30 AM EST Treatment Radiation Oncology, [address] [address] 04/03/2024 9:30 AM EST Treatment Radiation Oncology, [address] [address] 04/06/2024 9:30 AM EST Treatment Radiation Oncology, [address] [address] 04/07/2024 9:30 AM EST Treatment Radiation Oncology, [address] [address] 04/08/2024 9:30 AM EST Treatment Radiation Oncology, [address] [address] 04/09/2024 9:30 AM EST Treatment Radiation Oncology, [address] [address] 04/10/2024 9:30 AM EST Treatment Radiation Oncology, [address] [address] 04/13/2024 9:30 AM EST Treatment Radiation Oncology, [address] [place] [address] 04/14/2024 9:30 AM EST Treatment Radiation Oncology, [address] [place] [address] 04/15/2024 8:45 AM EST Imaging Radiology [facility] 1st [facility], [place] [address] [place] [address] 04/15/2024 9:30 AM EST Treatment Radiation Oncology, [address] [address] 04/16/2024 1:00 PM EST Office Visit Family Practice [address], [place] 293 [place] [address] Otilia Burgos DO 293 [place] [address] 04/23/2024 2:00 PM EST Office Visit Hematology Oncology [facility] [address] [place] [phone] Rafi Goncalves MD [address] [place] [address] 04/30/2024 11:45 AM EST Pharmacy Pharmacy Hematology Oncology [facility] [address] [place] [address] [facility] [place] [facility]c [facility] [place] [address] 06/18/2024 3:00 PM EDT Office Visit Cardiology, [facility] [address] [facility] [place] [address] Lucinda Ryan CRNP 132 [facility] [place] [address] 08/17/2024 10:30 AM EDT Imaging Radiology [address] [facility] [place] [address] 11/26/2024 12:50 PM EDT Office Visit Dermatology, Jarrod Olguin [address] [place] [address] Vanda Manrique PA-C [address] [place] [address] 02/22/2025 3:00 PM EST Office Visit Endocrinology Rohit Bansal Dr [address] [place] [address] Shaina George MD [address] [place] [address] Scheduled Procedures Name Priority Associated Diagnoses Date/Ti [...] Documents on File Type Date Recorded Patient Security Officer Supervisor Expl anation POLST 09/26/2021 1:05 PM POLST * Full Code (Latest Code Status on File) Date Activated Date Inactivated Comments 06/28/2011 6:10 PM 06/29/2011 4:46 PM This order r eflects the patients wishes and were consensually agreed upon. Care Teams Line Server Relationship Specialty Start Date End Date Otilia Burgos DO [address] [place] [address] PCP - General Family Medicine 10/14/23 documented as of this encounter
--- OUTSIDE RECORDS SUMMARY | 2024-04-16 04:53 | External Medical Summary | Summary of Care ---
Author Name Unknown Organization [facility] Address [address] [place] [address] Phone [phone] Care Team Providers Care Polyethylene Bag Machine Operator Name Role Phone GulshanmarsOtilia ramirez Primary Care Provider [phone] Reason for Visit * Reason Comments Consultation C Spine * Evaluate & Treat - Unlimited Visits (Within 10 days (routine)) - Authorized Specialty Diagnoses / Procedures Referred By Contac t Referred To Contact Radiation Oncology Diagnoses Papillary thyroid carcinoma (HCC) Secondary malignant neoplasm of bone (HCC) Rafi Goncalves MD [address] [place] [address] Phone: tel: fax: Chalino Baker MD [address] [place] [address] Phone: tel: fax: Referral ID Status Reason Start Date Expiration Date Visits Requested Visits Authorized [id number] Authorized Specialty Services Required 03/27/2024 [id number] Encounter Details Date Type Department Care Team (Late st Contact Info) Description 03/31/2024 9:30 AM EST Office Visit Radiation Oncology, [facility] [address] [place] [address] Delonte Morocho MD [address] [place] [address] Metastatic cancer to spine (HCC)* Allergies Active Allergy Reactions Criticality Noted Date [...] stomach. Keep refrigerated. 90 Tablet 5 06/26/19 Active Additional Information Patient not taking.Reported on [...] stomach. Keep refrigerated. 63 Tablet 5 09/19/19 Active Additional Information Patient not taking.Reported on [...] on an empty stomach.. 84 Capsule 09/19/19 Active Additional Information Patient not taking.Reported on [...] 025 Active Hydrocortisone 2.5 % External CreamIndications:Dr ug rash Apply topically to affected area 2 times a day. 30 g 1 11/15/19 24 Active Fluocinonide 0.05 % External Solution Apply to scalp once to twice a day when scalp is inflamed and itchy. Can apply up to 2 weeks then as needed 60 mL 11/26/19 24 Active Synthroid 125 MCG Oral [...] Sign Reading Time Taken Comments Blood Pressure 162/82 03/31/2024 10:38 AM EST ma nual Pulse 64 03/31/2024 9:29 AM EST Temperature 36.1 C (97 F) 03/31/2024 9:29 AM EST Respiratory Rate 16 03/31/2024 9:29 AM EST Oxygen Saturation 98% 03/31/2024 9:29 AM EST Inhaled Oxygen Concentration - - Weight 78.7 kg (173 lb 9.6 oz) 03/31/2024 9:29 A M EST Height - - Body Mass Index 28.23 03/10/2024 10:16 AM EST documented in this encounter Progress Notes * Delonte Morocho MD - 03/31/2024 9:30 AM EST Images from the original note were not included. RADIATION ONCOLOGY CONSULTATION NOTE Radiation Oncology, [place] [address] [address] [facility] [address] Name: Megan Phillips Date: 03/31/2024 REFERRING PHYSICIAN: Rafi Goncalves MD DIAGNOSIS: Recurrent/metastatic papillary carcinoma of the thyroid (initially diagnosed [id number] in 2011) Diagnosed with a left neck failure via biopsy 12/16/2015 Diagnosed with right pleural involvement via thoracentesis 04/18/2023 PRIOR THERAPY: Total thyroidectomy, limited central neck dissection 06/28/2011 125.1 mCu I-131 08/22/2011 Left revision central neck dissection 02/07/2016 (3 nodes +) 169.4 mCu I-131 09/25/2019 Trametinib/dabrafenib 05/2023 - 02/2024 Currently on systemic therapy treatment break HISTORY OF PRESENT ILLNESS: Ms. Phillips is a 78 year old female with a history of recurrent/metastatic thyroid cancer initiallydiagnosed in 2011. Prompted by neck pain, MRI cervical spine was performed 03/26/24 demonstrating marrow replacing enhancing lesions involving the C1 and C2, likely osseous metastasis, with mild bony expansion, cortical break/fracture and no extraosseous soft tissue component. Patient was evaluated by [facility] neuro [facility]DC on 03/30/2024 and felt to have stable spine findings. Management options including surgery and/or radiation were discussed, with patient ultimately choosing to proceed with radiation alone. She was referred for RT closer to home. INTERVAL HISTORY: Patient presents with her to discuss the role of radiation. She reports persistent stiffness in her upper neck associated with headaches. She has been managing these pains with tylenol and ibuprofen which have both been helping. She was previously seeing physical therapy up until she had the MRI performed which provided some temporary relief. She does have dry mouth from her previous iodine ablations and is concerned about further radiation worsening this. No other areas of pain. No other concerns today. SOCIAL HISTORY Residence: [facility] Marital status: Smoking: reports that she has never smoked. She has been exposed to tobacco smoke. She has never used smokeless tobacco. RADIATION HISTORY: History of radioactive Iodine ablation per above. No prior EBRT. Patient denies any history of lupus, scleroderma, or other collagen vascular diseases. Patient denies Pacemaker, ICD and/or other implanted device(s). MEDICAL HISTORY: Patient Active Problem List Diagnosis HTN, goal below 140/90 Dyslipidemia, goal LDL below 130 Vitamin D deficiency Papillary thyroid carcinoma (HCC) Postoperative hypothyroidism Paroxysmal atrial fibrillation (HCC) Recurrent thyroid cancer (HCC) Lung nodules Secondary and unspecified ma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, face and neck (HCC) Malignant neoplasm metastatic to lung (HCC) Malignant neoplasm metastatic to both lungs (HCC) Hyponatremia Metastatic cancer to spine (HCC) Past Medical History: Diagnosis Date HTN, goal below 140/90 Lung nodules 10/01/2016 Paroxysmal atrial fibrillation (HCC) 08/23/2015 Postoperative hypothyroidism 03/23/2015 Thyroid cancer (HCC) Past Surgical History: Procedure Laterality Date COLONOSCOPY 03/11/2005 COLONOSCOPY, DIAGNOSTIC (RECTUM) 06/27/2010 wnl COLONOSCOPY, DIAGNOSTIC (RECTUM) 07/06/2015 adenomatous polyp, repeat 5 yrs/COLONOSCOPY FLEXIBLE PROXIMAL DIAGNOSTIC performed by Darryl Navarro MD at ENDOSCOPY [facility] COLONOSCOPY, DIAGNOSTIC (RECTUM) 02/15/2022 sigmoid diverticulosis/recall 5 years/COLONOSCOPY FLEXIBLE PROXIMAL DIAGNOSTIC performed by Gela Landin MD at ENDOSCOPY [facility] DENTAL INLAY METALIC 1 SURF HYSTEROSCOPY W/BIOPSY AND/OR POLYPECTOMY W/WO D&C Bilateral 09/20/2022 HYSTEROSCOPY WITH BIOPSY AND/OR POLYPECTOMY WITH OR WITHOUT D&C performed by Judith Sotomayor MD at OR [facility] INFORMATION EYELID SURGERY KNEE MENISCAL TRANSP,SURG ARTHROS r knee LIGATE,DIV,EXCIS ALIRIO VEIN CLUS l knee MAMMOGRAM SCREENING BILATERAL 01/10/2008 nl REMOVAL OF NECK LYMPH NODES Left 02/07/2016 CERVICAL LYMPHADENECTOMY MODIFIED RADICAL NECK DISSECTION performed by Ricardo Barriga MD at [facility] REMOVAL OF THYROID FOR TUMOR 06/28/2011 THYROIDECTOMY WITH LIMITED NECK DISSECTION performed by RICARDO BARRIGA at [facility] REMOVAL OF TONSILS, UNDER AGE 12 REMOVE GALLBLADDER REMOVE TONSILS & ADENOIDS, UNDER 12 TREATMENT OF ANAL FISSURE x2 Current Outpatient Medications Medication Sig Dispense Refill FISH OIL 1000 MG PO CAPS 1 daily VITAMIN D 2000 UNITS PO CAPS 1 daily Aspirin EC 81 MG Oral Tablet Delayed Release Take 1 Tablet by mouth in the morning. Emergen-C Vitamin C Oral Packet Take by mouth. Ketoconazole 2 % External Cream Apply to right foot as needed 60 g 3 Mupirocin 2 % External Ointment (Bactroban) Apply to lesion on inside of nose three times daily 22 g 3 Ketoconazole 2 % External Shampoo (Nizoral) Apply topically to affected area every 3 days. Apply toscalp 120 mL 11 Multivitamin Adult Oral Tablet Take by mouth. Clotrimazole-Betamethasone 1-0.05 % External Cream (Lotrisone) Apply topically to affected area 2 times a day. 45 g 3 Sennosides 8.6 MG Oral Tablet (Senokot) Take 1 Tablet by mouth at bedtime as needed for Constipation. Docusate Sodium 100 MG Oral Capsule (Colace) Take 3 Capsules by mouth daily. Lisinopril 5 MG Oral Tablet (Prinivil) TAKE ONE TABLET BY MOUTH EVERY MORNING 100 Tablet 3 Hydrocortisone 2.5 % External Cream Apply topically to affected area 2 times a day. 30 g 1 Fluocinonide 0.05 % External Solution Apply to scalp once to twice a day when scalp is inflamed anditchy. Can apply up to 2 weeks then as needed 60 mL 1 Synthroid 125 MCG Oral Tablet Take one tablet by mouth six days a week and take two tablets once weekly 105 Tablet 3 tiZANidine HCl 2 MG Oral Tablet (Zanaflex) Take 1 Tablet by mouth every 8 hours as needed for Muscle spasms. 30 Tablet 0 Metoprolol Succinate ER 50 MG Oral Tablet Extended Release 24 Hour (toPROL XL) Take 1 Tablet by mouth in the morning and 1 Tablet before bedtime. 180 Tablet 0 Dabrafenib Mesylate 50 MG Oral Capsule (Tafinlar) Take 100 mg by mouth in the morning and 100 mg before bedtime. Take on an empty stomach.. (Patient not taking: Reported on 03/31/2024) 120 Capsule 5 Trametinib Dimethyl Sulfoxide 0.5 MG Oral Tablet (Mekinist) Take 1.5 mg by mouth daily. Take on an empty stomach. Keep refrigerated. (Patient not taking: Reported on 03/31/2024) 90 Tablet 5 Trametinib Dimethyl Sulfoxide 0.5 MG Oral Tablet (Mekinist) Take 1.5 mg by mouth daily. For 21 dayson then 7 day off. Take on an empty stomach. Keep refrigerated. (Patient not taking: Reported on 03/31/2024) 63 Tablet 5 Dabrafenib Mesylate 50 MG Oral Capsule (Tafinlar) Take 100 mg by mouth in the morning and 100 mg before bedtime. Take 21 days on then 7 days off. Take on an empty stomach.. (Patient not taking: Reported on 03/31/2024) 84 Capsule 5 No current facility-administered medications for this visit. Review of patient's allergies indicates: Allergen Reactions Lactose Diarrhea Adhesive Tape Other (Please comment) Skin becomes red and sore Other reaction(s): Rash Latex Other reaction(s): Rash Social History Socioeconomic History Marital status: Spouse name: Arley Number of children: 3 Years of education: Not on file Highest education level: Not on file Occupational History Comment: retired Tobacco Use Smoking status: Never Passive exposure: Past Smokeless tobacco: Never Vaping Use Vaping status: Never Used Substance and Sexual Activity Alcohol use: Not Currently Drug use: No Sexual activity: Yes Partners: Male Other Topics Concern Not on file Social History Narrative Not on file Social Needs Financial Resource Strain: Low Risk (01/20/2024) Financial Resource Strain Do you have any trouble paying for your medications, or do you think you might in the future? (Adult - for ages 18 years and over): No Does your family have trouble paying for medicine? (Household - for ages 0-17 years): Not on file Food Insecurity: No Food Insecurity (01/20/2024) Food Insecurity Do you need food for this week? (Adult - for ages 18 years and over): No Are you able to get enough food for your family? (Household - for ages 0-17 years): Not on file Does your family need food this week? (Household - for ages 0-17 years): Not on file Do you always have enough food for your family? (Household - for ages 0-17 years): Not on file Transportation Needs: No Transportation Needs (01/20/2024) Transportation Needs Do you have trouble getting a ride to medical visits or work? (Adult - for ages 18 years and over):Not on file Does your family have a hard time getting a ride to doctors visits? (Household - for ages 0-17 years): Not on file Has lack of transportation kept you from medical appointments, meetings, work, or from getting things needed for daily living? Check all that apply. (Adult - for ages 18 years and over): No Do you (or your family) have trouble finding or paying for a ride (transportation)? (Household - for ages 0-17 years): Not on file Social Connections: Socially Integrated (01/20/2024) Social Connections How often do you feel lonely or isolated from those around you? (Adult - for ages 18 years and over): Rarely Housing Stability: Low Risk (01/20/2024) Housing Stability Do you currently live in a fdc or have no steady place to sleep at night? (Adult - for ages 18 years and over): No Do you think you are at risk of becoming homeless? (Adult - for ages 18 years and over): Not on file Does your family worry about paying for your home or becoming homeless? (Household - for ages 0-17 years): Not on file Are you homeless or worried that you might be in the future? (Adult - for ages 18 years and over): No Are you (or your family) homeless or worried that you might be in the future? (Household - for ages0-17 years): Not on file Family History Problem Relation Name Age of Onset Heart Disorder Mother dissecting AAA/ 1970's Heart Disorder Father [place]/ /age 76y Blood Disorder Sister leukemia/ age 34 No Past Hx Sister REVIEW OF SYSTEMS: Please see interval history above. Review of systems is otherwise non-contributory. ECOG PERFORMANCE STATUS: 0 = Fully active, able to carry on all pre-disease performance without restriction PHYSICAL EXAMINATION: BP 162/82 (BP Site: Left Arm, BP Position: Sitting, BP Cuff Size: Regular) Comment: manual | Pulse 64 | Temp 36.1 C (97 F) (Infrared ) | Resp 16 | Wt 78.7 kg (173 lb 9.6 oz) | SpO2 98% | BMI 28.23 kg/m | BSA 1.91 m Wt Readings from Last 4 Encounters: 03/31/24 78.7 kg (173 lb 9.6 oz) 03/30/24 78.6 kg (173 lb 3.2 oz) 03/10/24 78.2 kg (172 lb 4.8 oz) 02/27/24 78.9 kg (173 lb 14.4 oz) General: Pleasant, alert and oriented x3, no apparent distress. Head and neck: Face is symmetric, conjunctiva non-icteric bilaterally. Neurologic: Speech intact, cognition normal, no focal deficits. Thorax: Unlabored breathing on room air. Musculoskeletal: Normal muscle bulk and tone, ambulates with a normal gait. Extremities: Non-edematous bilaterally. Skin: No visible skin lesions. LABS: Results for orders placed or performed in [...] g/dL ALT 17 10 - 35 U/L PATHOLOGY: See HPI. RADIOGRAPHIC IMAGING: CT C SPINE WO CONTRAST Narrative: EXAM CT C SPINE WO CONTRAST-03/30/2024 11:56 am HISTORY evaluation of bone involvment of metestatic thyroid to C1 and C2 TECHNIQUE CT images were acquired through the cervical spine and coronal and sagittal reformats were generated. COMPARISON MRI March 26, 2024. FINDINGS As seen on the recent MRI there are lytic lesions involving the C1 and C2 vertebral bodies. The C1 cortex appears intact, with central areas of lucency corresponding to areas of signal abnormality onthe previous MRI. At C2 there are multiple areas of cortical breakthrough associated with the underlying metastatic disease, and the central aspect of the remaining C2 vertebral body appears sclerotic. A prominent lytic lesion involves the bulk of the odontoid process, with discontinuity of both the anterior and posterior cortical margin of the odontoid suggesting the presence of pathologic fracture, although alignment remains anatomic. No additional lytic or blastic bone lesions are evident in the cervical vertebral bodies. A nonspecific small focus of sclerosis in the inferior aspect of C3 is noted. There is straightening of the cervical lordosis and there is mild anterolisthesis of C3 on C4. Disc space narrowing at C4-5, C5-6, and C6-7 is noted and uncovertebral hypertrophy and spurring causes bilateral foraminal stenosis at the C4-5 level. There is mild foraminal narrowing bilaterally at C6- 7. Evaluation of the prevertebral tissues demonstrates findings of previous thyroidectomy. No definite pathologic adenopathy is evident. There is atherosclerosis at the carotid bifurcations. The lung apices appear clear. Impression: IMPRESSION 1. Redemonstration of metastatic disease involving C1 and C2. A lytic lesion involving the bulk of the odontoid is associated with a type 2 pathologic odontoid process fracture, although alignment remains anatomic. 2. Disc degeneration in the mid and lower cervical spine with foraminal narrowing most notably at the C4-5 level bilaterally. At 11:03 pm on 03/30/2024, this case was submitted to the Radiology Explosive Operator Bomb (Results Communicating System) for communication to the referring clinician. [place] imaging screen captures from review of radiology datasets: ASSESSMENT: Ms. Phillips is a 78 year old female with recurrent/metastatic papillary carcinoma of the thyroid presenting with new osseous involvement of her C1-2 spine causing pain for consideration of palliativeradiation. We discussed the role of palliative radiation therapy in treating bone metastases alongside continued medical management. The primary goal of treatment is symptom and pain relief. [place]-analysis has shown the estimated rate of any pain response is 62% and of complete pain response is 24% (Juan et al, Radiother Oncol, 2018). We recommend treatment with 3000 cGy in 10 fractions to her C1-C3 spine. Patient has agreed to proceed with radiation. Informed consent was signed. PLAN: - Radiation therapy 3000 cGy in 10 fractions to the C1-C3 spine - Simulation planning scheduled for today - Treatment to start within a week of simulation The role of radiation therapy in this situation was discussed with the patient. The logistics, potential benefits, and potential side effects of radiation therapy were reviewed. Possible short-term and long-term side effects of radiation therapy were discussed. The patient voiced understanding of all of the above. All questions and concerns were addressed in a satisfactory manner. I spent a total of Greater than 55 mins (exact time 60 mins) on the date of service in preparation,delivery, and documentation of the care provided to Megan Phillips excluding any time spent in theperformance of separately billed services or time spent by another provider/QHP. Thank you very much for having asked us to evaluate this patient. Delonte Morocho MD 03/31/2024 documented in this encounter Nursing Notes * Alisia Smith, [facility] - 03/31/2024 9:30 AM EST Chief Complaint Patient presents with Consultation C Spine Patient presents with , Homero, for consultation today. Patient was instructed to not get up on the exam table/exam chair until directed and assisted by their provider; patient is to remain seated in the chair/ wheelchair/ exam table/ exam chair for fall prevention and safety reasons. Patient is aware to have assistance to step down off exam table/exam chair with personnel. Patient voiced full comprehension of instructions. Patient has no CGM, pacemaker, defibrillator, neurostimulator. A [facility] Cancer Calcium binder, as well as the following Radiation Therapy handouts, were given to the pt: Managing Short Term Side Effects,Your Daily Life, Understanding Radiation Therapy, Support and Resources, Skin Care During Radiation Therapy, Radiation Therapy Treatment, and Radiation Therapy Team. Patient was scheduled for SIM appointment on 03/31/24. Informed consent was obtained. Patient teaching Record - Radiation Therapy: See Patient and Family education documentation flowsheet for further information. Knowledge of Radiation Therapy: 1. Identifies radiation therapy as a treatment therapy for the patient's particular disease: yes 2. Understands the goal of radiation therapy (curative,palliative): yes 3. Describes the procedure used in external therapy: A. Use of simulator to determine beam direction: yes B. Special care of skin under tattoos or skin dyes: yes C. Removal of metal objects prior to treatment: yes D. Length of treatments: yes Adverse Effects and Self Care Management: 1. List three self-care management techniques associated with common occurring side effects: A. Skin reactions: yes B. Nutritional deficiencies: not applicable C. Stomatitis: not applicable D. Diarrhea: not applicable E. Alopecia: not applicable F. Myelosuppression: not applicable 2. Identifies signs and symptoms to report to health care persons: yes Compliance: 1. Verbalizes an understanding of home care maintenance while undergoing radiation treatments: yes A. Maintains optimal rest/activity pattern: yes B. Seeks/utilizes community resources as necessary: yes C. States intention to comply with treatment plan: yes D. Verbalizes reduced anxiety related to radiation treatments: yes Patient/Family Response: patient and voiced understanding Handouts given to patient: "Radiation Therapy-You" - yes "Eating hints" - no "Information for patients receiving radiation therapy" - yes "Instruction for patients receiving radiation therapy" - yes "Skin care" - no "Site Specific" bone - no Films viewed by patient: no Business card provided: yes Signature of person giving instruction: Alisia Smith CMA documented in this encounter Plan of Treatment Upcoming Encounters Date Type Department Care Team (Late st Contact Info) Description 04/02/2024 9:30 AM EST Treatment Radiation Oncology, [address] [address] 04/03/2024 9:30 AM EST Treatment Radiation Oncology, [address] [address] 04/06/2024 9:30 AM EST Treatment Radiation Oncology, [address] [address] 04/07/2024 9:30 AM EST Treatment Radiation Oncology, [address] [address] 04/08/2024 9:30 AM EST Treatment Radiation Oncology, [address] [address] 04/09/2024 9:30 AM EST Treatment Radiation Oncology, [facility] [address] [place] [address] 04/10/2024 9:30 AM EST Treatment Radiation Oncology, [facility] [address] [place] [address] 04/13/2024 9:30 AM EST Treatment Radiation Oncology, [facility] [address] [place] [address] 04/14/2024 9:30 AM EST Treatment Radiation Oncology, [facility] [address] [place] [address] 04/15/2024 8:45 AM EST Imaging Radiology [address] [place] [address] 04/15/2024 9:30 AM EST Treatment Radiation Oncology, [facility] [address] [place] [address] 04/16/2024 1:00 PM EST Office Visit Family Practice [address] [facility] [address] [place] [address] Otilia Burgos DO [address] [place] [address] 04/23/2024 2:00 PM EST Office Visit Hematology Oncology [address] [phone] Rafi Goncalves MD [place] [address] 04/30/2024 11:45 AM EST Pharmacy Pharmacy Hematology Oncology [address] [address] [facility] Hem/Onc [facility] [address] 06/18/2024 3:00 PM EDT Office Visit Cardiology, [facility] [address] [place] [address] Lucinda Ryan CRNP [address] [place] [address] 08/17/2024 10:30 AM EDT Imaging Radiology [facility] [address] [facility] [address] [place] [address] 11/26/2024 12:50 PM EDT Office Visit Dermatology, [facility] [address] [place] [address] Vanda Manrique PA-C [address] [place] [address] 02/22/2025 3:00 PM EST Office Visit Endocrinology [address] [place] [address] Shaina George MD [address] [facility] [place] [address] Scheduled Procedures Name Priority Associated Diagnoses [...] Documents on File Type Date Recorded Patient Weatherization Crew Leader Expl anation POLST 09/26/2021 1:05 PM POLST * Full Code (Latest Code Status on File) Date Activated Date Inactivated Comments 06/28/2011 6:10 PM 06/29/2011 4:46 PM This order r eflects the patients wishes and were consensually agreed upon. Care Teams Polyethylene Bag Machine Operator Relationship Specialty Start Date End Date Otilia Burgos DO [address] [facility] [place] [address] PCP - General Family Medicine 10/14/23 documented as of this encounter
--- OUTSIDE RECORDS SUMMARY | 2024-04-16 04:53 | External Medical Summary | Summary of Care ---
Author Name Unknown Organization [facility] Address [address] [place] [address] Phone [phone] Care Team Providers Care Microwave Engineer Name Role Phone GulshanmarsOtilia ramirez Primary Care Provider [phone] Reason for Referral * Precert (Within 10 days (routine)) - Authorized Specialty Diagnoses / Procedures Referred By Contac t Referred To Contact Radiology Diagnoses Metastatic cancer to spine (HCC) Procedures CT C SPINE WO CONTRAST Rajiv Hitchcock IV, PA-C [address] [place] [address] Phone: tel: fax: Referral ID Status Reason Start Date Expiration Date V isits Requested Visits Authorized [id number] Authorized 03/30/2024 [id number] Reason for Visit * Precert (Within 10 days (routine)) - Authorized Specialty Diagnoses / Procedures Referred By Contac t Referred To Contact Radiology Diagnoses Metastatic cancer to spine (HCC) Procedures CT C SPINE WO CONTRAST Rajiv Hitchcock IV, PA-C [address] [place] [address] Phone: tel: fax: Referral ID Status Reason Start Date Expiration Date V isits Requested Visits Authorized [id number] Authorized 03/30/2024 [id number] Encounter Details Date Type Department Care Team (Latest Contact Info) Description 03/30/2024 11:04 AM EST - 03/30/2024 11:59 PM [facility] Hospital Encounter Radiology, [place] [address] [place] [address] Arrived Discharge Disposition: Home - Self Care Allergies Active Allergy Reactions Criticality Noted Date [...] stomach.. 120 Capsule 5 06/26/19 24 Active Trametinib Dimethyl Sulfoxide 0.5 MG Oral Tablet (Mekinist)Indication s:Malignant neoplasm metastatic to lung, unspecified laterality (HCC),Papillary thyroid carcinoma (HCC),Recurrent thyroid cancer (HCC),Secondary and unspecified ma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, face and neck (HCC) Take 1.5 mg by mouth daily. Take on an empty stomach. Keep refrigerated. 90 Tablet 5 06/26/19 24 Active Trametinib Dimethyl Sulfoxide 0.5 [...] 25 Active predniSONE 10 MG Oral Tablet (Deltasone)Indicatio ns:DDD [...] 04/02/2024 9:30 AM EST Treatment [address] [address] 04/03/2024 9:30 AM EST Treatment Radiation Oncology, [address] [address] 04/06/2024 9:30 AM EST Treatment Rad[address] Oncology, [address] [address] 04/07/2024 9:30 AM EST Treatment Radiation Oncology, [address] [place] [address] 04/08/2024 9:30 AM EST Treatment Radiation Oncology, [address] [place] [address] 04/09/2024 9:30 AM EST Treatment Rad[address] Oncology, [address] [address] 04/10/2024 9:30 AM EST Treatment Radiation Oncology, [facility] [address] [place] [address] 04/13/2024 9:30 AM EST Treatment Radiation Oncology, [facility] [address] [place] [address] 04/14/2024 9:30 AM EST Treatment Radiation Oncology, [facility] [address] [place] [address] 04/15/2024 8:45 AM EST Imaging Radiology [address] [facility] [place] [phone] 04/15/2024 9:30 AM EST Treatment Radiation Oncology, [facility] [address] [place] [address] 04/16/2024 1:00 PM EST Office Visit Family Practice [address] [place] [address] [address] [place] [address] Otilia Burgos DO [address] [place] [address] 04/23/2024 2:00 PM EST Office Visit Hematology Oncology [address] [phone] Rafi Goncalves MD [address] [place] [address] 04/30/2024 11:45 AM EST Pharmacy Pharmacy Hematology Oncology [facility] [address] [place] [address] [facility], [facility] Hem/Onc [address] [place] [address] 06/18/2024 3:00 PM EDT Office Visit Cardiology, [facility] [address] [facility] [place] [address] Lucinda Ryan, VASQUEZ [address] [place] [address] 08/17/2024 10:30 AM EDT Imaging Radiology [address] [place] [address] 11/26/2024 12:50 PM EDT Office Visit Dermatology, Jarrod Olguin [address] [place] [address] Vanda Manrique PA-C [address] [place] [address] 02/22/2025 3:00 PM EST Office Visit Endocrinology Rohit Bansal Dr [address] [place] [phone] Shaina George MD [address] [facility] [place] [address] Scheduled Procedures Name [...] Procedure Name Priority Date/Time Associated Diagnosis Comments CT C SPINE WO CONTRAST Routine 03/30/2024 11:56 AM EST Metastatic cancer to spine (HCC) documented in this encounter Results * CT C SPINE WO CONTRAST (03/30/2024 11:56 AM EST) Anatomical Region Laterality Modality Cspine, Spine, Neck, Vertebra Co mputed Tomography 03/30/2024 11:0 5 PM EST Impressions 03/30/2024 11:03 PM EST IMPRESSION 1. Redemonstration of metastatic disease involving [...] this case was submitted to the Radiology Rotor Casting Machine Setup Operator (Results Communicating System) for communication to the referring clinician. Narrative 03/30/2024 11:[address] C SPINE WO CONTRAST-03/30/2024 11:56 [...] lucency corresponding to areas of signal abnormality on the previous MRI. At C2 there are multiple [...] There is mild foraminal narrowing bilaterally at C6-7. Evaluation of the prevertebral tissues demonstrates findings of previous thyroidectomy. No definite pathologic adenopathy is evident. There is atherosclerosis at the carotid bifurcations. The lung apices appear clear. Procedure Note Olivier Gaytan MD - 03/30/[address] C SPINE WO CONTRAST-03/30/2024 11:56 am HISTORY evaluation of bone involvment of metestatic thyroid to C1 and C2 TECHNIQUE CT images were acquired through the cervical spine and coronal andsagittal reformats were generated. COMPARISON MRI March 26, 2024. FINDINGS As seen on the recent MRI there are lytic lesions involving the C1 and L8zuhinyomi bodies. The C1 cortex appears intact, with central areas oflucency corresponding to areas of signal abnormality on the previous MRI.At C2 there are multiple areas of cortical breakthrough associated withthe underlying metastatic disease, and the central aspect of the remainingC2 vertebral body appears sclerotic. A prominent lytic lesion involvesthe bulk of the odontoid process, with discontinuity of both the anteriorand posterior cortical margin of the odontoid suggesting the presence ofpathologic fracture, although alignment remains anatomic. No additional lytic or blastic bone lesions are evident in the cervicalvertebral bodies. A nonspecific small focus of sclerosis in the inferioraspect of C3 is noted. There is straightening of the cervical lordosisand there is mild anterolisthesis of C3 on C4. Disc space narrowing atC4-5, C5-6, and C6-7 is noted and uncovertebral hypertrophy and spurringcauses bilateral foraminal stenosis at the C4-5 level. There is mildforaminal narrowing bilaterally at C6-7. Evaluation of the prevertebraltissues demonstrates findings of previous thyroidectomy. No definitepathologic adenopathy is evident. There is atherosclerosis at the carotidbifurcations. The lung apices appear clear. IMPRESSION IMPRESSION 1. Redemonstration of metastatic disease involving C1 and C2. A lyticlesion involving the bulk of the odontoid is associated with a type 2pathologic odontoid process fracture, although alignment remainsanatomic. 2. Disc degeneration in the mid and lower cervical spine with foraminalnarrowing most notably at the C4-5 level bilaterally. At 11:03 pm on 03/30/2024, this case was submitted to the Radiology OfficeAssistant (Results Communicating System) for communication to thereferring clinician. Rajiv Hitchcock IV, PA-C RAD CT Final Result documented in this encounter Visit Diagnoses Diagnosis Metastatic cancer to spine (HCC) Secondary malignant neoplasm of bone and bone marrow documented in this encounter Advance Directives Documents on File Type Date Recorded Patient Wax Pattern Coater Expl anation POLST 09/26/2021 1:05 PM POLST * Full Code (Latest Code Status on File) Date Activated Date Inactivated Comments 06/28/2011 6:10 PM 06/29/2011 4:46 PM This order r eflects the patients wishes and were consensually agreed upon. Care Teams Microwave Engineer Relationship Specialty Start Date End Date Otilia Burgos DO [address] [place] [address] PCP - General Family Medicine 10/14/23 documented as of this encounter
--- OUTSIDE RECORDS SUMMARY | 2024-04-16 04:54 | External Medical Summary | Summary of Care ---
Author Name Unknown Organization [facility] Address [address] [place] [address] Phone [phone] Care Team Providers Care Disk Sharpener Name Role Phone Otilia Burgos Primary Care Provider Encounter Details Date Type Department Care Team (Late st Contact Info) Description 03/31/2024 10:00 AM EST Documentation Radiation Oncology, [facility] [address] [place], [place] [phone] IovoliDelonte MD [address] [place] [address] [address] Rad Onc [address] [place], [place] [id number] Allergies Active Allergy Reactions Criticality Noted Date [...] an empty stomach.. 84 Capsule 5 09/19/19 Active Additional Information Patient not [...] as of this encounter Miscellaneous Notes * Radiation Planning Note - Delonte Morocho MD - 03/31/2024 10:50 AM EST RADIATION ONCOLOGY SIMULATION & START OF TREATMENT NOTE [facility] Name: Megan Phillips Date: 03/31/2024 Megan Phillips underwent simulation in Radiation Oncology at [facility] on 03/31/2024. Date and Time of Procedure: 03/31/2024 at 10:50 AM HISTORY OF PRESENT ILLNESS Ms. Phillips is a 78 year old female with recurrent/metastatic papillary carcinoma of the thyroid presenting with new osseous involvement of her C1-2 spine causing pain. She was evaluated at neuro [facility] felt to have stable findings. She has declined surgical stabilization and we are proceeding with palliative radiation. SIMULATION The patient is a 78 year old female who was simulated for palliative radiation therapy to the C1-C4cjgyn. The potential benefits and risks of radiation therapy were reviewed with the patient and family in detail. The alternative treatment options and expected outcomes were also discussed with the patientand family in detail. Written informed consent was obtained. The relevant diagnostic images were reviewed prior to simulation. The radiation planning CT scan will be fused to other diagnostic radiology studies (such as MRI or PET) if these will aid target and/or normal tissue delineation. Description of the procedure: The patient was brought to the simulator room and placed in the treatment position. The patient wasimmobilized per department protocol. Reference point was placed and verified. The radiation planning CT scan was then obtained. Measurements were taken and villafuerte were placed. Radiation treatment position: supine Radiation immobilization devices: head and neck thermoplastic mask Other radiation planning issues: none Radiation planning CT parameters: shallow free breathing CT scan Radiation planning CT contrast: no CT scan oral or IV contrast. Patient breathing: shallow free breathing Radiation gating: none Radiation treatment planninD conformal radiation therapy (3D REGIONAL TRANSPORTATION MANAGER) IMRT justification (if applicable): at least 3 critical dose limiting structures adjacent to but outside of the planned treatment volume that would incur unacceptable morbidity with conventional radiation therapy and IMRT would significantly decrease the probability of grade 2 or grade 3 radiation toxicity when compared to conventional radiation therapy IMRT avoidance structures (if applicable): brainstem, salivary glands, and pharynx Radiation dose (estimated): 3000 cGy Positioning verification and target localization: orthogonal images and/or portal images Concurrent chemotherapy: no The CT images were transferred to the radiation treatment planning system. The target volumes and critical adjacent normal tissues were contoured. The images and contours were discussed with and submitted to dosimetry and/or physics for treatment planning and dose calculation. The patient has been scheduled to return for treatment initiation in the near future, once a treatment plan has been designed. The patient will be seen on a regular basis once treatment begins. Dleonte Morocho MD 03/31/2024 documented in this encounter Plan of Treatment Upcoming Encounters Date Type Department Care Team (Late st Contact Info) Description 04/02/2024 9:30 AM EST Treatment Radiation Oncology, [address] [address] 04/03/2024 9:30 AM EST Treatment Radiation Oncology, [address] [address] 04/06/2024 9:30 AM EST Treatment Radiation Oncology, [address] [address] 04/07/2024 9:30 AM EST Treatment Radiation Oncology, [address] [address] 04/08/2024 9:30 AM EST Treatment Radiation Oncology, [address] [address] 04/09/2024 9:30 AM EST Treatment Radiation Oncology, [address] [address] 04/10/2024 9:30 AM EST Treatment Radiation Oncology, [address] [address] 04/13/2024 9:30 AM EST Treatment Radiation Oncology, [address] [address] 04/14/2024 9:30 AM EST Treatment Radiation Oncology, [facility] [address] [place] [address] 04/15/2024 8:45 AM EST Imaging Radiology [address] [facility] [phone] 04/15/2024 9:30 AM EST Treatment Radiation Oncology, [facility] [address] [place] [address] 04/16/2024 1:00 PM EST Office Visit Family Practice [address] [place] [address] [place] [address] Otilia Burgos DO [address] [place] [address] 04/23/2024 2:00 PM EST Office Visit Hematology Oncology [facility] [address] [place] [phone] Rafi Goncalves MD [address] [place] [address] 04/30/2024 11:45 AM EST Pharmacy Pharmacy Hematology Oncology [facility] [address] [place] [address] [facility] Hem/Onc [address] [place] [address] 06/18/2024 3:00 PM EDT Office Visit Cardiology, [facility] 132 [facility] [place] [address] Lucinda Ryan CRNP 132 [facility] [place] [address] 08/17/2024 10:30 AM EDT Imaging Radiology [facility] 2nd [facility] [address] [address] 11/26/2024 12:50 PM EDT Office Visit Dermatology, [facility] [address] [place] [address] Vanda Manrique PA-C [address] [place] [address] 02/22/2025 3:00 PM EST Office Visit Endocrinology Rohit Bnasal Dr [address] [place] [phone] Shaina George MD [address] [facility] [place] [address] Scheduled Procedures [...] Documents on File Type Date Recorded Patient Manager Managed Care Expl anation POLST 09/26/2021 1:05 PM POLST * Full Code (Latest Code Status on File) Date Activated Date Inactivated Comments 06/28/2011 6:10 PM 06/29/2011 4:46 PM This order r eflects the patients wishes and were consensually agreed upon. Care Teams Disk Sharpener Relationship Specialty Start Date End Date Otilia Burgos DO [address] [place] [address] PCP - General Family Medicine 10/14/23 documented as of this encounter
--- OUTSIDE RECORDS SUMMARY | 2024-04-16 04:54 | External Medical Summary | Summary of Care ---
Author Name Unknown Organization [facility] Address [address] [place] [address] Phone [phone] Care Team Providers Care Length Control Tester Name Role Phone Otilia Burgos Primary Care Provider + [phone] Reason for Visit * Reason Onset Date Comments Appointment 03/27/2024 Scheduled in [facility] on 03/30/24 at 9:45 Encounter Details Date Type Department Care Team (Late st Contact Info) Description 03/27/2024 Telephone Neurology, [place] [address] [place] [address] Clinic, Brain Tumor Multidisciplinary [address] [place], [place] [phone] Appointment (Scheduled in [facility] on ... Allergies Active Allergy Reactions Criticality Noted Date Comments Adhesive Tape Other (Please comment) Low 04/16/2013 Skin becomes red and sore Other reaction(s): Rash Lactose Diarrhea 08/12/2015 Latex Low 06/26/2021 Other reaction(s): Rash documented as of this encounter (statuses as of 03/27/2024) Medications FISH OIL 1000 MG PO CAPS [...] stomach.. 84 Capsule 5 09/19/19 24 Active Sennosides 8.6 MG Oral Tablet (Senokot) Take 1 Tablet by mouth at bedtime as needed for Constipation. Active Docusate Sodium 100 MG Oral Capsule (Colace) Take 3 Capsules by mouth daily. Active Lisinopril 5 MG Oral Tablet (Prinivil)Indication s:HTN, goal below 140/90 TAKE ONE TABLET BY MOUTH EVERY MORNING 100 Tablet 3 02/13/2024 10:06 AM EST 11/03/19 24 025 Active [...] two tablets once weekly 105 Tablet 3 02/20/2024 10:12 AM EST 02/17/20 24 Active tiZANidine HCl 2 MG Oral Tablet (Zanaflex)Indication s:Neck pain Take 1 Tablet by mouth every 8 hours as needed for Muscle spasms. 30 Tablet 03/10/20 24 Active predniSONE 10 MG Oral Tablet (Deltasone)Indicatio ns:DDD (degenerative disc disease), cervical,Recurrent thyroid cancer (HCC),Neck pain Take 5 tabs for 2 days, 4 tabs for 2 days, 3 tabs for 2 days, 2 tabs for 2 days 1 tab for 2 days 30 Tablet 03/12/19 25 Active Metoprolol Succinate ER 50 MG Oral Tablet Extended Release 24 Hour (toPROL XL)Indications:HTN, goal below 140/90,Paroxysmal atrial fibrillation (HCC),PSVT (paroxysmal supraventricular tachycardia) (HCC) Take 1 Tablet by mouth in the morning and 1 Tablet before bedtime. 180 Tablet 03/25/2024 1:56 PM EST 03/20/19 25 Active documented as of this encounter (statuses as of 03/27/2024) Active Problems Problem Noted Date Diagnosed Date [...] as of this encounter (statuses as of 03/27/2024) Resolved Problems Problem Noted Date Diagnosed Date Resolved Date Kidney disease, chronic, sta ge III (GFR 30-59 ml/min) 09/19/2015 06/04/2016 Overview: Per CKD protocol #1 Other stomatitis and mucositis (ulcerative) 07/27/2012 12/16/2017 Hypothyroidism 06/30/2012 03/23/2015 Throat pain 01/07/2012 05/07/2017 Dyspareunia 03/13/2010 07/05/2016 Joint pain, hip 03/13/2010 03/19/2017 Palpitations 03/13/2010 03/19/2017 documented as of this encounter (statuses as of 03/27/2024) Immunizations Name Administration Dates Next Due COVID-19 [...] encounter Miscellaneous Notes * Telephone Encounter - Jaqueline Barragan LPN - 03/27/2024 3:28 PM EST Called patient Patient identified by name and date of . Scheduled appt. In [facility] on Saturday03/30/24 at 9:45 am at [facility]. Directions from Tomy entrance to clinic given. She repeated the information and thanked me for calling. documented in this encounter Plan of Treatment Upcoming Encounters Date Type Department Care Team (Late st Contact Info) Description 03/30/2024 9:45 AM EST Office Visit Neurosurgery, [address] [address] Clinic, Brain Tumor Multidisciplinary [facility] [place] [address] 04/15/2024 8:45 AM EST Imaging Radiology [facility] 1st [facility] [place] [address] [place] [phone] 04/16/2024 1:00 PM EST Office Visit Family Practice [address] [place] [address] [place] [address] Otilia Burgos DO [address] [place] [address] 04/23/2024 2:00 PM EST Office Visit Hematology Oncology [address] [phone] Rafi Goncalves MD [address] [place] [address] 04/30/2024 11:45 AM EST Pharmacy Pharmacy Hematology Oncology [address] [address] [facility] Hem[facility]Onc [facility] [place] [address] 06/18/2024 3:00 PM EDT Office Visit Cardiology, [facility] [address] [place] [address] Lucinda Ryan CRNP [address] [place] [address] 08/17/2024 10:30 AM EDT Imaging Radiology [facility] 2nd [facility] [address] [place] [address] 11/26/2024 12:50 PM EDT Office Visit Dermatology, Jarrod Olguin [address] [place] [address] Vanda Manrique PA-C [address] [place] [address] 02/22/2025 3:00 PM EST Office Visit Endocrinology Rohit Bans[address] Dr [address] [place] [address] Shaina George MD [address] [place] [address] Scheduled Procedures Name Priority Associated [...] Albumin/Creatinine Ratio 09/18/2024 09/18/2021 GFR 11/28/2024 11/29/2023, 09 08/2023, 09/11/2023, Additional history exists TSH 02/04/2025 [...] Documents on File Type Date Recorded Patient Projects Manager Expl anation POLST 09/26/2021 1:05 PM POLST * Full Code (Latest Code Status on File) Date Activated Date Inactivated Comments 06/28/2011 6:10 PM 06/29/2011 4:46 PM This order r eflects the patients wishes and were consensually agreed upon. Care Teams Length Control Tester Relationship Specialty Start Date End Date Otilia Burgos DO [address] [place] [address] PCP - General Family Medicine 10/14/23 documented as of this encounter
--- OUTSIDE RECORDS SUMMARY | 2024-04-16 04:54 | External Medical Summary | Summary of Care ---
Author Name Unknown Organization [facility] Address [address] [place] [address] Phone [phone] Care Team Providers Care Wool Sorter Name Role Phone GulshanmarsOtilia ramirez Primary Care Provider [phone] Reason for Visit * Reason Comments Consultation C Spine * Evaluate & Treat - Unlimited Visits (Within 10 days (routine)) - Authorized Specialty Diagnoses / Procedures Referred By Contac t Referred To Contact Radiation Oncology Diagnoses Papillary thyroid carcinoma (HCC) Secondary malignant neoplasm of bone (HCC) Rafi Goncalves MD [address] [place] [address] Phone: tel: fax: Chalino Baker MD [address] [place] [address] Phone: tel: fax: Referral ID Status Reason Start Date Expiration Date Visits Requested Visits Authorized [id number] Authorized Specialty Services Required 03/27/2024 [id number] Encounter Details Date Type Department Care Team (Late st Contact Info) Description 03/31/2024 9:30 AM EST Office Visit Radiation Oncology, [facility] [address] [place] [address] Delonte Morocho MD [address] [place] [address] 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 RADIATION ONCOLOGY CONSULTATION NOTE Radiation Oncology, [place] [address] [address] [facility] [address] Name: Megan Phillips Date: 03/31/2024 REFERRING PHYSICIAN: Rafi Goncalves MD DIAGNOSIS: Recurrent/metastatic papillary carcinoma of the thyroid (initially diagnosed [id number] in 2011) Diagnosed with a left neck [...] soft tissue component. Patient was evaluated by [facility] neuro MDC on 03/30/2024 and felt to [...] No other concerns today. SOCIAL HISTORY [facility]idence: [facility] Marital status: Smoking: reports that she has [...] performed by Darryl Navarro MD at ENDOSCOPY [facility] COLONOSCOPY, DIAGNOSTIC (RECTUM) 02/15/2022 sigmoid diverticulosis/recall 5 years/COLONOSCOPY FLEXIBLE PROXIMAL DIAGNOSTIC performed by Gela Landin MD at ENDOSCOPY [facility] DENTAL INLAY METALIC 1 SURF HYSTEROSCOPY W/BIOPSY AND/OR POLYPECTOMY W/WO D&C Bilateral 09/20/2022 HYSTEROSCOPY WITH BIOPSY AND/OR POLYPECTOMY WITH OR WITHOUT D&C performed by Judith Sotomayor MD at OR [facility] INFORMATION EYELID SURGERY KNEE MENISCAL TRANSP,SURG ARTHROS r knee LIGATE,DIV,EXCIS ALIRIO VEIN CLUS l knee MAMMOGRAM SCREENING BILATERAL 01/10/2008 nl REMOVAL OF NECK LYMPH NODES Left 02/07/2016 CERVICAL LYMPHADENECTOMY MODIFIED RADICAL NECK DISSECTION performed by Ricardo Barriga MD at [facility] REMOVAL OF THYROID FOR TUMOR 06/28/2011 THYROIDECTOMY WITH LIMITED NECK DISSECTION performed by RICARDO BARRIGA at [facility] REMOVAL OF TONSILS, UNDER AGE [...] Stability Do you currently live in a detention or have no steady place to sleep [...] Mother dissecting AAA/ 1970's Heart Disorder Father RI/ /age 76y Blood Disorder Sister leukemia/ age [...] this case was submitted to the Radiology Supervisor Intelligence Analyst (Results Communicating System) for communication to the [...] of treatment is symptom and pain relief. [place]-analysis has shown the estimated rate of any [...] Nursing Notes * Alisia Smith CMA - 03/31/2024 9:30 AM EST Chief Complaint [...] has no CGM, pacemaker, defibrillator, neurostimulator. A [facility] [place] binder, as well as the following Radiation Therapy handouts, were given to the pt: Managing Short Term Side Effects,Your Daily Life, Understanding Radiation Therapy, Support and Resources, Skin Care During Radiation Therapy, Radiation Therapy Treatment, and Radiation Therapy Team. Patient was scheduled for SIM appointment on 03/31/24. Informed consent was obtained. documented in this encounter Plan of Treatment Upcoming Encounters Date Type Department Care Team (Late st Contact Info) Description 04/02/2024 9:30 AM EST Treatment Radiation Oncology, [facility] [address] [facility] [address] 04/03/2024 9:30 AM EST Treatment Radiation Oncology, [facility] [address] [place] [address] 04/06/2024 9:30 AM EST Treatment Radiation Oncology, [address] [place] [address] 04/07/2024 9:30 AM EST Treatment Radiation Oncology, [address] [place] [address] 04/08/2024 9:30 AM EST Treatment Radiation Oncology, [address], [place] [address] 04/09/2024 9:30 AM EST Treatment Radiation Oncology, [address] [place] [address] 04/10/2024 9:30 AM EST Treatment Radiation Oncology, [address] [place] [address] 04/13/2024 9:30 AM EST Treatment Radiation Oncology, [address], [place] [address] 04/14/2024 9:30 AM EST Treatment Radiation Oncology, [address], [place] [address] 04/15/2024 8:45 AM EST Imaging Radiology [address] [place] [address] 04/15/2024 9:30 AM EST Treatment Radiation Oncology, [address], [place] [address] 04/16/2024 1:00 PM EST Office Visit Family [facility] [address] [facility] [place] 293 [facility], [place] [address] Otilia Burgos DO 293 [facility], [place] [address] 04/23/2024 2:00 PM EST Office Visit Hematology Oncology [address] [place] [address] Rafi Goncalves MD [address] [place] [address] 04/30/2024 11:45 AM EST Pharmacy Pharmacy Hematology Oncology [facility] [place] [address] [place] [address] [facility] Hem/Onc [address] [place] [address] 06/18/2024 3:00 PM EDT Office Visit Cardiology, [facility] [address] [place] [address] Lucinda Ryan CRNP [address] [place] [address] 08/17/2024 10:30 AM EDT Imaging Radiology [facility] [place] 2nd [facility] [address] [place] [address] 11/26/2024 12:50 PM EDT Office Visit Dermatology, [place] [address] [place] [address] Vanda Manrique PA-C [address] [place] [address] 02/22/2025 3:00 PM EST Office Visit Endocrinology [address] [place] [address] Shaina George MD [address], [place] [id number] Scheduled Procedures Name Priority Associated Diagnoses Date/Ti [...] Documents on File Type Date Recorded Patient [place] Boatman Expl anation POLST 09/26/2021 1:05 PM POLST * Full Code (Latest Code Status on File) Date Activated Date Inactivated Comments 06/28/2011 6:10 PM 06/29/2011 4:46 PM This order r eflects the patients wishes and were consensually agreed upon. Care Teams Wool Sorter Relationship Specialty Start Date End Date Otilia Burgos DO [address] [place] [address] PCP - General Family Medicine 10/14/23 documented as of this encounter"
--- OUTSIDE RECORDS SUMMARY | 2024-04-16 04:54 | External Medical Summary | Summary of Care ---
Author Name Unknown Organization [facility] Address [address] [place] [address] Phone [phone] Care Team Providers Care Business Account Manager Name Role Phone AubreyOtilia Angela READ Primary Care Provider [phone] Reason for Referral * Precert (Within 10 days (routine)) - Pending Review Specialty Diagnoses / Procedures Referred By Contac t Referred To Contact Radiology Diagnoses DDD (degenerative disc disease), cervical Recurrent thyroid cancer (HCC) Neck pain Procedures MRI C SPINE W WO CONTRAST MRI C SPINE W CONT Keon Bautista DO [address] [place] [address] Phone: tel: fax: Referral ID Status Reason Start Date Expiration Date V isits Requested Visits Authorized [id number] Pending Review 03/12/[id number] Reason for Visit * Precert (Within 10 days (routine)) - Pending Review Specialty Diagnoses / Procedures Referred By Contac t Referred To Contact Radiology Diagnoses DDD (degenerative disc disease), cervical Recurrent thyroid cancer (HCC) Neck pain Procedures MRI C SPINE W WO CONTRAST MRI C SPINE W CONT Keon Bautista DO [address] [place] [address] Phone: tel: fax: Referral ID Status Reason Start Date Expiration Date V isits Requested Visits Authorized [id number] Pending Review 03/12/[id number] Encounter Details Date Type Department Care Team (Latest Contact Info) Description 03/26/2024 12:33 PM EST - 03/26/2024 11:59 PM EST Hospital Encounter Radiology, [facility] [address] [place] [id number] Arrived Discharge Disposition: Home - Self Care [...] 180 Tablet 03/25/2024 1:56 PM EST 03/20/19 Active Hospital, Clinic, or Other Facility Administered Medication Ordered Dose Route Frequency Start Date End Date Status sodium chloride 0.9 % flush/inj 10 mL 10 mL IV PUSH ONCE 03/26/2024 03/27/2024 Ended documented as of this encounter (statuses as [...] No 01/20/2024 Does the household have a socorro general hospitallar source of income? (Household - for ages [...] Description 04/15/2024 8:45 AM EST Imaging Radiology [address] [place] [id number] 04/16/2024 1:00 PM EST Office Visit Family Practice [address], [place] 293 [place] [address] Otilia Burgos, 293 [facility], [place] [address] 04/23/2024 2:00 PM EST Office Visit Hematology Oncology [facility] [address] [place] [address] Rafi Goncalves MD [address] [place] [address] 04/30/2024 11:45 AM EST Pharmacy Pharmacy Hematology Oncology [facility] [place] [address] [place] [address] [facility], [facility] Hem/Onc [address] [place] [address] 06/18/2024 3:00 PM EDT Office Visit Cardiology, [facility] 132 [place] [address] Lucinda Ryan CRNP 132 [place] [address] 08/17/2024 10:30 AM EDT Imaging Radiology [facility] 2nd [facility] [address] [facility] [place] [address] 11/26/2024 12:50 PM EDT Office Visit Dermatology, [place] [address] [place] [address] Vanda Manrique PA-C [address] [place] [address] 02/22/2025 3:00 PM EST Office Visit Endocrinology Rohit [address] [place] [address] Shaina George MD [address] [place] [address] Scheduled Procedures Name Priority Associated Diagnoses Date/Ti [...] Procedure Name Priority Date/Time Associated Diagnosis Comments MRI C SPINE W WO CONTRAST Routine 03/26/2024 1:33 PM EST DDD (degenerative disc disease), cervical Recurrent thyroid cancer (HCC) Neck pain documented in this encounter Results * MRI C SPINE [...] cortical break/fracture and noextraosseous soft tissue component. Keon Bautista DO RAD MRI-MRA Final Result documented in this encounter Visit Diagnoses Diagnosis DDD (degenerative disc disease), cervical Degeneration of cervical intervertebral disc Recurrent thyroid cancer (HCC) Malignant neoplasm of thyroid gland Neck pain Cervicalgia documented in this encounter Administered Medications Inactive Administered Medications - up to 3 most recent administrations Medication Order MAR Action Action Date Dose Rate Site gadobutrol (Gadavist) inj 7.8 mL 7.8 mL (rounded from 7.82 mL = 0.1 mL/kg 78.2 kg), Intravenous, ONCE, On Vianey 03/26/24 at 1237, For 1 dose, Radiology Medication Routing (Non-IR) Given 03/26/2024 1:15 PM EST 7.5 mL Antecubital Left documented in this encounter Advance Directives Documents on File Type Date Recorded Patient Fashion Director Party Plan Sales Expl anation POLST 09/26/2021 1:05 PM POLST * Full Code (Latest Code Status on File) Date Activated Date Inactivated Comments 06/28/2011 6:10 PM 06/29/2011 4:46 PM This order r eflects the patients wishes and were consensually agreed upon. Care Teams Business Account Manager Relationship Specialty Start Date End Date Otilia Burgos DO [address] [place] [address] PCP - General Family Medicine 10/14/23 documented as of this encounter
--- OUTSIDE RECORDS SUMMARY | 2024-04-16 04:54 | External Medical Summary | Summary of Care ---
Author Name Unknown Organization [facility] Address [address] [place] [address] Phone [phone] Care Team Providers Care Dialysis Social Worker Name Role Phone Otilia Burgos DO Primary Care Provider Reason for Visit * Reason Onset Date Comments Patient Assistance Program 03/23/2024 13 Ch ristine B mek/taf PAF davon pending Encounter Details Date Type Department Care Team (Late st Contact Info) Description 03/23/2024 Telephone Hematology Oncology [facility] [address] [place] [address] Rafi Goncalves MD [address] [place] [address] Patient Assistance Program (13 Blanka Winston.. Allergies Active Allergy Reactions Criticality [...] Follow up: 2 days Blanka Montesinos Medication Mold Stacker 03/23/2024.7:03 AM * Telephone Encounter - Amparo Gaspar OSA - 03/23/2024 5:49 AM EST [facility] can fill mekinist. Please route prescription to [id number]. Patient's co-pay will be $1994.76. Co-pay assistance required: yes [facility] will help search for additional assistance Thank you, ABDIEL Braga [facility] 03/23/24,5:48 AM documented in this encounter Plan of Treatment Upcoming Encounters Date Type Department Care Team (Late st Contact Info) Description 03/31/2024 9:30 AM EST Office Visit Radiation Oncology, [address], [place] [address] Delonte [facility] [address] [facility] [address] 03/31/2024 10:00 AM EST Documentation Radiation Oncology, [facility] [address] [facility], [place] [address] Delonte Morocho MD [address] [facility] [address] [facility] [address] Rad Onc [address] [facility] [place] [address] 04/15/2024 8:45 AM EST Imaging Radiology [facility] 1st [facility] [address] [place] [phone] 04/16/2024 1:00 PM EST Office Visit Family Practice [address], [place] 293 [place] [address] Otilia Burgos, [address] [place] [address] 04/23/2024 2:00 PM EST Office Visit Hematology Oncology [facility] [address] [place] [address] Rafi Goncalves MD [address] [place] [address] 04/30/2024 11:45 AM EST Pharmacy Pharmacy Hematology Oncology [facility] [address] [place] [address] [facility], [facility] Hem/Onc [address] [place] [address] 06/18/2024 3:00 PM EDT Office Visit Cardiology, [facility] [address] [place] [address] Lucinda Ryan CRNP 132 [facility] [place] [address] 08/17/2024 10:30 AM EDT Imaging Radiology [facility] 2nd [facility] [address] [place] [address] 11/26/2024 12:50 PM EDT Office Visit Dermatology, [place] [address] [facility] [address] [place] [address] Vanda Manrique PA-C [address] [place] [id number] 02/22/2025 3:00 PM EST Office Visit Endocrinology Rohit [address] Dr [address] [place] [address] Shaina George MD [address] [facility] [place] [address] Scheduled Procedures [...] Documents on File Type Date Recorded Patient Automotive Engineering Teacher Expl anation POLST 09/26/2021 1:05 PM POLST * Full Code (Latest Code Status on File) Date Activated Date Inactivated Comments 06/28/2011 6:10 PM 06/29/2011 4:46 PM This order r eflects the patients wishes and were consensually agreed upon. Care Teams Dialysis Social Worker Relationship Specialty Start Date End Date Otilia Burgos DO [address] [facility] [place] [address] PCP - General Family Medicine 10/14/23 documented as of this encounter
--- OUTSIDE RECORDS SUMMARY | 2024-04-16 04:54 | External Medical Summary | Summary of Care ---
Author Name Unknown Organization [facility] Address [address] [place] [address] Phone [phone] Care Team Providers Care Aircraft Avionics Technician Name Role Phone Otilia Burgos Primary Care Provider + [phone] Reason for Visit * Reason Onset Date Comments Appointment 03/27/2024 Scheduled in [facility] on 03/30/24 at 9:45 Encounter Details Date Type Department Care Team (Late st Contact Info) Description 03/27/2024 Telephone Neurology, [place] [address] [place] [address] Clinic, Brain Tumor Multidisciplinary [address] [place], [place] [id number] Appointment (Scheduled in [facility] on ... Allergies Active Allergy Reactions Criticality Noted Date Comments Adhesive Tape Other (Please comment) Low 04/16/2013 Skin becomes red and sore Other reaction(s): Rash Lactose Diarrhea 08/12/2015 Latex Low 06/26/2021 Other reaction(s): Rash documented as of this encounter (statuses as of 03/29/2024) Medications FISH OIL 1000 MG PO CAPS [...] as of this encounter (statuses as of 03/29/2024) Active Problems Problem Noted Date Diagnosed Date [...] as of this encounter (statuses as of 03/29/2024) Resolved Problems Problem Noted Date Diagnosed Date Resolved Date Kidney disease, chronic, sta ge III (GFR 30-59 ml/min) 09/19/2015 06/04/2016 Overview: Per CKD protocol #1 Other stomatitis and mucositis (ulcerative) 07/27/2012 12/16/2017 Hypothyroidism 06/30/2012 03/23/2015 Throat pain 01/07/2012 05/07/2017 Dyspareunia 03/13/2010 07/05/2016 Joint pain, hip 03/13/2010 03/19/2017 Palpitations 03/13/2010 03/19/2017 documented as of this encounter (statuses as of 03/29/2024) Immunizations Name Administration Dates Next Due COVID-19 [...] Telephone Encounter - Jaqueline Barragan LPN - 03/29/2024 6:08 PM EST Called patient Patient identified by name and date of . Informed her that her Neurosurgery visit tomorrow will be in the [facility] so she should come in the main entrance go to the right and take the D as in [place] elevator to the 2nd floor and that opens into our waiting room. I stated that our move to [facility] was delayed . She repeated the information and thanked me for calling and confirming the location of the appointment. * Telephone Encounter - Jaqueline Barragan LPN - 03/27/2024 3:28 PM EST Called patient Patient identified by name and date of . Scheduled appt. In [facility] on Saturday03/30/24 at 9:45 am at [facility]. Directions from [place] entrance to clinic given. She repeated the information and thanked me for calling. documented in this encounter Plan of Treatment Upcoming Encounters Date Type Department Care Team (Late st Contact Info) Description 03/30/2024 9:45 AM EST [facility] [address] [place] [address] Clinic, Brain Tumor Multidisciplinary [address] [place] [address] 04/15/2024 8:45 AM EST Imaging Radiology [facility] 1st [facility] [address] [place] [address] 04/16/2024 1:00 PM EST Office Visit Family Practice [address], [place] 293 [place] [address] Otilia Burgos DO 293 [place] [address] 04/23/2024 2:00 PM EST Office Visit Hematology Oncology [facility] [place] [address] [place] [address] Rafi Goncalves MD [address] [place], [place] [address] 04/30/2024 11:45 AM EST Pharmacy Pharmacy Hematology Oncology [facility] [address] [place] [address] [facility], [facility] Hem/Onc [address] [place] [address] 06/18/2024 3:00 PM EDT Office Visit Cardiology, [facility] 132 [place] [address] Lucinda Ryan CRNP 132 [place] [address] 08/17/2024 10:30 AM EDT Imaging Radiology [address] [place] [address] 11/26/2024 12:50 PM EDT Office Visit Dermatology, [place] [address] [place] [address] Vanda Manrique PA-C [address] [place] [address] 02/22/2025 3:00 PM EST Office Visit Endocrinology Rohit [address] [place], [place] [address] Shaina George MD [address] [facility], [place] [address] Scheduled Procedures Name Priority Associated Diagnoses Date/Ti [...] Documents on File Type Date Recorded Patient Transition Lead Expl anation POLST 09/26/2021 1:05 PM POLST * Full Code (Latest Code Status on File) Date Activated Date Inactivated Comments 06/28/2011 6:10 PM 06/29/2011 4:46 PM This order r eflects the patients wishes and were consensually agreed upon. Care Teams Aircraft Avionics Technician Relationship Specialty Start Date End Date Otilia Burgos DO 293 [place] [address] PCP - General Family Medicine 10/14/23 documented as of this encounter
--- OUTSIDE RECORDS SUMMARY | 2024-04-16 04:54 | External Medical Summary | Summary of Care ---
Author Name Unknown Organization [facility] Address [address] [place] [address] Phone [phone] Care Team Providers Care Lidder Name Role Phone Otilia Burgos Primary Care Provider + [phone] Reason for Visit * Reason Onset Date Comments Test Results 03/31/2024 Unexpected or In determinate Result Encounter Details Date Type Department Care Team (Late st Contact Info) Description 03/31/2024 Telephone [facility], [place] [address] [place] [address] Rajiv Hitchcock IV, PA-C [address] [place] [address] Test Results (Unexpected or Indeterminate ... Allergies Active Allergy Reactions Criticality Noted [...] encounter Miscellaneous Notes * Telephone Encounter - Rochelle Lynch OSA - 03/31/2024 2:02 AM EST Angelina- The radiologist discovered an unexpected or indeterminate finding on Megan Dvorsky ([id number]) and asks that you review the following report. Study Type:CT C SPINE WO CONTRAST Date of Study: 03/30/2024 IMPRESSION IMPRESSION 1. Redemonstration of metastatic disease involving C1 and C2. A lytic lesion involving the bulk of the odontoid is associated with a type 2 pathologic odontoid process fracture, although alignment remains anatomic. 2. Disc degeneration in the mid and lower cervical spine with foraminal narrowing most notably at the C4-5 level bilaterally. Please respond to this encounter to acknowledge receipt of this message and take responsibility to ensure this report is reviewed. Thank you, ABDIEL Claire Client Service [facility] documented in this encounter Plan of Treatment Upcoming Encounters Date Type Department Care Team (Late st Contact Info) Description 03/31/2024 9:30 AM EST Office Visit Radiation Oncology, [facility] [address] [place], [place] [id number] Delonte Morocho MD [address] [place] [address] 03/31/2024 10:00 AM EST Documentation Radiation Oncology, [facility] [address] [place] [address] Delonte Morocho MD [address] [place] [address] [facility], [address] Rad Onc [address] [place] [address] 04/15/2024 8:45 AM EST Imaging Radiology [address], [place] [address] [place] [address] 04/16/2024 1:00 PM EST Office Visit Family Practice [address], [place] [address] [place] [address] Otilia Burgos DO [address] [place] [address] 04/23/2024 2:00 PM EST Office Visit Hematology Oncology [facility] [address] [place] [phone] Rafi Goncalves MD [address] [place] [address] 04/30/2024 11:45 AM EST Pharmacy Pharmacy Hematology Oncology [facility] [address] [place] [address] [facility] [address] [place] [address] 06/18/2024 3:00 PM EDT Office Visit Cardiology, [facility] [address] [facility] [place] [address] Lucinda [facility] [address] 08/17/2024 10:30 AM EDT Imaging Radiology [facility] [address] [facility] [place] [address] 11/26/2024 12:50 PM EDT Office Visit Dermatology, [facility] [address] [place] [address] Vanda Manrique PA-C [address] [place] [address] 02/22/2025 3:00 PM EST Office Visit Endocrinology Rohit [address] [place] [address] Shaina George MD [address] [facility] [place] [address] Scheduled Procedures [...] Documents on File Type Date Recorded Patient Principal Developer Expl anation POLST 09/26/2021 1:05 PM POLST * Full Code (Latest Code Status on File) Date Activated Date Inactivated Comments 06/28/2011 6:10 PM 06/29/2011 4:46 PM This order r eflects the patients wishes and were consensually agreed upon. Care Teams Lidder Relationship Specialty Start Date End Date Otilia Burgos DO [address] [place] [address] PCP - General Family Medicine 10/14/23 documented as of this encounter
--- OUTSIDE RECORDS SUMMARY | 2024-04-16 04:54 | External Medical Summary | Summary of Care ---
Author Name Unknown Organization [facility] Address [address] [place] [address] Phone [phone] Care Team Providers Care Stock Digger Name Role Phone Otilia Burgos DO Primary Care Provider [phone] Reason for Referral * Precert (Within 10 days (routine)) - Pending Review Specialty Diagnoses / Procedures Referred By Nina silverman Referred To Contact Radiology Diagnoses DDD (degenerative disc disease), cervical Recurrent thyroid cancer (HCC) Neck pain Procedures MRI C SPINE W WO CONTRAST MRI C SPINE W CONT Keon Bautista DO [address] [place] [address] Phone: tel: fax: Referral ID Status Reason Start Date Expiration Date V isits Requested Visits Authorized [id number] Pending Review 03/12/[id number] * Evaluate & Treat - Unlimited Visits (Within 30 days (routine)) - Pending Review Specialty Diagnoses / Procedures Referred By Nina silverman Referred To Contact Physical Therapy / Physical Medicine And Rehab Diagnoses DDD (degenerative disc disease), cervical Recurrent thyroid cancer (HCC) Neck pain Otilia Burgos DO [address] [place] [address] Phone: tel: fax: Referral ID Status Reason Start Date Expiration Date Visits Requested Visits Authorized [id number] Pending Review Specialty Services Required 03/12/2024 [id number] Question Answer Referral Priority Within 30 days (routine) Where should this appointment be scheduled? [facility] Reason for Visit * Reason Onset Date Comments Test Results 03/12/202403/12 Appointment 03/12/2024 Encounter Details Date Type Department Care Team (Late st Contact Info) Description 03/12/2024 Telephone Family Practice [address], [place] [address] [place] [address] Otilia Burgos DO [address] [place] [address] Test Results (03/12); Appointment Allergies Active Allergy Reactions Criticality Noted Date Comments Adhesive Tape Other (Please comment) Low 04/16/2013 Skin becomes red and sore Other reaction(s): Rash Lactose Diarrhea 08/12/2015 Latex Low 06/26/2021 Other reaction(s): Rash documented as of this encounter (statuses as of 03/26/2024) Medications FISH OIL 1000 MG PO CAPS [...] 2 days 30 Tablet 03/12/19 25 Active methylPREDNISolone 4 MG Oral Tablet Therapy [...] EDT 12/24/19 24 025 Discontin ued(Refil l) documented as of this encounter (statuses as of 03/26/2024) Active Problems Problem Noted Date Diagnosed Date [...] as of this encounter (statuses as of 03/26/2024) Resolved Problems Problem Noted Date Diagnosed Date Resolved Date Kidney disease, chronic, sta ge III (GFR 30-59 ml/min) 09/19/2015 06/04/2016 Overview: Per CKD protocol #1 Other stomatitis and mucositis (ulcerative) 07/27/2012 12/16/2017 Hypothyroidism 06/30/2012 03/23/2015 Throat pain 01/07/2012 05/07/2017 Dyspareunia 03/13/2010 07/05/2016 Joint pain, hip 03/13/2010 03/19/2017 Palpitations 03/13/2010 03/19/2017 documented as of this encounter (statuses as of 03/26/2024) Immunizations Name Administration Dates Next Due COVID-19 mRNA, LNP-s, No Pre serve, 2-Dose Series (Bulbstorm) 06/09/2020,05/19/2020 Pneumococcal Conjugate Vacc, 13 Valent (Prevnar) [...] 04/15/2024 8:45 AM EST Imaging Radiology [address] [place] [phone] 04/16/2024 1:00 PM EST Office Visit Family Practice [address], [place] [address] [place] [phone] Otilia Burgos DO [address] [facility] [address] 04/23/2024 2:00 PM EST Office Visit Hematology Oncology [address] [place] [phone] Rafi Goncalves MD [address] [place] [address] 04/30/2024 11:45 AM EST Pharmacy Pharmacy Hematology Oncology [facility] [address] [place] [address] [facility] [address] [place] [address] 06/18/2024 3:00 PM EDT Office Visit Cardiology, [facility] [address] [place] [address] Lucinda Ryan CRNP [address] [place] [address] 08/17/2024 10:30 AM EDT Imaging Radiology [address] [place] [address] 11/26/2024 12:50 PM EDT Office Visit Dermatology, Jarrod Olguin [address] [place] [address] Vanda Manrique PA-C [address] [place] [address] 02/22/2025 3:00 PM EST Office Visit Endocrinology Rohit [address] [place] [address] Shaina George MD [address] [place], [place] [id number] Scheduled Procedures Name Priority Associated Diagnoses Date/Ti [...] and noextraosseous soft tissue component. 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 Care Teams Stock Digger Relationship Specialty Start Date End Date Otilia Burgos DO [address] [facility] [place] [address] PCP - General Family Medicine 10/14/23 documented as of this encounter
--- OUTSIDE RECORDS SUMMARY | 2024-04-16 04:54 | External Medical Summary | Summary of Care ---
Author Name Unknown Organization [facility] Address [address] [place] [address] Phone [phone] Care Team Providers Care Framer Name Role Phone Otilia Burgos Primary Care Provider [phone] Reason for Referral * Precert (Within 10 days (routine)) - Authorized Specialty Diagnoses / Procedures Referred By Contac t Referred To Contact Radiology Diagnoses Recurrent thyroid cancer (HCC) Metastatic cancer to spine (HCC) Papillary thyroid carcinoma (HCC) Procedures MRI BRAIN W WO CONTRAST Rajiv Hitchcock IV, PA-C [address] [place] [address] Phone: tel: fax: Referral ID Status Reason Start Date Expiration Date V isits Requested Visits Authorized [id number] Authorized 06/28/2024 999 999 * Precert (Within 10 days (routine)) - Authorized Specialty Diagnoses / Procedures Referred By Contac t Referred To Contact Radiology Diagnoses Metastatic cancer to spine (HCC) Procedures CT C SPINE WO CONTRAST Rajiv Hitchcock IV, PA-C [address] [place] [address] Phone: tel: fax: Referral ID Status Reason Start Date Expiration Date V isits Requested Visits Authorized [id number] Authorized 03/30/2024 999 999 Reason for Visit * Reason Comments NEW PATIENT * Evaluate & Treat - Unlimited Visits (Within 10 days (routine)) - Authorized Specialty Diagnoses / Procedures Referred By Nina silverman Referred To Contact Neurological Surgery Diagnoses Papillary thyroid carcinoma (HCC) Secondary malignant neoplasm of bone (HCC) Rafi Goncalves MD [address] [place] [address] Phone: tel: fax: Shiraz Clancy III, MD [address] [place] [address] Phone: tel: fax: Referral ID Status Reason Start Date Expiration Date Visits Requested Visits Authorized [id number] Authorized Specialty Services Required 03/27/2024 999 [id number] Encounter Details Date Type Department Care Team (Late st Contact Info) Description 03/30/2024 9:45 AM EST Office Visit Neurosurgery, [place] [address] [place] [address] Clinic, Brain Tumor Multidisciplinary [address] [place] [address] Metastatic cancer to spine (HCC)*; Recurrent thyroid cancer (HCC); Papillary thyroid carcinoma (HCC) [C73]; Secondary malignant neoplasm of bone (HCC) [C79.51] Allergies Active Allergy Reactions Criticality Noted Date Comments Adhesive Tape Other (Please comment) Low 04/16/2013 Skin becomes red and sore Other reaction(s): Rash Lactose Diarrhea 08/12/2015 Latex Low 06/26/2021 Other reaction(s): Rash documented as of this encounter (statuses as of 03/30/2024) Medications FISH OIL 1000 MG PO CAPS [...] as of this encounter (statuses as of 03/30/2024) Active Problems Problem Noted Date Diagnosed Date [...] as of this encounter (statuses as of 03/30/2024) Resolved Problems Problem Noted Date Diagnosed Date Resolved Date Kidney disease, chronic, sta ge III (GFR 30-59 ml/min) 09/19/2015 06/04/2016 Overview: Per CKD protocol #1 Other stomatitis and mucositis (ulcerative) 07/27/2012 12/16/2017 Hypothyroidism 06/30/2012 03/23/2015 Throat pain 01/07/2012 05/07/2017 Dyspareunia 03/13/2010 07/05/2016 Joint pain, hip 03/13/2010 03/19/2017 Palpitations 03/13/2010 03/19/2017 documented as of this encounter (statuses as of 03/30/2024) Immunizations Name Administration Dates Next Due COVID-19 mRNA, LNP-s, No Pre serve, 2-Dose Series (Alv[employer]) 06/09/2020,05/19/2020 Pneumococcal Conjugate Vacc, 13 Valent (Prevnar) [...] Sign Reading Time Taken Comments Blood Pressure 150/80 03/30/2024 9:29 AM EST Pulse 70 03/30/2024 9:29 AM EST Temperature 36.4 C (97.6 F) 03/30/2024 9:29 AM ES T Respiratory Rate - - Oxygen Saturation 99% 03/30/2024 9:29 AM EST Inhaled Oxygen Concentration - - Weight 78.6 kg (173 lb 3.2 oz) 03/30/2024 9:29 A M EST Height - - Body Mass Index 28.17 03/10/2024 10:16 AM EST documented in this encounter Patient Instructions * Patient Instructions* Jaqueline Barragan LPN - 03/30/2024 9:18 AM EST You were seen today by the Brain Tumor Multidisciplinary Clinic at [facility]. You were seen today by Dr. Clancy (Neurosurgery), Dr. Baker (Radiation Oncology) History: New C1/C2 mets with cortical breakthrough Imaging Review: We reviewed your most recent MRI imaging Treatment Plan: Radiation Therapy Referrals placed: N/A However we are arranging for her to receive RT at [place]. Follow up with us as needed. If you have any questions after today's visit, please contact our clinic at [phone]. You may ask to be connected to the Neuro Oncology team, or they will refer your message to us so we may respond in a timely manner. Thank you! documented in this encounter Progress Notes * Shiraz Clancy III, MD - 03/30/2024 10:49 AM EST NSGY Attending Attestation I have reviewed the advanced practitioner's documentation (Rajiv Hitchcock PA-C) on the date of servicereferenced in note, and I agree with, and take responsibility for the plan of care. Megan presents with pain and stiffness related to a C1 and C2 pathological involvement of her thyroid cancer. There does not appear to be overt instability and her exam is reassuring. We reviewed the treatment options of surgical stabilization (at most an O-C fusion) with adjuvant radiation, radiation alone in various forms. I went over that there is no exact right answer and we discussed the consequences and potential complications of the surgery. I discussed that it was palliative and couldfail down the road. After an extensive discussion of the risks/benefits/alternatives, she is optingfor fractionated radiation therapy and wants to have this done in [place]. Certainly, should there be a further issue surgery could be considered. All questions were answered. NO guarantees were stated or implied. Thank you kindly for the opportunity to see her today. Her case was extensively discussed at our [facility] prep meeting this morning prior to clinic. I spent a total of Greater than 55 mins (exact time 59 mins) on the date of service in preparation,delivery, and documentation of the care provided to Megan Phillips excluding any time spent in theperformance of separately billed services or time spent by another provider/QHP. 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 Patient follows with Dr. Soto for Oncology who referred the patient to us. She denies any symptoms in the upper or lower extremities, denies any dexterity change, numbness, weakness. She reports 2 falls a few months ago that she states was due to tripping over a throw rug. She does not believe she is having any cognitive changes but questions if maybe she has some trouble remembering names or certain words. Otherwise denies new neurological symptoms. She denies any pain, muscle weakness, seizures, dizziness, blurred vision, nausea, vomiting, change in bowel or bladder habitus; denies change inmentation, speech, personality or memory. Treatment Summary DIAGNOSIS: papillary thyroid cancer STAGE: pT2pN2 in 2012, recurrent Echo April 2023 Interpretation Summary The examination is adequate to evaluate the referral indication. The left ventricular cavity size is normal. The LV wall thickness is normal. The left ventricular wall motion is normal. The qualitative LV ejection fraction is 60-64% (normal). The global longitudinal strain (GLS) is - 16.2 %. Normal left ventricular systolic function is suggested if GLS is -14% to -30%. Moderate tricuspid regurgitation is present. Mild pulmonary hypertension is present. The estimated pulmonary artery systolic pressure is 40-45mm Hg Compared to prior study of March 05, 2018, there is no significant change. Papillary thyroid carcinoma (HCC) 06/28/2011 Surgery A: Portion of left inferior parathyroid, excision: One benign lymph node, negative for metastatic carcinoma. B: Thyroid gland, total thyroidectomy: Papillary carcinoma, left lobe, predominantly tall/columnar cell variant, 4 cm, pT2 pN0 (see Synoptic Data and comment). Hashimotos thyroiditis. C: Right paratracheal mass, excision: Benign thyroid tissue. Hashimotos thyroiditis. Benign parathyroid gland. pT2pN0 grade 1 08/21/2011 - Radiation 08/20 [facility] 125.1 mci Tg 3.7 after thyrogen stimulation. Post ablation scan: Focal residual activity in the thyroid bed c/w residual normal thyroid tissue or thyroid neoplasm. 08/22/2011 Initial Diagnosis Papillary thyroid carcinoma (HCC) 12/16/2015 Biopsy Lymph node, left neck, fine needle aspiration: Malignant. Metastatic papillary thyroid carcinoma. 02/13/2016 Surgery Left central compartment of neck, dissection (Dr. Barriga) Metastatic papillary thyroid carcinoma involving three lymph nodes. TERT gene promotor mutation analysis: Not detected Positive for the BRAF gene mutation (c.1799T>A) resulting in p.V600E ([id number]) 04/20/2016 Discussion Endocrine consult at [facility]. Dr. Rodriguez, documentation included: 1) I recommend the following BEFORE considering radioactive iodine -MRI brain -MRI neck w/contrast (or CT neck but would need to wait regarding thyroid cancer) -Ultrasound neck -Ct chest (no contrast) 2) If your lung nodules are stable, consideration is for continued observation vs empiric radioactive iodine 3) If there is progression, then consider radioactive iodine 10/02/2019 - Radiation 169.4 millicuries of I-131, 'no evidence of radioiodine avid distant metastasis' 04/18/2023 Biopsy Fluid, Right Thoracentesis, Cytology: Adequacy: Satisfactory for evaluation. Category: Malignant. Interpretation: Papillary thyroid carcinoma, compatible with patient's known history of metastatic/recurrent papillary thyroid carcinoma. Comment: The histological sections of the cellblock preparation show similar findings with papillary clusters of tumor cells with associated psammomatous calcifications. Immunostains on the cell block A1 confirm that the tumor cells are positive for TTF1 and PAX8, while negative for synaptophysin. Given the patient's known history of metastatic papillary thyroid carcinoma ([id number]), the findings are compatible with involvement. Clinical and radiological correlation is suggested. Immunotherapy [facility] Tumor Mutational [facility] (TMB): TMB Unit Campus 1.89 m/MB Low Microsatellite Instability Status (MSI): MSI Status 4.19 Stable Result Detail Tier I: Strong Significance Variants None Tier II: Potential Significance Variants None Interpretation Tier I: Strong Significance Variants None Tier II: Potential Significance Variants None Variants of Unknown Significance NOTE: Tier III variants are typically associated with limited and/or conflicting evidence regardingtheir pathogenicity. Their exact clinical significance has not yet been firmly established in the current context. For variants with allele frequencies of approximately 50%, the possibility of germline derivation or polymorphism cannot be excluded. Determination of germline vs somatic origin would require specific testing of the germline, if clinically indicated. To consult with a cancer genetic counselor regarding the utility of a referral, please submit an Ask-A-Doc request to Genetics (clinical). Single Nucleotide Variants and Insertions/Deletions Gene Variant Tier Amino Acid Change Nucleotide Change Consequence Allele Frequency Sequencing Depth KIRSTY [id number] Tier 3: Unknown clinical significance 04/25/2023 - 04/25/2023 Chemotherapy DABRAFENIB (TAFINLAR) & TRAMETINIB (MEKINIST) [id number] 04/30/2023 - Chemotherapy DABRAFENIB (TAFINLAR) & TRAMETINIB (MEKINIST) [id number] 05/30/2023 - Supportive Therapy SCP - HYDRATION [id number] Plan Provider: VASQUEZ Zavala Treatment goal: Supportive Line of treatment: [No plan line of treatment] Recurrent thyroid cancer (HCC) 02/08/2016 Initial Diagnosis Recurrent thyroid cancer (HCC) 04/25/2023 - 04/25/2023 Chemotherapy DABRAFENIB (TAFINLAR) & TRAMETINIB (MEKINIST) [id number] 04/30/2023 - Chemotherapy DABRAFENIB (TAFINLAR) & TRAMETINIB (MEKINIST) [id number] Secondary and unspecified ma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, face and neck (HCC) 11/05/2017 Initial Diagnosis Secondary and unspecified ma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, face and neck (HCC) 04/30/2023 - Chemotherapy DABRAFENIB (TAFINLAR) & TRAMETINIB (MEKINIST) [id number] Malignant neoplasm metastatic to lung (HCC) 04/11/2021 Initial Diagnosis Malignant neoplasm metastatic to lung (HCC) 04/25/2023 - 04/25/2023 Chemotherapy DABRAFENIB (TAFINLAR) & TRAMETINIB (MEKINIST) [id number] 04/30/2023 - Chemotherapy DABRAFENIB (TAFINLAR) & TRAMETINIB (MEKINIST) [id number] PAST MEDICAL HISTORY: Past Medical History: Diagnosis Date HTN, goal below 140/90 Lung nodules 10/01/2016 Paroxysmal atrial fibrillation (HCC) 08/23/2015 Postoperative hypothyroidism 03/23/2015 Thyroid cancer (HCC) PAST SURGICAL HISTORY: Past Surgical History: Procedure Laterality Date COLONOSCOPY 03/11/2005 COLONOSCOPY, DIAGNOSTIC (RECTUM) 06/27/2010 wnl COLONOSCOPY, DIAGNOSTIC (RECTUM) 07/06/2015 adenomatous polyp, repeat 5 yrs/COLONOSCOPY FLEXIBLE PROXIMAL DIAGNOSTIC performed by Darryl Navarro MD at ENDOSCOPY [facility] COLONOSCOPY, DIAGNOSTIC (RECTUM) 02/15/2022 sigmoid diverticulosis/recall 5 years/COLONOSCOPY FLEXIBLE PROXIMAL DIAGNOSTIC performed by Gela Landin MD at ENDOSCOPY [facility] DENTAL INLAY METALIC 1 SURF HYSTEROSCOPY W/BIOPSY AND/OR POLYPECTOMY W/WO D&C Bilateral 09/20/2022 HYSTEROSCOPY WITH BIOPSY AND/OR POLYPECTOMY WITH OR WITHOUT D&C performed by Judith Sotomayor MD at OR [facility] INFORMATION EYELID SURGERY KNEE MENISCAL TRANSP,SURG ARTHROS r knee LIGATE,DIV,EXCIS ALIRIO VEIN CLUS l knee MAMMOGRAM SCREENING BILATERAL 01/10/2008 nl REMOVAL OF NECK LYMPH NODES Left 02/07/2016 CERVICAL LYMPHADENECTOMY MODIFIED RADICAL NECK DISSECTION performed by Ricardo Barriga MD [place] [facility] REMOVAL OF THYROID FOR TUMOR 06/28/2011 THYROIDECTOMY WITH LIMITED NECK DISSECTION performed by RICARDO BARRIGA at [place] [facility] REMOVAL OF TONSILS, UNDER AGE 11 REMOVE GALLBLADDER REMOVE TONSILS & ADENOIDS, UNDER 12 TREATMENT OF ANAL FISSURE x2 SOCIAL HISTORY: Social History Socioeconomic History Marital status: Spouse [...] Stability Do you currently live in a senior living or have no steady place to sleep [...] - for ages0-17 years): Not on file FAMILY HISTORY: Family History Problem Relation Name Age of Onset Heart Disorder Mother dissecting AAA/ 1970's Heart Disorder Father CO/ /age 76y Blood Disorder Sister leukemia/ age 34 No Past Hx Sister Current Outpatient Medications Medication Sig Dispense Refill [...] 2 times a day. 45 g 3 Dabrafenib Mesylate 50 MG Oral Capsule (Tafinlar) Take 100 mg by mouth in the morning and 100 mg before bedtime. Take on an empty stomach.. 120 Capsule 5 Trametinib Dimethyl Sulfoxide 0.5 MG Oral Tablet (Mekinist) Take 1.5 mg by mouth daily. Take on an empty stomach. Keep refrigerated. 90 Tablet 5 Trametinib Dimethyl Sulfoxide 0.5 MG Oral Tablet (Mekinist) Take 1.5 mg by mouth daily. For 21 dayson then 7 day off. Take on an empty stomach. Keep refrigerated. 63 Tablet 5 Dabrafenib Mesylate 50 MG Oral Capsule (Tafinlar) Take 100 mg by mouth in the morning and 100 mg before bedtime. Take 21 days on then 7 days off. Take on an empty stomach.. 84 Capsule 5 Sennosides 8.6 MG Oral Tablet (Senokot) Take [...] needed for Muscle spasms. 30 Tablet 0 predniSONE 10 MG Oral Tablet (Deltasone) Take 5 tabs for 2 days, 4 tabs for 2 days, 3 tabs for 2 days, 2 tabs for 2 days 1 tab for 2 days 30 Tablet 0 Metoprolol Succinate ER 50 MG Oral Tablet Extended Release 24 Hour (toPROL XL) Take 1 Tablet by mouth in the morning and 1 Tablet before bedtime. 180 Tablet 0 No current facility-administered medications for this visit. ALLERGIES: Review of patient's allergies indicates: Allergen Reactions Lactose Diarrhea Adhesive Tape Other (Please comment) Skin becomes red and sore Other reaction(s): Rash Latex Other reaction(s): Rash ROS: A full 14 point ROS was reviewed and are only positive for the above noted pertinent complaints PHYSICAL EXAMINATION: Visit Vital Signs: BP 150/80 | Pulse 70 | Temp 36.4 C (97.6 F) (Tympanic) | Wt 78.6 kg (173 lb 3.2 oz) | SpO2 99% | BMI 28.17 kg/m | BSA 1.91 m KPS: 90 Gen: NAD Ext: Warm, dry and intact Psych: Pleasant and cooperative Neuro: AOx3 Cranial Nerves: CN 2,3 - PERRL CN 3, 4, 6 - EOMI CN 5 - intact facial sensation to light touch in all 3 distributions CN 7 - no facial asymmetry CN 8 - hearing grossly intact CN 9, 10, 12 - tongue and uvula midline CN 11- normal shoulder shrug Shivani spontaneously and to command 5/5 motor strength in bilateral deltoids, biceps, triceps, IO, IP, quadriceps, hamstrings, gastrocnemius, TA, and EHL 3+/4 DTR in bilateral biceps, triceps, patellar brachioradials Sensation equal and intact throughout BUE/BLE Normal finger-nose testing No madsen's No pronator drift Gait appears normal IMAGES: MRI C-spine 03/26/2024 IMPRESSION: Marrow replacing enhancing lesions involving the C1 and C2, likely osseous metastasis, with mild bony expansion, cortical break/fracture and no extraosseous soft tissue component. IMPRESSION: 78 year old female who presents in tumor [facility] for Initial evaluation regarding C1 and C2 enhancing lesions on MRI concerning for osseous metastasis of her thyroid carcinoma. Patient Active Problem List Diagnosis HTN, goal [...] (HCC) Hyponatremia Metastatic cancer to spine (HCC) PLAN: We reviewed and discussed her MRI of the cervical spine extensively She is discussed for treatment options of surgical stabilization with an occipital to cervical fusion as well as adjuvant radiation and possibly radiation alone. 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 Clancy at today's encounter Call clinic with any questions or concerns Rajiv Hitchcock IV, PA-C Department of Neurosurgery 03/30/2024 10:12 AM * Chalino Baker MD - 03/30/2024 9:45 AM EST Images from the original note were not included. 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, tall/columnar cell variant, BRAFmut, [id number], diagnosed via biopsy 06/26/2011, S/p total thyroidectomy, limited central neck dissection 06/28/2011 (margins unknown) S/p 125.1 mCu I-131 08/22/2011 S/p synthroid 06/30/2012 - present Diagnosed with increased thyroglobulin antibody 12/27/2014 Diagnosed with a left neck failure via biopsy 12/16/2015, S/p left revision central neck dissection 02/07/2016 (3 nodes +) S/p 169.4 mCu I-131 09/25/2019 Diagnosed with right pleural involvement via thoracentesis 04/18/2023 S/p trametinib/dabrafenib 06/01 - 03/03 HPI: 02/05/2024 Thyroglobulin antibody 1274 02/21/2024 CT C/A/P: 1. Stable pulmonary and right pleural metastases. Decreased trace right pleural effusion. 2. Decreased soft tissue component right anterior 5th rib. Otherwise stable osseous lesions. 03/10/2024 Cspine Xray: Moderate degenerative disc disease, stable to mildly progressed. 03/26/2024 MRI Cspine: Marrow replacing enhancing lesions involving the C1 and C2, likely osseous metastasis, with mild bony expansion, cortical break/fracture and no extraosseous soft tissue component. Assessment: 03/30/2024 [facility] recommendation: CT Cspine without contrast to assess bone stability; recommend surgery vs palliative external beam radiotherapy (favor 30 Gy / 10 fx but other options exist) The rationale, the risks, the benefits, the alternatives, and the personnel of radiotherapy were explained to the patient. The role of other modalities, including surgery, systemic therapy, medical management, and observation, were also discussed. The natural history of the patient's disease was explained. All questions were answered and the patient expressed understanding of the relevant issues. The patient is in agreement with this plan. The patient wishes to be treated in [place]. Plan: f/u with Dr. Morocho in [place] f/u with us as needed. 04/15/2024 CT C/A/P 04/16/2024 Fam Prac (Aubrey) 02/23/2024 Endocrinology (Ariel) I spent a total of 45 minutes on the date of service in preparation, delivery, and documentation ofthe care provided to Megan Phillips excluding any time spent in the performance of separately billed services or time spent by another provider/QHP. documented in this encounter Plan of Treatment Upcoming Encounters Date Type Department Care Team (Late st Contact Info) Description 03/30/2024 11:04 AM EST Hospital Encounter Radiology, [place] [address] [place] [phone] Arrived 03/31/2024 9:30 AM EST Office Visit Radiation Oncology, [facility] [address] [place] [address] Delonte Morocho MD [address] [place] [address] 04/15/2024 8:45 AM EST Imaging Radiology [facility] [address] [facility] [address] [place] [phone] 04/16/2024 1:00 PM EST Office Visit Family Practice [address] [place] [address] [place] [address] Otilia Burgos DO [address] [place] [address] 04/23/2024 2:00 PM EST Office Visit Hematology Oncology [place] [address] [place] [phone] Rafi Goncalves MD [address] [place] [address] 04/30/2024 11:45 AM EST Pharmacy Pharmacy Hematology Oncology [facility], [place] [address] [place] [address] [facility] Hem/Onc [address] [place] [address] 06/18/2024 3:00 PM EDT Office Visit Cardiology, [facility] [address] [place] [address] Lucinda Ryan CRNP [address] [place] [address] 08/17/2024 10:30 AM EDT Imaging Radiology [address] [place] [address] 11/26/2024 12:50 PM EDT Office Visit Dermatology, [facility] Olguin [address] [place] [place] [phone] Vanda Manrique PA-C [address] [place] [address] 02/22/2025 3:00 PM EST Office Visit Endocrinology [address] [place] [address] Shaina George MD [address], [place] [phone] Scheduled Orders Name Type Priority Associated Diagnoses Orde r Schedule CT C SPINE WO CONTRAST Medical Imaging Routine Metastatic cancer to spine (HCC) Expected: 03/30/2024, Expires: 04/30/2025 MRI BRAIN W WO CONTRAST Medical Imaging Routine Recurrent thyroid cancer (HCC) Metastatic cancer to spine (HCC) Papillary thyroid carcinoma (HCC) [C73] Expected: 06/28/2024, Expires: 04/30/2025 Scheduled Procedures Name Priority Associated Diagnoses Date/Ti [...] malignant neoplasm of bone and bone marrow Recurrent thyroid cancer (HCC) Malignant neoplasm of thyroid gland Papillary thyroid carcinoma (HCC) [C73] Malignant neoplasm of thyroid gland Secondary malignant neoplasm of bone (HCC) [C79.51] Secondary malignant neoplasm of bone and bone marrow Metastatic cancer to spine (HCC) Secondary malignant neoplasm of bone and bone marrow documented in this encounter Advance Directives Documents on File Type Date Recorded Patient Owner Expl anation POLST 09/26/2021 1:05 PM POLST * Full Code (Latest Code Status on File) Date Activated Date Inactivated Comments 06/28/2011 6:10 PM 06/29/2011 4:46 PM This order r eflects the patients wishes and were consensually agreed upon. Care Teams Framer Relationship Specialty Start Date End Date Otilia Burgos DO [address] [place] [address] PCP - General Family Medicine 10/14/23 documented as of this encounter"
--- OUTSIDE RECORDS SUMMARY | 2024-04-16 04:54 | External Medical Summary | Summary of Care ---
Author Name Unknown Organization [facility] Address [address] [place] [address] Phone [phone] Care Team Providers Care Blocking Machine Operator Name Role Phone Otilia Burgos Primary Care Provider + [phone] Reason for Visit * Reason Onset Date Comments Test Results 03/31/2024 Unexpected or In determinate Result Encounter Details Date Type Department Care Team (Late st Contact Info) Description 03/31/2024 Telephone [facility] [place] [address] [place] [address] Rajiv Hitchcock IV, PA-C [address] [place] [address] Test Results (Unexpected or Indeterminate [...] encounter Miscellaneous Notes * Telephone Encounter - Rajiv Hitchcock IV, PA-C - 03/31/2024 8:53 AM EST Acknowledged, this was discussed with the patient in their visit with us yesterday in [place] [facility] on 03/30/2024. * Telephone Encounter - Rochelle Lynch OSA - 03/31/2024 2:02 AM EST Hello- The radiologist discovered an unexpected or indeterminate finding on Megan Dvorsky ([id number]) and asks that you review the following [...] reviewed. Thank you, ABDIEL Claire Client Service [facility] documented in this encounter Plan of Treatment Upcoming Encounters Date Type Department Care Team (Late st Contact Info) Description 03/31/2024 9:30 AM EST Office Visit Radiation Oncology, [facility] [address] [facility] [address] Delonte Morocho MD [address] [facility] [address] 03/31/2024 10:00 AM EST Documentation Radiation Oncology, [facility] [address] [facility] [address] Delonte Morocho MD [address] [facility] [address] [facility] Rad Onc [address] [place] [address] 04/15/2024 8:45 AM EST Imaging Radiology [facility]st [facility] [place] [phone] 04/16/2024 1:00 PM EST Office Visit Family Practice [address], [place] 293 [place] [address] Otilia Burgos, 293 [place] [address] 04/23/2024 2:00 PM EST Office Visit Hematology Oncology [facility] [address] [place] [address] Rafi Goncalves MD [address] [place] [address] 04/30/2024 11:45 AM EST Pharmacy Pharmacy Hematology Oncology [facility] [address] [place] [address] [facility], [facility] Hem/Onc [address] [place] [address] 06/18/2024 3:00 PM EDT Office Visit Cardiology, [facility] 132 [facility] [place] [address] Lucinda Ryan CRNP 132 [facility] [place] [address] 08/17/2024 10:30 AM EDT Imaging Radiology [facility] 2nd [facility] 132 [facility] [place] [address] 11/26/2024 12:50 PM EDT Office Visit Dermatology, Jarrod Olguin [address] [place] [address] Vanda Manrique PA-C [address] [place] [address] 02/22/2025 3:00 PM EST Office Visit Endocrinology Rohit [address]ansal Dr [address] [place] [address] Shaina George MD [address] [...] Documents on File Type Date Recorded Patient Image Assembler Expl anation POLST 09/26/2021 1:05 PM POLST * Full Code (Latest Code Status on File) Date Activated Date Inactivated Comments 06/28/2011 6:10 PM 06/29/2011 4:46 PM This order r eflects the patients wishes and were consensually agreed upon. Care Teams Blocking Machine Operator Relationship Specialty Start Date End Date Otilia Burgos DO [address] [place] [address] PCP - General Family Medicine 10/14/23 documented as of this encounter
--- OUTSIDE RECORDS SUMMARY | 2024-04-16 04:55 | External Medical Summary | Summary of Care ---
Author Name Unknown Organization [facility] Address [address] [place] [address] Phone [phone] Care Team Providers Care Title Manager Name Role Phone Otilia Burgos DO Primary Care Provider [phone] Reason for Referral * Precert (Within 10 days (routine)) - Pending Review Specialty Diagnoses / Procedures Referred By Nina silverman Referred To Contact Radiology Diagnoses DDD (degenerative disc disease), cervical Recurrent thyroid cancer (HCC) Neck pain Procedures MRI C SPINE W WO CONTRAST MRI C SPINE W CONT Keon Bautista DO [address] [place] [address] Phone: tel: fax: Referral ID Status Reason Start Date Expiration Date V isits Requested Visits Authorized [id number] Pending Review 03/12/2024 999 999 * Evaluate & Treat - Unlimited Visits (Within 30 days (routine)) - Pending Review Specialty Diagnoses / Procedures Referred By Nina silverman Referred To Contact Physical Therapy / Physical Medicine And Rehab Diagnoses DDD (degenerative disc disease), cervical Recurrent thyroid cancer (HCC) Neck pain Otilia Burgos DO [address] [place] [address] Phone: tel: fax: Referral ID Status Reason Start Date Expiration Date Visits Requested Visits Authorized [id number] Pending Review Specialty Services Required 03/12/2024 999 999 Question Answer Referral Priority Within 30 days (routine) Where should this appointment be scheduled? [facility] Reason for Visit * Reason Onset Date Comments Test Results 03/12/202403/12 Appointment 03/12/2024 Encounter Details Date Type Department Care Team (Late st Contact Info) Description 03/12/2024 Telephone Family Practice [address], [place] [address] [place] [address] Otilia Burgos DO [address] [place] [address] Test Results (03/12); Appointment Allergies [...] mRNA, LNP-s, No Pre serve, 2-Dose Series ([employer]) 06/09/2020,05/19/2020 Pneumococcal Conjugate Vacc, 13 Valent (Prevnar) [...] Description 04/15/2024 8:45 AM EST Imaging Radiology [address] [place] [phone] 04/16/2024 1:00 PM EST Office Visit Family Practice [address], [place] 293 [place] [address] Otilia Burgos DO [facility] [address] 04/23/2024 2:00 PM EST Office Visit Hematology Oncology [address] [place] [address] Rafi Goncalves MD [address] [place] [address] 04/30/2024 11:45 AM EST Pharmacy Pharmacy Hematology Oncology [facility] [address] [place] [address] [facility], [facility] Hem/Onc [address] [place] [address] 06/18/2024 3:00 PM EDT Office Visit Cardiology, [facility] [address] [place] [address] Lucinda Ryan CRNP [address] [place] [address] 08/17/2024 10:30 AM EDT Imaging Radiology [address] [place] [address] 11/26/2024 12:50 PM EDT Office Visit Dermatology, Jarrod Olguin [address] [place] [address] Vanda Manrique PA-C [address] [place] [place] [address] 02/22/2025 3:00 PM EST Office Visit Endocrinology Rohit Bansal Dr [address] [place] [address] Shania George MD [address] [place], [place] [phone] Scheduled Procedures Name Priority Associated Diagnoses Date/Ti [...] Documents on File Type Date Recorded Patient Video And Sound Recorder Expl anation POLST 09/26/2021 1:05 PM POLST * Full Code (Latest Code Status on File) Date Activated Date Inactivated Comments 06/28/2011 6:10 PM 06/29/2011 4:46 PM This order r eflects the patients wishes and were consensually agreed upon. Care Teams Title Manager Relationship Specialty Start Date End Date Otilia Burgos DO 293 [place] [address] PCP - General Family Medicine 10/14/23 documented as of this encounter
--- OUTSIDE RECORDS SUMMARY | 2024-04-16 04:55 | External Medical Summary | Summary of Care ---
Author Name Unknown Organization [facility] Address [address] [place] [address] Phone [phone] Care Team Providers Care Distribution A Class Lineman Name Role Phone Otilia Burgos Primary Care Provider Reason for Visit * Reason Onset Date Comments Appointment 03/26/2024 Encounter Details Date Type Department Care Team (Late st Contact Info) Description 03/26/2024 Telephone Radiology, [address] [place], [place] [phone] [facility] 400 [place] [address] Appointment Allergies Active Allergy Reactions Criticality Noted [...] encounter Miscellaneous Notes * Telephone Encounter - Radha Ritter CA - 03/26/2024 11:34 AM EST Name: Megan Phillips Do you have any of the following: Pacemaker, stents, heart valves, aneurysm clips? No Have you ever worked with metal or have you ever gotten metal in your eyes? No Have you had a colonoscopy in the last 30 days? No Are you on dialysis? No Do you have any dermals or body piercing's? No Do you wear an insulin pump or CGM? No Are you currently or breast feeding? No BABAK Little documented in this encounter Plan of Treatment Upcoming Encounters Date Type Department Care Team (Late st Contact Info) Description 03/26/2024 1:15 PM EST Appointment Radiology, [address] [address] 04/15/2024 8:45 AM EST Imaging Radiology [address] [facility] [place] [address] 04/16/2024 1:00 PM EST Office Visit Family Practice 65 [facility] 293 [place] [address] Otilia Burgos DO [address] [place] [address] 04/23/2024 2:00 PM EST Office Visit Hematology Oncology [address] [phone] Rafi Goncalves MD [facility] [place] [address] 04/30/2024 11:45 AM EST Pharmacy Pharmacy Hematology Oncology [address] [address] [facility], [facility] Hem/Onc [facility] [place] [address] 06/18/2024 3:00 PM EDT Office Visit Cardiology, [facility] [address] [facility] [place] [address] Lucinda Ryan CRNP [address] [place] [address] 08/17/2024 10:30 AM EDT Imaging Radiology [facility] 2nd Floor, [place] [address] [place] [address] 11/26/2024 12:50 PM EDT Office Visit Dermatology, Jarrod Olguin [address] [place] [address] Vanda Manrique PA-C [address] [place] [address] 02/22/2025 3:00 PM EST Office Visit Endocrinology Rohit Bansal Dr [address] [place] [address] Shaina George MD [address] [place] [address] Scheduled Procedures Name Priority Associated [...] on File Type Date Recorded Patient Manager Of Digital Expl anation POLST 09/26/2021 1:05 PM POLST * Full Code (Latest Code Status on File) Date Activated Date Inactivated Comments 06/28/2011 6:10 PM 06/29/2011 4:46 PM This order r eflects the patients wishes and were consensually agreed upon. Care Teams Distribution A Class Lineman Relationship Specialty Start Date End Date Otilia Burgos DO 293 [facility] [place] [address] PCP - General Family Medicine 10/14/23 documented as of this encounter
--- OUTSIDE RECORDS SUMMARY | 2024-04-16 04:55 | External Medical Summary | Summary of Care ---
Author Name Unknown Organization [facility] Address [address] [place] [address] Phone [phone] Care Team Providers Care Supervisor Propellant Charge Loading Name Role Phone Otilia Burgos DO Primary Care Provider [phone] Reason for Referral * Precert (Within 10 days (routine)) - Pending Review Specialty Diagnoses / Procedures Referred By Nina silverman Referred To Contact Radiology Diagnoses DDD (degenerative disc disease), cervical Recurrent thyroid cancer (HCC) Neck pain Procedures MRI C SPINE W WO CONTRAST MRI C SPINE W CONT Keon Bautista DO [address] [place] [address] Phone: tel: fax: Referral ID Status Reason Start Date Expiration Date V isits Requested Visits Authorized [id number] Pending Review 03/12/2024 999 999 * Evaluate & Treat - Unlimited Visits (Within 30 days (routine)) - Pending Review Specialty Diagnoses / Procedures Referred By Nina silverman Referred To Contact Physical Therapy / Physical Medicine And Rehab Diagnoses DDD (degenerative disc disease), cervical Recurrent thyroid cancer (HCC) Neck pain Otilia Burgos DO [address] [place] [address] Phone: tel: fax: Referral ID Status Reason Start Date Expiration Date Visits Requested Visits Authorized [id number] Pending Review Specialty Services Required 03/12/2024 999 999 Question Answer Referral Priority Within 30 days (routine) Where should this appointment be scheduled? [facility] Reason for Visit * Reason Onset Date Comments Test Results 03/12/202403/12 Appointment 03/12/2024 Encounter Details Date Type Department Care Team (Late st Contact Info) Description 03/12/2024 Telephone Family Practice [address], [place] [address] [place] [address] Otilia Burgos DO [address] [place] [address] Test Results (03/12); Appointment Allergies [...] mRNA, LNP-s, No Pre serve, 2-Dose Series ([employer]) 06/09/2020,05/19/2020 Pneumococcal Conjugate Vacc, 13 Valent (Prevnar) [...] encounter Miscellaneous Notes * Telephone Encounter - Otilia Burgos DO [...] Description 04/15/2024 8:45 AM EST Imaging Radiology [address] [place] [address] 04/16/2024 1:00 PM EST Office Visit Family Practice 65 [facility] [place] [address] [place] [address] Otilia Burgos DO [address] [place] [address] 04/23/2024 2:00 PM EST Office Visit Hematology Oncology [address] [address] Rafi Goncalves MD [address] [place] [address] 04/30/2024 11:45 AM EST Pharmacy Pharmacy Hematology Oncology [place] [address] [place] [address] [facility], [facility] Hem/Onc [address] [place] [address] 06/18/2024 3:00 PM EDT Office Visit Cardiology, [facility] 132 [facility] [place] [address] Lucinda Ryan CRNP 132 [facility] [place] [address] 08/17/2024 10:30 AM EDT Imaging Radiology [facility] 2nd [facility] 132 [facility] [place] [address] 11/26/2024 12:50 PM EDT Office Visit Dermatology, Jarrod Olguin [address] [place] [address] Vanda Manrique PA-C [address] [place] [address] 02/22/2025 3:00 PM EST Office Visit Endocrinology Rohit Bansal Dr [address] [place] [address] Shaina George MD [address] [place] [...] Documents on File Type Date Recorded Patient Publicity Person Expl anation POLST 09/26/2021 1:05 PM POLST * Full Code (Latest Code Status on File) Date Activated Date Inactivated Comments 06/28/2011 6:10 PM 06/29/2011 4:46 PM This order r eflects the patients wishes and were consensually agreed upon. Care Teams Supervisor Propellant Charge Loading Relationship Specialty Start Date End Date Otilia Burgos DO [address] [place] [address] PCP - General Family Medicine 10/14/23 documented as of this encounter
--- OUTSIDE RECORDS SUMMARY | 2024-04-16 04:55 | External Medical Summary | Summary of Care ---
Author Name Unknown Organization [facility] Address [address] [place] [address] Phone [phone] Care Team Providers Care Field Crop Technical Officer Name Role Phone Otilia Burgos Primary Care Provider [phone] Reason for Visit * Reason Comments Medication Refill Encounter Details Date Type Department Care Team (Late st Contact Info) Description 03/20/2024 Refill Cardiology, [facility] [address] [place] [address] Lucinda Bowen CRNP [address] [place] [address] HTN, goal below 140/90; Paroxysmal atrial fibrillation (HCC); PSVT (paroxysmal supraventricular tachycardia) ([facility]) Allergies Active Allergy Reactions Criticality Noted Date Comments Adhesive Tape Other (Please comment) Low 04/16/2013 Skin becomes red and sore Other reaction(s): Rash Lactose Diarrhea 08/12/2015 Latex Low 06/26/2021 Other reaction(s): Rash documented as of this encounter (statuses as of 03/25/2024) Medications FISH OIL 1000 MG PO CAPS [...] 5 1:56 PM EST 03/20/19 25 Active Metoprolol Succinate ER 50 MG Oral Tablet Extended Release 24 Hour (toPROL XL)Indications:HTN, goal below 140/90,Paroxysmal atrial fibrillation (HCC),PSVT (paroxysmal supraventricular tachycardia) (HCC) Take 1 Tablet by mouth in the morning and 1 Tablet before bedtime. 180 Tablet 4 9:27 AM EDT 12/24/19 24 025 Discontin ued(Refil l) documented as of this encounter (statuses as of 03/25/2024) Active Problems Problem Noted Date Diagnosed Date [...] as of this encounter (statuses as of 03/25/2024) Resolved Problems Problem Noted Date Diagnosed Date Resolved Date Kidney disease, chronic, sta ge III (GFR 30-59 ml/min) 09/19/2015 06/04/2016 Overview: Per CKD protocol #1 Other stomatitis and mucositis (ulcerative) 07/27/2012 12/16/2017 Hypothyroidism 06/30/2012 03/23/2015 Throat pain 01/07/2012 05/07/2017 Dyspareunia 03/13/2010 07/05/2016 Joint pain, hip 03/13/2010 03/19/2017 Palpitations 03/13/2010 03/19/2017 documented as of this encounter (statuses as of 03/25/2024) Immunizations Name Administration Dates Next Due COVID-19 [...] encounter Miscellaneous Notes * Telephone Encounter - Josh Hicks - 03/25/2024 2:33 PM EST Received message from [facility] regarding patient needing an appointment. Patient was notified. Successfully contacted patient and provided [facility] message. * Telephone Encounter - Pricila Julien [facility] - 03/20/2024 11:42 AM ESTSigned Prescriptions: Disp Refills Metoprolol Succinate ER 50 MG Oral Tablet *180 Ta*0 Sig: Take 1 Tablet by mouth in the morning and 1 Tablet before bedtime. Authorizing Provider: LUCINDA BOWEN Ordering User: PRICILA JULIEN * Telephone Encounter - Pricila Julien [facility] - 03/20/2024 11:39 AM EST Second attempt Please contact patient so that an appointment can be scheduled with her CARDIOLOGY provider. Refillauthorized to hold patient over in the mean time. Last Visit: 12/14/2022 (in office), Visit date not found (telemedicine) Next Visit: Visit date not found Preivous BP taken at PCP visit for acute pain Pricila Vee, PharmD Clinical Pharmacist [facility] 03/20/2024, 11:39 AM documented in this encounter Plan of Treatment Upcoming Encounters Date Type Department Care Team (Late st Contact Info) Description 03/25/2024 3:30 PM EST Imaging Radiology [address] 132 [facility] [place] [address] 04/15/2024 8:45 AM EST Imaging Radiology [address], [place] [facility] [phone] 04/16/2024 1:00 PM EST Office Visit Family Practice [address], [place] [address] [place] [address] Otilia Burgos DO [address] [place] [address] 04/23/2024 2:00 PM EST Office Visit Hematology Oncology [facility] [address] [place] [phone] Rafi Goncalves MD [address] [place] [address] 04/30/2024 11:45 AM EST Pharmacy Pharmacy Hematology Oncology [facility] [address] [place] [address] [facility], [facility] Hem/Onc [address] [place] [address] 06/18/2024 3:00 PM EDT Office Visit Cardiology, [facility] 132 [facility] [place] [address] Lucinda Bowen CRNP 132 [facility] [place] [address] 08/17/2024 10:30 AM EDT Imaging Radiology [facility] 2nd [facility] [place] 132 [place] [address] 11/26/2024 12:50 PM EDT Office Visit Dermatology, [place] [address] [place] [address] Vanda Manrique PA-C [address] [place] [address] 02/22/2025 3:00 PM EST Office Visit Endocrinology [...] as of this encounter Visit Diagnoses Diagnosis HTN, goal below 140/90 Unspecified essential hypertension Paroxysmal atrial fibrillation (HCC) Atrial fibrillation PSVT (paroxysmal supraventricular tachycardia) (HCC) Paroxysmal supraventricular tachycardia documented in this encounter Advance Directives Documents on File Type Date Recorded Patient Molasses Feed Mixer Expl anation POLST 09/26/2021 1:05 PM POLST * Full Code (Latest Code Status on File) Date Activated Date Inactivated Comments 06/28/2011 6:10 PM 06/29/2011 4:46 PM This order r eflects the patients wishes and were consensually agreed upon. Care Teams Field Crop Technical Officer Relationship Specialty Start Date End Date Otilia Burgos DO 293 [place] [address] PCP - General Family Medicine 10/14/23 documented as of this encounter
--- OUTSIDE RECORDS SUMMARY | 2024-04-16 04:55 | External Medical Summary | Summary of Care ---
Author Name Unknown Organization [facility] Address [address] [place] [address] Phone [phone] Care Team Providers Care Constitutional Law Professor Name Role Phone Oitlia Burgos DO Primary Care Provider [phone] Reason for Visit * Reason Onset Date Comments Patient Assistance Program 03/23/2024 13 Ch ristine B mek/taf PAF davon pending Encounter Details Date Type Department Care Team (Late st Contact Info) Description 03/23/2024 Telephone Hematology Oncology [facility] [address] [place] [address] Rafi Goncalves MD [address] [place] [address] Patient Assistance Program (13 Blanka [...] Follow up: 2 days Blanka Montesinos Medication Special Day Class Teacher 03/23/2024.7:03 AM * Telephone Encounter - Amparo Gaspar OSA - 03/23/2024 5:49 AM EST [facility] can fill mekinist. Please route prescription to [phone]. Patient's co-pay will be $1994.76. Co-pay assistance required: yes [facility] will help search for additional assistance Thank you, ABDIEL Braga [facility] 03/23/24,5:48 AM documented in this encounter Plan of Treatment Upcoming Encounters Date Type Department Care Team (Late st Contact Info) Description 04/15/2024 8:45 AM EST Imaging Radiology [facility] 1st [facility] [place] [address] [place] [phone] 04/16/2024 1:00 PM EST Office Visit Family Practice [address], [place] 293 [place] [address] Otilia Burgos DO [address] [facility] [address] 04/23/2024 2:00 PM EST Office Visit Hematology Oncology [facility], [address] [place] [address] Rafi Goncalves MD [address] [place] [address] 04/30/2024 11:45 AM EST Pharmacy Pharmacy Hematology Oncology [facility] [place] [address] [place] [address] [facility], [facility] Hem/Onc [address] [place] [address] 06/18/2024 3:00 PM EDT Office Visit Cardiology, [facility] 132 [place] [address] Lucinda Ryan CRNP 132 [place] [address] 08/17/2024 10:30 AM EDT Imaging Radiology [facility] 2nd [facility] 132 [place] [address] 11/26/2024 12:50 PM EDT Office Visit Dermatology, Hoa Jarrod Jones [address] [place] [address] Vanda Manrique PA-C [address] [place] [address] 02/22/2025 3:00 PM EST Office Visit Endocrinology Rohit Bansal Dr [address] [place] [address] Shaina George MD [address] [place] [address] Scheduled Procedures Name Priority Associated Diagnoses Date/Ti [...] Documents on File Type Date Recorded Patient Digital Measurement Advisor Expl anation POLST 09/26/2021 1:05 PM POLST * Full Code (Latest Code Status on File) Date Activated Date Inactivated Comments 06/28/2011 6:10 PM 06/29/2011 4:46 PM This order r eflects the patients wishes and were consensually agreed upon. Care Teams Constitutional Law Professor Relationship Specialty Start Date End Date Otilia Burgos DO [address] [facility] [place] [address] PCP - General Family Medicine 10/14/23 documented as of this encounter
--- OUTSIDE RECORDS SUMMARY | 2024-04-16 04:56 | External Medical Summary | Summary of Care ---
Author Name Unknown Organization [facility] Address [address] [place] [address] Phone [phone] Care Team Providers Care Extension Service Specialist In Charge Name Role Phone Otilia Burgos DO Primary Care Provider [phone] Reason for Visit * Reason Onset Date Comments Patient Assistance Program 03/23/2024 13 Ch ristine B mek/taf PAF davon pending Encounter Details Date Type Department Care Team (Late st Contact Info) Description 03/23/2024 Telephone Hematology Oncology [facility] [address] [place] [address] Rafi Goncalves MD [address] [place] [address] Patient Assistance Program (13 Blanka Winston.. Allergies Active Allergy Reactions Criticality Noted Date Comments Adhesive Tape Other (Please comment) Low 04/16/2013 Skin becomes red and sore Other reaction(s): Rash Lactose Diarrhea 08/12/2015 Latex Low 06/26/2021 Other reaction(s): Rash documented as of this encounter (statuses as of 03/24/2024) Medications FISH OIL 1000 MG PO CAPS [...] and 1 Tablet before bedtime. 180 Tablet 03/20/19 25 Active documented as of this encounter (statuses as of 03/24/2024) Active Problems Problem Noted Date Diagnosed Date [...] as of this encounter (statuses as of 03/24/2024) Resolved Problems Problem Noted Date Diagnosed Date Resolved Date Kidney disease, chronic, sta ge III (GFR 30-59 ml/min) 09/19/2015 06/04/2016 Overview: Per CKD protocol #1 Other stomatitis and mucositis (ulcerative) 07/27/2012 12/16/2017 Hypothyroidism 06/30/2012 03/23/2015 Throat pain 01/07/2012 05/07/2017 Dyspareunia 03/13/2010 07/05/2016 Joint pain, hip 03/13/2010 03/19/2017 Palpitations 03/13/2010 03/19/2017 documented as of this encounter (statuses as of 03/24/2024) Immunizations Name Administration Dates Next Due COVID-19 [...] No 01/20/2024 Does the household have a [facility] source [facility] income? (Household - for [...] Follow up: 2 days Blanka Montesinos Medication Career Services Manager 03/23/2024.7:03 AM * Telephone Encounter - Amparo Gaspar OSA - 03/23/2024 5:49 AM EST [facility] can fill mekinist. Please route prescription to [phone]. Patient's co-pay will be $1994.76. Co-pay assistance required: yes [facility] will help search for additional assistance Thank you, ABDIEL Braga [facility] 03/23/24,5:48 AM documented in this encounter Plan of Treatment Upcoming Encounters Date Type Department Care Team (Late st Contact Info) Description 03/25/2024 3:30 PM EST Imaging Radiology [address] [place] [address] 04/15/2024 8:45 AM EST Imaging Radiology [address] [place] [address] 04/16/2024 1:00 PM EST Office Visit Family Practice 65 [facility] [place] 293 [place] [address] Otilia Burgos DO 293 [facility], [place] [address] 04/23/2024 2:00 PM EST Office Visit Hematology Oncology [facility] [place] [address] [place] [address] Rafi Goncalves MD [address], [place] [phone] 04/30/2024 11:45 AM EST Pharmacy Pharmacy Hematology Oncology [facility] [address] [place] [address] [facility] [place], [facility] Hem/Onc [address] [place] [address] 11/26/2024 12:50 PM EDT Office Visit Dermatology, Jarrod Olguin [address] [place] [address] Vanda Manrique PA-C [address] [place] [address] 02/22/2025 3:00 PM EST Office Visit Endocrinology Rohit Bansal Dr [address] [place] [address] Shaina George MD [address], [place] [phone] Scheduled Procedures Name Priority Associated Diagnoses Date/Ti [...] Documents on File Type Date Recorded Patient Information Technology Security Manager Expl anation POLST 09/26/2021 1:05 PM POLST * Full Code (Latest Code Status on File) Date Activated Date Inactivated Comments 06/28/2011 6:10 PM 06/29/2011 4:46 PM This order r eflects the patients wishes and were consensually agreed upon. Care Teams Extension Service Specialist In Charge Relationship Specialty Start Date End Date Otilia Burgos DO [address] [place] [address], [place] [address] PCP - General Family Medicine 10/14/23 documented as of this encounter
--- OUTSIDE RECORDS SUMMARY | 2024-04-16 04:56 | External Medical Summary | Summary of Care ---
Author Name Unknown Organization [facility] Address [address] [place] [address] Phone [phone] Care Team Providers Care Clockmaker Apprentice Name Role Phone Otilia Burgos Primary Care Provider Reason for Visit * Reason Comments Medication Management Encounter Details Date Type Department Care Team (Late st Contact Info) Description 02/28/2024 1:00 PM [facility] Pharmacy Pharmacy Hematology Oncology [facility] [address] [place], [place] [phone] [facility], [facility] Hem/Onc [address] [place], [place] [phone] Papillary thyroid carcinoma (HCC)*; Secondary and unspecified ma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, face and neck (HCC) Allergies Active Allergy Reactions Criticality Noted Date Comments Adhesive Tape Other (Please comment) Low 04/16/2013 Skin becomes red and sore Other reaction(s): Rash Lactose Diarrhea 08/12/2015 Latex Low 06/26/2021 Other reaction(s): Rash documented as of this encounter (statuses as of 03/12/2024) Medications FISH OIL 1000 MG PO CAPS [...] Oral Tablet Take by mouth. Act alexis methylPREDNISolone 4 MG Oral Tablet Therapy Pack (Medrol Dosepack)Indications :Rash follow package directions 21 Tablet 06/05/19 24 Active Additional Information Patient not taking.Reported on 03/10/2024 Clotrimazole-Betamet hasone 1-0.05 % External Cream (Lotrisone)Indicatio [...] refrigerated. 63 Tablet 5 09/19/19 24 Active Dabrafenib Mesylate 50 MG [...] needed 60 mL 1 11/26/19 24 Active Metoprolol Succinate ER 50 MG Oral Tablet Extended Release 24 Hour (toPROL XL)Indications:HTN, goal below 140/90,Paroxysmal atrial fibrillation (HCC),PSVT (paroxysmal supraventricular tachycardia) (HCC) Take 1 Tablet by mouth in the morning and 1 Tablet before bedtime. 180 Tablet 4 9:27 AM EDT 12/24/19 24 Active Synthroid 125 MCG Oral TabletIndications:Po stoperative hypothyroidism Take one tablet by mouth six days a week and take two tablets once weekly 105 Tablet 3 4 10:12 AM EST 02/17/20 24 Active documented as of this encounter (statuses as of 03/12/2024) Active Problems Problem Noted Date Diagnosed Date [...] as of this encounter (statuses as of 03/12/2024) Resolved Problems Problem Noted Date Diagnosed Date Resolved Date Kidney disease, chronic, sta ge III (GFR 30-59 ml/min) 09/19/2015 06/04/2016 Overview: Per CKD protocol #1 Other stomatitis and mucositis (ulcerative) 07/27/2012 12/16/2017 Hypothyroidism 06/30/2012 03/23/2015 Throat pain 01/07/2012 05/07/2017 Dyspareunia 03/13/2010 07/05/2016 Joint pain, hip 03/13/2010 03/19/2017 Palpitations 03/13/2010 03/19/2017 documented as of this encounter (statuses as of 03/12/2024) Immunizations Name Administration Dates Next Due COVID-19 mRNA, LNP-s, No Pre serve, 2-Dose Series ([employer]) 06/09/2020,05/19/2020 Pneumococcal Conjugate Vacc, 13 Valent (Prevnar) [...] on file documented as of this encounter Progress Notes * Rhianna Baum, [facility] - 02/28/2024 9:14 AM EST MEDICATION THERAPY MANAGEMENT DABRAFENIB + TRAMETINIB TREATMENT PROGRESS NOTE Megan Berryorsthelma [phone] Patient Phone Numbers Preferred Lab: [facility]: [facility] ([place], [place]) Communication: Chart review Treatment: Medication: Dabrafenib (Tafinlar) Indication/Staging/Diagnosis Code: Thyroid Cancer, Braf V600E +, w/ mets C78.0, C73.0, C77.0 Dose: 100 mg BID D1- days ( 07/04/23) Administration: at least 1 hour before or 2 hours after a meal Medication: Trametinib (Mekinist) Dose: 1.5 mg PO D1- days ( 07/04/23) Administration: at least 1 hour before or 2 hours after a meal Start Date: 05/17/23 Primary Php Software Engineer/Oncologist: Dr. Goncalves Supportive Care Meds: Ondansetron Prochlorperazine Loperamide Relevant Chronic Medications: Category Medications Pertinent Notes Antihypertensives Metoprolol Lisinopril Cycle Dates C1 09/18- 10/08 C2 10/16 - 11/05 C3 11/13 - 12/03 C4 12/06 - 12/26 C5 (Delayed tooth extraction) 01/05 - 01/25 C6 02/02 - 02/22 C7 03/02 - 03/22 (anticipated) Treatment History: Radiation Treatment Dose Adjustment/Hold History: 05/29/23-07/03/23: Held for fevers and side effects (weakness, low appetite, hypotension, constipation) 07/04/23 - DR dabrafenib to 100 mg BID and trametinib to 1.5 mg daily due to fever and side effects (weakness, low appetite, hypotension, constipation) 08/19/23- 08/26/23: Held for toxicity (fever, nausea & lack of appetitie) 08/27/23 - 09/11/23: Resumed therapy 09/12/23 - 09/18/23: Held for red blotches 09/19/23: Resume with new schedule 3 weeks on and 1 week off 11/29/23 - 12/07/23: Treatment held due to concerns of infection/fever 01/06/24: treatment delayed due to tooth extraction Interval History: 02/13: noted mild fever - improved to normal range with tylenol and ibuprofen. No additional infection concerns 02/17: reports no fevers in a week now Is having dental concerns and will be scheduling appt with dentist Changes to medication list since last visit? No Upcoming surgeries or procedures? No -- pt to inform clinic if dental work needed Assessment and Plan: Per 02/26 alteration of treatment plan - patient to hold cancer therapy until return visit in April Patient seen in clinic on 02/26 and advised to hold treatment until April OV scheduled on 04/23 - MTM will follow-up after return visit to review plans for treatment. 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 No Follow up: OV 04/23, MTM 04/30 (tx plan) Rhianna Baum, PharmD Ambulatory Clinical Pharmacist | Oral Chemotherapy Clinic [facility] 02/28/2024 9:16 AM Rosalia Galan, RoseD, BCOP Clinical Pharmacist [facility] 03/12/2024, 1:50 PM Monitoring Parameters: Estimated CrCl Serum creatinine: 1.1 mg/dL (H) 04/08/23 0802 Estimated creatinine clearance: 46.4 mL/min (A) Hepatitis panel Ordered to be completed with repeat labs test Post menopausal Suggested lab monitoring Suggested lab monitoring: LVEF (via ECHO or MUGA) baseline, @ 1 month, then every 2-3 months; dermatologic eval baseline, every 2 months during therapy, then for up to 6 months after d/c; BMP/glucose (particularly in patients with pre-existing DM/hyperglycemia) every 3-4 months; CBCd/LFTs baseline, then every 3-4 months. Date LVEF 05/02/2023 60% Treatment Parameters See PI Time Spent on Encounter: 21 - 25 minutes Encounter Group: Oncology Encounter Interventions Item Category: Oral Chemotherapy Dabrafenib/Trametinib Problem/Rationale: [place] Plan Review: Alteration of plan Pharmacist Intervention(s): Care coordination, Dose decreased, and Medication held Magnitude of Intervention: Modification of medication for asymtomatic patients (Level 2) documented in this encounter Plan of Treatment Upcoming Encounters Date Type Department Care Team (Late st Contact Info) Description 04/15/2024 8:45 AM EST Imaging Radiology [facility] 132 [facility] [place] [address] 04/16/2024 1:00 PM EST Office Visit Family Practice [address] [place] [address] [place] [address] Otilia Burgos DO [address] [place] [address] 04/23/2024 2:00 PM EST Office Visit Hematology Oncology [facility] [address] [place] [address] Rafi Goncalves MD [address] [place], [place] [phone] 04/30/2024 11:45 AM EST Pharmacy Pharmacy Hematology Oncology [facility] [address] [place] [address] [facility] [place], [facility] Hem/Onc [address] [place] [address] 11/26/2024 12:50 PM EDT Office Visit Dermatology, Jarrod Olguin [address] [place] [address] Vanda Manrique PA-C [address] [place] [address] 02/22/2025 3:00 PM EST Office Visit Endocrinology Rohit Bansal Dr [address] [place], [place] [address] Shaina George MD [address] [...] as of this encounter Visit Diagnoses Diagnosis Papillary thyroid carcinoma (HCC)- Primary Malignant neoplasm of thyroid gland Secondary and unspecified ma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, face and neck (HCC) documented in this encounter Advance Directives Documents on File Type Date Recorded Patient Box Estimator Expl anation POLST 09/26/2021 1:05 PM POLST * Full Code (Latest Code Status on File) Date Activated Date Inactivated Comments 06/28/2011 6:10 PM 06/29/2011 4:46 PM This order r eflects the patients wishes and were consensually agreed upon. Care Teams Clockmaker Apprentice Relationship Specialty Start Date End Date Otilia Burgos DO [address] [place] [address] PCP - General Family Medicine 10/14/23 documented as of this encounter"
--- OUTSIDE RECORDS SUMMARY | 2024-04-16 04:56 | External Medical Summary | Summary of Care ---
Author Name Unknown Organization [facility] Address [address] [place] [address] Phone [phone] Care Team Providers Care Warm In Worker Name Role Phone Otilia Burgos Primary Care Provider [phone] Reason for Visit * Reason Onset Date Comments Appointment 03/23/2024 Encounter Details Date Type Department Care Team (Late st Contact Info) Description 03/23/2024 Telephone Radiology [address] [place] [address] Alexandrea Morris, RT (R) Appointment Allergies Active Allergy Reactions Criticality Noted Date Comments Adhesive Tape Other (Please comment) Low 04/16/2013 Skin becomes red and sore Other reaction(s): Rash Lactose Diarrhea 08/12/2015 Latex Low 06/26/2021 Other reaction(s): Rash documented as of this encounter (statuses as of 03/23/2024) Medications FISH OIL 1000 MG PO CAPS [...] as of this encounter (statuses as of 03/23/2024) Active Problems Problem Noted Date Diagnosed Date [...] as of this encounter (statuses as of 03/23/2024) Resolved Problems Problem Noted Date Diagnosed Date Resolved Date Kidney disease, chronic, sta ge III (GFR 30-59 ml/min) 09/19/2015 06/04/2016 Overview: Per CKD protocol #1 Other stomatitis and mucositis (ulcerative) 07/27/2012 12/16/2017 Hypothyroidism 06/30/2012 03/23/2015 Throat pain 01/07/2012 05/07/2017 Dyspareunia 03/13/2010 07/05/2016 Joint pain, hip 03/13/2010 03/19/2017 Palpitations 03/13/2010 03/19/2017 documented as of this encounter (statuses as of 03/23/2024) Immunizations Name Administration Dates Next Due COVID-19 mRNA, LNP-s, No Pre serve, 2-Dose Series ([employer]) 06/09/2020,05/19/2020 Pneumococcal Conjugate Vacc, 13 Valent (Prevnar) [...] encounter Miscellaneous Notes * Telephone Encounter - Alexandrea Morris, RT (R) - 03/23/2024 4:20 PM EST Name: Megan Phillips Do you have any of the following: Pacemaker, stents, heart valves, aneurysm clips? No Have you ever worked with metal or have you ever gotten metal in your eyes? No Have you had a colonoscopy in the last 30 days? No On dialysis? No Do you have any dermals or body piercing's? No or ? Do you wear an insulin pump or diabetic monitor? no RT Prosper (R) documented in this encounter Plan of Treatment Upcoming Encounters Date Type Department Care Team (Late st Contact Info) Description 03/25/2024 3:30 PM EST Imaging Radiology [address] [place] [address] 04/15/2024 8:45 AM EST Imaging Radiology [address] [place] [address] 04/16/2024 1:00 PM EST Office Visit Family Practice [address] [place] [address] 293 [place] [address] Otilia Burgos, 293 [place] [address] 04/23/2024 2:00 PM EST Office Visit Hematology Oncology [address] [phone] Rafi Goncalves MD [address] [place] [address] 04/30/2024 11:45 AM EST Pharmacy Pharmacy Hematology Oncology [address] [address] [facility] [place], [facility] Hem/Onc [address] [place] [address] 11/26/2024 12:50 PM EDT Office Visit Dermatology, Bhupendra [place] [address] [place] [address] Vanda Manrique PA-C [address] [place] [address] 02/22/2025 3:00 PM EST Office Visit Endocrinology Rohit Bansal Dr [address] [place] [address] Shaina George MD [address] [place] [address] Scheduled Procedures Name Priority Associated [...] Documents on File Type Date Recorded Patient Debridging Machine 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 Care Teams Warm In Worker Relationship Specialty Start Date End Date Otilia Burgos DO [address] [place] [address] PCP - General Family Medicine 10/14/23 documented as of this encounter
--- OUTSIDE RECORDS SUMMARY | 2024-04-16 04:56 | External Medical Summary | Summary of Care ---
Author Name Unknown Organization [facility] Address [address] [place] [address] Phone [phone] Care Team Providers Care Electrical Installer Name Role Phone Otilia Burgos DO Primary Care Provider Reason for Visit * Reason Onset Date Comments Patient Assistance Program 03/23/2024 Encounter Details Date Type Department Care Team (Late st Contact Info) Description 03/23/2024 Telephone Hematology Oncology [facility] [address] [place] [address] Rafi Goncalves MD [address] [place] [address] Patient Assistance Program Allergies Active Allergy Reactions Criticality Noted Date [...] right foot as needed 60 g 3 07/25/20 23 Active Mupirocin 2 % External Ointment [...] mRNA, LNP-s, No Pre serve, 2-Dose Series ([employer]) 06/09/2020,05/19/2020 Pneumococcal Conjugate Vacc, 13 Valent (Prevnar) [...] encounter Miscellaneous Notes * Telephone Encounter - Amparo Gaspar OSA - 03/23/2024 5:49 AM EST [facility] can fill mekinist. Please route prescription to [phone]. Patient's co-pay will be $1994.76. Co-pay assistance required: yes [facility] will help search for additional assistance Thank you, Amparo Gaspar, ABDIEL [facility] 03/23/24,5:48 AM documented in this encounter Plan of Treatment Upcoming Encounters Date Type Department Care Team (Late st Contact Info) Description 04/02/2024 2:00 PM EST Imaging Radiology [address] [facility] [address] 04/15/2024 8:45 AM EST Imaging Radiology [address] [place] [address] 04/16/2024 1:00 PM EST Office Visit Family Practice 65 [facility] [place] [address] [place] [address] Otilia Burgos DO [address] [place] [address] 04/23/2024 2:00 PM EST Office Visit Hematology Oncology [address] [address] Rafi Goncalves MD [facility] [place] [address] 04/30/2024 11:45 AM EST Pharmacy Pharmacy Hematology Oncology [address] [address] [facility] [place] Hem/Onc [address] [place] [address] 11/26/2024 12:50 PM EDT Office Visit Dermatology, Jarrod Olguin [address] [place] [address] Vanda Manrique PA-C [address] [place] [address] 02/22/2025 3:00 PM EST Office Visit Endocrinology Rohit Bansal Dr [address] [place] [address] Shaina George MD [address] [facility] [place] [address] Scheduled Procedures Name Priority [...] Documents on File Type Date Recorded Patient Farm Truck Driver Expl anation POLST 09/26/2021 1:05 PM POLST * Full Code (Latest Code Status on File) Date Activated Date Inactivated Comments 06/28/2011 6:10 PM 06/29/2011 4:46 PM This order r eflects the patients wishes and were consensually agreed upon. Care Teams Electrical Installer Relationship Specialty Start Date End Date Otilia Burgos DO [address] [place] [address] PCP - General Family Medicine 10/14/23 documented as of this encounter
--- OUTSIDE RECORDS SUMMARY | 2024-04-16 04:56 | External Medical Summary | Summary of Care ---
Author Name Unknown Organization [facility] Address [address] [place] [address] Phone [phone] Care Team Providers Care Senior Environmental Technician Name Role Phone Otilia Burgos DO Primary Care Provider Reason for Visit * Reason Onset Date Comments Patient Assistance Program 03/23/2024 13 Ch ristine B mek/taf PAF davon pending Encounter Details Date Type Department Care Team (Late st Contact Info) Description 03/23/2024 Telephone Hematology Oncology [facility] [address] [place] [address] Rafi Goncalves MD [address] [place] [address] Patient Assistance Program (13 Blanka [...] No 01/20/2024 Does the household have a [email or web address] source of income? (Household - for ages [...] Follow up: 2 days Blanka Montesinos Medication Senior Research Analyst 03/23/2024.7:03 AM * Telephone Encounter - Amparo Gaspar OSA - 03/23/2024 5:49 AM EST [facility] can fill mekinist. Please route prescription to [phone]. Patient's co-pay will be $1994.76. Co-pay assistance required: yes [facility] will help search for additional assistance Thank you, ABDIEL Braga [facility] 03/23/24,5:48 AM documented in this encounter Plan of Treatment Upcoming Encounters Date Type Department Care Team (Late st Contact Info) Description 04/02/2024 2:00 PM EST Imaging Radiology [address] [place] [phone] 04/15/2024 8:45 AM EST Imaging Radiology [address] [place] [address] 04/16/2024 1:00 PM EST Office Visit Family Practice 65 [facility] [place] 293 [facility] [place] [address] Otilia Burgos DO 293 [facility], [place] [address] 04/23/2024 2:00 PM EST Office Visit Hematology Oncology [facility] [place] [address] [place] [address] Rafi Goncalves MD [address] [place], [place] [phone] 04/30/2024 11:45 AM EST Pharmacy Pharmacy Hematology Oncology [facility] [address] [place] [address] [facility] [place], [facility] Hem/Onc [address] [place] [address] 11/26/2024 12:50 PM EDT Office Visit Dermatology, Jarrod Olguin [address] [place] [address] Vanda Manrique PA-C [address] [place] [address] 02/22/2025 3:00 PM EST Office Visit Endocrinology Rohit Bansal Dr [address] [place] [address] Shaina George MD [address] [place], [place] [phone] Scheduled Procedures Name Priority Associated Diagnoses Date/Ti [...] Documents on File Type Date Recorded Patient Radiator Specialist Expl anation POLST 09/26/2021 1:05 PM POLST * Full Code (Latest Code Status on File) Date Activated Date Inactivated Comments 06/28/2011 6:10 PM 06/29/2011 4:46 PM This order r eflects the patients wishes and were consensually agreed upon. Care Teams Senior Environmental Technician Relationship Specialty Start Date End Date Otilia Burgos DO [address] [place] [address], [place] [address] PCP - General Family Medicine 10/14/23 documented as of this encounter
--- OUTSIDE RECORDS SUMMARY | 2024-04-16 04:56 | External Medical Summary | Summary of Care ---
Author Name Unknown Organization [facility] Address [address] [place] [address] Phone [phone] Care Team Providers Care Laundry Manager Name Role Phone Otilia Burgos DO Primary Care Provider [phone] Reason for Referral * Evaluate & Treat - Unlimited Visits (Within 30 days (routine)) - Pending Review Specialty Diagnoses / Procedures Referred By Nina silverman Referred To Contact Physical Therapy / Physical Medicine And Rehab Diagnoses DDD (degenerative disc disease), cervical Recurrent thyroid cancer (HCC) Neck pain Otilia Burgos DO [address] [place] [address] Phone: tel: fax: Referral ID Status Reason Start Date Expiration Date Visits Requested Visits Authorized [id number] Pending Review Specialty Services Required 03/12/2024 [id number] Question Answer Referral Priority Within 30 days (routine) Where should this appointment be scheduled? [facility] * [facility] (Within 10 days (routine)) - Pending Review Specialty Diagnoses / Procedures Referred By Nina silverman Referred To Contact Radiology Diagnoses DDD (degenerative disc disease), cervical Recurrent thyroid cancer (HCC) Neck pain Procedures MRI C SPINE W CONT Keon Bautista DO [address] [place] [address] Phone: tel: fax: Referral ID Status Reason Start Date Expiration Date V isits Requested Visits Authorized [id number] Pending Review 03/12/[phone] Reason for Visit * Reason Onset Date Comments Test Results 03/12/202403/12 Appointment 03/12/2024 Encounter Details Date Type Department Care Team (Late st Contact Info) Description 03/12/2024 Telephone Family Practice [address] [place] [address] [place] [address] Otilia Burgos DO [address] [place] [address] Test Results (03/12); Appointment Allergies Active Allergy Reactions Criticality Noted Date Comments Adhesive Tape Other (Please comment) Low 04/16/2013 Skin becomes red and sore Other reaction(s): Rash Lactose Diarrhea 08/12/2015 Latex Low 06/26/2021 Other reaction(s): Rash documented as of this encounter (statuses as of 03/13/2024) Medications FISH OIL 1000 MG PO CAPS [...] 2 times a day. 45 g 3 04/08/20 24 Active Dabrafenib Mesylate 50 MG Oral [...] 025 Discontin ued(Medic ation List Clean Up) documented as of this encounter (statuses as of 03/13/2024) Active Problems Problem Noted Date Diagnosed Date [...] as of this encounter (statuses as of 03/13/2024) Resolved Problems Problem Noted Date Diagnosed Date Resolved Date Kidney disease, chronic, sta ge III (GFR 30-59 ml/min) 09/19/2015 06/04/2016 Overview: Per CKD protocol #1 Other stomatitis and mucositis (ulcerative) 07/27/2012 12/16/2017 Hypothyroidism 06/30/2012 03/23/2015 Throat pain 01/07/2012 05/07/2017 Dyspareunia 03/13/2010 07/05/2016 Joint pain, hip 03/13/2010 03/19/2017 Palpitations 03/13/2010 03/19/2017 documented as of this encounter (statuses as of 03/13/2024) Immunizations Name Administration Dates Next Due COVID-19 [...] No 01/20/2024 Does the household have a [facility] source [facility] income? (Household - for [...] encounter Miscellaneous Notes * Telephone Encounter - Carmen Kaur OSA [...] Description 04/02/2024 2:00 PM EST Imaging Radiology [address] 132 [place] [address] 04/15/2024 8:45 AM EST Imaging Radiology [address] [place] [address] 04/16/2024 1:00 PM EST Office Visit Family Practice [address], [place] [address] [place] [address] Otilia Burgos DO [address] [place] [address] 04/23/2024 2:00 PM EST Office Visit Hematology Oncology [facility] [address] [place] [address] Rafi Goncalves MD [address] [place] [address] 04/30/2024 11:45 AM EST Pharmacy Pharmacy Hematology Oncology [facility] [address] [place] [address] [facility], [facility] Clinic Hem/Onc [address] [place] [address] 11/26/2024 12:50 PM EDT Office Visit Dermatology, Jarrod Olguin [address] [place] [address] Vanda Manrique PA-C [address] [place] [address] 02/22/2025 3:00 PM EST Office Visit Endocrinology Rohit [address] [place] [place], [place] [address] Shaina George MD [address] [facility] [place] [address] Scheduled Orders Name Type Priority Associated Diagnoses Orde r Schedule MRI C SPINE W CONT Medical Imaging Routine DDD (degenerative disc disease), cervical Recurrent thyroid cancer (HCC) Neck pain Expected: 03/12/2024, Expires: 04/12/2025 Scheduled Procedures Name Priority Associated Diagnoses Date/Ti [...] as of this encounter Visit Diagnoses Diagnosis DDD (degenerative disc disease), cervical- Primary Degeneration of cervical intervertebral disc Recurrent thyroid cancer (HCC) Malignant neoplasm of thyroid gland Neck pain Cervicalgia documented in this encounter Advance Directives Documents on File Type Date Recorded Patient 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 Care Teams Laundry Manager Relationship Specialty Start Date End Date Otilia Burgos DO [address] [place] [facility] [place] [address] PCP - General Family Medicine 10/14/23 documented as of this encounter
--- OUTSIDE RECORDS SUMMARY | 2024-04-16 04:56 | External Medical Summary | Summary of Care ---
Author Name Unknown Organization [facility] Address [address] [place] [address] Phone [phone] Care Team Providers Care Butcher Meat Name Role Phone Otilia Burgos DO Primary Care Provider [phone] Reason for Visit * Reason Onset Date Comments Referral 03/19/2024 Pt referral Encounter Details Date Type Department Care Team (Late st Contact Info) Description 03/19/2024 Telephone Family Practice 65 [facility] [address] [place] [address] Otilia Burgos DO [address] [place] [address] Referral (Pt referral) Allergies Active Allergy Reactions Criticality Noted Date Comments Adhesive Tape Other (Please comment) Low 04/16/2013 Skin becomes red and sore Other reaction(s): Rash Lactose Diarrhea 08/12/2015 Latex Low 06/26/2021 Other reaction(s): Rash documented as of this encounter (statuses as of 03/19/2024) Medications FISH OIL 1000 MG PO CAPS [...] and 1 Tablet before bedtime. 180 Tablet 12/25/2023 9:27 AM EDT 12/24/19 24 Active Synthroid [...] 2 days 30 Tablet 03/12/19 25 Active documented as of this encounter (statuses as of 03/19/2024) Active Problems Problem Noted Date Diagnosed Date [...] as of this encounter (statuses as of 03/19/2024) Resolved Problems Problem Noted Date Diagnosed Date Resolved Date Kidney disease, chronic, sta ge III (GFR 30-59 ml/min) 09/19/2015 06/04/2016 Overview: Per CKD protocol #1 Other stomatitis and mucositis (ulcerative) 07/27/2012 12/16/2017 Hypothyroidism 06/30/2012 03/23/2015 Throat pain 01/07/2012 05/07/2017 Dyspareunia 03/13/2010 07/05/2016 Joint pain, hip 03/13/2010 03/19/2017 Palpitations 03/13/2010 03/19/2017 documented as of this encounter (statuses as of 03/19/2024) Immunizations Name Administration Dates Next Due COVID-19 [...] No 01/20/2024 Does the household have a [facility]? (Household [...] encounter Miscellaneous Notes * Telephone Encounter - Rohini Gallego OSA - 03/19/2024 9:11 AM EST Called the patient to schedule the PT referral and spoke to her spouse Homero. He verbalized that he gave all the info to Marshall Todd, his neighbor who is a physical therapist, they are working withthe insurance to get it approved for her to be seen in Marshall's PT office. Homero verbalized that ifit doesn't work out he will call the PCP office back to schedule documented in this encounter Plan of Treatment Upcoming Encounters Date Type Department Care Team (Late st Contact Info) Description 04/02/2024 2:00 PM EST Imaging Radiology [address] 132 [place] [address] 04/15/2024 8:45 AM EST Imaging Radiology [address] 132 [place] [address] 04/16/2024 1:00 PM EST Office Visit Family Practice [address], [place] [address] [place] [address] Otilia Burgos DO [address] [place] [address] 04/23/2024 2:00 PM EST Office Visit Hematology Oncology [address] [phone] Rafi Goncalves MD [facility] [place] [address] 04/30/2024 11:45 AM EST Pharmacy Pharmacy Hematology Oncology [address] [address] [facility], [facility] Hem/Onc [facility] [place] [address] 11/26/2024 12:50 PM EDT Office Visit Dermatology, Hoa Jones[place]arrod [address] [place] [address] Vanda Manrique PA-C [address] [place] [address] 02/22/2025 3:00 PM EST Office Visit Endocrinology Rohit Bansal Dr [address] [place] [address] Shaina George MD [address] [facility] [place] [address] Scheduled Procedures Name [...] on File Type Date Recorded Patient Information Assurance Manager Expl anation POLST 09/26/2021 1:05 PM POLST * Full Code (Latest Code Status on File) Date Activated Date Inactivated Comments 06/28/2011 6:10 PM 06/29/2011 4:46 PM This order r eflects the patients wishes and were consensually agreed upon. Care Teams Butcher Meat Relationship Specialty Start Date End Date Otilia Burgos DO [address] [place] [address] PCP - General Family Medicine 10/14/23 documented as of this encounter
--- OUTSIDE RECORDS SUMMARY | 2024-04-16 04:56 | External Medical Summary | Summary of Care ---
Author Name Unknown Organization [facility] Address [address] [place] [address] Phone [phone] Care Team Providers Care Garbage Truck Driver Name Role Phone Otilia Burgos Primary Care Provider Reason for Visit * Reason Comments Follow Up Pt here for neck danielle n since February 22 - Started out stiff and has gotten worse. limited range of motion in the neck. Pt is taking 2 tylenol and 2 motrin every 6-12 hours. Does have a bulging disc in her neck. Encounter Details Date Type Department Care Team (Late st Contact Info) Description 03/10/2024 10:20 AM EST Office Visit Family Practice [address], [place] [address] [place] [address] Keon Bautista, DO [address] [place] [address] Neck pain*; HTN, goal below 140/90; Recurrent thyroid cancer (HCC); Postoperative hypothyroidism; Malignant neoplasm metastatic to both lungs (HCC); Dyslipidemia, goal LDL below 130; Vitamin D deficiency Allergies Active Allergy Reactions Criticality Noted Date Comments Adhesive Tape Other (Please comment) Low 04/16/2013 Skin becomes red and sore Other reaction(s): Rash Lactose Diarrhea 08/12/2015 Latex Low 06/26/2021 Other reaction(s): Rash documented as of this encounter (statuses as of 03/10/2024) Medications FISH OIL 1000 MG PO CAPS [...] Muscle spasms. 30 Tablet 03/10/20 24 Active documented as of this encounter (statuses as of 03/10/2024) Active Problems Problem Noted Date Diagnosed Date [...] as of this encounter (statuses as of 03/10/2024) Resolved Problems Problem Noted Date Diagnosed Date Resolved Date Kidney disease, chronic, sta ge III (GFR 30-59 ml/min) 09/19/2015 06/04/2016 Overview: Per CKD protocol #1 Other stomatitis and mucositis (ulcerative) 07/27/2012 12/16/2017 Hypothyroidism 06/30/2012 03/23/2015 Throat pain 01/07/2012 05/07/2017 Dyspareunia 03/13/2010 07/05/2016 Joint pain, hip 03/13/2010 03/19/2017 Palpitations 03/13/2010 03/19/2017 documented as of this encounter (statuses as of 03/10/2024) Immunizations Name Administration Dates Next Due COVID-19 [...] Sign Reading Time Taken Comments Blood Pressure 154/84 03/10/2024 10:16 AM EST Pulse 60 03/10/2024 10:16 AM EST Temperature 35.9 C (96.6 F) 03/10/2024 10:[address] Respiratory Rate 14 03/10/2024 10:16 AM EST Oxygen Saturation - - Inhaled Oxygen Concentration - - Weight 78.2 kg (172 lb 4.8 oz) 03/10/2024 10:16 AM EST Height 167 cm (5' 5.75") 03/10/2024 10:16 AM EST Body Mass Index 28.02 03/10/2024 10:16 AM EST documented in this encounter Progress Notes * Keon Bautista, - 03/10/2024 12:52 PM EST SUBJECTIVE: Megan Phillips is a 78 year old female. Chief Complaint Patient presents with Follow Up Pt here for neck pain since February 22 - Started out stiff and has gotten worse. limited range of motion in the neck. Pt is taking 2 tylenol and 2 motrin every 6-12 hours. Does have a bulging discin her neck. HPI: Patient is a 78 year old female with a history of Metastatic Thyroid Cancer,HTN, and Hyperlipidemiathat is seen for neck pain that has been present for 2 weeks. She has pain with right and left neckrotation. Neck is stiff. No recent fall or trauma.Ibuprofen and Acetaminophen are not effective at relieving the neck pain. Patient Active Problem List Diagnosis HTN, goal below 140/90 Dyslipidemia, goal LDL below 130 Vitamin D deficiency Papillary thyroid carcinoma (HCC) Postoperative hypothyroidism Paroxysmal atrial fibrillation (HCC) Recurrent thyroid cancer (HCC) Lung nodules Secondary and unspecified ma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, face and neck (HCC) Malignant neoplasm metastatic to lung (HCC) Malignant neoplasm metastatic to both lungs (HCC) Hyponatremia Current Outpatient Medications Medication Sig Dispense Refill [...] weeks then as needed 60 mL 1 Metoprolol Succinate ER 50 MG Oral Tablet Extended Release 24 Hour (toPROL XL) Take 1 Tablet by mouth in the morning and 1 Tablet before bedtime. 180 Tablet 0 Synthroid 125 MCG Oral Tablet Take one tablet by mouth six days a week and take two tablets once weekly 105 Tablet 3 tiZANidine HCl 2 MG Oral Tablet (Zanaflex) Take 1 Tablet by mouth every 8 hours as needed for Muscle spasms. 30 Tablet 0 methylPREDNISolone 4 MG Oral Tablet Therapy Pack (Medrol Dosepack) follow package directions (Patient not taking: Reported on 03/10/2024) 21 Tablet 0 No current facility-administered medications for this visit. The patient's medication list was reviewed and updated as needed. Past Medical History: Diagnosis Date HTN, goal below 140/90 Lung nodules 10/01/2016 Paroxysmal atrial fibrillation (HCC) 08/23/2015 Postoperative hypothyroidism 03/23/2015 Thyroid cancer (HCC) Past Surgical History: Procedure Laterality Date COLONOSCOPY 03/11/2005 COLONOSCOPY, DIAGNOSTIC (RECTUM) 06/27/2010 wnl COLONOSCOPY, DIAGNOSTIC (RECTUM) 07/06/2015 adenomatous polyp, repeat 5 yrs/COLONOSCOPY FLEXIBLE PROXIMAL DIAGNOSTIC performed by Darryl Navarro MD at ENDOSCOPY [facility] COLONOSCOPY, DIAGNOSTIC (RECTUM) 02/15/2022 sigmoid diverticulosis/recall 5 years/COLONOSCOPY FLEXIBLE PROXIMAL DIAGNOSTIC performed by Gela Landin MD at ENDOSCOPY [facility] DENTAL INLAY METALIC 1 SURF HYSTEROSCOPY W/BIOPSY AND/OR POLYPECTOMY W/WO D&C Bilateral 09/20/2022 HYSTEROSCOPY WITH BIOPSY AND/OR POLYPECTOMY WITH OR WITHOUT D&C performed by Judith Sotomayor MD at [facility] INFORMATION EYELID SURGERY KNEE MENISCAL TRANSP,SURG ARTHROS r knee LIGATE,DIV,EXCIS ALIRIO VEIN CLUS l knee MAMMOGRAM SCREENING BILATERAL 01/10/2008 nl REMOVAL OF NECK LYMPH NODES Left 02/07/2016 CERVICAL LYMPHADENECTOMY MODIFIED RADICAL NECK DISSECTION performed by Ricardo Barriga MD at [facility] REMOVAL OF THYROID FOR TUMOR 06/28/2011 THYROIDECTOMY WITH LIMITED NECK DISSECTION performed by RICARDO BARRIGA at [facility] REMOVAL OF TONSILS, UNDER AGE 12 REMOVE GALLBLADDER REMOVE TONSILS & ADENOIDS, UNDER 12 TREATMENT OF ANAL FISSURE x2 Review of patient's allergies indicates: Allergen Reactions Lactose Diarrhea Adhesive Tape Other (Please comment) Skin becomes red and sore Other reaction(s): Rash Latex Other reaction(s): Rash Review of Systems Constitutional: Negative for chills and fever. Respiratory: Negative for cough, shortness of breath and wheezing. Cardiovascular: Negative for chest pain, palpitations and leg swelling. Gastrointestinal: Negative for abdominal pain, blood in stool, constipation, diarrhea, nausea and vomiting. Musculoskeletal: Positive for neck pain. Neurological: Negative for dizziness, syncope and headaches. OBJECTIVE: BP 154/84 (BP Site: Left Arm, BP Position: Sitting, BP Cuff Size: Regular) | Pulse 60 | Temp 96.6 F (35.9 C) | Resp 14 | Ht 5' 5.75" (1.67 m) | Wt 172 lb 4.8 oz (78.2 kg) | BMI 28.02 kg/m | BSA1.9 m Physical Exam Vitals and nursing note reviewed. Constitutional: General: She is not in acute distress. Appearance: Normal appearance. She is not toxic-appearing. HENT: Head: Normocephalic and atraumatic. Cardiovascular: Rate and Rhythm: Normal rate and regular rhythm. Heart sounds: Normal heart sounds. No murmur heard. No gallop. Pulmonary: Effort: Pulmonary effort is normal. Breath sounds: Normal breath sounds. No wheezing, rhonchi or rales. Musculoskeletal: Cervical back: Spasms and tenderness present. No deformity. Decreased range of motion. Right lower leg: No edema. Left lower leg: No edema. Comments: Right paraspinal muscle spasm. Right trapezius muscle spasm Neurological: Mental Status: She is alert. Motor: No weakness. Gait: Gait normal. PLAN AND ASSESSMENT: Neck pain (Primary) - XR C SPINE 6 OR MORE VIEWS - Start tiZANidine HCl 2 MG Oral Tablet (Zanaflex); Take 1 Tablet by mouth every 8 hours as needed for Muscle spasms. HTN, goal below 140/90 Continue Metoprolol and Lisinopril Recurrent thyroid cancer (HCC) Management per Hematology / Oncology Postoperative hypothyroidism Continue Synthroid Malignant neoplasm metastatic to both lungs (HCC) Dyslipidemia, goal LDL below 130 Vitamin D deficiency Follow Up: Return in about 5 weeks (around 04/16/2024), or if symptoms worsen or fail to improve. Keon Bautista DO 12:52 PM 03/10/2024 documented in this encounter Nursing Notes * Sunitha Calvert CCMA - 03/10/2024 10:15 AM EST Chief Complaint Patient presents with Follow Up Pt here for neck pain since February 22 - Started out stiff and has gotten worse. limited range of motion in the neck. Pt is taking 2 tylenol and 2 motrin every 6-12 hours. Does have a bulging discin her neck. Patient has been verbally educated on the need or importance of Dexa Scan, COVID, Flu Vaccine, and Tdap Vaccine and has declined topic(s). documented in this encounter Plan of Treatment Upcoming Encounters Date Type Department Care Team (Late st Contact Info) Description 04/15/2024 8:45 AM EST Imaging Radiology [facility]st [facility], [place] 132 [facility] [place] [address] 04/16/2024 1:00 PM EST Office Visit Family Practice [address], [place] [address] [place] [address] Otilia Burgos DO [address] [place] [address] 04/23/2024 2:00 PM EST Office Visit Hematology Oncology [facility] [place] [address] [place] [address] Rafi Goncalves MD [address] [place] [address] 04/30/2024 11:45 AM EST Pharmacy Pharmacy Hematology Oncology [facility] [place] [address] [place] [address] c[facility] Hem[facility]Onc [address] [place] [address] 11/26/2024 12:50 PM EDT Office Visit Dermatology, Jarrod Olguin [address] [place] [address] Vanda Manrique PA-C [address] [place] [address] 02/22/2025 3:00 PM EST Office Visit Endocrinology Rohit [address] [place] [address] Shaina George MD [address] [facility] [place] [address] Pending Results Name Type Priority Associated Diagnoses Date /Time XR C SPINE 6 OR MORE VIEWS Medical Imaging Routine Neck pain 03/10/2024 11:10 AM EST Scheduled Procedures Name Priority Associated Diagnoses Date/Ti [...] as of this encounter Visit Diagnoses Diagnosis Neck pain- Primary Cervicalgia HTN, goal below 140/90 Unspecified essential hypertension Recurrent thyroid cancer (HCC) Malignant neoplasm of thyroid gland Postoperative hypothyroidism Postsurgical hypothyroidism Malignant neoplasm metastatic to both lungs (HCC) Dyslipidemia, goal LDL below 130 Other and unspecified hyperlipidemia Vitamin D deficiency Unspecified vitamin D deficiency documented in this encounter Advance Directives Documents on File Type Date Recorded Patient Sheeter 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 Care Teams Garbage Truck Driver Relationship Specialty Start Date End Date Otilia Burgos DO 293 [place] [address] PCP - General Family Medicine 10/14/23 documented as of this encounter
--- OUTSIDE RECORDS SUMMARY | 2024-04-16 04:56 | External Medical Summary | Summary of Care ---
Author Name Unknown Organization [facility] Address [address] [place] [address] Phone [phone] Care Team Providers Care Rn Office Name Role Phone Otilia Burgos DO Primary Care Provider [phone] Reason for Visit * Reason Onset Date Comments Patient Assistance Program 03/23/2024 13 Ch ristine B mek/taf PAF davon pending Encounter Details Date Type Department Care Team (Late st Contact Info) Description 03/23/2024 Telephone Hematology Oncology [facility] [address] [place] [address] Rafi Goncalves MD [address] [place] [address] Patient Assistance Program (13 Blanka [...] No 01/20/2024 Does the household have a [facility] hospit[facility] source of income? (Household - for [...] Follow up: 2 days Blanka Montesinos Medication Cad Intern 03/23/2024.7:03 AM * Telephone Encounter - Amparo Gaspar OSA - 03/23/2024 5:49 AM EST [facility] can fill mekinist. Please route prescription to [phone]. Patient's co-pay will be $[id number]. Co-pay assistance required: yes [facility] will help search for additional assistance Thank you, ABDIEL Braga [facility] 03/23/24,5:48 AM documented in this encounter Plan of Treatment Upcoming Encounters Date Type Department Care Team (Late st Contact Info) Description 03/25/2024 3:30 PM EST Imaging Radiology [address] [place] [address] 04/15/2024 8:45 AM EST Imaging Radiology [address] [place] [address] 04/16/2024 1:00 PM EST Office Visit Family Practice 65 [facility] [place] 293 [facility] [place] [address] Otilia Burgos DO 293 [facility], [place] [address] 04/23/2024 2:00 PM EST Office Visit Hematology Oncology [facility] [place] [address] [place] [address] Rafi Goncalves MD [address] [place], [place] [id number] 04/30/2024 11:45 AM EST Pharmacy Pharmacy Hematology Oncology [facility] [place] [address] [place] [address] [facility] Hem[facility]Onc [address] [place] [address] 06/18/2024 3:00 PM EDT Office Visit Cardiology, [facility] [address] [place] [address] Lucinda Ryan CRNP [address] [place] [address] 08/17/2024 10:30 AM EDT Imaging Radiology [facility] 2nd [facility] [address] [place] [address] 11/26/2024 12:50 PM EDT Office Visit Dermatology, [place] [address] [place] [address] Vanda Manrique PA-C [address] [place] [address] 02/22/2025 3:00 PM EST Office Visit Endocrinology [address] [place] [address] Shaina George MD [address] [place] [address] Scheduled Procedures Name Priority Associated [...] Documents on File Type Date Recorded Patient Army Helicopter Pilot Expl anation POLST 09/26/2021 1:05 PM POLST * Full Code (Latest Code Status on File) Date Activated Date Inactivated Comments 06/28/2011 6:10 PM 06/29/2011 4:46 PM This order r eflects the patients wishes and were consensually agreed upon. Care Teams Rn Office Relationship Specialty Start Date End Date Otilia Burgos DO [address] [place] [address] PCP - General Family Medicine 10/14/23 documented as of this encounter
--- OUTSIDE RECORDS SUMMARY | 2024-04-16 04:56 | External Medical Summary | Summary of Care ---
Author Name Unknown Organization [facility] Address [address] [place] [address] Phone [phone] Care Team Providers Care Career Services Director Name Role Phone Otilia Burgos DO Primary Care Provider [phone] Reason for Visit * Reason Onset Date Comments Patient Assistance Program 03/23/2024 Encounter Details Date Type Department Care Team (Late st Contact Info) Description 03/23/2024 Telephone Hematology Oncology [facility] [address] [place] [address] Rafi Goncalves MD [address] [place] [address] Patient Assistance Program Allergies Active [...] mRNA, LNP-s, No Pre serve, 2-Dose Series ([employer]) 06/09/2020,05/19/2020 Pneumococcal Conjugate Vacc, 13 Valent (Prevnar) [...] Gaspar OSA - 03/23/2024 5:49 AM EST [facility] can fill mekinist. Please route prescription to [phone]. Patient's co-pay will be $1994.76. Co-pay assistance required: yes [facility] will help search for additional assistance Thank you, Amparo Gaspar, ABDIEL [facility] 03/23/24,5:48 AM documented in this encounter Plan of Treatment Upcoming Encounters Date Type Department Care Team (Late st Contact Info) Description 04/02/2024 2:00 PM EST Imaging Radiology [address] [facility] [address] 04/15/2024 8:45 AM EST Imaging Radiology [address] [place] [address] 04/16/2024 1:00 PM EST Office Visit Family Practice 65 [facility] [place] [address] [place] [address] Otilia Burgos DO [address] [place] [address] 04/23/2024 2:00 PM EST Office Visit Hematology Oncology [address] [address] Rafi Goncalves MD [facility] [place] [address] 04/30/2024 11:45 AM EST Pharmacy Pharmacy Hematology Oncology [address] [address] [facility], [facility] Hem/Onc [address] [place] [address] 11/26/2024 12:50 PM EDT Office Visit Dermatology, Jarrod Olguin [address] [place] [address] Vanda Manrique PA-C [address] [place] [address] 02/22/2025 3:00 PM EST Office Visit Endocrinology Rohit Bansal Dr [address] [place] [address] Shaina George MD [address] [facility] [place] [address] Scheduled Procedures [...] Documents on File Type Date Recorded Patient Director Semiconductor Expl anation POLST 09/26/2021 1:05 PM POLST * Full Code (Latest Code Status on File) Date Activated Date Inactivated Comments 06/28/2011 6:10 PM 06/29/2011 4:46 PM This order r eflects the patients wishes and were consensually agreed upon. Care Teams Career Services Director Relationship Specialty Start Date End Date Otilia Burgos DO [address] [place] [address] PCP - General Family Medicine 10/14/23 documented as of this encounter
--- OUTSIDE RECORDS SUMMARY | 2024-04-16 04:57 | External Medical Summary | Summary of Care ---
Author Name Unknown Organization [facility] Address [address] [place] [address] Phone [phone] Care Team Providers Care Certified Performance Technologist Name Role Phone Otilia Burgos Primary Care Provider Reason for Visit * Reason Onset Date Comments Advice 03/09/2024 Jeff Encounter Details Date Type Department Care Team (Late st Contact Info) Description 03/09/2024 Telephone Palliative Medicine, [facility] [address] [facility] 5th [place] [address] Marilyn Aguilar MD [address] [place], [place] [phone] Advice (Jeff) Allergies Active Allergy Reactions Criticality Noted Date Comments Adhesive Tape Other (Please comment) Low 04/16/2013 Skin becomes red and sore Other reaction(s): Rash Lactose Diarrhea 08/12/2015 Latex Low 06/26/2021 Other reaction(s): Rash documented as of this encounter (statuses as of 03/09/2024) Medications FISH OIL 1000 MG PO CAPS [...] Active Additional Information Patient not taking.Reported on 02/17/2024 Clotrimazole-Betamet hasone 1-0.05 % External Cream (Lotrisone)Indicatio [...] Active Additional Information Patient not taking.Reported on 02/27/2024 Trametinib Dimethyl Sulfoxide 0.5 MG Oral Tablet [...] as of this encounter (statuses as of 03/09/2024) Active Problems Problem Noted Date Diagnosed Date [...] as of this encounter (statuses as of 03/09/2024) Resolved Problems Problem Noted Date Diagnosed Date Resolved Date Kidney disease, chronic, sta ge III (GFR 30-59 ml/min) 09/19/2015 06/04/2016 Overview: Per CKD protocol #1 Other stomatitis and mucositis (ulcerative) 07/27/2012 12/16/2017 Hypothyroidism 06/30/2012 03/23/2015 Throat pain 01/07/2012 05/07/2017 Dyspareunia 03/13/2010 07/05/2016 Joint pain, hip 03/13/2010 03/19/2017 Palpitations 03/13/2010 03/19/2017 documented as of this encounter (statuses as of 03/09/2024) Immunizations Name Administration Dates Next Due COVID-19 mRNA, LNP-s, No Pre serve, 2-Dose Series ([employer]) 06/09/2020,05/19/2020 Pneumococcal Conjugate Vacc, 13 Valent (Prevnar) [...] encounter Miscellaneous Notes * Telephone Encounter - Katya Nelson LPN - 03/09/2024 1:08 PM EST Spoke with patient She states she is more interested in possibly getting some imaging done to see what is causing the pain She will try and see if another office such as at [facility] or somewhere close has an openingin the next few days that she could be seen for an acute visit * Telephone Encounter - Katya Nelson LPN - 03/09/2024 12:08 PM EST Please see other TE Does not appear to be cancer pain * Telephone Encounter - Roselyn Fisher OSA - 03/09/2024 12:04 PM EST Patient is calling, she is having a lot of pain in her neck that is not getting any better. She hastried OTC meds and it is not helping at all (tylenol and ibuprofen). SHe wanted to know if she can see Dr Aguilar this week Please call her back to advise. documented in this encounter Plan of Treatment Upcoming Encounters Date Type Department Care Team (Late st Contact Info) Description 04/15/2024 8:45 AM EST Imaging Radiology [address] 132 [facility] [place] [address] 04/16/2024 1:00 PM EST Office Visit Family Practice [address] [place] [address] [place] [address] Otilia Burgos DO [address] [place] [address] 04/23/2024 2:00 PM EST Office Visit Hematology Oncology [facility] [address] [place] [address] Rafi Goncalves MD [address] [place] [address] 04/30/2024 11:45 AM EST Pharmacy Pharmacy Hematology Oncology [facility] [address] [place] [address] [facility], [facility] Hem/Onc [address] [place] [address] 11/26/2024 12:50 PM EDT Office Visit Dermatology, Jarrod Olguin [address] [place] [address] Vanda Manrique PA-C [address] [place] [address] 02/22/2025 3:00 PM EST Office Visit Endocrinology Eugene Bansal [place] [address] [place] [address] Shaina George MD [address] [place], [place] [phone] Scheduled Procedures Name Priority Associated Diagnoses Date/Ti [...] 10/15/2023, Additional history exists Colonoscopy 02/15/2027 02/15/2022, 12/0 10/2021, 07/06/2015, Additional history exists Pneumococcal Vaccine: [...] Documents on File Type Date Recorded Patient Mail Distribution Clerk Expl anation POLST 09/26/2021 1:05 PM POLST * Full Code (Latest Code Status on File) Date Activated Date Inactivated Comments 06/28/2011 6:10 PM 06/29/2011 4:46 PM This order r eflects the patients wishes and were consensually agreed upon. Care Teams Certified Performance Technologist Relationship Specialty Start Date End Date Otilia Burgos DO [address] [place] [address] PCP - General Family Medicine 10/14/23 documented as of this encounter
--- OUTSIDE RECORDS SUMMARY | 2024-04-16 04:57 | External Medical Summary | Summary of Care ---
Author Name Unknown Organization [facility] Address [address] [place] [address] Phone [phone] Care Team Providers Care Ranch Cook Name Role Phone Otilia Burgos Primary Care Provider [phone] Reason for Visit * Reason Comments Medication Management Encounter Details Date Type Department Care Team (Late st Contact Info) Description 02/18/2024 11:[address] [facility] Pharmacy Pharmacy Hematology Oncology [facility] [address] [place], [place] [phone] [facility], [facility] Hem/Onc [address] [place], [place] [phone] Papillary thyroid carcinoma (HCC)*; Secondary and unspecified ma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, face and neck (HCC); Malignant neoplasm metastatic to lung, unspecified laterality (HCC) Allergies Active Allergy Reactions Criticality Noted Date Comments Adhesive Tape Other (Please comment) Low 04/16/2013 Skin becomes red and sore Other reaction(s): Rash Lactose Diarrhea 08/12/2015 Latex Low 06/26/2021 Other reaction(s): Rash documented as of this encounter (statuses as of 02/18/2024) Medications FISH OIL 1000 MG PO CAPS [...] hypothyroidism Take one tablet by mouth six times weekly and take two tablets by mouth once weekly 105 Tablet 3 02/17/20 24 Active documented as of this encounter (statuses as of 02/18/2024) Active Problems Problem Noted Date Diagnosed Date [...] as of this encounter (statuses as of 02/18/2024) Resolved Problems Problem Noted Date Diagnosed Date Resolved Date Kidney disease, chronic, sta ge III (GFR 30-59 ml/min) 09/19/2015 06/04/2016 Overview: Per CKD protocol #1 Other stomatitis and mucositis (ulcerative) 07/27/2012 12/16/2017 Hypothyroidism 06/30/2012 03/23/2015 Throat pain 01/07/2012 05/07/2017 Dyspareunia 03/13/2010 07/05/2016 Joint pain, hip 03/13/2010 03/19/2017 Palpitations 03/13/2010 03/19/2017 documented as of this encounter (statuses as of 02/18/2024) Immunizations Name Administration Dates Next Due COVID-19 mRNA, LNP-s, No Pre serve, 2-Dose Series ([employer]) 06/09/2020,05/19/2020 Pneumococcal Conjugate Vacc, 13 Valent (Prevnar) [...] as of this encounter Progress Notes * Edwina Ramirez, [facility] - 02/18/2024 3:45 PM EST MEDICATION THERAPY MANAGEMENT DABRAFENIB + TRAMETINIB TREATMENT PROGRESS NOTE Megan Phillips [phone] Patient Phone Numbers Preferred Lab: [facility]: [facility] ([place], [place]) Communication: Spoke to: Patient Treatment: Medication: Dabrafenib (Tafinlar) Indication/Staging/Diagnosis Code: Thyroid Cancer, 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 Goncalves Supportive Care Meds: Ondansetron Prochlorperazine [...] (weakness, low appetite, hypotension, constipation) 07/04/23 - dabrafenib to 100 mg BID and trametinib [...] if dental work needed Assessment and Plan: Continue current dabrafenib/trametinib cycle Aware to call clinic with questions or concerns prior to follow-up Assessment of compliance: compliant Assessment of adverse effects attributed to drug therapy: N/A Dose adjustment needed based on lab or adverse drug reaction? No Follow up: 02/26 OV; 03/19 MTM Edwina Ramirez, PharmD, BCOP Ambulatory Clinical Pharmacist | Oral Chemotherapy Clinic [facility] 02/18/2024, 4:04 PM Monitoring Parameters: Estimated CrCl Serum creatinine: [...] LVEF 05/02/2023 60% Treatment Parameters See PI documented in this encounter Plan of Treatment Upcoming Encounters Date Type Department Care Team (Late st Contact Info) Description 02/21/2024 8:00 AM EST Imaging Radiology [facility] 1st [facility] [place] 132 [facility] [place] [address] 02/27/2024 1:30 PM EST Office Visit Hematology Oncology [facility] [address] [place] [phone] Rafi Goncalves MD [address] [facility] [id number] 03/19/2024 11:45 AM EST Pharmacy Pharmacy Hematology Oncology [facility] [place] [address] [place] [address] [facility], [facility] Hem/Onc [address] [place] [address] 04/16/2024 1:00 PM EST Office Visit Family Practice 65 [facility] [address] [place] [phone] Otilia Burgos DO [address] [place], [place] [address] 05/11/2024 10:00 AM EST Nurse Only [facility] 65 [facility] [address] [place] [address] Hillary Braga, JANIE [address] [place] [address] 11/26/2024 12:50 PM EDT Office Visit Dermatology, Hoa [address] [place] [address] Vanda Manrique PA-C [address] [place] [id number] 02/22/2025 3:00 PM EST Office Visit Endocrinology Rohit Bansal Dr [address] [place] [address] Shaina George MD [address] [place], [place] [phone] Scheduled Procedures Name Priority Associated Diagnoses Date/Ti [...] 10/2021, 07/06/2015, Additional history exists Pneumococcal Vaccine: 65+ Years Completed 03/19/2017, 01/17/2016 RETIRED - COLONOSCOPY-EVERY [...] and neck (HCC) Malignant neoplasm metastatic to lung, unspecified laterality (HCC) documented in this encounter Advance Directives Documents on File Type Date Recorded Patient Shaker Out Expl anation POLST 09/26/2021 1:05 PM POLST * Full Code (Latest Code Status on File) Date Activated Date Inactivated Comments 06/28/2011 6:10 PM 06/29/2011 4:46 PM This order r eflects the patients wishes and were consensually agreed upon. Care Teams Ranch Cook Relationship Specialty Start Date End Date Otilia Burgos DO [address] [place] [address] PCP - General Family Medicine 10/14/23 documented as of this encounter"
--- OUTSIDE RECORDS SUMMARY | 2024-04-16 04:57 | External Medical Summary | Summary of Care ---
Author Name Unknown Organization [facility] Address [address] [place] [address] Phone [phone] Care Team Providers Care Range Examiner Name Role Phone Otilia Burgos DO Primary Care Provider Reason for Visit * Reason Onset Date Comments Appointment 03/09/2024 Neck pain Encounter Details Date Type Department Care Team (Late st Contact Info) Description 03/09/2024 Telephone Family Practice 65 [facility] [address] [place] [address] Otilia Burgos DO [address] [place] [address] Appointment (Neck pain) Allergies Active Allergy Reactions Criticality Noted Date [...] mRNA, LNP-s, No Pre serve, 2-Dose Series (Performable) 06/09/2020,05/19/2020 Pneumococcal Conjugate Vacc, 13 Valent (Prevnar) [...] encounter Miscellaneous Notes * Telephone Encounter - Hillary Johnson LPN - 03/09/2024 1:33 PM EST Is scheduled with DR Bautista tomorrow. Thank you * Telephone Encounter - Otilia Burgos DO - 03/09/2024 11:51 AM EST Noted. * Telephone Encounter - Krista Bishop LPN - 03/09/2024 11:15 AM EST Spoke to patient. Ongoing neck pain x 10 days. States she has had this problem in the past, but seems worse. She has a bulging disk that has been known for quite awhile. Rates pain 8/10, worse with movement. Cannot get comfortable. Denies fever, YU, dizziness, N/V, weakness/tingling on one side, difficulty walking/with balance. Advised no appts today and PCP off the rest of the week, advised urgent care. Pt aware and verbalized understanding. States she really does not want to go to - is going to try her doctor in [place]. Advised I could contact her if anything changed this afternoon. * Telephone Encounter - Otilia Burgos DO - 03/09/2024 9:47 AM EST Please call and get more info. UC appropriate if needed. Otherwise, she will need to sit here and wait for a couple of hours until I can squeeze her in. * Telephone Encounter - Judith Villegas OSA - 03/09/2024 9:43 AM EST Pt called and has terrible neck pain and can barely move it Symptoms started 10 days ago No appt openings Please advise [phone] documented in this encounter Plan of Treatment Upcoming Encounters Date Type Department Care Team (Late st Contact Info) Description 03/10/2024 10:20 AM EST Office Visit Family Practice 65 [facility] 293 [facility] [place] [facility] [place] [address] Keon Bautista DO 293 [place] [address] 04/15/2024 8:45 AM EST Imaging Radiology [facility] 1st [facility] [place] 132 [facility] [place] [address] 04/16/2024 1:00 PM EST Office Visit Family Practice 65 [facility] 293 [facility] [place] [address] Otilia Burgos DO 293 [place] [address] 04/23/2024 2:00 PM EST Office Visit Hematology Oncology [facility] [address] [place] [phone] Rafi Goncalves MD [address] [place] [address] 04/30/2024 11:45 AM EST Pharmacy Pharmacy Hematology Oncology [facility] [address] [place] [address] [facility], [facility] Hem/Onc [address] [place] [address] 11/26/2024 12:50 PM EDT Office Visit Dermatology, aJrrod Olguin [address] [place] [address] Vanda Manrique PA-C [address] [place] [id number] 02/22/2025 3:00 PM EST Office Visit Endocrinology Rohit Bansal Dr [address] [place] [address] Shaina Thomas MD [address] [place] [address] Scheduled Procedures Name Priority Associated Diagnoses Date/Ti [...] Documents on File Type Date Recorded Patient Helpdesk Technician Expl anation POLST 09/26/2021 1:05 PM POLST * Full Code (Latest Code Status on File) Date Activated Date Inactivated Comments 06/28/2011 6:10 PM 06/29/2011 4:46 PM This order r eflects the patients wishes and were consensually agreed upon. Care Teams Range Examiner Relationship Specialty Start Date End Date Otilia Burgos DO [address] [place] [address] PCP - General Family Medicine 10/14/23 documented as of this encounter
--- OUTSIDE RECORDS SUMMARY | 2024-04-16 04:57 | External Medical Summary | Summary of Care ---
Author Name Unknown Organization [facility] Address [address] [place] [address] Phone [phone] Care Team Providers Care Oven Stripper Name Role Phone Otilia Burgos Primary Care Provider Reason for Referral * Precert (Within 10 days (routine)) - Pending Review Specialty Diagnoses / Procedures Referred By Nina silverman Referred To Contact Radiology Diagnoses Recurrent thyroid cancer (HCC) Secondary malignant neoplasm of hilus of lung, unspecified laterality (HCC) Procedures CT CHEST/ABDOMEN/PELVIS WITH IV CONTRAST WITH ORAL CONTRAST Rafi Goncalves MD [address] [place] [address] Phone: tel: fax: Referral ID Status Reason Start Date Expiration Date V isits Requested Visits Authorized [id number] Pending Review 04/20/2024 999 999 Reason for Visit * Reason Comments Follow Up Encounter Details Date Type Department Care Team (Late st Contact Info) Description 02/27/2024 1:30 PM EST Office Visit Hematology Oncology [facility] [address] [place] [address] Rafi Goncalves MD [address] [place] [address] Recurrent thyroid cancer (HCC)*; Secondary malignant neoplasm of hilus of lung, unspecified laterality (HCC); Fatigue, unspecified type Allergies Active Allergy Reactions Criticality Noted Date Comments Adhesive Tape Other (Please comment) Low 04/16/2013 Skin becomes red and sore Other reaction(s): Rash Lactose Diarrhea 08/12/2015 Latex Low 06/26/2021 Other reaction(s): Rash documented as of this encounter (statuses as of 02/27/2024) Medications FISH OIL 1000 MG PO CAPS [...] as of this encounter (statuses as of 02/27/2024) Active Problems Problem Noted Date Diagnosed Date [...] as of this encounter (statuses as of 02/27/2024) Resolved Problems Problem Noted Date Diagnosed Date Resolved Date Kidney disease, chronic, sta ge III (GFR 30-59 ml/min) 09/19/2015 06/04/2016 Overview: Per CKD protocol #1 Other stomatitis and mucositis (ulcerative) 07/27/2012 12/16/2017 Hypothyroidism 06/30/2012 03/23/2015 Throat pain 01/07/2012 05/07/2017 Dyspareunia 03/13/2010 07/05/2016 Joint pain, hip 03/13/2010 03/19/2017 Palpitations 03/13/2010 03/19/2017 documented as of this encounter (statuses as of 02/27/2024) Immunizations Name Administration Dates Next Due COVID-19 [...] Sign Reading Time Taken Comments Blood Pressure 128/66 02/27/2024 1:27 PM EST man ual Pulse 55 02/27/2024 1:27 PM EST Temperature 36.1 C (97 F) 02/27/2024 1:27 PM EST Respiratory Rate 16 02/27/2024 1:27 PM EST Oxygen Saturation 100% 02/27/2024 1:27 PM EST ra Inhaled Oxygen Concentration - - Weight 78.9 kg (173 lb 14.4 oz) 02/27/2024 1:27 PM EST Height 167 cm (5' 5.75") 02/27/2024 1:27 PM EST Body Mass Index 28.28 02/27/2024 1:27 PM EST documented in this encounter Progress Notes * Rafi Goncalves MD - 02/27/2024 1:30 PM EST MED ONC NOTE Reason for evaluation: f/u with ct imaging DIAGNOSIS: thyroid cancer STAGE: T2N0M0 in 2011 with recurrent disease (bilateral pulmonary nodules) ECOG Performance Status: (1) Restricted in physically strenuous activity, ambulatory and able to dowork of light nature Treatment Summary DIAGNOSIS: papillary thyroid cancer STAGE: [...] BRAF gene mutation (c.1799T>A) resulting in p.V600E ([id number]) 04/20/2016 Discussion Endocrine consult at [facility]. Dr. Rodriguez, documentation included: 1) I recommend [...] known history of metastatic papillary thyroid carcinoma ([id number]), the findings are compatible with involvement. Clinical and radiological correlation is suggested. Immunotherapy Markers Tumor Mutational [place] (TMB): TMB Unit [place] 1.89 m/MB Low Microsatellite Instability Status (MSI): [...] Change Consequence Allele Frequency Sequencing Depth KIRSTY [id number] Tier 3: Unknown clinical significance 04/25/2023 - 04/25/2023 Chemotherapy DABRAFENIB (TAFINLAR) & TRAMETINIB (MEKINIST) [id number] 04/30/2023 - Chemotherapy DABRAFENIB (TAFINLAR) & TRAMETINIB (MEKINIST) [id number] 05/30/2023 - Supportive Therapy SCP - HYDRATION [id number] Plan Provider: VASQUEZ Zavala Treatment goal: Supportive Line of treatment: [No plan line of treatment] Recurrent thyroid cancer (HCC) 02/08/2016 Initial Diagnosis Recurrent thyroid cancer (HCC) 04/25/2023 - 04/25/2023 Chemotherapy DABRAFENIB (TAFINLAR) & TRAMETINIB (MEKINIST) [id number] 04/30/2023 - Chemotherapy DABRAFENIB (TAFINLAR) & TRAMETINIB (MEKINIST) [id number] Secondary and unspecified ma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, face and neck (HCC) 11/05/2017 Initial Diagnosis Secondary and unspecified ma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, face and neck (HCC) 04/30/2023 - Chemotherapy DABRAFENIB (TAFINLAR) & TRAMETINIB (MEKINIST) [id number] Malignant neoplasm metastatic to lung (HCC) 04/11/2021 Initial Diagnosis Malignant neoplasm metastatic to lung (HCC) 04/25/2023 - 04/25/2023 Chemotherapy DABRAFENIB (TAFINLAR) & TRAMETINIB (MEKINIST) [id number] 04/30/2023 - Chemotherapy DABRAFENIB (TAFINLAR) & TRAMETINIB (MEKINIST) [id number] CURRENT THERAPY: dabrafenib/trametinib start 05/17/23 -on hold due to 05/28 -resumed 07/04/23 Treatment Dose Adjustment/Hold History: 07/04/23 - DR dabrafenib to 100 mg BID and trametinib to 1.5 mg daily due to fever and side effects (weakness, low appetite, hypotension, constipation) --schedule is 3 weeks on, 1 week off --->treatment hold as of 02/27/24 ------- IMPRESSION Megan Phillips is a 78 year oldwoman with recurrent papillary thyroid cancer with bilateral pulmonary nodules presenting for f/u with repeat ct imaging. 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 She returns today with scans. Overall, scans are stable to slightly improved (the rib is slightly better) Options: -change treatment (not indicated) -continue therapy -treatment hold and then resume -treatment break We had a detailed discussion of the issues, the conclusion is to take a break from treatment to seeif her fatigue/asthenia improves. She will return to me in apr with restaging scan (earlier if new symptom issues arise). She knows to contact me if there are new concerns so we can arrange earlier f/u I suspect her neck symptoms and foot sy mptoms are unrelated to her cancer/cancer therapy PLAN -hold therapy -restaging in apr ------- Subjective INTERVAL HISTORY: - fatigue is her main symptom, she notes she can fall asleep easily when sitting (though she is also sleeping well at night) - she also notes right sided neck apin "My head feels heavy" -she has had a few fevers 'every time I get a fever it stays under a 100 but it is 99.6 or 99.8' she uses tylenol and ibuprofen which resolves it - cold all the time - two falls since last visit with me -abner wore slippers to get her recycling and caught the edge of the porch and she lost her balance,landing on her knees and wrists --since then she has numbness of the left salgado --she has left foot swelling -she describes serene testing and that the left foot is darker than the right IMPRESSION: SERENE at rest is 1.1 on the right and 1.2 on the left. For the right lower extremity: Lower extremity Doppler Evaluation is normal at rest with no evidence of significant arterial occlusive disease. For the left lower extremity: Lower extremity Doppler Evaluation is normal at rest with no evidence of significant arterial occlusive disease. - notes no difference in energy on her week off from the treatment - Pain assessment: Patient had pain. Pain intensity: 4-6 Moderate, Plan for pain: Yes: she uses tylenol or ibuprofen, seems to be helpful - no longer to get a lot accomplished in a day which is upsetting - PMH/SH Past Medical History: Diagnosis Date HTN, goal below 140/90 Lung nodules 10/01/2016 Paroxysmal atrial fibrillation (HCC) 08/23/2015 Postoperative hypothyroidism 03/23/2015 Thyroid cancer (HCC) Past Surgical History: Procedure Laterality Date COLONOSCOPY 03/11/2005 COLONOSCOPY, DIAGNOSTIC (RECTUM) 06/27/2010 wnl COLONOSCOPY, DIAGNOSTIC (RECTUM) 07/06/2015 adenomatous polyp, repeat 5 yrs/COLONOSCOPY FLEXIBLE PROXIMAL DIAGNOSTIC performed by Darryl Navarro MD at ENDOSCOPY [facility] [address] COLONOSCOPY, DIAGNOSTIC (RECTUM) 02/15/2022 sigmoid diverticulosis/recall 5 years/COLONOSCOPY FLEXIBLE PROXIMAL DIAGNOSTIC performed by Gela Landin MD at ENDOSCOPY [facility] [address] DENTAL INLAY METALIC 1 SURF HYSTEROSCOPY W/BIOPSY AND/OR POLYPECTOMY W/WO D&C Bilateral 09/20/2022 HYSTEROSCOPY WITH BIOPSY AND/OR POLYPECTOMY WITH OR WITHOUT D&C performed by Judith Sotomayor MD at [facility] INFORMATION EYELID SURGERY KNEE MENISCAL TRANSP,SURG ARTHROS r knee LIGATE,DIV,EXCIS ALIRIO VEIN CLUS l knee MAMMOGRAM SCREENING BILATERAL 01/10/2008 nl REMOVAL OF NECK LYMPH NODES Left 02/07/2016 CERVICAL LYMPHADENECTOMY MODIFIED RADICAL NECK DISSECTION performed by Ricardo Barriga MD at [facility] REMOVAL OF THYROID FOR TUMOR 06/28/2011 THYROIDECTOMY WITH LIMITED NECK DISSECTION performed by RICARDO BARRIGA at OR [facility] REMOVAL OF TONSILS, UNDER AGE 12 REMOVE GALLBLADDER REMOVE TONSILS & ADENOIDS, UNDER 12 TREATMENT OF ANAL FISSURE x2 ALL/ADR: Lactose, Adhesive tape, and Latex Current Outpatient Medications Medication Sig Dispense Refill [...] Multivitamin Adult Oral Tablet Take by mouth. methylPREDNISolone 4 MG Oral Tablet Therapy Pack (Medrol Dosepack) follow package directions (Patient not taking: Reported on 06/21/2023) 21 Tablet 0 Clotrimazole-Betamethasone 1-0.05 % External Cream (Lotrisone) Apply [...] two tablets once weekly 105 Tablet 3 No current facility-administered medications for this visit. Objective GEN: well developed/well nourished in no acute distress BP 128/66 Comment: manual | Pulse 55 | Temp 36.1 C (97 F) (Tympanic) | Resp 16 | Ht 1.67 m (5' 5.75") | Wt 78.9 kg (173 lb 14.4 oz) | SpO2 100% Comment: ra | BMI 28.28 kg/m | BSA 1.91 m HEENT: PERRL, EOMI, sclera anicteric, moist mucous membranes without lesion or thrush NECK: supple without jugular venous distension LYMPH NODES: no cervical, supraclavicular, or axillary adenopathy appreciated LUNGS: diminished breath sounds a tthe right lung bse CV: regular S1/S2, no murmur ABD: (+)bowel sounds, soft, nontender, nondistended, no hepatosplenomegaly EXT: all are warm, well perfused without cyanosis/clubbing/edema BACK: no tenderness to palpation of the spine, no cva tenderness NEURO: alert and oriented x3, CN II-XII intact, gait within normal limits, remainder of neuro exam is grossly nonfocal PSYCH: affect reactive, appropriate SKIN: see photo LAB REVIEW Results for orders placed or performed in visit on 02/05/24 TSH Result Value Ref Range TSH 0.17 (L) 0.27 - 4.20 uIU/mL THYROGLOBULIN ANTIBODY TUMOR MONITORING Result Value Ref Range Thyroglobulin Antibody Tumor Monitoring 1,274.0 (H) <22.0 IU/mL QN THYROGLOBULIN WITHOUT THYROGLOBULIN ANTIBODY Result Value Ref Range Thyroglobulin 0.7 (L) 2.8 - 40.9 ng/mL Comment SEE BELOW *Note: Due to a large number of results and/or encounters for the requested time period, some results have not been displayed. A complete set of results can be found in Results Review. RAD REVIEW I personally reviewed the patient's images today and note: stable (to possibly improving) measurable disease CT CHEST/ABDOMEN/PELVIS WITH IV CONTRAST WITH ORAL CONTRAST Result Date: 02/26/2024 IMPRESSION 1. Stable pulmonary and right pleural metastases. Decreased trace right pleural effusion. 2. Decreased soft tissue component right anterior 5th rib. Otherwise stable osseous lesions. VASC ANKLE BRACHIAL INDICES WITHOUT PPG (PAD) Result Date: 02/05/2024 : SERENE at rest is 1.1 on the right and 1.2 on the left. For the right lower extremity: Lower extremity Doppler Evaluation is normal at rest with no evidence of significant arterial occlusive disease. For the left lower extremity: Lower extremity Doppler Evaluation is normal at rest with no evidence of significant arterial occlusive disease. CT CHEST/ABDOMEN/PELVIS WITH IV CONTRAST WITH ORAL CONTRAST Result Date: 11/13/2023 IMPRESSION 1. Stable pulmonary and pleural metastatic disease. Redemonstration of destructive lyticlesions involving right anterior 4th and 5th ribs with worsening destruction of the anterior 4th rib concerning for disease progression. 2. Stable thoracic adenopathy. 3. Interval improvement in right pleural effusion. 4. Additional findings described above XR CHEST 2 VIEWS Result Date: 10/15/2023 IMPRESSION 1. Improving right pleural effusion. 2. Bilateral pulmonary nodules. I have personally reviewed this examination and agree with the resident/fellow physician's interpretation. . PLEASE SEE ABOVE FOR MY IMPRESSION/PLAN of today's visit I spent more than 40 minutes in face to face consultation, review of chart/imaging, coordination ofcare, and documentation. Rafi Goncalves MD Hematology Oncology [address] [address] documented in this encounter Nursing Notes * Nichole Tsai, MED ASSIST - 02/27/2024 1:27 PM EST Room 7 Patient was instructed to not get up on the exam table/exam chair until directed and assisted by their provider; patient is to remain seated in the chair/ wheelchair/ exam table/ exam chair for fall prevention and safety reasons. Patient is aware to have assistance to step down off exam table/exam chair with personnel. Patient voiced full comprehension of instructions. documented in this encounter Plan of Treatment Upcoming Encounters Date Type Department Care Team (Late st Contact Info) Description 02/28/2024 1:00 PM EST Pharmacy Pharmacy Hematology Oncology [facility] [place], [place] [address] [place] [address] [facility] Hem/Onc [address] [place] [address] 03/19/2024 11:45 AM EST Pharmacy Pharmacy Hematology Oncology [facility] [place], [place] [address] [place] [address] [facility], [facility] Hem/Onc [address] [place] [address] 04/15/2024 8:45 AM EST Imaging Radiology [facility], [address] [id number] 04/16/2024 1:00 PM EST Office Visit Family Practice [address] [place] [address] [address] [place] [phone] Otilia Burgos DO [address] [place] [address] 04/23/2024 2:00 PM EST Office Visit Hematology Oncology [facility], [place] [address] [place] [phone] Rafi Goncalevs MD [address], [place] [id number] 05/11/2024 10:00 AM EST Nurse Only Family Practice [address] [place] [address] [address] [place] [phone] Hillary Braga RN [address] [place] [address] 11/26/2024 12:50 PM EDT Office Visit Dermatology, [address] [place] [address] Vanda Manrique PA-C [address] [place] [id number] 02/22/2025 3:00 PM EST Office Visit Endocrinology [address] [place] [address] Shaina George MD [address] [place] [address] Scheduled Orders Name Type Priority Associated Diagnoses Orde r Schedule CT CHEST/ABDOMEN/PELVIS WITH IV CONTRAST WITH ORAL CONTRAST Medical Imaging Routine Recurrent thyroid cancer (HCC) Secondary malignant neoplasm of hilus of lung, unspecified laterality (HCC) Expected: 04/20/2024, Expires: 03/29/2025 CBC WITH WBC DIFFERENTIAL Lab Routine Recurrent thyroid cancer (HCC) Secondary malignant neoplasm of hilus of lung, unspecified laterality (HCC) Expected: 04/19/2024 (Approximate), Expires: 02/26/2025 COMPREHENSIVE METABOLIC PANEL Lab Routine Recurrent thyroid cancer (HCC) Secondary malignant neoplasm of hilus of lung, unspecified laterality (HCC) Expected: 04/19/2024 (Approximate), Expires: 02/26/2025 Scheduled Procedures Name Priority Associated Diagnoses Date/Ti [...] 1210/2021, 07/06/2015, Additional history exists Pneumococcal Vaccine: 65+ [...] as of this encounter Visit Diagnoses Diagnosis Recurrent thyroid cancer (HCC)- Primary Malignant neoplasm of thyroid gland Secondary malignant neoplasm of hilus of lung, unspecified laterality (HCC) Fatigue, unspecified type documented in this encounter Advance Directives Documents on File Type Date Recorded Patient Plaster Applicator Expl anation POLST 09/26/2021 1:05 PM POLST * Full Code (Latest Code Status on File) Date Activated Date Inactivated Comments 06/28/2011 6:10 PM 06/29/2011 4:46 PM This order r eflects the patients wishes and were consensually agreed upon. Care Teams Oven Stripper Relationship Specialty Start Date End Date Otilia Burgos DO [address] [place] [address] PCP - General Family Medicine 10/14/23 documented as of this encounter
--- OUTSIDE RECORDS SUMMARY | 2024-04-16 04:57 | External Medical Summary | Summary of Care ---
Author Name Unknown Organization [facility] Address [address] [place] [address] Phone [phone] Care Team Providers Care Pin Puller Name Role Phone Otilia Burgos Primary Care Provider Reason for Visit * Reason Comments Medication Management Encounter Details Date Type Department Care Team (Late st Contact Info) Description 02/28/2024 1:00 PM [facility] Pharmacy Pharmacy Hematology Oncology [facility] [address] [place], [place] [phone] [facility], [facility] Hem/Onc [address] [place], [place] [phone] Papillary thyroid carcinoma (HCC)*; Secondary and unspecified ma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, face and neck (HCC) Allergies Active Allergy Reactions Criticality Noted Date Comments Adhesive Tape Other (Please comment) Low 04/16/2013 Skin becomes red and sore Other reaction(s): Rash Lactose Diarrhea 08/12/2015 Latex Low 06/26/2021 Other reaction(s): Rash documented as of this encounter (statuses as of 02/28/2024) Medications FISH OIL 1000 MG PO CAPS [...] as of this encounter (statuses as of 02/28/2024) Active Problems Problem Noted Date Diagnosed Date [...] as of this encounter (statuses as of 02/28/2024) Resolved Problems Problem Noted Date Diagnosed Date Resolved Date Kidney disease, chronic, sta ge III (GFR 30-59 ml/min) 09/19/2015 06/04/2016 Overview: Per CKD protocol #1 Other stomatitis and mucositis (ulcerative) 07/27/2012 12/16/2017 Hypothyroidism 06/30/2012 03/23/2015 Throat pain 01/07/2012 05/07/2017 Dyspareunia 03/13/2010 07/05/2016 Joint pain, hip 03/13/2010 03/19/2017 Palpitations 03/13/2010 03/19/2017 documented as of this encounter (statuses as of 02/28/2024) Immunizations Name Administration Dates Next Due COVID-19 mRNA, LNP-s, No Pre serve, 2-Dose Series ([employer]) 06/09/2020,05/19/2020 Pneumococcal Conjugate Vacc, 13 Valent (Prevnar) [...] this encounter Progress Notes * Rhianna Baum, [facility] - 02/28/2024 9:14 AM EST MEDICATION THERAPY MANAGEMENT DABRAFENIB + TRAMETINIB TREATMENT PROGRESS NOTE Megan Dvorsky [phone] Patient Phone Numbers Preferred Lab: [facility] Specialty Pharmacy: [facility] ([place], [place]) Communication: Chart review Treatment: Medication: Dabrafenib [...] after a meal Start Date: 05/17/23 Primary Electric Spot Welder/Oncologist: Dr. Goncalves Supportive Care Meds: Ondansetron Prochlorperazine [...] time, will discharge from oral chemo clinic Assessment of compliance: N/a Assessment of adverse effects attributed to drug therapy: N/A Dose adjustment needed based on lab or adverse drug reaction? No Follow up: OV 04/23, MTM 04/30 (tx plan) Rhianna Bamu, PharmD Ambulatory Clinical Pharmacist | Oral Chemotherapy Clinic [facility] 02/28/2024 9:16 AM Monitoring Parameters: Estimated CrCl Serum creatinine: 1.1 [...] Parameters See PI Time Spent on Encounter: 11 - 15 minutes Encounter Group: Oncology Encounter Interventions Item Category: Oral Chemotherapy Dabrafenib/Trametinib Problem/Rationale: [place] Plan Review: Alteration of plan Pharmacist Intervention(s): Care coordination, Dose decreased, and Medication held Magnitude of Intervention: Modification of medication for asymtomatic patients (Level 2) documented in this encounter Plan of Treatment Upcoming Encounters Date Type Department Care Team (Late st Contact Info) Description 04/15/2024 8:45 AM EST Imaging Radiology [address] [facility] [place] [address] 04/16/2024 1:00 PM EST Office Visit Family Practice [address] [place] [address] [address] [place] [address] Otilia Burgos DO [address] [place] [address] 04/23/2024 2:00 PM EST Office Visit Hematology Oncology [facility] [address] [place] [address] Rafi Goncalves MD [address], [place] [phone] 04/30/2024 11:45 AM EST Pharmacy Pharmacy Hematology Oncology [facility] [address] [place] [address] [facility], [facility] Hem/Onc [address] [place] [address] 05/11/2024 10:00 AM EST Nurse Only Family Practice [address] [place] [address] [address] [place] [address] Hillary Braga, JANIE [address] [place] [address] 11/26/2024 12:50 PM EDT Office Visit Dermatology, Jarrod Olguin [address] [place] [address] Vanda Manrique PA-C [address] [place] [address] 02/22/2025 3:00 PM EST Office Visit Endocrinology Rohit B[address] Dr [address] [place] 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 Care Teams Pin Puller Relationship Specialty Start Date End Date Otilia Burgos DO [address] [place] [address] PCP - General Family Medicine 10/14/23 documented as of this encounter"
--- OUTSIDE RECORDS SUMMARY | 2024-04-16 04:58 | External Medical Summary ---
Author Name Unknown Address Unknown Organization K01:[facility] [place] [address] [place] [id number] Laboratory Report Ordering Provider Test Date Status BIBI ZHU 02/05/2024 11:38:50 Final Observation Date Value Abnormality Reference (Units ) Status TSH 02/05/2024 11:38:50 0.17 Below low normal 0.2 7-4.20 (uIU/mL) Final Performing Location LABORATORY [facility] - [address] [place] [id number]
--- OUTSIDE RECORDS SUMMARY | 2024-04-16 04:58 | External Medical Summary | Summary of Care ---
Author Name Unknown Organization [facility] Address [address] [place] [address] Phone [phone] Care Team Providers Care Electric Range Servicer Name Role Phone Otilia Burgos Primary Care Provider [phone] Reason for Visit * Reason Comments Medication Management Encounter Details Date Type Department Care Team (Late st Contact Info) Description 12/27/2023 11:45 AM EDT Pharmacy Pharmacy Hematology Oncology [facility] [address], [place] [id number] [facility] Hem/Onc [address], [place] [address] Papillary thyroid carcinoma (HCC)*; Secondary and unspecified [...] as of this encounter (statuses as of 01/03/2024) Medications Medication Sig Dispensed Refills Start Date End Date Status FISH OIL 1000 MG PO CAPS 1 daily Active VITAMIN D 2000 UNITS PO CAPS 1 daily Active Aspirin EC 81 MG Oral Tablet Delayed Release Take 1 Tablet by mouth in the morning. 12/07/2019 Active Emergen-C Vitamin C Oral Packet Take by mouth . Active Ketoconazole 2 % External Cream Apply to right foot as needed 60 g 3 10/02/2022 Active Mupirocin 2 % External Ointment (Bactroban)Indication s:Internal nasal lesion Apply to lesion on inside of nose three times daily 22 g 3 10/23/2022 Active Ketoconazole 2 % External Shampoo (Nizoral)Indications: Seborrheic dermatitis Apply topically to affected area every 3 days. Apply to scalp 120 mL 11 10/23/2022 Active Multivitamin Adult Oral Tablet Take by mouth. Active Ondansetron HCl 4 MG Oral Tablet (Zofran) Take 1 Tablet by mouth every 8 hours as needed for Nausea. 30 Tablet 2 05/24/2023 Active Prochlorperazine Maleate 10 MG Oral Tablet (Compazine)Indication s:Papillary thyroid carcinoma (HCC) Take 1 Tablet by mouth every 6 hours as needed for Nausea. 30 Tablet 2 05/28/2023 Active Doxycycline Hyclate 100 MG Oral CapsuleIndications:Pa pillary thyroid carcinoma (HCC) Take 1 Capsule by mouth in the morning and 1 Capsule before bedtime. 14 Capsule 06/03/2023 Active Additional Information Patient not taking.Reported on 06/21/2023 methylPREDNISolone 4 MG Oral Tablet Therapy Pack (Medrol Dosepack)Indications: Rash follow package directions 21 Tablet 06/05/2023 Active Additional Information Patient not taking.Reported on 06/21/2023 Clotrimazole-Betameth asone 1-0.05 % External Cream (Lotrisone)Indication s:Tinea pedis of right foot Apply topically to affected area 2 times a day. 45 g 3 06/17/2023 Active Dabrafenib Mesylate 50 MG Oral Capsule (Tafinlar)Indications :Malignant neoplasm metastatic to lung, unspecified laterality (HCC),Papillary thyroid carcinoma (HCC),Recurrent thyroid cancer (HCC),Secondary and unspecified ma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, face and neck (HCC) Take 100 mg by mouth in the morning and 100 mg before bedtime. Take on an empty stomach.. 120 Capsule 5 06/26/2023 Active Trametinib Dimethyl Sulfoxide 0.5 MG Oral Tablet (Mekinist)Indications :Malignant neoplasm metastatic to lung, unspecified laterality (HCC),Papillary thyroid carcinoma (HCC),Recurrent thyroid cancer (HCC),Secondary and unspecified ma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, face and neck (HCC) Take 1.5 mg by mouth daily. Take on an empty stomach. Keep refrigerated. 90 Tablet 5 06/26/2023 Active Trametinib Dimethyl Sulfoxide 0.5 MG Oral Tablet (Mekinist)Indications :Malignant neoplasm metastatic to lung, unspecified laterality (HCC),Papillary thyroid carcinoma (HCC),Recurrent thyroid cancer (HCC),Secondary and unspecified ma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, face and neck (HCC) Take 1.5 mg by mouth daily. For 21 days on then 7 day off. Take on an empty stomach. Keep refrigerated. 63 Tablet 5 09/19/2023 Active Dabrafenib Mesylate 50 MG Oral Capsule (Tafinlar)Indications :Malignant neoplasm metastatic to lung, unspecified laterality (HCC),Papillary thyroid carcinoma (HCC),Recurrent thyroid cancer (HCC),Secondary and unspecified ma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, face and neck (HCC) Take 100 mg by mouth in the morning and 100 mg before bedtime. Take 21 days on then 7 days off. Take on an empty stomach.. 84 Capsule 5 09/19/2023 Active Fdgrssjt-Dcymzprxe-Ot xameth 3.5-17233-5.1 Ophthalmic Ointment (Maxitrol) Instill into the right eye. 10/07/2023 Active Chlorhexidine Gluconate 0.12 % Mouth/Throat Solution (Periogard) RINSE WITH 1/2 OUNCE FOR 30 SECONDS TWO TIMES DAILY 07/17/2023 Active Sennosides 8.6 MG Oral Tablet (Senokot) Take 1 Tablet by mouth at bedtime as needed for Constipation. Active Docusate Sodium 100 MG Oral Capsule (Colace) Take 3 Capsules by mouth daily. Active Lisinopril 5 MG Oral Tablet (Prinivil)Indications :HTN, goal below 140/90 TAKE ONE TABLET BY MOUTH EVERY MORNING 100 Tablet 3 11/03/2023 Active Hydrocortisone 2.5 % External CreamIndications:Drug rash Apply topically to affected area 2 times a day. 30 g 1 11/15/2023 Active Synthroid 125 MCG Oral TabletIndications:Pos toperative hypothyroidism Take one tablet by mouth six times weekly and take two tablets by mouth once weekly 105 Tablet 3 11/15/2023 Active Fluocinonide 0.05 % External Solution Apply to scalp once to twice a day when scalp is inflamed and itchy. Can apply up to 2 weeks then as needed 60 mL 1 11/26/2023 Active Metoprolol Succinate ER 50 MG Oral Tablet Extended Release 24 Hour (toPROL XL)Indications:HTN, goal below 140/90,Paroxysmal atrial fibrillation (HCC),PSVT (paroxysmal supraventricular tachycardia) (HCC) Take 1 Tablet by mouth in the morning and 1 Tablet before bedtime. 180 Tablet 12/24/2023 Active documented as of this encounter (statuses as of 01/03/2024) Active Problems Problem Noted Date Diagnosed Date [...] as of this encounter (statuses as of 01/03/2024) Resolved Problems Problem Noted Date Diagnosed Date Resolved Date Kidney disease, chronic, sta ge III (GFR 30-59 ml/min) 09/19/2015 06/04/2016 Overview: Per CKD protocol #1 Other stomatitis and mucositis (ulcerative) 07/27/2012 12/16/2017 Hypothyroidism 06/30/2012 03/23/2015 Throat pain 01/07/2012 05/07/2017 Dyspareunia 03/13/2010 07/05/2016 Joint pain, hip 03/13/2010 03/19/2017 Palpitations 03/13/2010 03/19/2017 documented as of this encounter (statuses as of 01/03/2024) Immunizations Name Administration Dates Next Due COVID-19 [...] the money to buy more. Never true 10/18/19 23 Within the past 12 months, t he food you bought just didn't last and you didn't have money to get more. Never true 10/17/2022 Childcare Answer Date Recorded Do you feel overwhelmed with taking care of a child, family member or friend? No 10/17/2022 Does your family need help f inding childcare? (Household - for ages 0-17 years) Not on file 10/17/2022 Clothing Answer Date Recorded Have you been unable to get clothing when it was really needed? No 10/17/2022 Is your family able to get c lothes or diapers when needed? (Household - for ages 0-17 years) Not on file 10/17/2022 Personal Safety Answer Date Recorded Do you feel unsafe or have concerns for your saf ety? No 10/17/2022 Do you have concerns for you r family's safety? (Household - for ages 0-17 years) Not on file 10/17/2022 Utilities Answer Date Recorded Do you have trouble paying y our heating, water, or electric bill? (Adult - for ages 18 years and over) Not on file 10/18/2023 Is your family able to pay t he heat, water, or electric bill? (Household - for ages 0-17 years) Not on file 10/18/2023 Does your family have access to good internet? (Household - for ages 0-17 years) Not on file 10/18/2023 Employment Status Answer Date Recorded Are you unemployed or without regular income? No 10/17/2022 Does the household have a re gular source of income? (Household - for ages 0-17 years) Not on file 10/17/2022 Social Connections Answer Date Recorded How often do you feel lonely or isolated from those around you? (Adult - for ages 18 years and over) Not on file 10/18/2023 Financial Resource Strain Answer Date R ecorded Do you have any trouble payi ng for your medications, or do you think you might in the future? No 10/17/2022 Does your family have troubl e paying for medicine? (Household - for ages 0-17 years) Not on file 10/17/2022 Transportation Needs Answer Date Record ed READ ONLY Do you have troubl e getting a ride to medical visits or work? Never True 10/17/2022 Does your family have a hard time getting a ride to doctors visits? (Household - for ages 0-17 years) Not on file 10/17/2022 Has lack of transportation k ept you from medical appointments, meetings, work, or from getting things needed for daily living? Check all that apply. (Adult - for ages 18 years and over) Not on file 10/17/2022 Do you (or your family) have trouble finding or paying for a ride (transportation)? (Household - for ages 0-17 years) Not on file 10/17/2022 Housing Stability Answer Date Recorded Do you currently live in a s helter or have no steady place to sleep at night? No 10/17/2022 READ ONLY Do you think you a re at risk of becoming homeless? No 10/17/2022 Does your family worry about paying for your home or becoming homeless? (Household - for ages 0-17 years) Not on file 0 10/17/2022 Are you homeless or worried that you might be in the future? (Adult - for ages 18 years and over) Not on file Are you (or your family) chavez eless or worried that you might be in the future? (Household - for ages 0-17 years) Not on file Food Insecurity Answer Date Recorded Do you need food for this week? No 10/17/2022 Are you able to get enough f ood for your family? (Household - for ages 0-17 years) Not on file 10/17/2022 Does your family need food t his week? (Household - for ages 0-17 years) Not on file 10/17/2022 Do you always have enough fo od for your family? (Household - for ages 0-17 years) Not on file 10/17/2022 Sex and Gender Information Value Date Recorded Sex Assigned at Female 09/23/2018 10:07 AM EDT Gender Identity Female 09/23/2018 10:07 AM EDT Sexual Orientation Straight 09/23/2018 10 :07 AM EDT Job Start Date Occupation Industry Not on file Not on file Not on file documented as of this encounter Progress Notes * Melanie Garcia, [facility] - 12/27/2023 1:40 PM EDT MEDICATION THERAPY MANAGEMENT DABRAFENIB + TRAMETINIB TREATMENT PROGRESS NOTE Megan Phillips [phone] Patient Phone Numbers Preferred Lab: [facility]: [facility] ([place], [place]) Communication: Left message Treatment: Medication: Dabrafenib (Tafinlar) Indication/Staging/Diagnosis Code: Thyroid Cancer, Braf V600E +, w/ mets C78.0, C73.0, C77.0 Dose: 100 mg BID D1- days ( 07/04/23) Administration: at least 1 hour before or 2 hours after a meal Medication: Trametinib (Mekinist) Dose: 1.5 mg PO D1- days ( 07/04/23) Administration: at least 1 hour before or 2 hours after a meal Start Date: 05/17/23 Primary Wharf Tender/Oncologist: Dr. Goncalves Supportive Care Meds: Ondansetron Prochlorperazine Loperamide Relevant Chronic Medications: Category Medications Pertinent Notes Antihypertensives Metoprolol Lisinopril Cycle Dates C1 09/18- 10/08 C2 10/16 - 11/05 C3 11/13 - 12/03 C4 12/06 - 12/26 C5 (Delayed tooth extraction) 01/05 - 01/25 (anticipated) Treatment History: Radiation Treatment Dose Adjustment/Hold [...] Treatment held due to concerns of infection/fever Interval History: Changes to medication list since last visit? No Drug interaction assessment: Treatment plan and current medication list evaluated for drug-drug interactions. No clinically significant drug interaction identified Assessment and Plan: Left VM to return call with any questions, concerns, or side effects to therapy ADDENDUM: Pt called in to report she is having a tooth extracted today and will be started on amoxicillin 875mg twice daily. Pt is asking if she could delay her next cycle of Taflinar/Mekenist until Friday 01/05. Pt reports she is currently on her off week with next cycle to begin tomorrow. As per discussion with Dr Goncalves, ok to hold start of cycle till Friday 01/05 Advised patient ok to begin next cycle on 01/05 and that there is no DDI with Amoxicillin Pt verbalized understanding to above Assessment of compliance: N/a Assessment of adverse effects attributed to drug therapy: N/a Dose adjustment needed based on lab or adverse drug reaction? N/a Follow up: MTM 4 weeks Rose HernandezD, OP Ambulatory Clinical Pharmacist | Oral Chemotherapy Clinic [facility] 12/27/2023, 1:43 PM Rosalia Galan PharmD, BCOP Clinical Pharmacist [facility] 01/03/2024, 2:16 PM Monitoring Parameters: Estimated CrCl Serum creatinine: [...] Interventions Item Category: Oral Chemotherapy Dabrafenib/Trametinib Problem/Rationale: Safety: Needs additional monitoring - Medication Requires monitoring Pharmacist Intervention(s): Care coordination, Clarification with Provider, Drug Interaction Screen, and Toxicity monitoring Magnitude of Intervention: Monitoring with direction (Level 1) documented in this encounter Plan of Treatment Upcoming Encounters Date Type Department Care Team (Late st Contact Info) Description 01/24/2024 11:45 AM EST Pharmacy Pharmacy Hematology Oncology [facility] [address] [place] [address] [facility] Hem/Onc [address] [place] [address] 02/17/2024 1:00 PM EST Office Visit Endocrinology Eugene B[address] [place] [address] [place] [phone] Shaina George MD [address] [place] [address] 02/21/2024 8:00 AM EST Imaging Radiology [address] [place] [address] 02/27/2024 1:30 PM EST Office Visit Hematology Oncology [facility] [address] [place] [phone] Rafi Goncalves MD [address] [place] [address] 04/16/2024 1:00 PM EST Office Visit Family Practice [address] [place] [address] [place] [address] Otilia Burgos DO [address] [place] [address] 05/11/2024 10:00 AM EST Nurse Only Family Practice [address] [facility] [address] [place] [address] Hillary Braga, JANIE [address] [place] [address] 11/26/2024 12:50 PM EDT Office Visit Dermatology, Jarrod Olguin [address] [place] [address] Vanda Manrique PA-C [address] [address] Scheduled Procedures Name Priority Associated Diagnoses Date/Ti [...] Screening 05/09/2024 05/10/2023 Albumin/Creatinine Ratio 09/18/2024 09/18/2021 TSH 11/14/2024 11/15/2023, 08/2023, 07/15/2023, Additional history exists GFR 11/28/2024 11/29/2023, 08/2023, 09/11/2023, Additional history exists Colonoscopy 02/15/2027 02/15/2022, 10/2021, [...] Documents on File Type Date Recorded Patient Leader Assembler Expl anation POLST 09/26/2021 1:05 PM POLST * Full Code (Latest Code Status on File) Date Activated Date Inactivated Comments 06/28/2011 6:10 PM 06/29/2011 4:46 PM This order r eflects the patients wishes and were consensually agreed upon. Care Teams Electric Range Servicer Relationship Specialty Start Date End Date Otilia Burgos DO [address] [place] [address] PCP - General Family Medicine 10/14/23 documented as of this encounter"
--- OUTSIDE RECORDS SUMMARY | 2024-04-16 04:58 | External Medical Summary ---
Author Name Unknown Address Unknown Organization : Laboratory Report Ordering Provider Test Date Status BIBI ZHU 02/05/2024 11:38:50 Final Observation Date Value Abnormality Reference (Units ) Status Thyroglobulin 02/05/2024 11:38:50 0.7 Below low normal 2.8-40.9 (ng/mL) Final Intact Thyroid: 2.8-40.9 ng/ mL
Athyrotic: <0.1 ng/mL
Note: Abnormal flagging is based upon the reference
interval for patients with intact thyroid.
This test was performed using the [employer]
chemiluminescent method. Values obtained from
different assay methods cannot be used inter-
changeably. Thyroglobulin levels, regardless
of value, should not be interpreted as absolute
evidence of the presence or absence of disease. comment 02/05/2024 11:38:50 SEE BELOW Final Thyroglobulin antibodies (TG AB) interfere with
thyroglobulin (TG) assays; therefore, TGAB assay
should always be performed in conjunction with a
TG assay.
For additional information, please refer to
https://[email or web address]/faq/GXF356
(This link is being provided for informational/
educational purposes only.)

Test Performed at:
[facility]
[address]
[place] [address]
Eduardo Saldana M.D., Ph.D.,Director of Laboratories Performing Location
--- OUTSIDE RECORDS SUMMARY | 2024-04-16 04:58 | External Medical Summary ---
Author Name Unknown Address Unknown Organization [id number]:[facility] [place] [facility] [place] [address] [place] [id number] Laboratory Report Ordering Provider Test Date Status BIBI ZHU 02/05/2024 11:38:50 Final Observation Date Value Abnormality Reference (Units ) Status Thyroglobulin Ab 02/05/2024 11:38:50 1274.0 Above high normal <22.0 (IU/mL) Final Thyroglobulin result may be falsely decreased due to the presence of anti- thyroglobulin antibodies. Thyroglobulin testing by LC-MS/MS is recommended. Performing Location [facility] [place] [facility] [place] [address] [place] [id number]
--- OUTSIDE RECORDS SUMMARY | 2024-04-16 04:58 | External Medical Summary | Summary of Care ---
Author Name Unknown Organization [facility] Address [address] [place] [address] Phone [phone] Care Team Providers Care Cafe Cook Name Role Phone Otilia Burgos Primary Care Provider Reason for Visit * Reason Comments Medication Management Encounter Details Date Type Department Care Team (Late st Contact Info) Description 01/24/2024 11:45 AM [facility] Pharmacy Pharmacy Hematology [facility] [address], [place] [id number] [facility] [place] Hem/Onc [address] [place], [place] [id number] Papillary thyroid carcinoma (HCC)*; Secondary and unspecified [...] as of this encounter (statuses as of 01/24/2024) Medications FISH OIL 1000 MG PO CAPS [...] Oral Tablet Take by mouth. Act alexis Ondansetron HCl 4 MG Oral Tablet (Zofran) Take 1 Tablet by mouth every 8 hours as needed for Nausea. 30 Tablet 2 05/24/19 24 Active Additional Information Patient not taking.Reported on 01/20/2024 Prochlorperazine Maleate 10 MG Oral Tablet (Compazine)Indicatio ns:Papillary thyroid carcinoma (HCC) Take 1 Tablet by mouth every 6 hours as needed for Nausea. 30 Tablet 2 05/28/19 24 Active Additional Information Patient not taking.Reported on 01/20/2024 Doxycycline Hyclate 100 MG Oral CapsuleIndications:P apillary thyroid carcinoma (HCC) Take 1 Capsule by mouth in the morning and 1 Capsule before bedtime. 14 Capsule 06/03/19 24 Active Additional Information Patient not taking.Reported on 01/20/2024 methylPREDNISolone 4 MG Oral Tablet Therapy Pack (Medrol Dosepack)Indications :Rash follow package directions 21 Tablet 06/05/19 24 Active Additional Information Patient not taking.Reported on 01/20/2024 Clotrimazole-Betamet hasone 1-0.05 % External Cream (Lotrisone)Indicatio [...] empty stomach.. 84 Capsule 09/19/19 24 Active Jypkwyxk-Mqgdapitb-G exameth 3.5-10762-9.1 Ophthalmic Ointment (Maxitrol) Instill into the right eye. 10/07/19 24 Active Chlorhexidine Gluconate 0.12 % Mouth/Throat Solution (Periogard) RINSE WITH 1/2 OUNCE FOR 30 SECONDS TWO TIMES DAILY 07/17/19 24 Active Sennosides 8.6 MG Oral Tablet (Senokot) Take 1 Tablet by mouth at bedtime as needed for Constipation. Active Docusate Sodium 100 MG Oral Capsule (Colace) Take 3 Capsules by mouth daily. Active Lisinopril 5 MG Oral Tablet (Prinivil)Indication s:HTN, goal below 140/90 TAKE ONE TABLET BY MOUTH EVERY MORNING 100 Tablet 3 4 1:49 PM EDT 11/03/19 24 025 Active Hydrocortisone 2.5 % External CreamIndications:Patrick regan rash Apply topically to affected area 2 times a day. 30 g 1 11/15/19 24 Active Synthroid 125 MCG Oral TabletIndications:Po stoperative hypothyroidism Take one tablet by mouth six times weekly and take two tablets by mouth once weekly 105 Tablet 3 4 6:19 AM EDT 11/15/19 24 Active Fluocinonide 0.05 % External [...] 4 9:27 AM EDT 12/24/19 24 Active documented as of this encounter (statuses as of 01/24/2024) Active Problems Problem Noted Date Diagnosed Date [...] as of this encounter (statuses as of 01/24/2024) Resolved Problems Problem Noted Date Diagnosed Date Resolved Date Kidney disease, chronic, sta ge III (GFR 30-59 ml/min) 09/19/2015 06/04/2016 Overview: Per CKD protocol #1 Other stomatitis and mucositis (ulcerative) 07/27/2012 12/16/2017 Hypothyroidism 06/30/2012 03/23/2015 Throat pain 01/07/2012 05/07/2017 Dyspareunia 03/13/2010 07/05/2016 Joint pain, hip 03/13/2010 03/19/2017 Palpitations 03/13/2010 03/19/2017 documented as of this encounter (statuses as of 01/24/2024) Immunizations Name Administration Dates Next Due COVID-19 [...] as of this encounter Progress Notes * Merry Hsieh, [facility] - 01/24/2024 1:16 PM EST MEDICATION THERAPY MANAGEMENT DABRAFENIB + TRAMETINIB TREATMENT PROGRESS NOTE Megan Phillips [phone] Patient Phone Numbers Preferred Lab: [facility]: [facility] ([place], [place]) Communication: Spoke to: Patient Treatment: Medication: [...] after a meal Start Date: 05/17/23 Primary Special Effects Specialist/Oncologist: Dr. Goncalves Supportive Care Meds: Ondansetron Prochlorperazine Loperamide Relevant Chronic Medications: Category Medications Pertinent Notes Antihypertensives Metoprolol Lisinopril Cycle Dates C1 09/18- 10/08 C2 10/16 - 11/05 C3 11/13 - 12/03 C4 12/06 - 12/26 C5 (Delayed tooth extraction) 01/05 - 01/25 C6 02/02 - 02/22 (anticipated) Treatment History: Radiation Treatment Dose Adjustment/Hold [...] delayed due to tooth extraction Interval History: Per PCP OV 01/20/24, reports 3rd week of chemo is difficult - low grade fevers, rash, and fatigue Confirmed cycle dates as above States she has tolerated this cycle well and denies concerns Changes to medication list since last visit? No Drug interaction assessment: Treatment plan and current medication list evaluated for drug-drug interactions. No clinically significant drug interaction identified Assessment and Plan: Continue current dabrafenib/trametinib cycle Assessment of compliance: compliant Assessment of adverse effects attributed to drug therapy: Rash - absent Visual disturbance - absent GI hemorrhage - absent Pyrexia - absent VTE - absent S/sx of cardiac dysfunction - absent Dose adjustment needed based on lab or adverse drug reaction? No Follow up: 3 weeks Merry Hsieh, PharmD, BCOP Clinical Pharmacist, [facility] Oral Chemotherapy [facility] 01/24/2024, 1:22 PM Monitoring Parameters: Estimated CrCl Serum creatinine: [...] Parameters See PI Time Spent on Encounter: 6 - 10 minutes Encounter Group: Oncology Encounter Interventions Item Category: Oral Chemotherapy Dabrafenib/Trametinib Problem/Rationale: Safety: Needs additional monitoring - Medication Requires monitoring Pharmacist Intervention(s): Toxicity monitoring Magnitude of Intervention: Monitoring with direction (Level 1) documented in this encounter Plan of Treatment Upcoming Encounters Date Type Department Care Team (Late st Contact Info) Description 02/05/2024 11:00 AM EST Imaging Vascular Lab, [facility] 2nd [facility] [address] [place] [address] 02/14/2024 11:45 AM EST Pharmacy Pharmacy Hematology [facility] [address] [place] [address] [facility], [facility] Hem/Onc [address] [place] [facility] [place] [address] 02/17/2024 1:00 PM EST Office Visit Endocrinology [address]it [address] [place] [phone] Shaina George MD [address] [place] [place] [address] 02/21/2024 8:00 AM EST Imaging Radiology [facility] 1st [facility] [address] [facility] [place] [address] 02/27/2024 1:30 PM EST Office Visit Hematology [facility] [address] [facility] [place] [phone] Rafi Goncalves MD [address] [place] [place] [address] 04/16/2024 1:00 PM EST Office Visit Family Practice [address] [facility] [address] [place] [address] Otilia Burgos DO [address] [place] [address] 05/11/2024 10:00 AM EST Nurse Only Family Practice [address] [facility] [address] [place] [address] Hillary Braga, JANIE [address] [place] [address] 11/26/2024 12:50 PM EDT Office Visit Dermatology, Jarrod Olguin [address] [place] [address] Vanda Manrique PA-C [address] [place] [address] Scheduled Procedures Name Priority Associated Diagnoses Date/Ti [...] Albumin/Creatinine Ratio 09/18/2024 09/18/2021 TSH 11/14/2024 11/15/2023, 08/0 08/2023, 07/15/2023, Additional history exists GFR 11/28/2024 [...] Documents on File Type Date Recorded 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 Care Teams Cafe Cook Relationship Specialty Start Date End Date Otilia Brugos DO [address] [facility] [place] [place] [address] PCP - General Family Medicine 10/14/23 documented as of this encounter
--- OUTSIDE RECORDS SUMMARY | 2024-04-16 04:58 | External Medical Summary | Summary of Care ---
Author Name Unknown Organization [facility] Address [address] [place] [address] Phone [phone] Care Team Providers Care Manager Rn Name Role Phone Otilia Burgos Primary Care Provider Reason for Visit * Reason Comments Medication Management Encounter Details Date Type Department Care Team (Late st Contact Info) Description 02/14/2024 11:45 AM [facility] Pharmacy Pharmacy Hematology Oncology [facility] [address] [place], [place] [phone] [facility], [facility] Hem/Onc [address] [place], [place] [phone] Papillary thyroid carcinoma (HCC)*; Secondary and unspecified ma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, face and neck (HCC) Allergies Active Allergy Reactions Criticality Noted Date Comments Adhesive Tape Other (Please comment) Low 04/16/2013 Skin becomes red and sore Other reaction(s): Rash Lactose Diarrhea 08/12/2015 Latex Low 06/26/2021 Other reaction(s): Rash documented as of this encounter (statuses as of 02/14/2024) Medications FISH OIL 1000 MG PO CAPS [...] stomach.. 84 Capsule 5 09/19/19 24 Active Njmihojb-Jmriltdrf-Y exameth 3.5-20754-9.1 Ophthalmic Ointment (Maxitrol) Instill into the right [...] as of this encounter (statuses as of 02/14/2024) Active Problems Problem Noted Date Diagnosed Date [...] as of this encounter (statuses as of 02/14/2024) Resolved Problems Problem Noted Date Diagnosed Date Resolved Date Kidney disease, chronic, sta ge III (GFR 30-59 ml/min) 09/19/2015 06/04/2016 Overview: Per CKD protocol #1 Other stomatitis and mucositis (ulcerative) 07/27/2012 12/16/2017 Hypothyroidism 06/30/2012 03/23/2015 Throat pain 01/07/2012 05/07/2017 Dyspareunia 03/13/2010 07/05/2016 Joint pain, hip 03/13/2010 03/19/2017 Palpitations 03/13/2010 03/19/2017 documented as of this encounter (statuses as of 02/14/2024) Immunizations Name Administration Dates Next Due COVID-19 [...] this encounter Progress Notes * Rhianna Baum, [facility] - 02/14/2024 3:05 PM EST MEDICATION THERAPY MANAGEMENT DABRAFENIB + TRAMETINIB TREATMENT PROGRESS NOTE Megan Phillips [phone] Patient Phone Numbers Preferred Lab: [facility]acy: [facility] ([place], [place]) Communication: Spoke to: Patient Treatment: Medication: [...] after a meal Start Date: 05/17/23 Primary Roll On Worker/Oncologist: Dr. Goncalves Supportive Care Meds: Ondansetron Prochlorperazine [...] tolerated this cycle well and denies concerns 02/14/24 - Patient noting mild fever - confirmed taking tylenol and ibuprofen and improves to normalrange Denied additional infection concerns Changes to medication list since last [...] or adverse drug reaction? No Follow up: MTM 02/17 (infection concerns) OV 02/26, MTM 03/19 Rhianna Baum, PharmD Ambulatory Clinical Pharmacist | Oral Chemotherapy Clinic [facility] 02/14/2024 3:05 PM Monitoring Parameters: Estimated CrCl Serum creatinine: [...] Care Team (Late st Contact Info) Description 02/17/2024 1:00 PM EST Office Visit Endocrinology [address], [place] [address] [place] [address] Shaina George MD [address] [place] [facility] [place] [address] 02/18/2024 11:45 AM EST Pharmacy Pharmacy Hematology Oncology [facility] [address] [place] [facility] [place] [address] [facility] Hem/Onc [address] [place] [facility] [place] [address] 02/21/2024 8:00 AM EST Imaging Radiology [address], [address] [place] [address] 02/27/2024 1:30 PM EST Office Visit Hematology Oncology [facility] [address] [facility] [place] [phone] Rafi Goncalves MD [address] [place] [address] 04/16/2024 1:00 PM EST Office Visit Family Practice [address] [facility] [address] [place] [address] Otilia Burgos DO [address] [place] [address] 05/11/2024 10:00 AM EST Nurse Only Family Practice [address] 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 Care Teams Manager Rn Relationship Specialty Start Date End Date Otilia Burgos DO [address] [place] [address], [place] [address] PCP - General Family Medicine 10/14/23 documented as of this encounter"
--- OUTSIDE RECORDS SUMMARY | 2024-04-16 04:58 | External Medical Summary | Summary of Care ---
Author Name Unknown Organization [facility] Address [address] [place] [address] Phone [phone] Care Team Providers Care Filament Cutter Name Role Phone Otilia Burgos DO Primary Care Provider Reason for Visit * Reason Comments Follow Up Encounter Details Date Type Department Care Team (Latest Contact Info) Description 02/17/2024 1:00 PM EST Office Visit Endocrinology Rohit [address] [place] [address] Shaina George MD [address] [place] [address] Thyroid cancer (HCC)*; Postoperative hypothyroidism Allergies Active Allergy Reactions Criticality Noted Date Comments Adhesive Tape Other (Please comment) Low 04/16/2013 Skin becomes red and sore Other reaction(s): Rash Lactose Diarrhea 08/12/2015 Latex Low 06/26/2021 Other reaction(s): Rash documented as of this encounter (statuses as of 02/17/2024) Medications FISH OIL 1000 MG PO CAPS [...] 4 MG Oral Tablet Therapy Pack (Medrol Dosepack)Indication s:Rash follow package directions 21 Tablet 06/05/19 24 Active Additional Information Patient not taking.Reported on 02/17/2024 Clotrimazole-Betame thasone 1-0.05 % External Cream (Lotrisone)Indicati [...] 12/24/19 24 Active Synthroid 125 MCG Oral TabletIndications:P ostoperative hypothyroidism Take one tablet by mouth six times weekly and take two tablets by mouth once weekly 105 Tablet 3 02/17/20 24 Active Ondansetron HCl 4 MG Oral Tablet (Zofran) Take 1 Tablet by mouth every 8 hours as needed for Nausea. 30 Tablet 2 05/24/19 24 024 Discontin ued(Patie nt preferenc e/discont inuation) Prochlorperazine Maleate 10 MG Oral Tablet (Compazine)Indicati ons:Papillary thyroid carcinoma (HCC) Take 1 Tablet by mouth every 6 hours as needed for Nausea. 30 Tablet 2 05/28/19 24 024 Discontin ued(Patie nt preferenc e/discont inuation) Doxycycline Hyclate 100 MG Oral CapsuleIndications: Papillary thyroid carcinoma (HCC) Take 1 Capsule by mouth in the morning and 1 Capsule before bedtime. 14 Capsule 06/03/19 24 024 Discontin ued(Patie nt preferenc e/discont inuation) Neomycin-Polymyxin- Dexameth [id number] Ophthalmic Ointment (Maxitrol) Instill into the right eye. 10/07/19 24 024 Discontin ued(Patie nt preferenc e/discont inuation) Chlorhexidine Gluconate 0.12 % Mouth/Throat Solution (Periogard) RINSE WITH 1/2 OUNCE FOR 30 SECONDS TWO TIMES DAILY 07/17/19 24 024 Discontin ued(Patie nt preferenc e/discont inuation) Synthroid 125 MCG Oral TabletIndications:P ostoperative hypothyroidism Take one tablet by mouth six times weekly and take two tablets by mouth once weekly 105 Tablet 3 4 6:19 AM EDT 11/15/19 24 024 Discontin ued(Refil l) documented as of this encounter (statuses as of 02/17/2024) Active Problems Problem Noted Date Diagnosed Date [...] as of this encounter (statuses as of 02/17/2024) Resolved Problems Problem Noted Date Diagnosed Date Resolved Date Kidney disease, chronic, sta ge III (GFR 30-59 ml/min) 09/19/2015 06/04/2016 Overview: Per CKD protocol #1 Other stomatitis and mucositis (ulcerative) 07/27/2012 12/16/2017 Hypothyroidism 06/30/2012 03/23/2015 Throat pain 01/07/2012 05/07/2017 Dyspareunia 03/13/2010 07/05/2016 Joint pain, hip 03/13/2010 03/19/2017 Palpitations 03/13/2010 03/19/2017 documented as of this encounter (statuses as of 02/17/2024) Immunizations Name Administration Dates Next Due COVID-19 [...] Sign Reading Time Taken Comments Blood Pressure 151/87 02/17/2024 1:31 PM EST Pulse 70 02/17/2024 1:31 PM EST Temperature - - Respiratory Rate - - Oxygen Saturation - - Inhaled Oxygen Concentration - - Weight 77.9 kg (171 lb 12.8 oz) 02/17/2024 1:31 PM EST Height 167 cm (5' 5.75") 02/17/2024 1:31 PM EST Body Mass Index 27.94 02/17/2024 1:31 PM EST documented in this encounter Progress Notes * Davin Schmitz, - 02/17/2024 3:11 PM EST CC Follow up 1, PTC (with predominant tall/column cell variant) 2, post surgical hypothyroidism 3, vitamin D deficiency Thyroid CA history: - She had enlarged painful goiter with voice changes pre surgery. An US showed 3.7 cm left dominantnodule. FNA results favor for PTC. - 06/28/[address] Barriga. Pathology report: PTC with predominant tall/column cell variant. Tumor localization: left thyroid lobe. Size 4 cm. - 08/20 MCCULLOUGH 125.1 mci Tg 3.7 after thyrogen stimulation. Post ablation scan: Focal residual activity in the thyroid bed c/w residual normal thyroid tissue or thyroid neoplasm. - Neck US 11/2011, 05/2012: negative for cancer recurrence or metastasis. - Thyrogen stimulated WBS 01/2013: negative. Tg level 0.5 with stimulation. - 12/27/14 new positive Tg antibody Initially thought this was due to biotin (patient started to take) and/or lab interference However Tg antibody continues to increase despite discontinuing biotin. - 03/29/2015 US: Within the far inferior left neck there is a hypoechoic region measuring 8 x 7 by 8mm. No definitive internal vascularity. - 04/13/2015 FNA at [facility]: non diagnostic. - 05/18/2015 Thyrogen stimulated WBS: No evidence of iodine avid metastatic disease. Undetectable Tg,+ Tg antibody. - 07/2015 Had Tg negative measured by MS - 11/10/2015 US: In the far left inferior neck there are now 2 hypoechoic lesions, previously 1 hypoechoic lesion at this site. The lesions measure 6 x 5 x 6 mm and 8 x 6 x 6 mm. - 12/16/2015 FNA Metastatic thyroid cancer - 12/30/2015: CT of neck and chest: 1. Status post total thyroidectomy with 2 masses seen within the left surgical bed, consistent withbiopsy-proven metastatic lesions. No additional solid or cystic masses are seen in the neck. 2. Numerous bilateral pulmonary nodules within the partially imaged upper lung cobian are better characterized on subsequent CT chest, highly suspicious for metastatic disease. - 02/07/2016: Had left central neck dissection by Dr. Barriga. A. 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 Positive for the BRAF gene mutation ([id number]) resulting in p.V600E ([id number]), negative for TERT. - patient had hospitalization in 07/2015 for atrial fibrillation. LT4 dose was changed from 137 to 125 mcg daily. She was told that that episode was most likely caused by dehydration then. Had negative cardiac workup. - 2016 Tumor Board "70 year old female with history of PTC, tall cell variant, s/p total thyroidectomy June 2011 and post operative MCCULLOUGH August 2011, who demonstrated signs of recurrence with climbing Thyroglogulin Ab inSept2014. Lesions in the left thyroid bed were found to be FNA positive in December 2015 and she subsequently underwent revision central neck dissection on 02/07/16. Staging scans prior to surgery demonstrate metastatic disease in the chest. Pathology also demonstrates the tumor to be positivefor a BRAF mutation. Consensus on recommendations is for the patient to receive another dose of MCCULLOUGH. However, uptake from the tumor may be limited due to BRAF mutation. A PET scan is ordered to follow the patient's residual disease. It was also discussed that the patient may, at some point, benefitfrom Verafinib therapy." -02/2016 PET-CT. 1. FDG avid soft tissue density in the midline thyroid bed, not present on the most recent prior diagnostic CT of the chest, most likely scar tissue from recent surgery. Attention on follow-up. 2. Multiple pulmonary nodules of varying sizes (2 to 7 mm) most consistent with metastatic disease. - U [place] for second opinion with both Oncologist and Clinical Educator 03/2016. Decision was to repeatimaging to see how stable lung nodules are and rule out bone mets the same time. CT of chest 05/2016showed stable lung nodules compared with CT in 12/2015. MRI of brain and spine ruled out any bone mets. Spoke to Dr. Rodriguez by phone. She agreed with MCCULLOUGH treatment. However since her lung lesions were relatively stable, no MCCULLOUGH was ordered. - 05/2016 MRI of brain and spine. negative - 05/2016. 11/2016 CT chest: Numerous scattered noncalcified pulmonary nodules measure up to 7 millimeters suspicious for metastatic disease. Overall nodules appear grossly unchanged in size and number in comparison to chest CT from 12/27/2015. - 08/2016 neckUS: Negative - 09/24 CT chest stable pulmonary nodules - 07/26 CT chect. Similar distribution of the innumerable small pulmonary nodules compatible with metastatic disease. Minimal interval change in size of some of the nodules. No new nodules are identified. - 01/26 PETCT skull base to mid thigh. Stable to slightly increased in size multiple bilateral pulmonary nodules, most of which below sizethreshold of PET scanner. A larger 8 mm left perihilar lung nodule demonstrates very mild metabolicactivity. These are consistent with metastatic disease. Otherwise, no metabolically active metastatic disease elsewhere. - 10/27 neck us Status post thyroidectomy. There is a 3 x 2 x 2 mm nodule within the right medial thyroid bed possibly partially visualized on cine imaging from August 19, 2017. Cystic region within the left thyroid bed measures 5 x 2 x 3 mm. IMPRESSION Subcentimeter nodule within the right thyroid bed and subcentimeter cyst within the left thyroid bed. - 01/27 PET with diagnostic neck/chest IMPRESSION 1. Continued increase in size and number of bilateral upper and lower lobe pulmonary nodules with larger nodules demonstrating some FDG avidity, compatible with metastatic thyroid disease. 2. No evidence of recurrence in the thyroid bed 3. Other benign PET and CT changes as noted. - 01/27 CT neck / chest IMPRESSION 1. Continued increase in size and number of bilateral upper and lower lobe pulmonary nodules with larger nodules demonstrating some FDG avidity, compatible with metastatic thyroid disease. 2. No evidence of recurrence in the thyroid bed 3. Other benign PET and CT changes as noted. - 07/28 neck us FINDINGS Patient is post thyroidectomy. No residual or recurrent thyroid tissue is appreciated in the thyroidectomy bed. Prior right thyroid bed subcentimeter nodule is no longer appreciated. A stable cyst isseen in the left thyroidectomy bed measuring 4 x 2 x 3 mm (was 5 x 2 x 3 mm). -07/28 CT chest IMPRESSION Pulmonary nodules consistent with metastases, slowly increasing in size from priors. Stable appearance post thyroidectomy in visualized portion of thyroidectomy bed. - 07/28 MRI brain Negative - 09/27 160mCi MCCULLOUGH Post therapy scan no uptake - 01/28 CT chest IMPRESSION Numerous bilateral pulmonary nodules, several slightly increased in size since the prior exam. No definite new pulmonary nodules. - 08/02/20 CT chest IMPRESSION: There are multiple indeterminate pulmonary nodules in each lung which have not changed in size or number since the prior exam. The largest of these is in the right upper lobe measuring 1.2 x 0.8 cm. Continued follow-up to 2 years stability is recommended. - 08/02/20 neck us IMPRESSION Stable 4 x 2 x 4 mm cystic focus in the left thyroidectomy bed, most likely postsurgical change. Norecurrent thyroid tissue in the thyroidectomy bed. No lymphadenopathy. HPI Reports her breathing is better and no longer has pleuritic pain since starting dabrafenib and trametinib. Thinks she is experiencing some side effects Continued issues with dry mouth but following with dentistry. On brand SYNTHROID 125 mcg 1 pill daily 6 days a week plus an extra full pill every 7th day. Continued fatigue, thinned hair but this is unchanged Quit drinking caffeine and alcohol, since then no more AFib. Denies palpitations. Constipation managed with laxatives Reports low grade fevers and hives (managed with steroid cream) after starting on TK inhibitors MEDS Current Outpatient Medications (Thyroid Agents) Medication Sig Dispense Refill Synthroid 125 MCG Oral Tablet Take one tablet by mouth six times weekly and take two tablets by mouth once weekly 105 Tablet 3 Current Outpatient Medications (Other) Medication Sig Dispense Refill Metoprolol Succinate ER 50 MG Oral Tablet Extended Release 24 Hour (toPROL XL) Take 1 Tablet by mouth in the morning and 1 Tablet before bedtime. 180 Tablet 0 Fluocinonide 0.05 % External Solution Apply to scalp once to twice a day when scalp is inflamed anditchy. Can apply up to 2 weeks then as needed 60 mL 1 Hydrocortisone 2.5 % External Cream Apply topically to affected area 2 times a day. 30 g 1 Lisinopril 5 MG Oral Tablet (Prinivil) TAKE ONE TABLET BY MOUTH EVERY MORNING 100 Tablet 3 Docusate Sodium 100 MG Oral Capsule (Colace) Take 3 Capsules by mouth daily. Sennosides 8.6 MG Oral Tablet (Senokot) Take 1 Tablet by mouth at bedtime as needed for Constipation. Dabrafenib Mesylate 50 MG Oral Capsule (Tafinlar) Take 100 mg by mouth in the morning and 100 mg before bedtime. Take 21 days on then 7 days off. Take on an empty stomach.. 84 Capsule 5 Trametinib Dimethyl Sulfoxide 0.5 MG [...] empty stomach. Keep refrigerated. 90 Tablet 5 Clotrimazole-Betamethasone 1-0.05 % External Cream (Lotrisone) Apply topically to affected area 2 times a day. 45 g 3 Multivitamin Adult Oral Tablet Take by mouth. Ketoconazole 2 % External Shampoo (Nizoral) Apply topically to affected area every 3 days. Apply toscalp 120 mL 11 Mupirocin 2 % External Ointment (Bactroban) Apply to lesion on inside of nose three times daily 22 g 3 Ketoconazole 2 % External Cream Apply to right foot as needed 60 g 3 Emergen-C Vitamin C Oral Packet Take by mouth. Aspirin EC 81 MG Oral Tablet Delayed Release Take 1 Tablet by mouth in the morning. FISH OIL 1000 MG PO CAPS 1 daily VITAMIN D 2000 UNITS PO CAPS 1 daily methylPREDNISolone 4 MG Oral Tablet Therapy Pack (Medrol Dosepack) follow package directions (Patient not taking: Reported on 06/21/2023) 21 Tablet 0 EXAM BP 151/87 | Pulse 70 | Ht 1.67 m (5' 5.75") | Wt 77.9 kg (171 lb 12.8 oz) | BMI 27.94 kg/m | BSA 1.9 m GEN- well appearing, NAD ENT/NECK- Thyroid absent. No palpable nodules or masses. Trachea midline CV- RRR. Normal S1/S2 without murmurs, rubs or gallops. 2+ right radial pulse. PULM- CTAB. Normal expansion. Nonlabored breathing NEURO- Alert, conversing appropriately. Normal gait. No tremor PSYCH- Normal mood. Normal affect. SKIN- Normal temperature and texture. Labs: Latest Reference Range & Units 02/05/24 11:38 TSH 0.27 - 4.20 uIU/mL 0.17 (L) THYROGLOBULIN 2.8 - 40.9 ng/mL 0.7 (L) Thyroglobulin Antibody Tumor Monitoring <22.0 IU/mL 1,274.0 (H) Vitamin D 10/15/23: 61 CT Chest 11/12/2023 IMPRESSION Stable pulmonary and pleural metastatic disease. Redemonstration of destructive lytic lesions involving right anterior 4th and 5th ribs with worsening destruction of the anterior 4th rib concerning for disease progression. Stable thoracic adenopathy. Interval improvement in right pleural effusion. Imp: 1. 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 s/p L central neck dissection 2015 (BRAF+), with slowly progressive presumed lung mets. - patient had cancer free status until 12/2014 when Tg antibody starts to increase. - TgAb elevated but downtrending since starting dabrafenib and trametinib - lung nodules are new (compared with neck CT in 2011) and slowly progressive 2016 to present - malignant pleural effusion improving - she is now s/p 2nd dose MCCULLOUGH with no clear iodine avidity in lung nodules. - will continue with observation for slowly progressive presumed metastatic disease and f/u Oncology 2. Post surgical hypothyroidism - most recent TSH at 0.17, acceptable given Hx of Afib - Continue synthroid 125mcg for six days a week w/ 250mcg every 7th day 3. Vit D deficiency on 2K units D3 daily. - replete last check in October 12. At risk for bone loss - In past declined DEXA - focusing on optimizing dietary Calcium + supplemental vit D Plan: Continue brand synthroid 125mcg for six days a week with 250mcg every 7th day Continue vit D 2000 units daily, dietary calcium TSH FT4 Tg TgAb q3mo Neck US for thyroid malignancy surveillance in 6 months RTC approximately 1 year with TSH, TgTgAb, 25D prior to visit F/u with Heme/Onc on 02/27/24 Discussed and seen with Dr. Shaina George MD. Davin Schmitz DO Internal Medicine, PGY-1 Attending Attestation: I have discussed the patient's management with the resident/fellow physician and agree with the note. Please refer to the documented findings and plan of care. This patient's visit today consisted ofan evaluation. I was present and confirmed the findings of the history and exam. Shaina George MD * Latosha Contreras CMA - 02/17/2024 1:22 PM EST Patient was instructed to not get up on the exam table/exam chair until directed and assisted by their provider; patient is to remain seated in the chair/ wheelchair/ exam table/ exam chair for fall prevention and safety reasons. Patient is aware to have assistance to step down off exam table/exam chair with personnel. Patient voiced full comprehension of instructions. documented in this encounter Nursing Notes * Mae Alvarez LPN - 02/17/2024 1:21 PM EST Patient was instructed to not get up [...] st Contact Info) Description 02/18/2024 11:45 AM EST Pharmacy Pharmacy Hematology Oncology [facility] [place] [address] [place] [address] [facility] [address] [place] [address] 02/21/2024 8:00 AM EST Imaging Radiology [address], [address] [place] [address] 02/27/2024 1:30 PM EST Office Visit Hematology Oncology [facility] [place] [address] [place] [address] Rafi Goncalves MD [address] [place] [address] 04/16/2024 1:00 PM EST Office Visit Family Practice [address] [facility] [address] [place] [address] Otliia Burgos DO [address] [place] [address] 05/11/2024 10:00 AM EST Nurse Only Family Practice [address] [facility] [address] [place] [address] Hillary Braga RN [address] [place] [id number] 11/26/2024 12:50 PM EDT Office Visit Dermatology, [facility] [address] [place] [address] Vanda Manrique PA-C [address] [place] [id number] 02/22/2025 3:00 PM EST Office Visit Endocrinology [address] [place] [phone] Shaina George MD [address] [facility] [place] [address] Scheduled Orders Name Type Priority Associated Diagnoses Orde r Schedule US HEAD AND NECK Medical Imaging Routine Thyroid cancer (HCC) Expected: 08/17/2024 (Approximate), Expires: 03/19/2025 TSH Lab Routine Thyroid cancer (HCC) Postoperative hypothyroidism Every 3 Months for 4 Occurrences starting 02/17/2024 until 02/16/2025 THYROGLOBULIN AND THYROGLOBULIN ANTIBODY FOR TUMOR MONITORING Lab Routine Thyroid cancer (HCC) Every 3 Months for 4 Occurrences starting 02/17/2024 until 02/16/2025 Scheduled Procedures Name Priority Associated Diagnoses Date/Ti [...] as of this encounter Visit Diagnoses Diagnosis Thyroid cancer (HCC)- Primary Malignant neoplasm of thyroid gland Postoperative hypothyroidism Postsurgical hypothyroidism documented in this encounter Advance Directives Documents on File Type Date Recorded 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 Care Teams Filament Cutter Relationship Specialty Start Date End Date Otilia Burgos DO [address] [place] [address] PCP - General Family Medicine 10/14/23 documented as of this encounter
--- OUTSIDE RECORDS SUMMARY | 2024-04-16 04:58 | External Medical Summary | Summary of Care ---
Author Name Unknown Organization [facility] Address [address] [place] [address] Phone [phone] Care Team Providers Care Fuller Brush Worker Name Role Phone Otilia Burgos Primary Care Provider [phone] Reason for Visit * Reason Comments Medication Management Encounter Details Date Type Department Care Team (Late st Contact Info) Description 12/27/2023 11:45 AM EDT Pharmacy Pharmacy Hematology Oncology [facility] [address], [place] [phone] [facility] [place], [facility] Hem/Onc [address] [place], [place] [phone] Papillary thyroid carcinoma (HCC)*; Secondary and unspecified [...] as of this encounter (statuses as of 12/27/2023) Medications Medication Sig Dispensed Refills Start Date [...] empty stomach.. 84 Capsule 5 09/19/2023 Active Jyudxdtv-Rlowdeuev-Vm xameth 3.5-03226-5.1 Ophthalmic Ointment (Maxitrol) Instill into the right [...] as of this encounter (statuses as of 12/27/2023) Active Problems Problem Noted Date Diagnosed Date [...] as of this encounter (statuses as of 12/27/2023) Resolved Problems Problem Noted Date Diagnosed Date Resolved Date Kidney disease, chronic, sta ge III (GFR 30-59 ml/min) 09/19/2015 06/04/2016 Overview: Per CKD protocol #1 Other stomatitis and mucositis (ulcerative) 07/27/2012 12/16/2017 Hypothyroidism 06/30/2012 03/23/2015 Throat pain 01/07/2012 05/07/2017 Dyspareunia 03/13/2010 07/05/2016 Joint pain, hip 03/13/2010 03/19/2017 Palpitations 03/13/2010 03/19/2017 documented as of this encounter (statuses as of 12/27/2023) Immunizations Name Administration Dates Next Due COVID-19 [...] this encounter Progress Notes * Melanie Garcia, [facility] - 12/27/2023 1:40 PM EDT MEDICATION THERAPY MANAGEMENT DABRAFENIB + TRAMETINIB TREATMENT PROGRESS NOTE Megan Phillips [phone] Patient Phone Numbers Preferred Lab: [facility] Special[facility] Pharmacy: [facility] ([place], [place]) Communication: Left message Treatment: Medication: Dabrafenib [...] after a meal Start Date: 05/17/23 Primary Flask Handler/Oncologist: Dr. Goncalves Supportive Care Meds: Ondansetron Prochlorperazine Loperamide Relevant Chronic Medications: Category Medications Pertinent Notes Antihypertensives Metoprolol Lisinopril Cycle Dates C1 09/18- 10/08 C2 10/16 - 11/05 C3 11/13 - 12/03 C4 12/06 - 12/26 C5 01/03 - 01/23 (anticipated) Treatment History: Radiation Treatment Dose Adjustment/Hold [...] questions, concerns, or side effects to therapy Assessment of compliance: N/a Assessment of adverse effects attributed to drug therapy: N/a Dose adjustment needed based on lab or adverse drug reaction? N/a Follow up: MTM 4 weeks Melanie Garcia, PharmD, BCOP Ambulatory Clinical Pharmacist | Oral Chemotherapy Clinic [facility] 12/27/2023, 1:43 PM Monitoring Parameters: Estimated CrCl Serum creatinine: [...] Parameters See PI Time Spent on Encounter: < 5 minutes Encounter Group: Oncology Encounter Interventions Item Category: Oral Chemotherapy Dabrafenib/Trametinib Problem/Rationale: Safety: Needs additional monitoring - Medication Requires monitoring Pharmacist Intervention(s): Toxicity monitoring Magnitude of Intervention: Monitoring with no interventions (Level 0) documented in this encounter Plan of Treatment Upcoming Encounters Date Type Department Care Team (Late st Contact Info) Description 01/24/2024 11:45 AM EST Pharmacy Pharmacy Hematology Oncology [facility], [place] [address] [place] [address] [facility] [place], [facility] Hem/Onc [address] [place] [address] 02/17/2024 1:00 PM EST Office Visit Endocrinology Eugene [address]ansal [place] [address] [place] [address] Shaina George MD [address] [place] [address] 02/21/2024 8:00 AM EST Imaging Radiology [address], [place] 132 [facility] [place] [address] 02/27/2024 1:30 PM EST Office Visit Hematology Oncology [facility] [address] [place] [phone] Rafi Goncalves MD [address] [place], [place] [phone] 04/16/2024 1:00 PM EST Office Visit Family Practice 65 [facility] [address] [place] [address] Otilia Burgos DO [address] [place] [address] 05/11/2024 10:00 AM EST Nurse Only Family Practice 65 [facility] [address] [place] [address] Hillary Braga, JANIE [address] [place] [address] 11/26/2024 12:50 PM EDT Office Visit Dermatology, Jarrod Olguin [address] [place] [place] [address] Vanda Manrique PA-C [address] [place] [address] Scheduled Procedures Name Priority Associated Diagnoses Date/Ti [...] Albumin/Creatinine Ratio 09/18/2024 09/18/2021 TSH 11/14/2024 11/15/2023, 080 08/2023, 07/15/2023, Additional history exists GFR 11/28/2024 11/29/2023, 0 08/2023, 09/11/2023, Additional history exists Colonoscopy 02/15/2027 [...] Documents on File Type Date Recorded Patient Masonry Supervisor Expl anation POLST 09/26/2021 1:05 PM POLST * Full Code (Latest Code Status on File) Date Activated Date Inactivated Comments 06/28/2011 6:10 PM 06/29/2011 4:46 PM This order r eflects the patients wishes and were consensually agreed upon. Care Teams Fuller Brush Worker Relationship Specialty Start Date End Date Otilia Burgos DO [address] [place] [address] PCP - General Family Medicine 10/14/23 documented as of this encounter"
--- OUTSIDE RECORDS SUMMARY | 2024-04-16 04:58 | External Medical Summary | Summary of Care ---
Author Name Unknown Organization [facility] Address [address] [place] [address] Phone [phone] Care Team Providers Care Hospital Staff Pharmacist Name Role Phone Otilia Burgos Primary Care Provider Reason for Visit * Reason Comments Medication Management Encounter Details Date Type Department Care Team (Late st Contact Info) Description 12/12/2023 11:45 AM EDT Pharmacy Pharmacy Hematology Oncology [facility] [address], [place] [phone] [facility] Hem/Onc [address] [place], [place] [phone] Papillary thyroid carcinoma (HCC)*; Secondary and unspecified ma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, face and neck (HCC) Allergies Active Allergy Reactions Criticality Noted Date Comments Adhesive Tape Other (Please comment) Low 04/16/2013 Skin becomes red and sore Other reaction(s): Rash Lactose Diarrhea 08/12/2015 Latex Low 06/26/2021 Other reaction(s): Rash documented as of this encounter (statuses as of 12/13/2023) Medications Medication Sig Dispensed Refills Start Date [...] to scalp 120 mL 11 10/23/2022 Active Metoprolol Succinate ER 50 MG Oral Tablet Extended Release 24 Hour (toPROL XL)Indications:HTN, goal below 140/90,Paroxysmal atrial fibrillation (HCC),PSVT (paroxysmal supraventricular tachycardia) (HCC) Take 1 Tablet by mouth in the morning and 1 Tablet before bedtime. 180 Tablet 3 12/14/2022 Active Multivitamin Adult Oral Tablet Take by [...] 05/28/2023 Active Doxycycline Hyclate 100 MG Oral CapsuleIndications:Smooth fleming thyroid carcinoma (HCC) Take 1 Capsule by [...] an empty stomach. Keep refrigerated. 63 Tablet 09/19/2023 Active Dabrafenib Mesylate 50 MG Oral [...] Take on an empty stomach.. 84 Capsule 09/19/2023 Active Shqouyto-Gfhlqfofq-Zp xameth 3.5-93957-7.1 Ophthalmic Ointment (Maxitrol) Instill into the right [...] as needed 60 mL 1 11/26/2023 Active documented as of this encounter (statuses as of 12/13/2023) Active Problems Problem Noted Date Diagnosed Date [...] as of this encounter (statuses as of 12/13/2023) Resolved Problems Problem Noted Date Diagnosed Date Resolved Date Kidney disease, chronic, sta ge III (GFR 30-59 ml/min) 09/19/2015 06/04/2016 Overview: Per CKD protocol #1 Other stomatitis and mucositis (ulcerative) 07/27/2012 12/16/2017 Hypothyroidism 06/30/2012 03/23/2015 Throat pain 01/07/2012 05/07/2017 Dyspareunia 03/13/2010 07/05/2016 Joint pain, hip 03/13/2010 03/19/2017 Palpitations 03/13/2010 03/19/2017 documented as of this encounter (statuses as of 12/13/2023) Immunizations Name Administration Dates Next Due COVID-19 [...] encounter Progress Notes * Rhianna Baum, [facility] - 12/12/2023 3:00 PM EDT MEDICATION THERAPY MANAGEMENT DABRAFENIB + TRAMETINIB TREATMENT PROGRESS NOTE Megna Phillips [phone] Patient Phone Numbers Preferred Lab: [facility] Specialty Pharmacy: 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 Goncalves Supportive Care Meds: Ondansetron Prochlorperazine [...] due to concerns of infection/fever Interval History: Patient reports that everything is going very well with therapy Reports that she did have 1-2 red blotches on his skin. One is now completely gone and the other isgoing away 10/28 - patient continues to endorse fatigue Per OV 11/14, continue therapy with 21 days on and 7 off Pt reports new schedule is working pretty well and that she does great the first two weeks and thenthird week is a bit more difficult Pt reports one fever of 100.7 which resolved with Tylenol Pt reports cream is working for the rash like a charm Changes to medication list since last visit? No Drug interaction assessment: Treatment plan and current medication list evaluated for drug-drug interactions. No clinically significant drug interaction identified Assessment and Plan: Left voicemail to review infection symptoms and to confirm if actively holding treatment - requested return call to clinic MTM will make additional attempt in 2 days unless return call received sooner Addendum 12/13/23: Patient returned call to clinic - confirmed she had resumed following a week of holding Confirmed resumed as of 12/07/23 - started as new cycle Updated cycle dates as noted above Confirmed tolerating medication well since resuming MTM will follow-up in 2 weeks to confirm tolerating medication well still Aware to call clinic with questions or concerns prior to follow-up Assessment of compliance: N/a Assessment of adverse effects attributed to drug therapy: N/a Dose adjustment needed based on lab or adverse drug reaction? N/a Follow up: MTM 12/26 Rhianna Baum, PharmD Ambulatory Clinical Pharmacist | Oral Chemotherapy Clinic [facility] 12/12/2023 3:05 PM Rhianna Baum, PharmD Ambulatory Clinical Pharmacist | Oral Chemotherapy Clinic [facility] 12/13/2023 11:21 AM Monitoring Parameters: Estimated CrCl Serum creatinine: [...] 11:45 AM EDT Pharmacy Pharmacy Hematology Oncology [facility] [address] [address] [facility]c [address] [place] [address] 02/17/2024 1:00 PM EST Office Visit Endocrinology Rohit Bansal Dr [address] [place] [address] Shaina George MD [address] [place] [address] 02/21/2024 8:00 AM EST Imaging Radiology [address], [address] [place] [address] 02/27/2024 1:30 PM EST Office Visit Hematology Oncology [facility] [address] [place] [address] Rafi Goncalves MD [address] [place], [place] [phone] 04/16/2024 1:00 PM EST Office Visit Family Practice [address] [place] [address] [address] [place] [phone] Otilia Burgos DO [address] [place] [address] 05/11/2024 10:00 AM EST Nurse Only [facility] [address] [place] [address] [address] [place] [address] Hillary Braga RN [address] [place] [address] 11/26/2024 12:50 PM EDT Office Visit Dermatology, Jarrod Olguin [address] [place] [address] Vanda Manrique PA-C [address] [phone] Scheduled Procedures Name Priority Associated Diagnoses Date/Ti [...] Albumin/Creatinine Ratio 09/18/2024 09/18/2021 TSH 11/14/2024 11/15/2023, 0 08/2023, 07/15/2023, Additional history exists GFR 11/28/2024 [...] Documents on File Type Date Recorded Patient Baby Doctor Expl anation POLST 09/26/2021 1:05 PM POLST * Full Code (Latest Code Status on File) Date Activated Date Inactivated Comments 06/28/2011 6:10 PM 06/29/2011 4:46 PM This order r eflects the patients wishes and were consensually agreed upon. Care Teams Hospital Staff Pharmacist Relationship Specialty Start Date End Date Otilia Burgos DO [address] [place] [facility] [place] [address] PCP - General Family Medicine 10/14/23 documented as of this encounter"
--- OUTSIDE RECORDS SUMMARY | 2024-04-16 04:58 | External Medical Summary | Summary of Care ---
Author Name Unknown Organization [facility] Address [address] [place] [address] Phone [phone] Care Team Providers Care Mortgage Protection Specialist Name Role Phone Otilia Burgos Primary Care Provider Reason for Visit * Reason Comments Outpatient Testing Encounter Details Date Type Department Care Team (Late st Contact Info) Description 02/05/2024 12:10 PM EST Laboratory Laboratory, [facility] [address] [place] [phone] [facility] [address] [place] [address] Thyroid cancer (HCC); Postoperative hypothyroidism Allergies Active Allergy Reactions Criticality Noted Date Comments Adhesive Tape Other (Please comment) Low 04/16/2013 Skin becomes red and sore Other reaction(s): Rash Lactose Diarrhea 08/12/2015 Latex Low 06/26/2021 Other reaction(s): Rash documented as of this encounter (statuses as of 02/05/2024) Medications FISH OIL 1000 MG PO CAPS [...] stomach.. 84 Capsule 5 09/19/19 24 Active Ttshcjgp-Nnklwsvjd-N exameth 3.5-71052-6.1 Ophthalmic Ointment (Maxitrol) Instill into the right [...] as of this encounter (statuses as of 02/05/2024) Active Problems Problem Noted Date Diagnosed Date [...] as of this encounter (statuses as of 02/05/2024) Resolved Problems Problem Noted Date Diagnosed Date Resolved Date Kidney disease, chronic, sta ge III (GFR 30-59 ml/min) 09/19/2015 06/04/2016 Overview: Per CKD protocol #1 Other stomatitis and mucositis (ulcerative) 07/27/2012 12/16/2017 Hypothyroidism 06/30/2012 03/23/2015 Throat pain 01/07/2012 05/07/2017 Dyspareunia 03/13/2010 07/05/2016 Joint pain, hip 03/13/2010 03/19/2017 Palpitations 03/13/2010 03/19/2017 documented as of this encounter (statuses as of 02/05/2024) Immunizations Name Administration Dates Next Due COVID-19 [...] st Contact Info) Description 02/14/2024 11:45 AM EST Pharmacy Pharmacy Hematology Oncology [facility] [address] [place] [address] [facility] Hem/Onc [address] [place] [address] 02/17/2024 1:00 PM EST Office Visit Endocrinology Eugene [address] [place] [address] Shaina George MD [address] [place] [address] 02/21/2024 8:00 AM EST Imaging Radiology [address] [place] [address] 02/27/2024 1:30 PM EST Office Visit Hematology Oncology [facility] [address] [place] [facility] [place] [address] Rafi Goncalves MD [address] [place] [address] 04/16/2024 1:00 PM EST Office Visit Family Practice [address] [place] [address] [place] [phone] Otilia Burgos DO [address] [place] [address] 05/11/2024 10:00 AM EST Nurse Only [facility] 65 [facility] 293 [place] [address] Hillary Braga, JANIE 293 [place] [address] 11/26/2024 12:50 PM EDT Office Visit Dermatology, Jarrod Olguin [address] [place] [address] Vanda Manrique PA-C [address] [address] Pending Results Name Type Priority Associated Diagnoses Date /Time TSH Lab Routine Thyroid cancer (HCC) Postoperative hypothyroidism 02/05/2024 11:38 AM EST THYROGLOBULIN AND THYROGLOBULIN ANTIBODY FOR TUMOR MONITORING Lab Routine Thyroid cancer (HCC) Postoperative hypothyroidism 02/05/2024 11:38 AM EST THYROGLOBULIN ANTIBODY TUMOR MONITORING Lab Routine Thyroid cancer (HCC) Postoperative hypothyroidism 02/05/2024 11:38 AM EST QN THYROGLOBULIN WITHOUT THYROGLOBULIN ANTIBODY Lab Routine Thyroid cancer (HCC) Postoperative hypothyroidism 02/05/2024 11:38 AM EST Scheduled Procedures Name Priority Associated [...] 12/16/2017 (Refused) Adult Wellness Visit 05/09/2024 05/10/2023, 02/28/20 23 Depression Screening 05/09/2024 05/10/2023 Albumin/Creatinine Ratio [...] this encounter Visit Diagnoses Diagnosis Thyroid cancer (HCC) Malignant neoplasm of thyroid gland Postoperative hypothyroidism Postsurgical hypothyroidism documented in this encounter Advance Directives Documents on File Type Date Recorded Patient Shuttle Fitting Supervisor Expl anation POLST 09/26/2021 1:05 PM POLST * Full Code (Latest Code Status on File) Date Activated Date Inactivated Comments 06/28/2011 6:10 PM 06/29/2011 4:46 PM This order r eflects the patients wishes and were consensually agreed upon. Care Teams Mortgage Protection Specialist Relationship Specialty Start Date End Date Otilia Burgos DO [address] [place] [facility] [place] [address] PCP - General Family Medicine 10/14/23 documented as of this encounter
--- OUTSIDE RECORDS SUMMARY | 2024-04-16 04:58 | External Medical Summary | Summary of Care ---
Author Name Unknown Organization [facility] Address [address] [place] [address] Phone [phone] Care Team Providers Care Host/Hostess Head Name Role Phone JoãoOtilia ramirez Primary Care Provider Reason for Visit * Reason Onset Date Comments Nurse Documentation 01/22/202401/21 Encounter Details Date Type Department Care Team (Late st Contact Info) Description 01/22/2024 10:00 AM EST Scheduled Telephone Family Practice 65 [facility] [address] [place] [address] College, Nurse [facility] Prac [address] [address] Arrived Allergies Active Allergy Reactions Criticality Noted Date Comments Adhesive Tape Other (Please comment) Low 04/16/2013 Skin becomes red and sore Other reaction(s): Rash Lactose Diarrhea 08/12/2015 Latex Low 06/26/2021 Other reaction(s): Rash documented as of this encounter (statuses as of 01/22/2024) Medications FISH OIL 1000 MG PO CAPS [...] stomach.. 84 Capsule 5 09/19/19 24 Active Itieapcz-Uofgwnapk-Y exameth 3.5-62242-9.1 Ophthalmic Ointment (Maxitrol) Instill into the right [...] as of this encounter (statuses as of 01/22/2024) Active Problems Problem Noted Date Diagnosed Date [...] as of this encounter (statuses as of 01/22/2024) Resolved Problems Problem Noted Date Diagnosed Date Resolved Date Kidney disease, chronic, sta ge III (GFR 30-59 ml/min) 09/19/2015 06/04/2016 Overview: Per CKD protocol #1 Other stomatitis and mucositis (ulcerative) 07/27/2012 12/16/2017 Hypothyroidism 06/30/2012 03/23/2015 Throat pain 01/07/2012 05/07/2017 Dyspareunia 03/13/2010 07/05/2016 Joint pain, hip 03/13/2010 03/19/2017 Palpitations 03/13/2010 03/19/2017 documented as of this encounter (statuses as of 01/22/2024) Immunizations Name Administration Dates Next Due COVID-19 [...] Telephone Encounter - Otilia Burgos DO - 01/22/2024 4:43 PM EST Noted. * Telephone Encounter - Adelina Mendoza LPN - 01/22/2024 4:30 PM EST Nurse phone call placed to patient. States she is doing ok. States leg looks the same as when she fell. No changes. States she will be getting US in about 2 weeks. States she will contact office withany changes, worsening. Appreciative of Dr. Burgos's f/u. documented in this encounter Plan of Treatment Upcoming Encounters Date Type Department Care Team (Late st Contact Info) Description 01/24/2024 11:45 AM EST Pharmacy Pharmacy Hematology Oncology [place] [address] [place] [address] [facility] [place] [facility] Hem[facility]Onc [address] [place] [address] 02/05/2024 11:00 AM EST Imaging Vascular Lab, [facility] 2nd [facility] 132 [place] [address] 02/17/2024 1:00 PM EST Office Visit Endocrinology Rohit Bans[address] Dr [address] [place] [phone] Shaina George MD [address] [place] [address] 02/21/2024 8:00 AM EST Imaging Radiology [facility] 1st [facility] 132 [place] [address] 02/27/2024 1:30 PM EST Office Visit Hematology Oncology [facility] [address] [place] [phone] Rafi Goncalves MD [address] [place], [place] [phone] 04/16/2024 1:00 PM EST Office Visit Family Practice 65 [facility] [address] [place] [phone] Otilia Burgos DO [address] [place] [address] 05/11/2024 10:00 AM EST Nurse Only Family Practice 65 [facility] [address] [place] [phone] Hillary Braga, JANIE [address] [place] [phone] 11/26/2024 12:50 PM EDT Office Visit Dermatology, [...] 07/15/2023, Additional history exists GFR 11/28/2024 11/29/2023, 09/0 08/2023, 09/11/2023, Additional history exists Colonoscopy 02/15/2027 02/15/2022, 120 [...] Documents on File Type Date Recorded Patient Collar Padder Blindstitch Expl anation POLST 09/26/2021 1:05 PM POLST * Full Code (Latest Code Status on File) Date Activated Date Inactivated Comments 06/28/2011 6:10 PM 06/29/2011 4:46 PM This order r eflects the patients wishes and were consensually agreed upon. Care Teams Host/Hostess Head Relationship Specialty Start Date End Date Holencik, Otilia M, DO [address] [place] [facility] [address] PCP - General Family Medicine 10/14/23 documented as of this encounter
--- OUTSIDE RECORDS SUMMARY | 2024-04-16 04:58 | External Medical Summary | Summary of Care ---
Author Name Unknown Organization [facility] Address [address] [place] [address] Phone [phone] Care Team Providers Care Fire Range Technician Name Role Phone Otilia Burgos DO Primary Care Provider [phone] Reason for Visit * Reason Comments Follow Up Encounter Details Date Type Department Care Team (Latest Contact Info) Description 01/20/2024 11:20 AM EST Office Visit Family Practice [facility] [place], [place] [address] [place] [phone] Otilia Burgos DO [address] [place] [address] Discoloration of skin of foot*; Papillary thyroid carcinoma (HCC) Allergies Active Allergy Reactions Criticality Noted Date Comments Adhesive Tape Other (Please comment) Low 04/16/2013 Skin becomes red and sore Other reaction(s): Rash Lactose Diarrhea 08/12/2015 Latex Low 06/26/2021 Other reaction(s): Rash documented as of this encounter (statuses as of 01/20/2024) Medications FISH OIL 1000 MG PO CAPS [...] empty stomach.. 84 Capsule 09/19/19 24 Active Ddgqoafb-Qezbepwkk-W exameth 3.5-32693-2.1 Ophthalmic Ointment (Maxitrol) Instill into the right [...] as of this encounter (statuses as of 01/20/2024) Active Problems Problem Noted Date Diagnosed Date [...] as of this encounter (statuses as of 01/20/2024) Resolved Problems Problem Noted Date Diagnosed Date Resolved Date Kidney disease, chronic, sta ge III (GFR 30-59 ml/min) 09/19/2015 06/04/2016 Overview: Per CKD protocol #1 Other stomatitis and mucositis (ulcerative) 07/27/2012 12/16/2017 Hypothyroidism 06/30/2012 03/23/2015 Throat pain 01/07/2012 05/07/2017 Dyspareunia 03/13/2010 07/05/2016 Joint pain, hip 03/13/2010 03/19/2017 Palpitations 03/13/2010 03/19/2017 documented as of this encounter (statuses as of 01/20/2024) Immunizations Name Administration Dates Next Due COVID-19 [...] Past Smokeless Tobacco: Never Tobacco Cessation:Counseling Given: Yes Alcohol Use Standard Drinks/Week Comments Not Currently [...] Sign Reading Time Taken Comments Blood Pressure 130/76 01/20/2024 11:20 AM EST Pulse 67 01/20/2024 11:20 AM EST Temperature 36.3 C (97.3 F) 01/20/2024 11:[address] Respiratory Rate 14 01/20/2024 11:20 AM EST Oxygen Saturation 95% 01/20/2024 11:20 AM EST Inhaled Oxygen Concentration - - Weight 78.7 kg (173 lb 8 oz) 01/20/2024 11:20 AM EST Height 167 cm (5' 5.75") 01/20/2024 11:20 AM EST Body Mass Index 28.22 01/20/2024 11:20 AM EST documented in this encounter Progress Notes * Otilia Burgos, DO - 01/20/2024 11:10 AM EST SUBJECTIVE: Chief Complaint Patient presents with Follow Up HPI: Megan Phillips is a 78 year old female who presents today with complaints of a fall. Pt had two falls. One was 6 weeks ago and one 2 weeks ago. She notes she fell on concrete. She notes she hasbad varicose veins on the left. She has some bruises from her last fall. She states that she has some numbness in the front of her lower leg since her fall. She notes that her two feet are different colors. She notes that the left is darker than the other. She has a history of athlete's foot and toenail issues. She is in the beginning of the 3rd week of her chemo. She will start to get fevers andrashes as well as fatigue. She wanted to be sure that things were ok. PHM: Patient Active Problem List Diagnosis HTN, goal [...] nose three times daily 22 g 3 Clotrimazole-Betamethasone 1-0.05 % External Cream (Lotrisone) Apply topically to affected area 2 times a day. 45 g 3 Trametinib Dimethyl Sulfoxide 0.5 MG Oral Tablet [...] 2 times a day. 30 g 1 Synthroid 125 MCG Oral Tablet Take one tablet by mouth six times weekly and take two tablets by mouth once weekly 105 Tablet 3 Fluocinonide 0.05 % External Solution Apply to scalp once to twice a day when scalp is inflamed anditchy. Can apply up to 2 weeks then as needed 60 mL 1 Metoprolol Succinate ER 50 MG Oral Tablet Extended Release 24 Hour (toPROL XL) Take 1 Tablet by mouth in the morning and 1 Tablet before bedtime. 180 Tablet 0 Ketoconazole 2 % External Shampoo (Nizoral) Apply topically to affected area every 3 days. Apply toscalp 120 mL 11 Multivitamin Adult Oral Tablet Take by mouth. (Patient not taking: Reported on 01/20/2024) Ondansetron HCl 4 MG Oral Tablet (Zofran) Take 1 Tablet by mouth every 8 hours as needed for Nausea. (Patient not taking: Reported on 01/20/2024) 30 Tablet 2 Prochlorperazine Maleate 10 MG Oral Tablet (Compazine) Take 1 Tablet by mouth every 6 hours as needed for Nausea. (Patient not taking: Reported on 01/20/2024) 30 Tablet 2 Doxycycline Hyclate 100 MG Oral Capsule Take 1 Capsule by mouth in the morning and 1 Capsule beforebedtime. (Patient not taking: Reported on 01/20/2024) 14 Capsule 0 methylPREDNISolone 4 MG Oral Tablet Therapy Pack (Medrol Dosepack) follow package directions (Patient not taking: Reported on 01/20/2024) 21 Tablet 0 Dabrafenib Mesylate 50 MG Oral Capsule (Tafinlar) Take 100 mg by mouth in the morning and 100 mg before bedtime. Take on an empty stomach.. 120 Capsule 5 Trametinib Dimethyl Sulfoxide 0.5 MG Oral Tablet (Mekinist) Take 1.5 mg by mouth daily. Take on an empty stomach. Keep refrigerated. 90 Tablet 5 Wtqopzir-Bmrqkvncu-Hmkorsbt 3.5-16857-6.1 Ophthalmic Ointment (Maxitrol) Instill into the right eye. (Patient not taking: Reported on 01/20/2024) Chlorhexidine Gluconate 0.12 % Mouth/Throat Solution (Periogard) RINSE WITH 1/2 OUNCE FOR 30 SECONDS TWO TIMES DAILY (Patient not taking: Reported on 01/20/2024) No current facility-administered medications for this visit. Past Medical History: Diagnosis Date HTN, goal [...] MD at OR [facility] [address] INFORMATION EYELID SURGERY KNEE MENISCAL TRANSP,SURG ARTHROS r knee LIGATE,DIV,EXCIS ALIRIO VEIN CLUS l knee MAMMOGRAM SCREENING BILATERAL 01/10/2008 nl REMOVAL OF NECK LYMPH NODES Left 02/07/2016 CERVICAL LYMPHADENECTOMY MODIFIED RADICAL NECK DISSECTION performed by Ricardo Barriga MD at [facility] REMOVAL OF THYROID FOR TUMOR 06/28/2011 THYROIDECTOMY WITH LIMITED NECK DISSECTION performed by RICARDO BARRIGA at [facility] REMOVAL OF TONSILS, UNDER AGE 11 REMOVE GALLBLADDER REMOVE TONSILS & ADENOIDS, UNDER 12 TREATMENT OF ANAL FISSURE x2 Review of patient's allergies indicates: Allergen Reactions Lactose Diarrhea Adhesive Tape Other (Please comment) Skin becomes red and sore Other reaction(s): Rash Latex Other reaction(s): Rash Family History Problem Relation Name Age of Onset Heart Disorder Mother dissecting AAA/ 1970's Heart Disorder Father PR/ /age 76y Blood Disorder Sister leukemia/ age 34 No Past Hx Sister Family Status Relation Status Mo (Not Specified) Fa (Not Specified) Sis Sis (Not Specified) Social History Tobacco Use Smoking status: Never Passive exposure: Past Smokeless tobacco: Never Substance Use Topics Alcohol use: Not Currently Vaping/E-Cigarette Use Vaping/E-Cigarette Use Never User Vaping/E-Cigarette Substances Nicotine No Other No Flavoring No THC No Cannabidiol (CBD) No Vaping/E-Cigarette Devices Disposable No Pre-filled or Refillable Cartridge No Refillable Tank No Pre-filled Pod No REVIEW OF SYSTEMS: Review of Systems Constitutional: Negative for chills, fatigue, fever and unexpected weight change. Respiratory: Negative for cough, chest tightness, shortness of breath and wheezing. Cardiovascular: Negative for chest pain, palpitations and leg swelling. Gastrointestinal: Negative for abdominal pain, constipation, diarrhea, nausea and vomiting. Musculoskeletal: Negative for arthralgias, gait problem and joint swelling. Skin: Positive for color change. Negative for pallor and rash. OBJECTIVE: BP 130/76 (BP Site: Left Arm, BP Position: Sitting, BP Cuff Size: Regular) | Pulse 67 | Temp 36.3 C (97.3 F) (Tympanic) | Resp 14 | Ht 1.67 m (5' 5.75") | Wt 78.7 kg (173 lb 8 oz) | SpO2 95% | BMI 28.22 kg/m | BSA 1.91 m PHYSICAL EXAM: Physical Exam Constitutional: General: She is not in acute distress. Appearance: She is well-developed. Cardiovascular: Rate and Rhythm: Normal rate and regular rhythm. Heart sounds: Normal heart sounds. No murmur heard. No friction rub. No gallop. Pulmonary: Effort: Pulmonary effort is normal. No respiratory distress. Breath sounds: Normal breath sounds. No wheezing or rales. Abdominal: General: Bowel sounds are normal. There is no distension. Palpations: Abdomen is soft. Tenderness: There is no abdominal tenderness. There is no guarding. Musculoskeletal: General: No tenderness or deformity. Normal range of motion. Skin: General: Skin is warm and dry. Coloration: Skin is not pale. Findings: Erythema (and purplish toes, cold to touch) present. No rash. Comments: Extensive varicose veins of both legs Neurological: Mental Status: She is alert and oriented to person, place, and time. ASSESSMENT/PLAN: (L81.9) Discoloration of skin of foot (primary encounter diagnosis) Plan: VASC ANKLE BRACHIAL INDICES WITHOUT PPG (PAD) Will check SERENE. No evidence of cellulitis. She will monitor. Discussed signs and symptoms. Will have nursing check in later this week. Declines PT given falls. (C73) Papillary thyroid carcinoma (HCC) Plan: Pt following with oncology. Notes that the third week of her chemo is tough. She is currentlyin her third week. She notes a couple of low grade fevers to 100.4. she will monitor. Follow-up: nurse call Saturday Total time today including reviewing chart before the visit, pertinent labs, imaging reports, face to face time, and documentation time was 33 minutes. Otilia Burgos DO documented in this encounter Nursing Notes * Adelina Mendoza LPN - 01/20/2024 11:16 AM EST Patient here for follow up visit. Reports she has fallen 6 weeks ago and 2 weeks ago. Was wearing slippers both times and fell on to her knees on concrete. Bruise noted to left knee. Also notes some pitting edema to both ankles. Slight redness to lower leg, left foot, and left toes. Patient has been verbally educated on the need or importance of Dexa Scan, COVID, Flu Vaccine, Pneumococcal Vaccine, Tdap Vaccine, and RSV vaccine and has declined topic(s). documented in this encounter Plan of Treatment Upcoming Encounters Date Type Department Care Team (Late st Contact Info) Description 01/22/2024 10:00 AM EST Scheduled Telephone Family Practice [facility] [address] [place] [phone] College, Nurse [facility] Pr[facility] [address] [address] 01/24/2024 11:45 AM EST Pharmacy Pharmacy Hematology Oncology [facility] [place] [address] [place] [address] [facility] Hem/Onc [address] [place] [address] 02/05/2024 11:00 AM EST Imaging Vascular Lab, [facility] 2nd [facility] [address] [place] [address] 02/17/2024 1:00 PM EST Office Visit Endocrinology Rohit B[address] [place] [phone] Shaina George MD [address] [place] [address] 02/21/2024 8:00 AM EST Imaging Radiology [address], [place] [address] [facility] [place] [address] 02/27/2024 1:30 PM EST Office Visit Hematology Oncology [facility] [place] [address] [place] [phone] Rafi Goncalves MD [address] [place] [address] 04/16/2024 1:00 PM EST Office Visit Family Practice [address] [place] [address] [address] [place] [address] Otilia Burgos DO [address] [place] [address] 05/11/2024 10:00 AM EST Nurse Only Family Practice [address] [place] [address] [address] [place] [address] Hillary Braga, JANIE [address] [place] [address] 11/26/2024 12:50 PM EDT Office Visit Dermatology, Jarrod Olguin [address] [address] Vanda Manrique PA-C [address] [address] Scheduled Orders Name Type Priority Associated Diagnoses Orde r Schedule VASC ANKLE BRACHIAL INDICES WITHOUT PPG (PAD) Medical Imaging Routine Discoloration of skin of foot Expected: 01/20/2024, Expires: 02/18/2025 Scheduled Procedures Name Priority Associated Diagnoses Date/Ti me COLONOSCOPY FLEXIBLE PROXIMA L DIAGNOSTIC Recall History of colonic polyps Health Maintenance Due Date Last Done Comments Influenza Vaccine (FLU shot) (#1) 2023 12/16/2017 (Refused) COVID-19 Vaccine (3 - Pfizer risk series) 01/21/2024 06/09/2020, 05/19/2020 Postponed from 07/07/2020 (Patient Declined After Education) DTap/Tdap Vaccines (2 - Td or Tdap) 01/21/2024 09/15/2013 Postponed from 09/16/2023 (Patient Declined After Education) DXA Scan 01/21/2024 04/04/2011, 04/04/2011 Postp oned from 04/04/2018 (Patient Declined After Education) Adult Wellness Visit 05/09/2024 05/10/2023, 05/08/19 Depression Screening 05/09/2024 05/10/2023 Albumin/Creatinine Ratio 09/18/2024 09/18/2021 TSH 11/14/2024 11/15/2023, 08/0 08/2023, 07/15/2023, Additional history exists GFR 11/28/2024 11/29/2023, 09/0 08/2023, 09/11/2023, Additional history exists Colonoscopy 02/15/2027 02/15/2022, 12/0 [...] as of this encounter Visit Diagnoses Diagnosis Discoloration of skin of foot- Primary Other symptoms involving skin and integumentary tissues Papillary thyroid carcinoma (HCC) Malignant neoplasm of thyroid gland documented in this encounter Advance Directives Documents on File Type Date Recorded Patient 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 Care Teams Fire Range Technician Relationship Specialty Start Date End Date Otilia Burgos DO [address] [place] [address] PCP - General Family Medicine 10/14/23 documented as of this encounter
--- OUTSIDE RECORDS SUMMARY | 2024-04-16 04:58 | External Medical Summary | Summary of Care ---
Author Name Unknown Organization [facility] Address [address] [place] [address] Phone [phone] Care Team Providers Care Social Science Instructor Name Role Phone Otilia Burgos Primary Care Provider Reason for Visit * Reason Onset Date Comments Medication Refill Status Check 12/21/2023 Encounter Details Date Type Department Care Team (Late st Contact Info) Description 12/21/2023 Refill Cardiology, [facility] [address] [facility] [address] [phone] Lucinda Bowen CRNP [address] [facility] [place] [address] HTN, goal below 140/90; Paroxysmal atrial fibrillation (HCC); PSVT (paroxysmal supraventricular tachycardia) ([facility]) Allergies Active Allergy Reactions Criticality Noted Date Comments Adhesive Tape Other (Please comment) Low 04/16/2013 Skin becomes red and sore Other reaction(s): Rash Lactose Diarrhea 08/12/2015 Latex Low 06/26/2021 Other reaction(s): Rash documented as of this encounter (statuses as of 12/25/2023) Medications Medication Sig Dispensed Refills Start Date End Date Status FISH OIL 1000 MG PO CAPS 1 daily Active VITAMIN D 2000 UNITS PO CAPS 1 daily Active Aspirin EC 81 MG Oral Tablet Delayed Release Take 1 Tablet by mouth in the morning. 0 Active Emergen-C Vitamin C Oral Packet Take by mouth . Active Ketoconazole 2 % External Cream Apply to right foot as needed 60 g 3 3 Active Mupirocin 2 % External Ointment (Bactroban)Indication s:Internal nasal lesion Apply to lesion on inside of nose three times daily 22 g 3 3 Active Ketoconazole 2 % External Shampoo (Nizoral)Indications: Seborrheic dermatitis Apply topically to affected area every 3 days. Apply to scalp 120 mL 11 3 Active Multivitamin Adult Oral Tablet Take by mouth. Active Ondansetron HCl 4 MG Oral Tablet (Zofran) Take 1 Tablet by mouth every 8 hours as needed for Nausea. 30 Tablet 2 4 Active Prochlorperazine Maleate 10 MG Oral Tablet (Compazine)Indication s:Papillary thyroid carcinoma (HCC) Take 1 Tablet by mouth every 6 hours as needed for Nausea. 30 Tablet 2 4 Active Doxycycline Hyclate 100 MG Oral CapsuleIndications:Pa pillary thyroid carcinoma (HCC) Take 1 Capsule by mouth in the morning and 1 Capsule before bedtime. 14 Capsule 4 Active Additional Information Patient not taking.Reported on 06/21/2023 methylPREDNISolone 4 MG Oral Tablet Therapy Pack (Medrol Dosepack)Indications: Rash follow package directions 21 Tablet 4 Active Additional Information Patient not taking.Reported on 06/21/2023 Clotrimazole-Betameth asone 1-0.05 % External Cream (Lotrisone)Indication s:Tinea pedis of right foot Apply topically to affected area 2 times a day. 45 g 3 4 Active Dabrafenib Mesylate 50 MG Oral Capsule (Tafinlar)Indications :Malignant neoplasm metastatic to lung, unspecified laterality (HCC),Papillary thyroid carcinoma (HCC),Recurrent thyroid cancer (HCC),Secondary and unspecified ma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, face and neck (HCC) Take 100 mg by mouth in the morning and 100 mg before bedtime. Take on an empty stomach.. 120 Capsule 5 4 Active Trametinib Dimethyl Sulfoxide 0.5 MG Oral Tablet (Mekinist)Indications :Malignant neoplasm metastatic to lung, unspecified laterality (HCC),Papillary thyroid carcinoma (HCC),Recurrent thyroid cancer (HCC),Secondary and unspecified ma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, face and neck (HCC) Take 1.5 mg by mouth daily. Take on an empty stomach. Keep refrigerated. 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 For 21 days on then 7 day off. Take on an empty stomach. Keep refrigerated. 63 Tablet 5 4 Active Dabrafenib Mesylate 50 MG Oral Capsule [...] on an empty stomach.. 84 Capsule 5 4 Active Fwtmjkjv-Qunvfibkx-Hv xameth 3.5-95993-0.1 Ophthalmic Ointment (Maxitrol) Instill into the right eye. 4 Active Chlorhexidine Gluconate 0.12 % Mouth/Throat Solution (Periogard) RINSE WITH 1/2 OUNCE FOR 30 SECONDS TWO TIMES DAILY 4 Active Sennosides 8.6 MG Oral Tablet (Senokot) Take 1 Tablet by mouth at bedtime as needed for Constipation. Active Docusate Sodium 100 MG Oral Capsule (Colace) Take 3 Capsules by mouth daily. Active Lisinopril 5 MG Oral Tablet (Prinivil)Indications :HTN, goal below 140/90 TAKE ONE TABLET BY MOUTH EVERY MORNING 100 Tablet 3 4 11/03/19 25 Active Hydrocortisone 2.5 % External CreamIndications:Drug rash Apply topically to affected area 2 times a day. 30 g 1 4 Active Synthroid 125 MCG Oral TabletIndications:Pos toperative hypothyroidism Take one tablet by mouth six times weekly and take two tablets by mouth once weekly 105 Tablet 3 4 Active Fluocinonide 0.05 % External Solution Apply to scalp once to twice a day when scalp is inflamed and itchy. Can apply up to 2 weeks then as needed 60 mL 1 4 Active Metoprolol Succinate ER 50 MG Oral Tablet Extended Release 24 Hour (toPROL XL)Indications:HTN, goal below 140/90,Paroxysmal atrial fibrillation (HCC),PSVT (paroxysmal supraventricular tachycardia) (HCC) Take 1 Tablet by mouth in the morning and 1 Tablet before bedtime. 180 Tablet 4 Active Metoprolol Succinate ER 50 MG Oral Tablet Extended Release 24 Hour (toPROL XL)Indications:HTN, goal below 140/90,Paroxysmal atrial fibrillation (HCC),PSVT (paroxysmal supraventricular tachycardia) (HCC) Take 1 Tablet by mouth in the morning and 1 Tablet before bedtime. 180 Tablet 3 3 12/21/19 24 Discontinu ed(Refill) documented as of this encounter (statuses as of 12/25/2023) Active Problems Problem Noted Date Diagnosed Date [...] as of this encounter (statuses as of 12/25/2023) Resolved Problems Problem Noted Date Diagnosed Date Resolved Date Kidney disease, chronic, sta ge III (GFR 30-59 ml/min) 09/19/2015 06/04/2016 Overview: Per CKD protocol #1 Other stomatitis and mucositis (ulcerative) 07/27/2012 12/16/2017 Hypothyroidism 06/30/2012 03/23/2015 Throat pain 01/07/2012 05/07/2017 Dyspareunia 03/13/2010 07/05/2016 Joint pain, hip 03/13/2010 03/19/2017 Palpitations 03/13/2010 03/19/2017 documented as of this encounter (statuses as of 12/25/2023) Immunizations Name Administration Dates Next Due COVID-19 [...] * Telephone Encounter - Josh Hicks - 12/25/2023 7:44 PM EDT Received message from [facility] regarding patient needing an appointment. Patient was notified. Successfully contacted patient and provided [facility] message. * Telephone Encounter - Oscar Todd [facility] - 12/24/2023 11:19 AM EDTSigned Prescriptions: Disp Refills Metoprolol Succinate ER 50 MG Oral Tablet *180 Ta*0 Sig: Take 1 Tablet by mouth in the morning and 1 Tablet before bedtime. Authorizing Provider: LUCINDA BOWEN Ordering User: OSCAR TODD * Telephone Encounter - Oscar Todd RPh - 12/24/2023 11:19 AM EDTSigned Prescriptions: Disp Refills Metoprolol Succinate ER 50 MG Oral Tablet *180 Ta*0 Sig: Take 1 Tablet by mouth in the morning and 1 Tablet before bedtime. Authorizing Provider: LUCINDA BOWEN Ordering User: OSCAR TODD * Telephone Encounter - Oscar Todd RPh - 12/24/2023 11:19 AM EDT Please contact patient so that an appointment can be scheduled with her CARDIOLOGY provider. Refillauthorized to hold patient over in the mean time. Last Visit: 12/14/2022 (in office), Visit date not found (telemedicine) Next Visit: Visit date not found Thank you, Oscar Todd, PharmD Clinical Pharmacist [facility] [phone] 12/24/2023, 11:19 AM * Telephone Encounter - Muna Barry [facility] - 12/23/2023 1:01 PM EDT Did you pend patient's preferred pharmacy and medication before forwarding?yes Pharmacy: [facility] Pending Prescriptions: Disp Refills Metoprolol Succinate ER 50 MG Oral Tablet*180 Ta*3 Sig: Take 1 Tablet by mouth in the morning and 1 Tablet before bedtime. Last Visit: 12/14/2022 (in office), Visit date not found (telemedicine) Next Visit: Visit date not found If no future appointments scheduled, and last appointment is greater than a year ago, please schedule patient for a follow-up appointment Last date the medication was ordered: 12/14/22 Is this request for a controlled substance?No Urine Drug Screen:No results found. However, due to the size of the patient record, not all encounters were searched. Please check Results Review for a complete set of results. Patient Phone Numbers Labs: Lab Results Component Value Date/Time CREAT 1.1 (H) 11/29/2023 02:21 PM CREAT 1.0 08/06/2019 11:04 AM POTASSIUM 4.3 11/29/2023 02:21 PM POTASSIUM 4.4 04/24/2019 08:55 AM TSH 0.49 11/15/2023 10:12 AM TSH 0.12 (L) 02/01/2020 07:57 AM LDL 120 10/15/2023 10:54 AM LDL 153 (H) 04/24/2019 08:55 AM LDL NOT APPLICABLE 04/24/2019 08:55 AM ALT 17 11/29/2023 02:21 PM ALT 24 04/24/2019 08:55 AM HGBA1C 5.6 04/24/2019 08:55 AM documented in this encounter Plan of Treatment Upcoming Encounters Date Type Department Care Team (Late st Contact Info) Description 12/27/2023 11:45 AM EDT Pharmacy Pharmacy Hematology Oncology [facility] [address] [place] [address] [facility] Hem/Onc [address] [place] [address] 02/17/2024 1:00 PM EST Office Visit Endocrinology Sharda [address] [place] [address] [place] [place] [phone] Shaina George MD [address] [place] [address] 02/21/2024 8:00 AM EST Imaging Radiology [address], [address] [address] 02/27/2024 1:30 PM EST Office Visit Hematology Oncology [facility] [address] [facility] [place] [phone] Rafi Goncalves MD [address] [place] [address] 04/16/2024 1:00 PM EST Office Visit Family Practice 65 [facility] 293 [facility] [place] [address] Otilia Burgos DO [address] [place] [address] 05/11/2024 10:00 AM EST Nurse Only [facility] 65 [facility] [address] [place] [address] Hillary Braga, JANIE [address] [place] [address] 11/26/2024 12:50 PM EDT Office Visit Dermatology, Jarrod Olgiun [address] [phone] Vanda Manrique PA-C [address] [phone] Scheduled Procedures Name Priority Associated Diagnoses Date/Ti [...] Documents on File Type Date Recorded Patient Color Coater Expl anation POLST 09/26/2021 1:05 PM POLST * Full Code (Latest Code Status on File) Date Activated Date Inactivated Comments 06/28/2011 6:10 PM 06/29/2011 4:46 PM This order r eflects the patients wishes and were consensually agreed upon. Care Teams Social Science Instructor Relationship Specialty Start Date End Date Otilia Burgos DO [address] [place] [address] PCP - General Family Medicine 10/14/23 documented as of this encounter
--- OUTSIDE RECORDS SUMMARY | 2024-04-16 04:59 | External Medical Summary | Summary of Care ---
Author Name Unknown Organization [facility] Address [address] [place] [address] Phone [phone] Care Team Providers Care Antique Furniture Reproducer Name Role Phone Otilia Burgos Primary Care Provider Reason for Visit * Reason Comments Medication Management Encounter Details Date Type Department Care Team (Late st Contact Info) Description 11/22/2023 11:45 AM EDT Pharmacy Pharmacy Hematology Oncology [facility] [address], [place] [phone] [facility] Hem/Onc [address], [place] [phone] Papillary thyroid carcinoma (HCC)*; Secondary and unspecified ma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, face and neck (HCC) Allergies Active Allergy Reactions Criticality Noted Date Comments Adhesive Tape Other (Please comment) Low 04/16/2013 Skin becomes red and sore Other reaction(s): Rash Lactose Diarrhea 08/12/2015 Latex Low 06/26/2021 Other reaction(s): Rash documented as of this encounter (statuses as of 11/29/2023) Medications Medication Sig Dispensed Refills Start Date [...] 3 Active Mupirocin 2 % External Ointment (Bactroban)Indicatio ns:Internal nasal lesion Apply to lesion on inside of nose three times daily 22 g 3 3 Active Ketoconazole 2 % External Shampoo (Nizoral)Indications :Seborrheic dermatitis Apply topically to affected area every 3 days. Apply to scalp 120 mL 11 3 Active Metoprolol Succinate ER 50 MG Oral Tablet Extended Release 24 Hour (toPROL XL)Indications:HTN, goal below 140/90,Paroxysmal atrial fibrillation (HCC),PSVT (paroxysmal supraventricular tachycardia) (HCC) Take 1 Tablet by mouth in the morning and 1 Tablet before bedtime. 180 Tablet 3 3 Active Multivitamin Adult Oral Tablet Take by mouth. Active Ondansetron HCl 4 MG Oral Tablet (Zofran) Take 1 Tablet by mouth every 8 hours as needed for Nausea. 30 Tablet 2 4 Active Prochlorperazine Maleate 10 MG Oral Tablet (Compazine)Indicatio ns:Papillary thyroid carcinoma (HCC) Take 1 Tablet by mouth every 6 hours as needed for Nausea. 30 Tablet 2 4 Active Doxycycline Hyclate 100 MG Oral CapsuleIndications:P apillary thyroid carcinoma (HCC) Take 1 Capsule by mouth in the morning and 1 Capsule before bedtime. 14 Capsule 4 Active Additional Information Patient not taking.Reported on 06/21/2023 methylPREDNISolone 4 MG Oral Tablet Therapy Pack (Medrol Dosepack)Indications :Rash follow package directions 21 Tablet 4 Active Additional Information Patient not taking.Reported on 06/21/2023 Clotrimazole-Betamet hasone 1-0.05 % External Cream (Lotrisone)Indicatio [...] empty stomach.. 84 Capsule 5 4 Active Wmqoggbb-Bmkhaoofu-D exameth 3.5-85268-3.1 Ophthalmic Ointment (Maxitrol) Instill into the right [...] MOUTH EVERY MORNING 100 Tablet 3 4 025 Active Hydrocortisone 2.5 % External CreamIndications:Patrick g rash Apply topically to affected area 2 times a day. 30 g 1 4 Active Synthroid 125 MCG Oral TabletIndications:Po stoperative hypothyroidism Take one tablet by mouth six times weekly and take two tablets by mouth once weekly 105 Tablet 3 4 Active Fluocinonide 0.05 % External CreamIndications:Edwin matitis Apply topically to affected area 2 times a day . Apply to ears bilaterally 30 g 1 2 024 Discontinued Clobetasol Propionate 0.05 % External Cream (Temovate) Apply topically to affected area 2 times a day. To affected area for up to two weeks. 15 g 1 3 024 Discontinued Clobetasol Propionate 0.05 % External SolutionIndications: Seborrheic dermatitis Apply to rash in scalp immediately after shower. Can apply twice daily 50 mL 5 3 024 Discontinued documented as of this encounter (statuses as of 11/29/2023) Active Problems Problem Noted Date Diagnosed Date [...] as of this encounter (statuses as of 11/29/2023) Resolved Problems Problem Noted Date Diagnosed Date Resolved Date Kidney disease, chronic, sta ge III (GFR 30-59 ml/min) 09/19/2015 06/04/2016 Overview: Per CKD protocol #1 Other stomatitis and mucositis (ulcerative) 07/27/2012 12/16/2017 Hypothyroidism 06/30/2012 03/23/2015 Throat pain 01/07/2012 05/07/2017 Dyspareunia 03/13/2010 07/05/2016 Joint pain, hip 03/13/2010 03/19/2017 Palpitations 03/13/2010 03/19/2017 documented as of this encounter (statuses as of 11/29/2023) Immunizations Name Administration Dates Next Due COVID-19 [...] 18 years and over) Not on file 3 Are you (or your family) chavez eless [...] as of this encounter Progress Notes * Rosalia Galan, [facility] - 11/22/2023 4:58 PM EDT MEDICATION THERAPY MANAGEMENT DABRAFENIB + TRAMETINIB TREATMENT PROGRESS NOTE Megan Phillips [phone] Patient Phone Numbers Preferred Lab: [facility] Pharmacy: [facility] ([place], [place]) Communication: Spoke to: Patient Treatment: Medication: [...] after a meal Start Date: 05/17/23 Primary Layout Mechanic/Oncologist: Dr. Goncalves Supportive Care Meds: Ondansetron Prochlorperazine Loperamide Relevant Chronic Medications: Category Medications Pertinent Notes Antihypertensives Metoprolol Lisinopril Cycle Dates C1 09/18- 10/08 C2 10/16 - 11/05 C3 11/13 - 12/03 C4 12/11 - 12/31 (anticipated) Treatment History: Radiation Treatment Dose Adjustment/Hold [...] 3 weeks on and 1 week off Interval History: Patient reports that everything is [...] interaction identified Assessment and Plan: Continue current therapy and supportive care Aware to call clinic with questions or concerns prior to follow-up ADDENDUM: Pt calls and her temp 100.7, then 100.4 resolved with Tylenol and Ibuprofen but BP was 104/64 Pt just retook temp 99.9 and BP 135/78 Pt reports feeling exhausted today Pt denies cough, no breathing problems and no sore throat As per discussion with Dr Garcia, hold remainder of cycle and cbcd/cmp today Advised patient to above Pt verbalized to hold last 5 days and go to [facility] to obtain lab work ADDENDUM: WBC 3.44/ANC 2.07 CBC otherwise stable Creatinine 1.1/BUN 22, elevated (baseline creatinine 0.9 - 1.0) As per discussion with Dr Garcia, advise to increase oral hydration and monitor temp and s/s of infection Advised patient to above Pt verbalized understanding MTM to follow up on 12/04 and check for possible restart after holding for 7 days Assessment of compliance: Compliant Assessment of adverse effects attributed to drug therapy: Rash - absent Visual disturbance - absent GI hemorrhage - absent Pyrexia - present, occasional VTE - absent S/sx of cardiac dysfunction - absent Dose adjustment needed based on lab or adverse drug reaction? No Follow up: 12/04 MTM (check for restart after hold); 3 weeks MTM Rosalia Galan, PharmD, BCOP Clinical Pharmacist [facility] 11/22/2023, 5:17 PM Rose BarretoD, BCOP Clinical Pharmacist [facility] 11/29/2023, 3:06 PM Monitoring Parameters: Estimated CrCl Serum creatinine: [...] LVEF 05/02/2023 60% Treatment Parameters See PI Pertinent Labs: Latest Reference Range & Units 09/11/23 10:30 11/15/23 10:12 11/29/23 14:21 WBC 4.00 - 10.80 K/uL 3.28 (L) 4.47 3.44 (L) RBC 3.85 - 5.15 M/uL 4.55 4.39 4.39 HGB 12.0 - 15.3 g/dL 13.1 12.7 12.7 HCT 36.0 - 45.2 % 39.8 39.5 38.4 MCV 81.5 - 97.5 fL 87.5 90.0 87.5 MCH 27.0 - 34.0 pg 28.8 28.9 28.9 MCHC 32.0 - 36.0 g/dL 32.9 32.2 33.1 RDW 11.5 - 15.5 % 15.0 15.0 15.0 PLT 140 - 400 K/uL 170 199 180 MPV 6.6 - 11.1 fL 9.1 9.0 8.9 CBC WITH WBC DIFFERENTIAL Rpt ! Rpt Rpt ! Absolute Neutrophils 1.80 - 7.70 K/uL 1.29 (L) 2.79 2.07 (L): Data is abnormally low !: Data is abnormal Rpt: View report in Results Review for more information Latest Reference Range & Units 09/11/23 10:30 11/15/23 10:12 11/29/23 14:21 SODIUM 135 - 146 mmol/L 135 139 134 (L) POTASSIUM 3.5 - 5.1 mmol/L 4.2 4.3 4.3 CHLORIDE 98 - 107 mmol/L 100 103 99 CO2 22 - 32 mmol/L 28 27 24 BUN 6 - 20 mg/dL 12 16 22 (H) CREATININE 0.5 - 1.0 mg/dL 0.9 1.0 1.1 (H) EGFR >=60 mL/min 62 57 (L) 51 (L) ANION GAP 7 - 15 mmol/L 7 9 11 GLUCOSE 70 - 120 mg/dL 92 79 110 CALCIUM 8.4 - 10.2 mg/dL 8.8 8.6 8.5 Protein 6.0 - 8.3 g/dL 6.3 5.9 (L) 6.4 (L): Data is abnormally low (H): Data is abnormally high Time Spent on Encounter: > 31 minutes Encounter Group: Oncology Encounter Interventions Item Category: Oral Chemotherapy Dabrafenib/Trametinib Problem/Rationale: Safety: Needs additional monitoring - Medication Requires monitoring Pharmacist Intervention(s): Care coordination, Clarification with Provider, Lab work requested, Medication held, Orders labs, and Toxicity monitoring Magnitude of Intervention: Modification of medication for asymtomatic patients (Level 2) documented in this encounter Plan of Treatment Upcoming Encounters Date Type Department Care Team (Late st Contact Info) Description 12/12/2023 11:45 AM EDT Pharmacy Pharmacy Hematology Oncology [facility] [place] [address] [place] [address] [facility] Hem/Onc [address] [place] [address] 02/17/2024 1:00 PM EST Office Visit Endocrinology Rohit B[address] [place] [address] Shaina George MD [address], [place] [phone] 02/21/2024 8:00 AM EST Imaging Radiology [address], [place] [address] [facility] [place] [address] 02/27/2024 1:30 PM EST Office Visit Hematology Oncology [facility] [place] [address] [place] [phone] Rafi Goncalves MD [address] [place], [place] [phone] 04/16/2024 1:00 PM EST Office Visit Family Practice 65 [facility] [address] [place] [address] Otilia Burgos, [address] [place] [address] 05/11/2024 10:00 AM EST Nurse Only Ancillary 65 [facility] 293 [place] [address] College, Nurse Annual Wellness Visit [address] [address] 11/26/2024 12:50 PM EDT Office Visit Dermatology, Jarrod Olguin [address] [address] Vanda Manrique PA-C [address] [address] Scheduled Procedures Name Priority Associated Diagnoses Date/Ti [...] 09/11/2023, Additional history exists Colonoscopy 02/15/2027 02/15/2022, 0 10/2021, 07/06/2015, Additional history exists Pneumococcal Vaccine: [...] Documents on File Type Date Recorded Patient Heel Builder Machine Expl willian POLST 09/26/2021 1:05 PM POLST * Full Code (Latest Code Status on File) Date Activated Date Inactivated Comments 06/28/2011 6:10 PM 06/29/2011 4:46 PM This order r eflects the patients wishes and were consensually agreed upon. Care Teams Antique Furniture Reproducer Relationship Specialty Start Date End Date Otilia Burgos DO [address] [facility] [place] [address] PCP - General Family Medicine 10/14/23 documented as of this encounter
--- OUTSIDE RECORDS SUMMARY | 2024-04-16 04:59 | External Medical Summary | Summary of Care ---
Author Name Unknown Organization [facility] Address [address] [place] [address] Phone [phone] Care Team Providers Care Volleyball Commentator Name Role Phone Otilia Burgos DO Primary Care Provider Encounter Details Date Type Department Care Team (Late st Contact Info) Description 11/29/2023 Orders Only Hematology Oncology [facility] [address] [place] [address] Vera Garcia MD [address] [place] [address] Papillary thyroid carcinoma (HCC)* Allergies Active Allergy Reactions Criticality Noted [...] empty stomach.. 84 Capsule 5 09/19/2023 Active Sbvdpwfz-Oojroflqu-Kv xameth 3.5-71718-1.1 Ophthalmic Ointment (Maxitrol) Instill into the right [...] mRNA, LNP-s, No Pre serve, 2-Dose Series ([employer]) 06/09/2020,05/19/2020 Pneumococcal Conjugate Vacc, 13 Valent (Prevnar) [...] 11:45 AM EDT Pharmacy Pharmacy Hematology Oncology [facility] [place] [address] [place] [address] [facility], [facility] Hem/Onc [address] [place] [address] 02/17/2024 1:00 PM EST Office Visit Endocrinology Rolf Robbins [place] [address] [place] [address] Shaina George MD [address] [place] [address] 02/21/2024 8:00 AM EST Imaging Radiology [facility] [address] [facility] [place] [address] [place] [address] 02/27/2024 1:30 PM EST Office Visit Hematology Oncology [facility] [address] [place] [phone] Rafi Goncalves MD [address] [place] [address] 04/16/2024 1:00 PM EST Office Visit Family Practice 65 [facility] [address] [place] [phone] Otilia Burgos DO 293 [place] [address] 05/11/2024 10:00 AM EST Nurse Only Ancillary 65 [facility] [address] [place] [address] College, Nurse Annual Wellness Visit [facility] [address] [place], [place] [address] 11/26/2024 12:50 PM EDT Office Visit Dermatology, [place] [place]arrod [address] [place] [address] Vanda Manrique PA-C [address] [place] [address] Scheduled Orders Name Type Priority Associated Diagnoses Orde r Schedule COMPREHENSIVE METABOLIC PANEL Lab STAT Papillary thyroid carcinoma (HCC) Expected: 11/29/2023, Expires: 11/28/2024 CBC WITH WBC DIFFERENTIAL Lab STAT Papillary thyroid carcinoma (HCC) Expected: 11/29/2023, Expires: 11/28/2024 Scheduled Procedures Name Priority Associated Diagnoses Date/Ti [...] 05/09/2024 05/10/2023 Albumin/Creatinine Ratio 09/18/2024 09/18/2021 GFR 11/14/2024 11/15/2023, 070 05/2023, 08/16/2023, Additional history exists TSH 11/14/2024 11/15/2023, 0808/2023, 07/15/2023, Additional history exists Colonoscopy 02/15/2027 02/15/2022, 1210/2021, [...] (HCC)- Primary Malignant neoplasm of thyroid gland documented in this encounter Advance Directives Documents on File Type Date Recorded Patient Crayon Sorting Machine Feeder Expl anation POLST 09/26/2021 1:05 PM POLST * Full Code (Latest Code Status on File) Date Activated Date Inactivated Comments 06/28/2011 6:10 PM 06/29/2011 4:46 PM This order r eflects the patients wishes and were consensually agreed upon. Care Teams Volleyball Commentator Relationship Specialty Start Date End Date Otilia Burgos DO 293 [facility] [address] PCP - General Family Medicine 10/14/23 documented as of this encounter
--- OUTSIDE RECORDS SUMMARY | 2024-04-16 04:59 | External Medical Summary | Summary of Care ---
Author Name Unknown Organization [facility] Address [address] [place] [address] Phone [phone] Care Team Providers Care Freight Shipping Agent Name Role Phone Otilia Burgos Primary Care Provider Reason for Visit * Reason Comments Outpatient Testing Encounter Details Date Type Department Care Team (Late st Contact Info) Description 11/29/2023 2:20 PM EDT Laboratory Laboratory, [facility] [address] [place] [phone] [facility] [address] [place] [address] Papillary thyroid carcinoma (HCC) Allergies Active Allergy [...] an empty stomach.. 84 Capsule 09/19/2023 Active Mkhhbcbc-Fjdjvpazr-Dv xameth 3.5-92880-3.1 Ophthalmic Ointment (Maxitrol) Instill into the right [...] mRNA, LNP-s, No Pre serve, 2-Dose Series ([employer]) 06/09/2020,05/19/2020 Pneumococcal Conjugate Vacc, 13 Valent (Prevnar) [...] Pharmacy Hematology Oncology [facility] [place] [address] [place] [address] [facility] [address] [place] [address] 02/17/2024 1:00 PM EST Office Visit Endocrinology Rolf Robbins [place] [address] [place] [address] Shaina George MD [address] [place] [address] 02/21/2024 8:00 AM EST Imaging Radiology [facility] 1st [facility] [place] [address] [place] [address] 02/27/2024 1:30 PM EST Office Visit Hematology Oncology [facility] [address] [place] [phone] Rafi Goncalves MD [address] [place] [address] 04/16/2024 1:00 PM EST Office Visit Family Practice 65 [facility] 293 [place] [phone] Otilia Burgos DO 293 [place] [address] 05/11/2024 10:00 AM EST Nurse Only Ancillary 65 [facility] 293 [facility], [place] [address] College, Nurse Annual Wellness Visit 65 [facility] 293 [facility], [place] [address] 11/26/2024 12:50 PM EDT Office Visit Dermatology, Hoa JonesJarrod [address] [place] [address] Vanda Manrique PA-C [address] [place] [address] Pending Results Name Type Priority Associated Diagnoses Date /Time COMPREHENSIVE METABOLIC PANEL Lab STAT Papillary thyroid carcinoma (HCC) 11/29/2023 2:21 PM EDT Scheduled Procedures Name Priority Associated Diagnoses Date/Ti [...] Albumin/Creatinine Ratio 09/18/2024 09/18/2021 GFR 11/14/2024 11/15/2023, 07/0 05/2023, 08/16/2023, Additional history exists TSH 11/14/2024 11/15/2023, 080 08/2023, 07/15/2023, Additional history exists Colonoscopy 02/15/2027 02/15/2022, 10/2021, [...] Procedure Name Priority Date/Time Associated Diagnosis Comments DIFFERENTIAL, AUTOMATED STAT 11/29/2023 2:21 PM EDT Papillary thyroid carcinoma (HCC) CBC STAT 11/29/2023 2:21 PM EDT Papillary thyroid carcinoma (HCC) CBC STAT 11/29/2023 2:21 PM EDT Papillary thyroid carcinoma (HCC) documented in this encounter Results * (ABNORMAL) DIFFERENTIAL, AUTOMATED (11/29/2023 2:21 PM EDT) WBC 3.44(L) 4.00 - 10.80 K/uL 11/29/2023 2:28 PM EDT [facility] [place] [facility]10 Neutrophils % 60.2 40.0 - 75.0 % 11/29/2023 2:28 PM EDT [facility] [place] [facility]10 Lymphocytes % 27.6 18.0 - 42.0 % 11/29/2023 2:28 PM EDT [facility] [place] [facility]10 Monocytes % 11.0 1.0 - 11.0 % 11/29/2023 2:28 PM EDT [facility] [place] [facility]10 Eosinophils % 0.3 0.0 - 6.0 % 11/29/2023 2:28 PM EDT [facility] [place] [facility]10 Basophils % 0.9 0.0 - 2.0 % 11/29/2023 2:28 PM EDT [facility] [place] [facility]10 Absolute Neutrophils 2.07 1.80 - 7.70 K/uL 11/29/2023 2:28 PM EDT [facility] [place] [facility]10 Absolute Lymphocytes 0.95(L) 1.00 - 4.80 K/ul 11/29/2023 2:28 PM EDT [facility] [place] 57[facility]10 Absolute Monocytes 0.38 0.00 - 1.10 K/uL 11/29/2023 2:28 PM EDT [facility] [place] [facility]10 Absolute Eosinophils 0.01 0.00 - 0.70 K/uL 11/29/2023 2:28 PM EDT [facility] [place] 57[facility]10 Absolute Basophils 0.03 0.00 - 0.20 K/uL 11/29/2023 2:28 PM EDT [facility] [place] 5710 Blood Venous blood specimen / Unknown Venipuncture / Unknown 11/29/2023 2:21 PM EDT 11/29/2023 2:21 PM EDT Vera Garcia MD LAB BLOOD [facility] [address] [address] * (ABNORMAL) CBC (11/29/2023 2:21 PM EDT) WBC 3.44(L) 4.00 - 10.80 K/uL 11/29/2023 2:28 PM EDT [facility] [place] [facility]10 RBC 4.39 3.85 - 5.15 M/uL 11/29/2023 2:28 PM EDT [facility] [place] 57[facility]10 HGB 12.7 12.0 - 15.3 g/dL 11/29/2023 2:28 PM EDT [facility] [place] 57[facility]10 HCT 38.4 36.0 - 45.2 % 11/29/2023 2:28 PM EDT [facility] [place] 57[facility]10 MCV 87.5 81.5 - 97.5 fL 11/29/2023 2:28 PM EDT [facility] [place] 57[facility]10 MCH 28.9 27.0 - 34.0 pg 11/29/2023 2:28 PM EDT [facility] [place] [facility]10 MCHC 33.1 32.0 - 36.0 g/dL 11/29/2023 2:28 PM EDT [facility] [place] [facility]10 RDW 15.0 11.5 - 15.5 % 11/29/2023 2:28 PM EDT [facility] [place] [facility]10 PLT 180 140 - 400 K/uL 11/29/2023 2:28 PM EDT [facility] [place] [facility]10 MPV 8.9 6.6 - 11.1 fL 11/29/2023 2:28 PM EDT [facility] [place] [facility]10 Blood Venous blood specimen / Unknown Venipuncture / Unknown 11/29/2023 2:21 PM EDT 11/29/2023 2:21 PM EDT Vera Garcia MD LAB BLOOD ORDERAB [facility] [place] [address] [place] [address] documented in this encounter Visit Diagnoses Diagnosis Papillary thyroid carcinoma (HCC) Malignant neoplasm of thyroid gland documented in this encounter Advance Directives Documents on File Type Date Recorded Patient Replenishment Specialist Expl anation POLST 09/26/2021 1:05 PM POLST * Full Code (Latest Code Status on File) Date Activated Date Inactivated Comments 06/28/2011 6:10 PM 06/29/2011 4:46 PM This order r eflects the patients wishes and were consensually agreed upon. Care Teams Freight Shipping Agent Relationship Specialty Start Date End Date Otilia Burgos DO [address] [facility] [place] [address] PCP - General Family Medicine 10/14/23 documented as of this encounter
--- OUTSIDE RECORDS SUMMARY | 2024-04-16 04:59 | External Medical Summary | Summary of Care ---
Author Name Unknown Organization [facility] Address [address] [place] [address] Phone [phone] Care Team Providers Care Faa Certified Powerplant Mechanic Name Role Phone Otilia Burgos Primary Care Provider Reason for Visit * Reason Comments Medication Management Encounter Details Date Type Department Care Team (Late st Contact Info) Description 11/22/2023 11:45 AM EDT Pharmacy Pharmacy Hematology Oncology [facility] [address] [place], [place] [phone] [facility], [facility] Hem/Onc [address] [place], [place] [phone] Papillary thyroid carcinoma (HCC)*; Secondary and unspecified [...] empty stomach.. 84 Capsule 5 4 Active Uneqgpjx-Aiatfqvxt-N exameth 3.5-01367-0.1 Ophthalmic Ointment (Maxitrol) Instill into the right [...] this encounter Progress Notes * Rosalia Galan, [facility] - 11/22/2023 4:58 PM EDT MEDICATION THERAPY MANAGEMENT DABRAFENIB + TRAMETINIB TREATMENT PROGRESS NOTE Megan Phillips [phone] Patient Phone Numbers Preferred Lab: [facility] Specialty Pharmacy: [facility] ([place], [place]) Communication: Spoke to: Patient Treatment: Medication: [...] after a meal Start Date: 05/17/23 Primary Pe Teacher/Oncologist: Dr. Goncalves Supportive Care Meds: Ondansetron Prochlorperazine [...] hold last 5 days and go to [facility] to obtain lab work Assessment of compliance: Compliant Assessment of adverse effects attributed to drug therapy: Rash - absent Visual disturbance - absent GI hemorrhage - absent Pyrexia - present, occasional VTE - absent S/sx of cardiac dysfunction - absent Dose adjustment needed based on lab or adverse drug reaction? No Follow up: 12/04 MTM (check for restart after hold); 3 weeks MT Rosalia Galan, PharmD, BCOP Clinical Pharmacist [facility] 11/22/2023, 5:17 PM Monitoring Parameters: Estimated CrCl Serum creatinine: [...] 60% Treatment Parameters See PI Pertinent Labs: n/a Time Spent on Encounter: 26 - 30 minutes Encounter Group: Oncology Encounter Interventions Item [...] 11:45 AM EDT Pharmacy Pharmacy Hematology Oncology [facility] [address] [place] [address] [facility], [facility] Hem/Onc [address] [place] [address] 02/17/2024 1:00 PM EST Office Visit Endocrinology Rohit [address] [place] [phone] Shaina George MD [address] [place] [address] 02/21/2024 8:00 AM EST Imaging Radiology [facility] 1st [facility] [place] [address] [place] [address] 02/27/2024 1:30 PM EST Office Visit Hematology Oncology [facility] [place] [address] [place] [address] Rafi Goncalves MD [address] [place], [place] [address] 04/16/2024 1:00 PM EST Office Visit Family Practice 65 [facility] [address] [place] [address] Otilia Burgos DO [address] [place] [address] 05/11/2024 10:00 AM EST Nurse Only Ancillary 65 [facility] [address] [place] [address] College, Nurse Annual Wellness Visit [address] [address] 11/26/2024 12:50 PM EDT Office Visit Dermatology, Jarrod Olguin [address] [place] [address] Vanda Manrique PA-C [address] [place] [phone] Scheduled Procedures Name Priority Associated Diagnoses Date/Ti [...] 08/16/2023, Additional history exists TSH 11/14/2024 11/15/2023, 08/0 08/2023, 07/15/2023, Additional history exists Colonoscopy 02/15/2027 02/15/2022, 120 [...] Documents on File Type Date Recorded Patient Chart Reader Expl anation POLST 09/26/2021 1:05 PM POLST * Full Code (Latest Code Status on File) Date Activated Date Inactivated Comments 06/28/2011 6:10 PM 06/29/2011 4:46 PM This order r eflects the patients wishes and were consensually agreed upon. Care Teams Faa Certified Powerplant Mechanic Relationship Specialty Start Date End Date Otilia Burgos DO [address] [place] [facility] [place] [address] PCP - General Family Medicine 10/14/23 documented as of this encounter
--- OUTSIDE RECORDS SUMMARY | 2024-04-16 04:59 | External Medical Summary | Summary of Care ---
Author Name Unknown Organization [facility] Address [address] [place] [address] Phone [phone] Care Team Providers Care Syrup Shed Supervisor Name Role Phone Otilia Burgos Primary Care Provider Reason for Visit * Reason Comments Medication Management Encounter Details Date Type Department Care Team (Late st Contact Info) Description 12/12/2023 11:45 AM EDT Pharmacy Pharmacy Hematology Oncology [facility] [address] [place], [place] [phone] [facility], [facility] Hem/Onc [address] [place], [place] [phone] Papillary thyroid carcinoma (HCC)*; Secondary and unspecified ma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, face and neck (HCC) Allergies Active Allergy Reactions Criticality Noted Date Comments Adhesive Tape Other (Please comment) Low 04/16/2013 Skin becomes red and sore Other reaction(s): Rash Lactose Diarrhea 08/12/2015 Latex Low 06/26/2021 Other reaction(s): Rash documented as of this encounter (statuses as of 12/12/2023) Medications Medication Sig Dispensed Refills Start Date [...] an empty stomach.. 84 Capsule 09/19/2023 Active Pazevqyz-Ssgoazsgs-Mc xameth 3.5-40065-2.1 Ophthalmic Ointment (Maxitrol) Instill into the right [...] as of this encounter (statuses as of 12/12/2023) Active Problems Problem Noted Date Diagnosed Date [...] as of this encounter (statuses as of 12/12/2023) Resolved Problems Problem Noted Date Diagnosed Date Resolved Date Kidney disease, chronic, sta ge III (GFR 30-59 ml/min) 09/19/2015 06/04/2016 Overview: Per CKD protocol #1 Other stomatitis and mucositis (ulcerative) 07/27/2012 12/16/2017 Hypothyroidism 06/30/2012 03/23/2015 Throat pain 01/07/2012 05/07/2017 Dyspareunia 03/13/2010 07/05/2016 Joint pain, hip 03/13/2010 03/19/2017 Palpitations 03/13/2010 03/19/2017 documented as of this encounter (statuses as of 12/12/2023) Immunizations Name Administration Dates Next Due COVID-19 [...] encounter Progress Notes * Rhianna Baum, [facility] - 12/12/2023 3:00 PM EDT MEDICATION THERAPY MANAGEMENT DABRAFENIB + TRAMETINIB TREATMENT PROGRESS NOTE Megan Phillips [phone] Patient Phone Numbers Preferred Lab: [facility] Specialty Pharmacy: [facility] ([place], [place]) Communication: Left message requesting return call to assess [...] after a meal Start Date: 05/17/23 Primary Fruit Farmer/Oncologist: Dr. Goncalves Supportive Care Meds: Ondansetron Prochlorperazine [...] on and 1 week off 11/29/23 - TBD: Treatment held due to concerns of infection/fever [...] 2 days unless return call received sooner Assessment of compliance: N/a Assessment of adverse effects attributed to drug therapy: N/a Dose adjustment needed based on lab or adverse drug reaction? N/a Follow up: 12/15MT (check for restart after hold) Rhianna Baum, PharmD Ambulatory Clinical Pharmacist | Oral Chemotherapy Clinic [facility] 12/12/2023 3:05 PM Monitoring Parameters: Estimated CrCl Serum [...] Care Team (Late st Contact Info) Description 12/16/2023 11:45 AM EDT Pharmacy Pharmacy Hematology Oncology [facility] [address] [place] [address] [facility], [facility] Hem/Onc [address] [place] [address] 02/17/2024 1:00 PM EST Office Visit Endocrinology Eugene Bansal [place] [address] [place] [phone] Shaina George MD [address] [place] [address] 02/21/2024 8:00 AM EST Imaging Radiology [address] [place] [address] 02/27/2024 1:30 PM EST Office Visit Hematology Oncology [facility] [address] [place] [phone] Rafi Goncalves MD [address] [place] [address] 04/16/2024 1:00 PM EST Office Visit Family Practice 65 [facility] [place] [address] [place] [phone] Otilia Burgos DO 293 [place] [address] 05/11/2024 10:00 AM EST Nurse Only Family Practice [address] [facility] [place] 293 [place] [phone] Hillary Braga, JANIE 293 [place] [address] 11/26/2024 12:50 PM EDT Office Visit Dermatology, Jarrod Olguin [address] [place] [address] Vanda Manrique PA-C [address] [place] [address] Scheduled Procedures Name Priority Associated [...] Documents on File Type Date Recorded 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 Care Teams Syrup Shed Supervisor Relationship Specialty Start Date End Date Otilia Burgos DO 293 [place] [address] PCP - General Family Medicine 10/14/23 documented as of this encounter"
--- OUTSIDE RECORDS SUMMARY | 2024-04-16 04:59 | External Medical Summary ---
Author Name Unknown Address Unknown Organization [id number]:[facility] [place] [address] - [address] [place] [address] Laboratory Report Ordering Provider Test Date Status GILBERTO POLLARD 11/29/2023 14:21:51 Final Observation Date Value Abnormality Reference (Units ) Status SYNC LEUKOCYTES IN BLOOD BY AUTOMATED COUNT 11/29/2023 14:21:51 3.44 Below low normal 4.00-10.80 (K/uL) Final Segs 11/29/2023 14:21:51 60.2 40.0-75.0 (%) Final Lymphs % 11/29/2023 14:21:51 27.6 18.0-42.0 (%) Final Monos 11/29/2023 14:21:51 11.0 1.0-11.0 (%) Final Eosinophils 11/29/2023 14:21:51 0.3 0.0-6.0 (%) Final Basos 11/29/2023 14:21:51 0.9 0.0-2.0 (%) Final Absolute Segs 11/29/2023 14:21:51 2.07 1.80-7.70 (K/uL) Final Lymphs, absolute 11/29/2023 14:21:51 0.95 Below low normal 1.00-4.80 (K/ul) Final Monos, Abs 11/29/2023 14:21:51 0.38 0.00-1.10 (K/uL) Final Eos, Abs 11/29/2023 14:21:51 0.01 0.00-0.70 (K/uL) Final Basos, Abs 11/29/2023 14:21:51 0.03 0.00-0.20 (K/uL) Final Performing Location [facility] 0 - [address] [place] [address]
--- OUTSIDE RECORDS SUMMARY | 2024-04-16 04:59 | External Medical Summary ---
Author Name Unknown Address Unknown Organization [id number]:[facility] [place] [address] - [address] [place] [id number] Laboratory Report Ordering Provider Test Date Status GILBERTO POLLARD 11/29/2023 14:21:51 Final Observation Date Value Abnormality Reference (Units ) Status WBC, Total 11/29/2023 14:21:51 3.44 Below low normal 4. 00-10.80 (K/uL) Final RBC 11/29/2023 14:21:51 4.39 3.85-5.15 (M/uL) Final Hemoglobin 11/29/2023 14:21:51 12.7 12.0-15.3 (g/dL) Final HCT 11/29/2023 14:21:51 38.4 36.0-45.2 (%) Final MCV 11/29/2023 14:21:51 87.5 81.5-97.5 (fL) Final MCH 11/29/2023 14:21:51 28.9 27.0-34.0 (pg) Final MCHC 11/29/2023 14:21:51 33.1 32.0-36.0 (g/dL) Final RDW 11/29/2023 14:21:51 15.0 11.5-15.5 (%) Final Platelets 11/29/2023 14:21:51 180 140-400 (K /uL) Final MPV 11/29/2023 14:21:51 8.9 6.6-11.1 ( fL) Final Performing Location [facility] [place] [address] 0 - [address] [place] [address]
--- OUTSIDE RECORDS SUMMARY | 2024-04-16 05:00 | External Medical Summary ---
Author Name Unknown Address Unknown Organization [id number]:[facility] - [address] [place] [address] Laboratory Report Ordering Provider Test Date Status BIBI ZHU 11/15/2023 10:12:10 Final Observation Date Value Abnormality Reference (Units ) Status TSH 11/15/2023 10:12:10 0.49 0.27-4.20 (uIU/mL) Final Performing Location LABORATORY C - [address] [place] [address]
--- OUTSIDE RECORDS SUMMARY | 2024-04-16 05:00 | External Medical Summary | Summary of Care ---
Author Name Unknown Organization [facility] Address [address] [place] [address] Phone [phone] Care Team Providers Care Town Clerk Name Role Phone Otilia Burgos Primary Care Provider Reason for Visit * Reason Comments Medication Management Encounter Details Date Type Department Care Team (Late st Contact Info) Description 11/22/2023 11:45 AM EDT Pharmacy Pharmacy Hematology Oncology [facility] [address] [place], [place] [id number] [facility], [facility] Hem/Onc [address] [place], [place] [id number] Papillary thyroid carcinoma (HCC)*; Secondary and unspecified ma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, face and neck (HCC) Allergies Active Allergy Reactions Criticality Noted Date Comments Adhesive Tape Other (Please comment) Low 04/16/2013 Skin becomes red and sore Other reaction(s): Rash Lactose Diarrhea 08/12/2015 Latex Low 06/26/2021 Other reaction(s): Rash documented as of this encounter (statuses as of 11/22/2023) Medications Medication Sig Dispensed Refills Start Date End Date Status FISH OIL 1000 MG PO CAPS 1 daily Active VITAMIN D 2000 UNITS PO CAPS 1 daily Active Aspirin EC 81 MG Oral Tablet Delayed Release Take 1 Tablet by mouth in the morning. 12/07/2019 Active Emergen-C Vitamin C Oral Packet Take by mouth . Active Fluocinonide 0.05 % External CreamIndications:Derm atitis Apply topically to affected area 2 times a day . Apply to ears bilaterally 30 g 1 09/14/2021 Active Ketoconazole 2 % External Cream Apply to right foot as needed 60 g 3 10/02/2022 Active Clobetasol Propionate 0.05 % External Cream (Temovate) Apply topically to affected area 2 times a day. To affected area for up to two weeks. 15 g 1 10/03/2022 Active Clobetasol Propionate 0.05 % External SolutionIndications:S eborrheic dermatitis Apply to rash in scalp immediately after shower. Can apply twice daily 50 mL 5 10/23/2022 Active Mupirocin 2 % External Ointment (Bactroban)Indication s:Internal nasal lesion Apply to lesion on inside of nose three times daily 22 g 3 10/23/2022 Active Additional Information Patient not taking.Reported on 10/15/2023 Ketoconazole 2 % External Shampoo (Nizoral)Indications: Seborrheic [...] empty stomach.. 84 Capsule 5 09/19/2023 Active Npvzwttn-Lhzfznabw-Tl xameth 3.5-89670-1.1 Ophthalmic Ointment (Maxitrol) Instill into the right [...] once weekly 105 Tablet 3 11/15/2023 Active documented as of this encounter (statuses as of 11/22/2023) Active Problems Problem Noted Date Diagnosed Date [...] as of this encounter (statuses as of 11/22/2023) Resolved Problems Problem Noted Date Diagnosed Date Resolved Date Kidney disease, chronic, sta ge III (GFR 30-59 ml/min) 09/19/2015 06/04/2016 Overview: Per CKD protocol #1 Other stomatitis and mucositis (ulcerative) 07/27/2012 12/16/2017 Hypothyroidism 06/30/2012 03/23/2015 Throat pain 01/07/2012 05/07/2017 Dyspareunia 03/13/2010 07/05/2016 Joint pain, hip 03/13/2010 03/19/2017 Palpitations 03/13/2010 03/19/2017 documented as of this encounter (statuses as of 11/22/2023) Immunizations Name Administration Dates Next Due COVID-19 [...] this encounter Progress Notes * Rosalia Galan, [facility] - 11/22/2023 4:58 PM EDT MEDICATION THERAPY MANAGEMENT DABRAFENIB + TRAMETINIB TREATMENT PROGRESS NOTE Megan Jacqueline [phone] Patient Phone Numbers Preferred Lab: [facility] Special[facility] Pharmacy: [facility] ([place], [place]) Communication: Spoke to: Patient Treatment: Medication: [...] after a meal Start Date: 05/17/23 Primary Hay Buckler/Oncologist: Dr. Goncalves Supportive Care Meds: Ondansetron Prochlorperazine [...] concerns prior to follow-up Assessment of compliance: Compliant Assessment of adverse effects attributed to drug therapy: Rash - absent Visual disturbance - absent GI hemorrhage - absent Pyrexia - present, occasional VTE - absent S/sx of cardiac dysfunction - absent Dose adjustment needed based on lab or adverse drug reaction? No Follow up: 3 weeks DARWIN Galan, PharmD, BCOP Clinical Pharmacist [facility] 11/22/2023, 5:17 PM Monitoring Parameters: Estimated CrCl [...] Pertinent Labs: n/a Time Spent on Encounter: 11 - 15 minutes Encounter Group: Oncology Encounter Interventions Item Category: Oral Chemotherapy Dabrafenib/Trametinib Problem/Rationale: Safety: Needs additional monitoring - Medication Requires monitoring Pharmacist Intervention(s): Toxicity monitoring Magnitude of Intervention: Monitoring with direction (Level 1) documented in this encounter Plan of Treatment Upcoming Encounters Date Type Department Care Team (Late st Contact Info) Description 11/26/2023 12:50 PM EDT Office Visit Dermatology, Jarrod Olguin [address] [place] [phone] Vanda Manrique PA-C [address] [place] [address] [address] 12/12/2023 11:45 AM EDT Pharmacy Pharmacy Hematology Oncology [facility], [place] [address] [facility] [place] [address] [facility] Hem/Onc [address] [facility] [place] [address] 02/17/2024 1:00 PM EST Office Visit Endocrinology Rohit Bans[address] Dr [address] [place] [phone] Shaina George MD [address] [place] [address] 02/21/2024 8:00 AM EST Imaging Radiology [address], [place] [address] [place] [address] 02/27/2024 1:30 PM EST Office Visit Hematology Oncology [facility], [place] [address] [place] [phone] Rafi Goncalves MD [address] [place] [address] 04/16/2024 1:00 PM EST Office Visit Family Practice [address] [facility] [address] [place] [address] Otilia Burgos DO [address] [place] [address] 05/11/2024 10:00 AM EST Nurse Only Ancillary 65 [facility] [address] [place] [address] College, Nurse Annual Wellness Visit [address] [address] Scheduled Procedures Name Priority Associated Diagnoses Date/Ti [...] 07/15/2023, Additional history exists Colonoscopy 02/15/2027 02/15/2022, 12/0 [...] Documents on File Type Date Recorded 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 Care Teams Town Clerk Relationship Specialty Start Date End Date Otilia Burgos DO [address] [place] [place] [address] PCP - General Family Medicine 10/14/23 documented as of this encounter
--- OUTSIDE RECORDS SUMMARY | 2024-04-16 05:00 | External Medical Summary ---
Author Name Unknown Address Unknown Organization [facility] [address] [place] [address] Laboratory Report Ordering Provider Test Date Status GILBERTO POLLARD 11/29/2023 14:21:51 Final Observation Date Value Abnormality Reference (Units ) Status BUN 11/29/2023 14:21:51 22 Above high normal 6-20 (mg/dL) Final Creatinine 11/29/2023 14:21:51 1.1 Above high normal 0.5-1.0 (mg/dL) Final Glomerular filtration rate/1.73 sq M.predicted [Volume Rate/Area] in Serum, Plasma or Blood by Creatinine-based formula (CKD-EPI) 11/29/2023 14:21:51 51 Below low normal >=60 (mL/min) Final eGFR is calculated based on the CKD-EPI 2020 equation. Sodium 11/29/2023 14:21:51 134 Below low normal 135 -146 (mmol/L) Final Potassium 11/29/2023 14:21:51 4.3 3.5-5.1 (m mol/L) Final Cl 11/29/2023 14:21:51 99 98-107 (mm ol/L) Final CO2 11/29/2023 14:21:51 24 22-32 (mmo l/L) Final Anion gap 11/29/2023 14:21:51 11 7-15 (mmol /L) Final Glucose 11/29/2023 14:21:51 110 70-120 (mg /dL) Final Albumin 11/29/2023 14:21:51 3.5 Below low normal 3.8 -5.0 (g/dL) Final AST (Aspartate aminotransferase) 11/29/2023 14:21:51 34 10-35 (U/L) Fin al Alk Phos 11/29/2023 14:21:51 109 35-130 (U/ L) Final Bilirubin, Total 11/29/2023 14:21:51 0.3 <=1 .2 (mg/dL) Final Calcium 11/29/2023 14:21:51 8.5 8.4-10.2 ( mg/dL) Final Protein 11/29/2023 14:21:51 6.4 6.0-8.3 (g /dL) Final ALT (Alanine aminotransferase) 11/29/2023 14:21:51 17 10-35 (U/L) Steve sheikh Performing Location [facility] [address] [place] [address]
--- OUTSIDE RECORDS SUMMARY | 2024-04-16 05:00 | External Medical Summary | Summary of Care ---
Author Name Unknown Organization [facility] Address [address] [place] [address] Phone [phone] Care Team Providers Care Money Counter Name Role Phone Otilia Burgos DO Primary Care Provider [phone] Reason for Visit * Reason Comments Skin Check FBSE - No skin cance r history.Concerning spot left lower arm. * Evaluate & Treat - Unlimited Visits (Within 30 days (routine)) - Pending Review Specialty Diagnoses / Procedures Referred By Nina silverman Referred To Contact Dermatology Diagnoses Recurrent thyroid cancer (HCC) Rafi Goncalves MD [address] [place] [address] Referral ID Status Reason Start Date Expiration Date Visits Requested Visits Authorized [id number] Pending Review Specialty Services Required 08/16/[phone] Encounter Details Date Type Department Care Team (Late st Contact Info) Description 11/26/2023 12:50 PM EDT Office Visit Dermatology, Jarrod Olguin [address] [place] [address] Vanda Manrique PA-C [address] [place] [address] [phone] Skin exam, screening for cancer*; Inflamed seborrheic keratosis; Seborrheic keratosis; Multiple nevi; Tinea pedis of both feet Allergies Active Allergy Reactions Criticality Noted Date Comments Adhesive Tape Other (Please comment) Low 04/16/2013 Skin becomes red and sore Other reaction(s): Rash Lactose Diarrhea 08/12/2015 Latex Low 06/26/2021 Other reaction(s): Rash documented as of this encounter (statuses as of 11/26/2023) Medications Medication Sig Dispensed Refills Start Date [...] empty stomach.. 84 Capsule 5 4 Active Xnawbavc-Oegfcdbxc-D exameth 3.5-75208-2.1 Ophthalmic Ointment (Maxitrol) Instill into the right [...] 025 Active Hydrocortisone 2.5 % External CreamIndications:Patrick jass rash Apply topically to affected area 2 [...] as needed 60 mL 1 4 Active Fluocinonide 0.05 % External CreamIndications:Edwin [...] as of this encounter (statuses as of 11/26/2023) Active Problems Problem Noted Date Diagnosed Date [...] as of this encounter (statuses as of 11/26/2023) Resolved Problems Problem Noted Date Diagnosed Date Resolved Date Kidney disease, chronic, sta ge III (GFR 30-59 ml/min) 09/19/2015 06/04/2016 Overview: Per CKD protocol #1 Other stomatitis and mucositis (ulcerative) 07/27/2012 12/16/2017 Hypothyroidism 06/30/2012 03/23/2015 Throat pain 01/07/2012 05/07/2017 Dyspareunia 03/13/2010 07/05/2016 Joint pain, hip 03/13/2010 03/19/2017 Palpitations 03/13/2010 03/19/2017 documented as of this encounter (statuses as of 11/26/2023) Immunizations Name Administration Dates Next Due COVID-19 [...] 10/17/2022 Does the household have a re lar [...] on file documented as of this encounter Patient Instructions * Patient Instructions* Vanda Manrique PA-C - 11/26/2023 1:07 PM EDT Clotrimazole 1% cream twice a day for 8 weeks documented in this encounter Progress Notes * Vanda Manrique PA-C - 11/26/2023 12:52 PM EDT SUBJECTIVE: CC: FBSE - No skin cancer history. Concerning spot left lower arm HPI: Megan Phillips is a 78 year old female seen for full body skin exam. Last visit on 10/[address] Dalton. Spot on L forearm. Present for months. Fluctuates in size. Not symptomatic. 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/L pulmonary nodules) on dabrafenib/trametinib DERMATOLOGIC HISTORY: Reviewed previous office notes and relevant surgical pathology: H/o skin disorders: no H/o skin cancer: no REVIEW OF SYSTEMS: See HPI- all other findings negative Constitutional: (-) fever, chills, sweats, weight loss Cardiovascular: (-) lower extremity edema Skin: (-) no rash or new or changing moles or skin lesions Past Medical History: Diagnosis Date HTN, goal below 140/90 Lung nodules 10/01/2016 Paroxysmal atrial fibrillation (HCC) 08/23/2015 Postoperative hypothyroidism 03/23/2015 Thyroid cancer (HCC) Patient Active Problem List Diagnosis HTN, goal below 140/90 Dyslipidemia, goal LDL below 130 Vitamin D deficiency Papillary thyroid carcinoma (HCC) Postoperative hypothyroidism Paroxysmal atrial fibrillation (HCC) Recurrent thyroid cancer (HCC) Lung nodules Secondary and unspecified ma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, face and neck (HCC) Malignant neoplasm metastatic to lung (HCC) Malignant neoplasm metastatic to both lungs (HCC) Hyponatremia SOCIAL HISTORY: Social History Tobacco Use Smoking status: Never Passive exposure: Past Smokeless tobacco: Never Substance Use Topics Alcohol use: Not Currently Vaping/E-Cigarette Use Vaping/E-Cigarette Use Never User Vaping/E-Cigarette Substances Nicotine No Other No Flavoring No THC No Cannabidiol (CBD) No Vaping/E-Cigarette Devices Disposable No Pre-filled or Refillable Cartridge No Refillable Tank No Pre-filled Pod No MEDICATIONS: Current Outpatient Medications Medication Sig Dispense Refill FISH OIL 1000 MG PO CAPS 1 daily VITAMIN D 2000 UNITS PO CAPS 1 daily Aspirin EC 81 MG Oral Tablet Delayed Release Take 1 Tablet by mouth in the morning. Fluocinonide 0.05 % External Cream Apply topically to affected area 2 times a day . Apply to ears bilaterally 30 g 1 Ketoconazole 2 % External Cream Apply to right foot as needed 60 g 3 Clobetasol Propionate 0.05 % External Cream (Temovate) Apply topically to affected area 2 times a day. To affected area for up to two weeks. 15 g 1 Clobetasol Propionate 0.05 % External Solution Apply to rash in scalp immediately after shower. Canapply twice daily 50 mL 5 Mupirocin 2 % External Ointment (Bactroban) Apply to lesion on inside of nose three times daily 22 g 3 Ketoconazole 2 % External Shampoo (Nizoral) Apply topically to affected area every 3 days. Apply toscalp 120 mL 11 Metoprolol Succinate ER 50 MG Oral Tablet Extended Release 24 Hour (toPROL XL) Take 1 Tablet by mouth in the morning and 1 Tablet before bedtime. 180 Tablet 3 Multivitamin Adult Oral Tablet Take by mouth. Ondansetron HCl 4 MG Oral Tablet (Zofran) Take 1 Tablet by mouth every 8 hours as needed for Nausea. 30 Tablet 2 Prochlorperazine Maleate 10 MG Oral Tablet (Compazine) Take 1 Tablet by mouth every 6 hours as needed for Nausea. 30 Tablet 2 Clotrimazole-Betamethasone 1-0.05 % External Cream (Lotrisone) Apply [...] on an empty stomach.. 84 Capsule 5 Tofdiwac-Kttkuqwfl-Vidqjpak 3.5-61537-5.1 Ophthalmic Ointment (Maxitrol) Instill into the right eye. Chlorhexidine Gluconate 0.12 % Mouth/Throat Solution (Periogard) RINSE WITH 1/2 OUNCE FOR 30 SECONDS TWO TIMES DAILY Sennosides 8.6 MG Oral Tablet (Senokot) Take [...] by mouth once weekly 105 Tablet 3 Emergen-C Vitamin C Oral Packet Take by mouth . (Patient not taking: Reported on 11/26/2023) Doxycycline Hyclate 100 MG Oral Capsule Take 1 Capsule by mouth in the morning and 1 Capsule beforebedtime. (Patient not taking: Reported on 06/21/2023) 14 Capsule 0 methylPREDNISolone 4 MG Oral Tablet Therapy Pack (Medrol Dosepack) follow package directions (Patient not taking: Reported on 06/21/2023) 21 Tablet 0 No current facility-administered medications for this visit. ALLERGIES: Lactose, Adhesive tape, and Latex OBJECTIVE: GEN: Healthy, alert, no distress, appears oriented, pleasant, and cooperative. PSYCH: Appropriate mood and affect, alert SKIN: Detailed exam of scalp, hair, face including lids and lips, ears, neck, chest, back, abdomen,buttocks, bilateral upper extremities and bilateral lower extremities including the nails and digits was completed and are within normal limits with the following exceptions: 1. Inflamed white keratotic papule on L forearm 2. Erythematous serpiginous papules on bilateral feet 3. Scattered at the trunk and bilateral upper and lower extremities are multiple evenly pigmented brown macules and papules without significant irregularity ASSESSMENT/PLAN: Inflamed/irritated seborrheic keratosis. -Due to chronic irritation recommended cryotherapy. Patient agreeable. Cryotherapy was recommended for treatment today which patient was agreeable to. The risks, benefits, indications, alternatives, and complications were discussed, and informed consent was obtained. Specifically, the risks of permanent scar, loss or darkening of skin color, blister and recurrence of l esion were discussed. A total of 1 lesion(s) were treated with cryotherapy. The patient tolerated the procedure well without complications. Wound care instructions were given. 2. Tinea pedis JAY JAY + Clotrimazole 1% cream BID x 8 weeks 3. Multiple benign-appearing nevi - No features concerning for malignancy on exam today. - Continue to monitor with monthly self-skin exams. - Patient counseled on ABCDEs of melanoma. - Discussed and emphasized importance of sun protection including broadband, water-resistant, SPF 30 or greater sunscreen with reapplication q2h or after swimming/excessive perspiration and sun protective attire (wide-brimmed hats, long pants/shirt, sunglasses). - Patient to contact physician for any new or changing lesions or other concerns. Patient alone today. Follow-up: 1 year Photos taken 15-, patient consented to photos. Patient Phone Numbers Applicable photos (if any) and chart reviewed by Dr. Michael Sethi The patient was encouraged to contact me with any further questions or concerns. Vanda Manrique PA-C 11/26/2023 12:52 PM * Fox Sethi MD - 11/26/2023 12:50 PM EDT I have reviewed the relevant notes and photographs taken by PIYUSH Moss. I have reviewed and agree with the assessment and plan. Fox Sethi MD documented in this encounter Nursing Notes * Hillary Krueger LPN - 11/26/2023 12:41 PM EDT Chief Complaint Patient presents with Skin Check FBSE - No skin cancer history. Concerning spot left lower arm. Last visit - 10/23/2022 Dr. Dalton documented in this encounter Plan of Treatment Upcoming Encounters Date Type Department Care Team (Late st Contact Info) Description 12/12/2023 11:45 AM EDT Pharmacy Pharmacy Hematology Oncology [facility], [place] [address] [place] [address] [facility] Hem/Onc [address] [place] [address] 02/17/2024 1:00 PM EST Office Visit Endocrinology Rolf Robbins [place] [address] [place] [address] Shaina George MD [address] [place], [place] [id number] 02/21/2024 8:00 AM EST Imaging Radiology [facility] [address] [place] [address] 02/27/2024 1:30 PM EST Office Visit Hematology Oncology [facility] [address] [place] [phone] Rafi Goncalves MD [address] [place] [address] 04/16/2024 1:00 PM EST Office Visit Family Practice 65 [facility] [address] [place] [phone] Otilia Burgos DO [address] [place] [address] 05/11/2024 10:00 AM EST Nurse Only Ancillary 65 [facility] [address] [place] [address] College, Nurse Annual Wellness Visit 65 [facility] [address] [facility], [place] [address] 11/26/2024 12:50 PM EDT Office Visit Dermatology, Hoa JonesJarrod [address] [place] [address] Vanda Manrique PA-C [address] [place] [address] Scheduled Procedures Name Priority Associated Diagnoses Date/Ti [...] Procedure Name Priority Date/Time Associated Diagnosis Comments DERM EXAM - DERM (IMAGES ONLY, NO REPORT) Routine 11/26/2023 1:14 PM EDT Skin exam, screening for cancer Inflamed seborrheic keratosis Seborrheic keratosis Multiple nevi Tinea pedis of both feet POTASSIUM HYDROXIDE SMEAR, POINT OF CARE (ENTER/EDIT) Routine 11/26/2023 Tinea pedis of both feet documented in this encounter Results * DERM EXAM - DERM (IMAGES ONLY, NO REPORT) (11/26/2023 1:14 PM EDT) Narrative Scheduling, Silent - 11/26/2023 1:14 PM EDT This is an imaging study not interpreted or resulted by a [facility] or [employer] contracted radiologist. Vanda Manrique PA-C RADIOLO GY (RAD GENERAL) * (ABNORMAL) POTASSIUM HYDROXIDE SMEAR, POINT OF CARE (ENTER/EDIT) (11/26/2023) Yeast and/or Hyphae Positive Negative Scabies Mites and/or Eggs Comments 11/26/2023 Vanda Manrique PA-C LAB POI NT OF CARE TEST ENTER/EDIT ORDERABLES documented in this encounter Visit Diagnoses Diagnosis Skin exam, screening for cancer- Primary Screening for malignant neoplasm of the skin Inflamed seborrheic keratosis Seborrheic keratosis Other seborrheic keratosis Multiple nevi Benign neoplasm of skin, site unspecified Tinea pedis of both feet documented in this encounter Advance Directives Documents on File Type Date Recorded Patient Extrusion Bender Expl anation POLST 09/26/2021 1:05 PM POLST * Full Code (Latest Code Status on File) Date Activated Date Inactivated Comments 06/28/2011 6:10 PM 06/29/2011 4:46 PM This order r eflects the patients wishes and were consensually agreed upon. Care Teams Money Counter Relationship Specialty Start Date End Date Otilia Burgos DO [address] [facility] [place] [facility] [address] PCP - General Family Medicine 10/14/23 documented as of this encounter
--- OUTSIDE RECORDS SUMMARY | 2024-04-16 05:00 | External Medical Summary | Summary of Care ---
Author Name Unknown Organization [facility] Address [address] [place] [address] Phone [phone] Care Team Providers Care Documentation Clerk Name Role Phone Otilia Burgos Primary Care Provider [phone] Encounter Details Date Type Department Care Team (Latest Contact Info) Description 11/26/2023 1:14 PM EDT - 11/26/2023 11:59 PM EDT Hospital Encounter Radiology Film File [address] [place] [address] Arrived Discharge Disposition: Home - Self Care Allergies Active Allergy Reactions Criticality Noted Date Comments Adhesive Tape Other (Please comment) Low 04/16/2013 Skin becomes red and sore Other reaction(s): Rash Lactose Diarrhea 08/12/2015 Latex Low 06/26/2021 Other reaction(s): Rash documented as of this encounter (statuses as of 11/27/2023) Medications Medication Sig Dispensed Refills Start Date [...] empty stomach.. 84 Capsule 5 09/19/2023 Active Wclkpolj-Ductvxvfq-Jb xameth 3.5-58178-3.1 Ophthalmic Ointment (Maxitrol) Instill into the right [...] as of this encounter (statuses as of 11/27/2023) Active Problems Problem Noted Date Diagnosed Date [...] as of this encounter (statuses as of 11/27/2023) Resolved Problems Problem Noted Date Diagnosed Date Resolved Date Kidney disease, chronic, sta ge III (GFR 30-59 ml/min) 09/19/2015 06/04/2016 Overview: Per CKD protocol #1 Other stomatitis and mucositis (ulcerative) 07/27/2012 12/16/2017 Hypothyroidism 06/30/2012 03/23/2015 Throat pain 01/07/2012 05/07/2017 Dyspareunia 03/13/2010 07/05/2016 Joint pain, hip 03/13/2010 03/19/2017 Palpitations 03/13/2010 03/19/2017 documented as of this encounter (statuses as of 11/27/2023) Immunizations Name Administration Dates Next Due COVID-19 [...] 11:45 AM EDT Pharmacy Pharmacy Hematology Oncology [facility] [address] [place] [address] [facility] Hem/Onc [address] [place] [address] 02/17/2024 1:00 PM EST Office Visit Endocrinology [facility] Robbins [place] [address] [place] [phone] Shaina George MD [address] [place] [address] 02/21/2024 8:00 AM EST Imaging Radiology [facility] 1st [facility] [place] [address] [place] [address] 02/27/2024 1:30 PM EST Office Visit Hematology Oncology [facility] [address] [place] [phone] Rafi Goncalves MD [address] [place] [address] 04/16/2024 1:00 PM EST Office Visit Family Practice 65 [facility] [address] [place] [address] Otilia Burgos DO [address] [place] [address] 05/11/2024 10:00 AM EST Nurse Only Ancillary 65 [facility] 293 [place] [address] College, Nurse Annual Wellness Visit 65 [facility] [address] 11/26/2024 12:50 PM EDT Office Visit Dermatology, [facility] [address] [place] [address] Vanda Manrique PA-C [address] [place] [address] Scheduled Procedures Name Priority Associated Diagnoses Date/Ti [...] Multiple nevi Tinea pedis of both feet documented in this encounter Results * DERM EXAM - DERM (IMAGES ONLY, NO REPORT) (11/26/2023 1:14 PM EDT) Narrative Scheduling, Silent - 11/26/2023 1:14 PM EDT This is an imaging study not interpreted or resulted by a [facility] or [facility] contracted radiologist. Vanda Manrique PA-C RADIOLO GY ([facility]) documented in this encounter Advance Directives Documents on File Type Date Recorded Patient Model Maker Fiberglass Expl anation POLST 09/26/2021 1:05 PM POLST * Full Code (Latest Code Status on File) Date Activated Date Inactivated Comments 06/28/2011 6:10 PM 06/29/2011 4:46 PM This order r eflects the patients wishes and were consensually agreed upon. Care Teams Documentation Clerk Relationship Specialty Start Date End Date Otilia Burgos DO [address] [place] [address] PCP - General Family Medicine 10/14/23 documented as of this encounter
--- OUTSIDE RECORDS SUMMARY | 2024-04-16 05:00 | External Medical Summary | Summary of Care ---
Author Name Unknown Organization [facility] Address [address] [place] [address] Phone [phone] Care Team Providers Care Mechanical Maintenance Supervisor Name Role Phone Otilia Burgos Primary Care Provider Reason for Referral * Precert (Within 10 days (routine)) - Pending Review Specialty Diagnoses / Procedures Referred By Nina silverman Referred To Contact Radiology Diagnoses Papillary thyroid carcinoma (HCC) Procedures CT CHEST/ABDOMEN/PELVIS WITH IV CONTRAST WITH ORAL CONTRAST Rafi Goncalves MD [address] [place] [address] Referral ID Status Reason Start Date Expiration Date V isits Requested Visits Authorized [id number] Pending Review 02/14/2024 999 [id number] Reason for Visit * Reason Comments Follow Up Encounter Details Date Type Department Care Team (Late st Contact Info) Description 11/15/2023 11:00 AM EDT Office Visit Hematology Oncology [facility] [address] [place] [address] Rafi Goncalves MD [address] [place] [address] Papillary thyroid carcinoma (HCC)*; Drug rash Allergies Active Allergy Reactions Criticality Noted Date Comments Adhesive Tape Other (Please comment) Low 04/16/2013 Skin becomes red and sore Other reaction(s): Rash Lactose Diarrhea 08/12/2015 Latex Low 06/26/2021 Other reaction(s): Rash documented as of this encounter (statuses as of 11/28/2023) Medications Medication Sig Dispensed Refills Start Date [...] empty stomach.. 84 Capsule 5 4 Active Pxvyvmbq-Epbvddidp-A exameth 3.5-73755-5.1 Ophthalmic Ointment (Maxitrol) Instill into the right [...] a day. 30 g 1 4 Active Fluocinonide 0.05 % External [...] daily 50 mL 5 3 024 Discontinued Synthroid 125 MCG Oral TabletIndications:Po stoperative hypothyroidism TAKE ONE TABLET BY MOUTH SIX DAYS A WEEK AND ONE AND ONE-HALF TABLET ONE DAY A WEEK 100 Tablet 3 4 024 Discontinued documented as of this encounter (statuses as of 11/28/2023) Active Problems Problem Noted Date Diagnosed Date [...] as of this encounter (statuses as of 11/28/2023) Resolved Problems Problem Noted Date Diagnosed Date Resolved Date Kidney disease, chronic, sta ge III (GFR 30-59 ml/min) 09/19/2015 06/04/2016 Overview: Per CKD protocol #1 Other stomatitis and mucositis (ulcerative) 07/27/2012 12/16/2017 Hypothyroidism 06/30/2012 03/23/2015 Throat pain 01/07/2012 05/07/2017 Dyspareunia 03/13/2010 07/05/2016 Joint pain, hip 03/13/2010 03/19/2017 Palpitations 03/13/2010 03/19/2017 documented as of this encounter (statuses as of 11/28/2023) Immunizations Name Administration Dates Next Due COVID-19 mRNA, LNP-s, No Pre serve, 2-Dose Series ([employer]) 06/09/2020,05/19/2020 Pneumococcal Conjugate Vacc, 13 Valent (Prevnar) [...] No 10/17/2022 Does the household have a [facility] source of income? (Household - for [...] Sign Reading Time Taken Comments Blood Pressure 124/78 11/15/2023 10:36 AM EDT Pulse 58 11/15/2023 10:36 AM EDT Temperature 36.8 C (98.3 F) 11/15/2023 10:36 AM E DT Respiratory Rate 16 11/15/2023 10:36 AM EDT Oxygen Saturation 99% 11/15/2023 10:36 AM EDT RA Inhaled Oxygen Concentration - - Weight 79.2 kg (174 lb 8 oz) 11/15/2023 10:36 AM EDT Height 167 cm (5' 5.75") 11/15/2023 10:36 AM EDT Body Mass Index 28.38 11/15/2023 10:36 AM EDT documented in this encounter Progress Notes * Rafi Goncalves MD - 11/15/2023 10:06 AM EDT MED ONC NOTE Reason for evaluation: f/u with ct imaging DIAGNOSIS: thyroid cancer STAGE: T2N0M0 in 2011 with recurrent disease (bilateral pulmonary nodules) ECOG Performance Status: (1) Restricted in physically strenuous activity, ambulatory and able to dowork of light nature Treatment Summary DIAGNOSIS: papillary thyroid cancer STAGE: pT2pN2 in 2011, recurrent Echo April 2023 Interpretation Summary The [...] BRAF gene mutation (c.1799T>A) resulting in p.V600E ([id number]) 04/20/2016 Discussion Endocrine consult at [facility]. Dr. Rodriguez, documentation included: 1) I recommend [...] for TTF1 and PAX8, while negative for synaptophysin.Given the patient's known history of metastatic papillary thyroid carcinoma ([id number]), the findings are compatible with involvement. Clinical and radiological correlation is suggested. Immunotherapy Markers Tumor Mutational [place] (TMB): TMB Unit [place] 1.89 m/MB Low Microsatellite Instability Status (MSI): [...] Change Consequence Allele Frequency Sequencing Depth KIRSTY [id number] Tier 3: Unknown clinical significance 04/25/2023 - 04/25/2023 Chemotherapy DABRAFENIB (TAFINLAR) & TRAMETINIB (MEKINIST) [id number] 04/30/2023 - Chemotherapy DABRAFENIB (TAFINLAR) & TRAMETINIB (MEKINIST) [id number] 05/30/2023 - Supportive Therapy SCP - HYDRATION [id number] Plan Provider: VASQUEZ Zavala Treatment goal: Supportive Line of treatment: [No plan line of treatment] Recurrent thyroid cancer (HCC) 02/08/2016 Initial Diagnosis Recurrent thyroid cancer (HCC) 04/25/2023 - 04/25/2023 Chemotherapy DABRAFENIB (TAFINLAR) & TRAMETINIB (MEKINIST) [id number] 04/30/2023 - Chemotherapy DABRAFENIB (TAFINLAR) & TRAMETINIB (MEKINIST) [id number] Secondary and unspecified ma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, face and neck (HCC) 11/05/2017 Initial Diagnosis Secondary and unspecified ma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, face and neck (HCC) 04/30/2023 - Chemotherapy DABRAFENIB (TAFINLAR) & TRAMETINIB (MEKINIST) [id number] Malignant neoplasm metastatic to lung (HCC) 04/11/2021 Initial Diagnosis Malignant neoplasm metastatic to lung (HCC) 04/25/2023 - 04/25/2023 Chemotherapy DABRAFENIB (TAFINLAR) & TRAMETINIB (MEKINIST) [id number] 04/30/2023 - Chemotherapy DABRAFENIB (TAFINLAR) & TRAMETINIB (MEKINIST) [id number] CURRENT THERAPY: dabrafenib/trametinib start 05/17/23 -on hold due to 05/28 -resumed 07/04/23 Treatment Dose Adjustment/Hold History: 07/04/23 - DR dabrafenib to 100 mg BID and trametinib to 1.5 mg daily due to fever and side effects (weakness, low appetite, hypotension, constipation) ------- IMPRESSION Megan Phillips is a 78 year oldwoman with recurrent papillary thyroid cancer with bilateral pulmonary nodules presenting for f/u with repeat ct imaging. 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 She returns today with scans. Overall, the pulmonary disese is stable, effusion is decreased. The radilogist reports bone fchanges though she has no clinical symptoms to correlate. Options: -change treatment -continue therapy -continue thetrapy and consider rt -treatment break After discussion, she will conitnue with current hterapy/schedule. We will defer on RT as she is not clearly symptomatic, she iwll have repeat imaging in 3 months. She will consider using naproxen ortylenol the third week of her treatment cycle PLAN -continue treatment -restaging in 3 months -naproxen 220mg every 12 hours with food can be considered in the third week of treatment - she prefers to use tylenol and will -f/u as scheduled/planned -mtm f/u ------- Subjective INTERVAL HISTORY: - overall chest symptoms have been better - she had been anticipating good news from the scan and was disappointd re: bone fcomments - she doesn't think she has been having pain but now that she is aware of the concern she wonders, at times, if she has symptoms with deep breathing - she was, of course, having significant symptoms when we started - in terms of treatmetn, biggest problem sh eis having is skin, she had bee having more diffuse symptoms with plaques up and down her arms, with swtch in schedule it has improved but she does have persistence in some areas inside her elbows - she does get fevers in the third week of treatment, responds to tylenol PMH/SH Past Medical History: Diagnosis Date HTN, goal below 140/90 Lung nodules 10/01/2016 Paroxysmal atrial fibrillation (HCC) 08/23/2015 Postoperative hypothyroidism 03/23/2015 Thyroid cancer (HCC) Past Surgical History: Procedure Laterality Date COLONOSCOPY 03/11/2005 COLONOSCOPY, DIAGNOSTIC (RECTUM) 06/27/2010 wnl COLONOSCOPY, DIAGNOSTIC (RECTUM) 07/06/2015 adenomatous polyp, repeat 5 yrs/COLONOSCOPY FLEXIBLE PROXIMAL DIAGNOSTIC performed by Darryl Navarro MD at ENDOSCOPY [facility] COLONOSCOPY, DIAGNOSTIC (RECTUM) 02/15/2022 sigmoid diverticulosis/recall 5 years/COLONOSCOPY FLEXIBLE PROXIMAL DIAGNOSTIC performed by Gela Landin MD at ENDOSCOPY [facility] DENTAL INLAY METALIC 1 SURF HYSTEROSCOPY W/BIOPSY AND/OR POLYPECTOMY W/WO D&C Bilateral 09/20/2022 HYSTEROSCOPY WITH BIOPSY AND/OR POLYPECTOMY WITH OR WITHOUT D&C performed by Judith Sotomayor MD at OR [facility] INFORMATION EYELID SURGERY KNEE MENISCAL TRANSP,SURG ARTHROS r knee LIGATE,DIV,EXCIS ALIRIO VEIN CLUS l knee MAMMOGRAM SCREENING BILATERAL 01/10/2008 nl REMOVAL OF NECK LYMPH NODES Left 02/07/2016 CERVICAL LYMPHADENECTOMY MODIFIED RADICAL NECK DISSECTION performed by Ricardo Barriga MD at [facility] REMOVAL OF THYROID FOR TUMOR 06/28/2011 THYROIDECTOMY WITH LIMITED NECK DISSECTION performed by RICARDO BARRIGA [place] [facility] REMOVAL OF TONSILS, UNDER AGE 12 REMOVE [...] C Oral Packet Take by mouth . Fluocinonide 0.05 % External Cream Apply topically [...] on inside of nose three times daily (Patient not taking: Reported on 10/15/2023) 22 g 3 Ketoconazole 2 % External [...] as needed for Nausea. 30 Tablet 2 Doxycycline Hyclate 100 MG [...] on an empty stomach.. 84 Capsule 5 Synthroid 125 MCG Oral Tablet TAKE ONE TABLET BY MOUTH SIX DAYS A WEEK AND ONE AND ONE-HALF TABLET ONE DAY A WEEK 100 Tablet 3 Yaqavfvb-Wtvlvaxtb-Qbbopopj 3.5-19381-5.1 Ophthalmic Ointment (Maxitrol) Instill into the right [...] BY MOUTH EVERY MORNING 100 Tablet 3 No current facility-administered medications for this visit. ROS: GEN: fevers third week HEENT: no double vision/blurred vision/dysphagia CV: no chest pains/palpitations/orthopnea/pnd PULM: no hemoptysis/dyspnea; cough at times; breathing is clear GI: no nausea/vomiting/diarrhea/constipation/bright red blood per rectum : no hematuria/dysuria MSK:chest as above Pain assessment: Patient had NO pain NEURO: no focal weakness/peripheral neuropathy SKIN: no rash HEME: no night sweats/lymphadenopathy/easy bruising/excess bleeding as noted above, all others negative Objective GEN: well developed/well nourished in no acute distress BP 124/78 | Pulse 58 | Temp 36.8 C (98.3 F) (Tympanic) | Resp 16 | Ht 1.67 m (5' 5.75") | Wt 79.2 kg (174 lb 8 oz) | SpO2 99% Comment: RA | BMI 28.38 kg/m | BSA 1.92 m HEENT: PERRL, EOMI, sclera anicteric, moist [...] orders placed or performed in visit on 11/15/23 CBC Result Value Ref Range WBC 4.47 4.00 - 10.80 K/uL RBC 4.39 3.85 - 5.15 M/uL HGB 12.7 12.0 - 15.3 g/dL HCT 39.5 36.0 - 45.2 % MCV 90.0 81.5 - 97.5 fL MCH 28.9 27.0 - 34.0 pg MCHC 32.2 32.0 - 36.0 g/dL RDW 15.0 11.5 - 15.5 % PLT 199 140 - 400 K/uL MPV 9.0 6.6 - 11.1 fL nRBCs 0 <=0 /100 WBCs DIFFERENTIAL, AUTOMATED Result Value Ref Range WBC 4.47 4.00 - 10.80 K/uL Neutrophils % 62.4 40.0 - 75.0 % Lymphocytes % 28.4 18.0 - 42.0 % Monocytes % 5.6 1.0 - 11.0 % Eosinophils % 2.7 0.0 - 6.0 % Basophils % 0.9 0.0 - 2.0 % Immature Granulocytes % 0.0 0.0 - 2.0 % Absolute Neutrophils 2.79 1.80 - 7.70 K/uL Absolute Lymphocytes 1.27 1.00 - 4.80 K/ul Absolute Monocytes 0.25 0.00 - 1.10 K/uL Absolute Eosinophils 0.12 0.00 - 0.70 K/uL Absolute Basophils 0.04 0.00 - 0.20 K/uL Absolute Immature Granulocytes 0.00 0.00 - 0.20 K/uL *Note: Due to a large number of results and/or encounters for the requested time period, some results have not been displayed. A complete set of results can be found in Results Review. RAD REVIEW I personally reviewed the patient's images today and note: bone changes raising radiologist concernfor progression but stable measurable diseawse oetherwise CT CHEST/ABDOMEN/PELVIS WITH IV CONTRAST WITH ORAL [...] and agree with the resident/fellow physician's interpretation. XR CHEST 2 VIEWS Result Date: 08/28/2023 IMPRESSION Small right pleural effusion, decreased. Bilateral pulmonary nodules compatible with metastatic process. CT CHEST/ABDOMEN/PELVIS WITH IV CONTRAST WITH ORAL CONTRAST Result Date: 08/04/2023 IMPRESSION 1. Decreasing size of subcarinal and right hilar lymph nodes. 2. No significant change in the multiple pulmonary metastasis. 3. Stable mild to moderate right pleural effusion. 4. Similar pleural metastasis causing destruction of the adjacent right 4th and 5th anterior ribs. US HEAD AND NECK Result Date: 07/16/2023 IMPRESSION No significant abnormalities within the neck status post thyroidectomy. US ABDOMEN LIMITED Result Date: 06/07/2023 IMPRESSION 1. Mild hepatic steatosis. Hepatic cysts. 2. Cholecystectomy. XR CHEST 2 VIEWS Result Date: 05/30/2023 IMPRESSION Stable moderate sized right pleural effusion. Multiple metastatic pulmonary nodules are again seen bilaterally. . PLEASE SEE ABOVE FOR MY IMPRESSION/PLAN of today's visit I spent more than 35 minutes in face to face consultation, review of chart/imaging, coordination ofcare, and documentation. Rafi Goncalves MD Hematology Oncology [address] [address] documented in this encounter Nursing Notes * Darrian Elliott MED ASSIST - 11/15/2023 10:44 AM EDT Patient was instructed to not get up on the exam table/exam chair until directed and assisted by their provider; patient is to remain seated in the chair/ wheelchair/ exam table/ exam chair for fall prevention and safety reasons. Patient is aware to have assistance to step down off exam table/exam chair with personnel. Patient voiced full comprehension of instructions. Room 5 documented in this encounter Plan of Treatment Upcoming Encounters Date Type Department Care Team (Late st Contact Info) Description 12/12/2023 11:45 AM EDT Pharmacy Pharmacy Hematology Oncology [address] [address] [facility] [place] [address] 02/17/2024 1:00 PM EST Office Visit Endocrinology [address] Rob[address] [place] [address] [place] [address] Shaina George MD [facility] [place] [address] 02/21/2024 8:00 AM EST Imaging Radiology [facility] 1st [facility] [place] [address] [facility] [place] [address] 02/27/2024 1:30 PM EST Office Visit Hematology Oncology [facility] [address] [place] [address] Rafi Goncalves MD [address] [place], [place] [phone] 04/16/2024 1:00 PM EST Office Visit Family Practice 65 [facility] [address] [place] [phone] Otilia Burgos, [address] [place] [address] 05/11/2024 10:00 AM EST Nurse Only Ancillary 65 [facility] [address] [place] [address] College, Nurse Annual Wellness Visit [address] [address] 11/26/2024 12:50 PM EDT Office Visit Dermatology, Jarrod Olguin [address] [place] [address] Vanda Manrique PA-C [address] [place] [address] Scheduled Orders Name Type Priority Associated Diagnoses Orde r Schedule CT CHEST/ABDOMEN/PELVIS WITH IV CONTRAST WITH ORAL CONTRAST Medical Imaging Routine Papillary thyroid carcinoma (HCC) Expected: 02/14/2024, Expires: 12/14/2024 Scheduled Procedures Name Priority Associated Diagnoses Date/Ti [...] (HCC)- Primary Malignant neoplasm of thyroid gland Drug rash Dermatitis due to drugs and medicines taken internally documented in this encounter Advance Directives Documents on File Type Date Recorded Patient Combination Welder Expl anation POLST 09/26/2021 1:05 PM POLST * Full Code (Latest Code Status on File) Date Activated Date Inactivated Comments 06/28/2011 6:10 PM 06/29/2011 4:46 PM This order r eflects the patients wishes and were consensually agreed upon. Care Teams Mechanical Maintenance Supervisor Relationship Specialty Start Date End Date Otilia Burgos DO [address] [facility] [place] [address] PCP - General Family Medicine 10/14/23 documented as of this encounter
--- OUTSIDE RECORDS SUMMARY | 2024-04-16 05:00 | External Medical Summary | Summary of Care ---
Author Name Unknown Organization [facility] Address [address] [place] [address] Phone [phone] Care Team Providers Care Casting Machine Set Up Operator Name Role Phone Otilia Burgos DO Primary Care Provider Reason for Visit * Reason Comments Skin Check FBSE - No skin cance r history.Concerning spot left lower arm. * Evaluate & Treat - Unlimited Visits (Within 30 days (routine)) - Pending Review Specialty Diagnoses / Procedures Referred By Nina silverman Referred To Contact Dermatology Diagnoses Recurrent thyroid cancer (HCC) Rafi Goncalves MD [address] [place] [address] Referral ID Status Reason Start Date Expiration Date Visits Requested Visits Authorized [id number] Pending Review Specialty Services Required 08/16/[phone] Encounter Details Date Type Department Care Team (Late st Contact Info) Description 11/26/2023 12:50 PM EDT Office Visit Dermatology, Jarrod Olguin [address] [place] [address] Vanda Manrique PA-C [address] [phone] Skin exam, screening for cancer*; Inflamed seborrheic [...] empty stomach.. 84 Capsule 5 4 Active Vplbcccn-Zmvpcmjzh-X exameth 3.5-12658-0.1 Ophthalmic Ointment (Maxitrol) Instill into the right [...] on an empty stomach.. 84 Capsule 5 Qkcassjf-Kschjaoft-Juorrbys 3.5-26238-5.1 Ophthalmic Ointment (Maxitrol) Instill into the right [...] alone today. Follow-up: 1 year Photos taken -, patient consented to photos. Patient Phone Numbers Applicable photos (if any) and chart reviewed by Dr. Michael Sethi The patient was encouraged to contact me with any further questions or concerns. Vanda Manrique PA-C 11/26/2023 12:52 PM documented in this encounter Nursing Notes * [...] 11:45 AM EDT Pharmacy Pharmacy Hematology Oncology [facility] [place] [place] [address] [place] [address] [facility], [facility] Hem[facility]Onc [address] [place] [address] 02/17/2024 1:00 PM EST Office Visit Endocrinology Eugene Bansal [place] [address] [place] [phone] Shaina George MD [address] [place] [address] 02/21/2024 8:00 AM EST Imaging Radiology [address], [place] 132 [facility] [place] [address] 02/27/2024 1:30 PM EST Office Visit Hematology Oncology [facility] [place] [place] [address] [place] [phone] Rafi Goncalves MD [address] [place] [address] 04/16/2024 1:00 PM EST Office Visit Family Practice 65 [facility] [address] [place] [address] Otilia Burgos DO [address] [place] [address] 05/11/2024 10:00 AM EST Nurse Only Ancillary 65 [facility] [address] [place] [address] College, Nurse Annual Wellness Visit 65 [facility] [address] [place] [address] 11/26/2024 12:50 PM EDT Office Visit Dermatology, [...] interpreted or resulted by a [facility] or [facility] contracted radiologist. Vanda Manrique PA-C RADIOLO GY [...] Documents on File Type Date Recorded Patient Movement Assembly Final Inspector Expl anation POLST 09/26/2021 1:05 PM POLST * Full Code (Latest Code Status on File) Date Activated Date Inactivated Comments 06/28/2011 6:10 PM 06/29/2011 4:46 PM This order r eflects the patients wishes and were consensually agreed upon. Care Teams Casting Machine Set Up Operator Relationship Specialty Start Date End Date Otilia Burgos DO [address] [facility] [place] [address] PCP - General Family Medicine 10/14/23 documented as of this encounter
--- OUTSIDE RECORDS SUMMARY | 2024-04-16 05:01 | External Medical Summary ---
Author Name Unknown Address Unknown Organization [id number]:[facility] - [address] [place] [id number] Laboratory Report Ordering Provider Test Date Status VIC MORRISKARY 11/15/2023 10:12:10 Final Observation Date Value Abnormality Reference (Units ) Status SYNC LEUKOCYTES IN BLOOD BY AUTOMATED COUNT 11/15/2023 10:12:10 4.47 4.00-10.80 (K/uL) Final Segs 11/15/2023 10:12:10 62.4 40.0-75.0 (%) Final Lymphs % 11/15/2023 10:12:10 28.4 18.0-42.0 (%) Final Monos 11/15/2023 10:12:10 5.6 1.0-11.0 (%) Final Eosinophils 11/15/2023 10:12:10 2.7 0.0-6.0 (%) Final Basos 11/15/2023 10:12:10 0.9 0.0-2.0 (%) Final Immature Granulocyte, Percent 11/15/2023 10:12:10 0.0 0.0-2.0 (%) Final Absolute Segs 11/15/2023 10:12:10 2.79 1.80-7.70 (K/uL) Final Lymphs, absolute 11/15/2023 10:12:10 1.27 1.00-4.80 (K/ul) Final Monos, Abs 11/15/2023 10:12:10 0.25 0.00-1.10 (K/uL) Final Eos, Abs 11/15/2023 10:12:10 0.12 0.00-0.70 (K/uL) Final Basos, Abs 11/15/2023 10:12:10 0.04 0.00-0.20 (K/uL) Final Immature Granulocytes, Number 11/15/2023 10:12:10 0.00 0.00-0.20 (K/uL) Final Performing Location [facility] - [address] [place] [id number]
--- OUTSIDE RECORDS SUMMARY | 2024-04-16 05:01 | External Medical Summary ---
Author Name Unknown Address Unknown Organization : Laboratory Report Ordering Provider Test Date Status BIBI ZHU 11/15/2023 10:12:10 Final Observation Date Value Abnormality Reference (Units ) Status Thyroglobulin 11/15/2023 10:12:10 0.6 Below low normal 2.8-40.9 (ng/mL) Final Intact Thyroid: 2.8-40.9 ng/ mL
Athyrotic: <0.1 ng/mL
Note: Abnormal flagging is based upon the reference
interval for patients with intact thyroid.
This test was performed using the Multimedia Plus | QuizScore
chemiluminescent method. Values obtained from
different assay methods cannot be used inter-
changeably. Thyroglobulin levels, regardless
of value, should not be interpreted as absolute
evidence of the presence or absence of disease. comment 11/15/2023 10:12:10 SEE BELOW Final Thyroglobulin antibodies (TG AB) interfere with
thyroglobulin (TG) assays; therefore, TGAB assay
should always be performed in conjunction with a
TG assay.
For additional information, please refer to
https://education.MtoV.LimeLife/faq/MXD822
(This link is being provided for informational/
educational purposes only.)

Test Performed at:
[facility]
[address] [facility] [place] [address]
Eduardo Saldana M.D., Ph.D.,Director of Laboratories Performing Location"
--- OUTSIDE RECORDS SUMMARY | 2024-04-16 05:01 | External Medical Summary | Summary of Care ---
Author Name Unknown Organization [facility] Address [address] [place] [address] Phone [phone] Care Team Providers Care Specialty Sales Consultant Name Role Phone Otilia Burgos Primary Care Provider Reason for Visit * Reason Comments Medication Management Encounter Details Date Type Department Care Team (Late st Contact Info) Description 10/29/2023 11:45 AM EDT Pharmacy Pharmacy Hematology Oncology [facility] [address] [place], [place] [phone] [facility] Hem/Onc [address] [place], [place] [phone] Papillary thyroid carcinoma (HCC)*; Secondary and unspecified ma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, face and neck (HCC) Allergies Active Allergy Reactions Criticality Noted Date Comments Adhesive Tape Other (Please comment) Low 04/16/2013 Skin becomes red and sore Other reaction(s): Rash Lactose Diarrhea 08/12/2015 Latex Low 06/26/2021 Other reaction(s): Rash documented as of this encounter (statuses as of 10/29/2023) Medications Medication Sig Dispensed Refills Start Date [...] ears bilaterally 30 g 1 09/14/2021 Active Lisinopril 5 MG Oral Tablet (Prinivil)Indications :HTN, goal below 140/90 TAKE ONE TABLET BY MOUTH EVERY MORNING 100 Tablet 3 10/01/2022 Active Ketoconazole 2 % External Cream Apply [...] empty stomach.. 84 Capsule 5 09/19/2023 Active Synthroid 125 MCG Oral TabletIndications:Pos toperative hypothyroidism TAKE ONE TABLET BY MOUTH SIX DAYS A WEEK AND ONE AND ONE-HALF TABLET ONE DAY A WEEK 100 Tablet 3 10/01/2023 Active Ypykhhax-Urmznvwan-Hl xameth 3.5-38533-0.1 Ophthalmic Ointment (Maxitrol) Instill into the right eye. 10/07/2023 Active Chlorhexidine Gluconate 0.12 % Mouth/Throat Solution (Periogard) RINSE WITH 1/2 OUNCE FOR 30 SECONDS TWO TIMES DAILY 07/17/2023 Active Sennosides 8.6 MG Oral Tablet (Senokot) Take 1 Tablet by mouth at bedtime as needed for Constipation. Active Docusate Sodium 100 MG Oral Capsule (Colace) Take 3 Capsules by mouth daily. Active documented as of this encounter (statuses as of 10/29/2023) Active Problems Problem Noted Date Diagnosed Date [...] as of this encounter (statuses as of 10/29/2023) Resolved Problems Problem Noted Date Diagnosed Date Resolved Date Kidney disease, chronic, sta ge III (GFR 30-59 ml/min) 09/19/2015 06/04/2016 Overview: Per CKD protocol #1 Other stomatitis and mucositis (ulcerative) 07/27/2012 12/16/2017 Hypothyroidism 06/30/2012 03/23/2015 Throat pain 01/07/2012 05/07/2017 Dyspareunia 03/13/2010 07/05/2016 Joint pain, hip 03/13/2010 03/19/2017 Palpitations 03/13/2010 03/19/2017 documented as of this encounter (statuses as of 10/29/2023) Immunizations Name Administration Dates Next Due COVID-19 [...] Progress Notes * Rhianna Baum, [facility] - 10/29/2023 1:38 PM EDT MEDICATION THERAPY MANAGEMENT DABRAFENIB + TRAMETINIB TREATMENT PROGRESS NOTE Megan Phillips [phone] Patient Phone Numbers Preferred Lab: [facility] Specialty Pharmacy: [facility] ([place], [place]) Communication: Spoke to: Patient Treatment: Medication: [...] after a meal Start Date: 05/17/23 Primary Block Sawyer/Oncologist: Dr. Goncalves Supportive Care Meds: Ondansetron Prochlorperazine Loperamide Relevant Chronic Medications: Category Medications Pertinent Notes Antihypertensives Metoprolol Lisinopril Cycle Dates C1 09/18- 10/08 C2 10/16 - 11/05 C3 11/13 - 12/03 (anticipated) Treatment History: Radiation Treatment Dose Adjustment/Hold [...] 10/28 - patient continues to endorse fatigue Changes to medication list since last visit? No Drug interaction assessment: Treatment plan and current medication list evaluated for drug-drug interactions. No clinically significant drug interaction identified Assessment and Plan: Continue current therapy and supportive care Labs scheduled with OV on 11/14 Aware to call clinic with questions or concerns prior to follow-up Assessment of compliance: Compliant Assessment of adverse effects attributed to drug therapy: Rash - absent Visual disturbance - absent GI hemorrhage - absent Pyrexia - absent VTE - absent S/sx of cardiac dysfunction - absent Dose adjustment needed based on lab or adverse drug reaction? No Follow up: Labs/OV 11/14, MTM 12/05 Rhianna Baum, PharmD Ambulatory Clinical Pharmacist | Oral Chemotherapy Clinic [facility] 10/29/2023 1:39 PM Monitoring Parameters: Estimated CrCl Serum creatinine: [...] Pertinent Labs: n/a Time Spent on Encounter: 6 - 10 minutes Encounter Group: Oncology Encounter Interventions Item Category: Oral Chemotherapy Dabrafenib/Trametinib Problem/Rationale: Effectiveness: Needs additional monitoring - Medication Requires monitoring Safety: Needs additional monitoring - Medication Requires monitoring Pharmacist Intervention(s): Toxicity monitoring Magnitude of Intervention: Monitoring with direction (Level 1) documented in this encounter Plan of Treatment Upcoming Encounters Date Type Department Care Team (Late st Contact Info) Description 11/12/2023 2:15 PM EDT Imaging Radiology [address] [place] [address] 11/15/2023 10:20 AM EDT Laboratory Laboratory Hem/Onc [facility] [address] [place] [phone] [place] [address] [address] [place] [address] 11/15/2023 11:00 AM EDT Office Visit Hematology Oncology [facility] [address] [place] [address] Rafi Goncalves MD [address] [place] [address] 11/26/2023 12:50 PM EDT Office Visit Dermatology, Jarrod Olguin [address] [place] [address] Vanda Manrique PA-C [address] [id number] 12/06/2023 11:45 AM EDT Pharmacy Pharmacy Hematology Oncology [facility] [address] [place] [address] [facility] [address] [place] [address] 02/17/2024 1:00 PM EST Office Visit Endocrinology [address] [place] [address] Shaina George MD [address] [place], [place] [phone] 04/16/2024 1:00 PM EST Office Visit Family Practice [address] [facility] [address] [place] [address] Otilia Burgos DO [address] [place] [address] 05/11/2024 10:00 AM EST Nurse Only Ancillary [address] [address] College, Nurse Annual Wellness Visit [address] [address] Scheduled Procedures Name Priority Associated Diagnoses Date/Ti me COLONOSCOPY FLEXIBLE PROXIMA L DIAGNOSTIC Recall History of colonic polyps Health Maintenance Due Date Last Done Comments DXA Scan 04/04/2018 04/04/2011, 04/04/2011 COVID-19 Vaccine (3 - Pfizer risk series) 07/07/2020 06/09/2020, 05/19/2020 DTaP,Tdap,and Td Vaccines (2 - Td or Tdap) 09/16/2023 09/15/2013 Influenza Vaccine (FLU shot) (#1) 2023 12/16/2017 (Refused) Adult Wellness Visit 05/09/2024 05/10/2023, 05/08/19 23 Depression Screening 05/09/2024 05/10/2023 GFR 09/10/2024 09/11/2023, 09/2023, 06/14/2023, Additional history exists Albumin/Creatinine Ratio 09/18/2024 09/18/2021 TSH 10/14/2024 10/15/2023, 08/2023, 04/08/2023, Additional history exists Colonoscopy 02/15/2027 02/15/2022, 12/0 [...] Documents on File Type Date Recorded Patient Environmental Intern Expl anation POLST 09/26/2021 1:05 PM POLST * Full Code (Latest Code Status on File) Date Activated Date Inactivated Comments 06/28/2011 6:10 PM 06/29/2011 4:46 PM This order r eflects the patients wishes and were consensually agreed upon. Care Teams Specialty Sales Consultant Relationship Specialty Start Date End Date Otilia Burgos DO [address] [place] [address] PCP - General Family Medicine 10/14/23 documented as of this encounter"
--- OUTSIDE RECORDS SUMMARY | 2024-04-16 05:01 | External Medical Summary ---
Author Name Unknown Address Unknown Organization K01:[facility] [place] [address] [place] [address] Laboratory Report Ordering Provider Test Date Status BIBI ZHU 11/15/2023 10:12:10 Final Observation Date Value Abnormality Reference (Units ) Status Thyroglobulin Ab 11/15/2023 10:12:10 1599.0 Above high normal <22.0 (IU/mL) Final Thyroglobulin result may be falsely decreased due to the presence of anti- thyroglobulin antibodies. Thyroglobulin testing by LC-MS/MS is recommended. Performing Location [facility] [place] [address] [place] [id number]
--- OUTSIDE RECORDS SUMMARY | 2024-04-16 05:01 | External Medical Summary ---
Author Name Unknown Address Unknown Organization K01:[facility] - [address] [place] [address] Laboratory Report Ordering Provider Test Date Status REYNA MORRIS 11/15/2023 10:12:10 Final Observation Date Value Abnormality Reference (Units ) Status BUN 11/15/2023 10:12:10 16 6-20 (mg/dL) Final Creatinine 11/15/2023 10:12:10 1.0 0.5-1.0 (mg/dL) Final Glomerular filtration rate/1.73 sq M.predicted [Volume Rate/Area] in Serum, Plasma or Blood by Creatinine-based formula (CKD-EPI) 11/15/2023 10:12:10 57 Below low normal >=60 (mL/min) Final eGFR is calculated based on the CKD-EPI 2020 equation. Sodium 11/15/2023 10:12:10 139 135-146 (m mol/L) Final Potassium 11/15/2023 10:12:10 4.3 3.5-5.1 (m mol/L) Final Cl 11/15/2023 10:12:10 103 98-107 (mm ol/L) Final CO2 11/15/2023 10:12:10 27 22-32 (mmo l/L) Final Anion gap 11/15/2023 10:12:10 9 7-15 (mmol /L) Final Glucose 11/15/2023 10:12:10 79 70-120 (mg /dL) Final Albumin 11/15/2023 10:12:10 3.8 3.8-5.0 (g /dL) Final AST (Aspartate aminotransferase) 11/15/2023 10:12:10 26 10-35 (U/L) Fin al Alk Phos 11/15/2023 10:12:10 85 35-130 (U/ L) Final Bilirubin, Total 11/15/2023 10:12:10 0.5 <=1 .2 (mg/dL) Final Calcium 11/15/2023 10:12:10 8.6 8.4-10.2 ( mg/dL) Final Protein 11/15/2023 10:12:10 5.9 Below low normal 6.0 -8.3 (g/dL) Final ALT (Alanine aminotransferase) 11/15/2023 10:12:10 20 10-35 (U/L) Steve sheikh Performing Location [facility] - [address] [facility] [address]
--- OUTSIDE RECORDS SUMMARY | 2024-04-16 05:01 | External Medical Summary ---
Author Name Unknown Address Unknown Organization K01:[facility] - [address] [place] [address] Laboratory Report Ordering Provider Test Date Status REYNA MORRIS 11/15/2023 10:12:10 Final Observation Date Value Abnormality Reference (Units ) Status WBC, Total 11/15/2023 10:12:10 4.47 4.00-10.80 (K/uL) Final RBC 11/15/2023 10:12:10 4.39 3.85-5.15 (M/uL) Final Hemoglobin 11/15/2023 10:12:10 12.7 12.0-15.3 (g/dL) Final HCT 11/15/2023 10:12:10 39.5 36.0-45.2 (%) Final MCV 11/15/2023 10:12:10 90.0 81.5-97.5 (fL) Final MCH 11/15/2023 10:12:10 28.9 27.0-34.0 (pg) Final MCHC 11/15/2023 10:12:10 32.2 32.0-36.0 (g/dL) Final RDW 11/15/2023 10:12:10 15.0 11.5-15.5 (%) Final Platelets 11/15/2023 10:12:10 199 140-400 (K/uL) Final MPV 11/15/2023 10:12:10 9.0 6.6-11.1 (fL) Final Nucleated erythrocytes/100 leukocytes [Ratio] in Blood by Automated count 11/15/2023 10:12:10 0 <=0 (/100 WBCs) Final Performing Location [facility] - [address] [place] [address]
--- OUTSIDE RECORDS SUMMARY | 2024-04-16 05:01 | External Medical Summary | Summary of Care ---
Author Name Unknown Organization [facility] Address [address] [place] [address] Phone [phone] Care Team Providers Care Rotary Operator Name Role Phone Otilia Rosales DO Primary Care Provider Reason for Visit * Reason Comments Medication Refill Encounter Details Date Type Department Care Team (Late st Contact Info) Description 11/02/2023 Refill Family Practice [address] [place] [address] [place] [phone] Otilia Rosales DO [address] [place] [address] HTN, goal below 140/90 Allergies Active Allergy Reactions Criticality Noted Date Comments Adhesive Tape Other (Please comment) Low 04/16/2013 Skin becomes red and sore Other reaction(s): Rash Lactose Diarrhea 08/12/2015 Latex Low 06/26/2021 Other reaction(s): Rash documented as of this encounter (statuses as of 11/03/2023) Medications Medication Sig Dispensed Refills Start Date [...] to ears bilaterally 30 g 1 2 Active Ketoconazole 2 % External Cream Apply to right foot as needed 60 g 3 3 Active Clobetasol Propionate 0.05 % External Cream (Temovate) Apply topically to affected area 2 times a day. To affected area for up to two weeks. 15 g 1 3 Active Clobetasol Propionate 0.05 % External SolutionIndications:S eborrheic dermatitis Apply to rash in scalp immediately after shower. Can apply twice daily 50 mL 5 3 Active Mupirocin 2 % External Ointment (Bactroban)Indication s:Internal nasal lesion Apply to lesion on inside of nose three times daily 22 g 3 3 Active Additional Information Patient not taking.Reported on [...] 4 Active Doxycycline Hyclate 100 MG Oral CapsuleIndications:Smooth [...] empty stomach.. 84 Capsule 5 4 Active Synthroid 125 MCG Oral TabletIndications:Pos toperative hypothyroidism TAKE ONE TABLET BY MOUTH SIX DAYS A WEEK AND ONE AND ONE-HALF TABLET ONE DAY A WEEK 100 Tablet 3 4 10/01/19 25 Active Zgdfzrqx-Nskrshbzx-Ca xameth 3.5-96629-8.1 Ophthalmic Ointment (Maxitrol) Instill into the right [...] 100 Tablet 3 4 11/03/19 25 Active Lisinopril 5 MG Oral Tablet (Prinivil)Indications :HTN, goal below 140/90 TAKE ONE TABLET BY MOUTH EVERY MORNING 100 Tablet 3 3 11/02/19 24 Discontinu ed(Refill) documented as of this encounter (statuses as of 11/03/2023) Active Problems Problem Noted Date Diagnosed Date [...] as of this encounter (statuses as of 11/03/2023) Resolved Problems Problem Noted Date Diagnosed Date Resolved Date Kidney disease, chronic, sta ge III (GFR 30-59 ml/min) 09/19/2015 06/04/2016 Overview: Per CKD protocol #1 Other stomatitis and mucositis (ulcerative) 07/27/2012 12/16/2017 Hypothyroidism 06/30/2012 03/23/2015 Throat pain 01/07/2012 05/07/2017 Dyspareunia 03/13/2010 07/05/2016 Joint pain, hip 03/13/2010 03/19/2017 Palpitations 03/13/2010 03/19/2017 documented as of this encounter (statuses as of 11/03/2023) Immunizations Name Administration Dates Next Due COVID-19 [...] 18 years and over) Not on file 08/09/202 3 Are you (or your family) chavez [...] encounter Miscellaneous Notes * Telephone Encounter - Jacky Merrill RPh - 11/03/2023 9:49 PM EDT Signed Prescriptions: Disp Refills Lisinopril 5 MG Oral Tablet (Prinivil) 100 Ta*3 Sig: TAKE ONE TABLET BY MOUTH EVERY MORNINGAuthorizing Provider: OTILIA ROSALES User: JACKY MERRILL documented in this encounter Plan of Treatment Upcoming Encounters Date Type Department Care Team (Late st Contact Info) Description 11/12/2023 2:15 PM EDT Imaging Radiology [address] [id number] 11/15/2023 10:20 AM EDT Laboratory Laboratory Hem/Onc [address] [place] [phone] [place] [address] [address] [place] [address] 11/15/2023 11:00 AM EDT Office Visit Hematology Oncology [facility] [address] [place] [phone] Rafi Goncalves MD [address] [place] [address] 11/26/2023 12:50 PM EDT Office Visit Dermatology, Jarrod Olguin [address] [place] [address] Vanda Manrique PA-C [address] [place] [address] 12/06/2023 11:45 AM EDT Pharmacy Pharmacy Hematology Oncology [facility] [address] [place] [address] [facility] [place] Hem/Onc [address] [place] [address] 02/17/2024 1:00 PM EST Office Visit Endocrinology [address] [place] [address] Shaina George MD [address] [place] [address] 04/16/2024 1:00 PM EST Office Visit Family Practice 65 [facility] [address] [place] [phone] Otilia Rosales DO [address] [place] [address] 05/11/2024 10:00 AM EST Nurse Only Ancillary 65 [facility] [address] [place] [address] College, Nurse Annual Wellness Visit [address] [place] [address] Scheduled Procedures Name Priority Associated Diagnoses Date/Ti [...] Depression Screening 05/09/2024 05/10/2023 GFR 09/10/2024 09/11/2023, 060 09/2023, 06/14/2023, Additional history exists Albumin/Creatinine Ratio 09/18/2024 09/18/2021 TSH 10/14/2024 10/15/2023, 05/0 08/2023, 04/08/2023, Additional history exists Colonoscopy 02/15/2027 02/15/2022, 10/2021, [...] HTN, goal below 140/90 Unspecified essential hypertension documented in this encounter Advance Directives Documents on File Type Date Recorded Patient Scrap Dealer Expl anation POLST 09/26/2021 1:05 PM POLST * Full Code (Latest Code Status on File) Date Activated Date Inactivated Comments 06/28/2011 6:10 PM 06/29/2011 4:46 PM This order r eflects the patients wishes and were consensually agreed upon. Care Teams Rotary Operator Relationship Specialty Start Date End Date Otilia Rosales DO [address] [place] [address] PCP - General Family Medicine 10/14/23 documented as of this encounter
--- OUTSIDE RECORDS SUMMARY | 2024-04-16 05:54 | External Medical Summary | Summary of Care ---
Author Name Unknown Organization [facility] Address [address] [place] [address] Phone [phone] Care Team Providers Care Geospatial Scientist Name Role Phone Otilia Burgos Primary Care Provider [phone] Reason for Visit * Reason Comments End Of Treatment Encounter Details Date Type Department Care Team (Late st Contact Info) Description 04/15/2024 1:30 PM EST Documentation Radiation Oncology, [facility] [address] [place] [address] IovoliDelonte MD [address] [place] [address] Metastatic cancer to spine (HCC)* [...] Pain, Mild. 20 Tablet 04/13/19 25 Active methylPREDNISolone 4 MG Oral Tablet Therapy Pack (Medrol Dosepack)Indications :Metastatic cancer to spine (HCC) follow package directions 21 Tablet 04/15/19 25 Active Hospital, Clinic, or Other Facility Administered Medication Ordered Dose Route Frequency Start Date End Date Status sodium chloride 0.9 % flush/inj 10 mL 10 mL IV PUSH ONCE 04/15/2024 04/15/2024 Ended documented as of this encounter (statuses [...] ages 0-17 years) Not on file 01/20/2024 Food Insecurity Answer Date Recorded Within the past 12 months, y ou worried that your food would run out before you got the money to buy more. Never true 01/20/20 24 Within the past 12 months, t he food you bought just didn't last and you didn't have money to get more. Never true 01/20/2024 Do you need food for this week? No 01/20/2024 Comments No Sex and Gender Information [...] Sign Reading Time Taken Comments Blood Pressure - - Pulse - - Temperature 36.1 C (97 F) 04/15/2024 1:52 PM EST Respiratory Rate 18 04/15/2024 1:52 PM EST Oxygen Saturation 98% 04/15/2024 1:52 PM EST Inhaled Oxygen Concentration - - Weight - - Height - - Body Mass Index - - documented in this encounter Miscellaneous Notes * Radiation Completion Note - Delonte Morocho MD - 04/15/2024 2:13 PM EST RADIATION ONCOLOGY COMPLETION OF TREATMENT NOTE [facility] Name: Megan Phillips Date: 04/15/2024 HISTORY OF PRESENT ILLNESS Ms. Phillips is a 78 year old female with recurrent/metastatic papillary carcinoma of the thyroid presenting with new osseous involvement of her C1-2 spine causing pain. [place] [facility] [place]. She has declined surgical stabilization and we are proceeding with palliative radiation. RADIATION SUMMARY Course: C1 Treatment Site Ref. ID Energy Dose/Fx (cGy) #Fx Dose Correction (cGy) Total Dose Delivered (cGy) Start Date End Date Elapsed Days 10-C1-C2 PTV C1-C2 6X 300 0 3,000 04/02/2024 04/15/2024 13 Total: 3,000 04/02/2024 04/15/2024 13 Radiation treatment site: C1-C2 spine Radiation start date: 04/02/2024 Radiation completion date: 04/15/2024 Radiation dose: 3000 cGy Radiation dose per fraction: 300 cGy Number of fractions: 10 Radiation frequency: Daily Radiation treatment planning: intensity modulated radiation therapy (IMRT) Radiation energy: 6 MV photons Positioning verification and target localization: orthogonal images and/or portal images Other radiation details: Thermoplastic mask Concurrent chemotherapy: no ----- ----- ----- ----- ----- ----- ----- ----- ----- ----- The total radiation dose was 3000 cGy in 10 fractions. For details regarding treatment position, treatment devices, and patient breathing please see the prior simulation planning note. PATIENT TOLERANCE: Radiation treatment course was completed as planned. The patient tolerated treatment fairly with moderate radiation-induced side effects. The patient experienced significant pain flare in her cervical spine shortly after starting treatment. She rated the pain as high as 9/10. She was provided instructions on taking Tylenol and ibuprofen to help and given a short script of percocet's. She was also given a c-spine collar early in her treatment course to help immobilize her neck. The last day of treatment she had continued pain so shewas prescribed a medrol dose pack. The last week of treatment, examination revealed no radiation-induced physical exam findings. The following medications were started or adjusted during radiation therapy: Percocet, medrol dose pack PLAN: It is not uncommon for patients to experience a pain flare where pain gets worse before it gets better when being treated with palliative RT. My hope is with steroids and pain medication we can control it until the benefits of palliative RT are realized. The patient will follow-up in Radiation Oncology in 6 weeks. We will call her in 1 week to check onher neck pain. Follow-up with Dr. Goncalves as scheduled. The patient will contact us in the meantime with questions or concerns. Thank you for having asked us to take part in this patient's care. Delonte Morocho MD Radiation Oncology, [facility] [address] [facility] [id number] documented in this encounter Plan of Treatment Upcoming Encounters Date Type Department Care Team (Late st Contact Info) Description 04/16/2024 1:00 PM EST [facility] [address] [place] [address] Otilia Burgos DO [address] [place] [address] 04/23/2024 2:00 PM EST Office Visit Hematology Oncology [facility] [address] [place] [phone] Rafi Goncalves MD [address] [place] [address] 04/30/2024 11:45 AM EST Pharmacy Pharmacy Hematology Oncology [facility] [address] [place] [address] [facility] [place]c [address] [place] [address] 05/27/2024 1:30 PM EDT Office Visit Radiation Oncology, [facility] [address] [place] [address] Delonte Morocho MD [address] [place] [phone] 06/18/2024 3:00 PM EDT Office Visit Cardiology, [facility] [address] [facility] [place] [address] Lucinda Ryan CRNP [address] [facility] [place] [address] 06/29/2024 2:15 PM EDT Imaging Radiology [facility] [place] [address] [facility] [place] [phone] 08/17/2024 10:30 AM EDT Imaging Radiology [facility] [place] [address] 11/26/2024 12:50 PM EDT Office Visit Dermatology, [facility] [address] [place] [address] Vanda Manrique PA-C [address] [place] [address] 02/22/2025 3:00 PM EST Office Visit Endocrinology [address] [place] [address] hSaina George MD [address] [place] [address] Scheduled Procedures Name Priority Associated [...] Comments RAD ONC ARIA SESSION SUMMARY Routine 04/15/2024 1:46 PM EST RAD ONC ARIA SESSION SUMMARY Routine 04/14/2024 9:37 AM EST documented in this encounter Results * RAD ONC ARIA SESSION SUMMARY (04/15/2024 1:46 PM EST) Course ID C1 [facility] RADIATION ONCOLOGY Course Intent Palliative [facility] RADIATION ONCOLOGY Course Start Date 03/30/2024 1:12 PM [facility] RADIATION ONCOLOGY RAD ONC ARIA SESSION NUMBER 10 [facility] RADIATION ONCOLOGY Course First Treatment Date 04/02/2024 9:33 AM [facility] RADIATION ONCOLOGY Course Last Treatment Date 04/15/2024 1:43 PM [facility] RADIATION ONCOLOGY Course Elapsed Days 13 [facility] RADIATION ONCOLOGY Reference Point ID PTV C1-C2 [facility] RADIATION ONCOLOGY Reference Point Dosage Given to Date 30 Gy [facility] RADIATION ONCOLOGY Reference Point Session Dosage Given 3 Gy [facility] RADIATION ONCOLOGY Plan ID 10-C1-C2 [facility] RADIATION ONCOLOGY Plan Fractions Treated to Date 10 [facility] RADIATION ONCOLOGY Plan Total Fractions Prescribed 10 [facility] RADIATION ONCOLOGY Plan Prescribed Dose Per Fraction 3 Gy [facility] RADIATION ONCOLOGY Plan Total Prescribed Dose 3,000 cGy [facility] RADIATION ONCOLOGY Plan Primary Reference Point PTV C1-C2 [facility] RADIATION ONCOLOGY 04/15/2024 1:46 PM EST us No Physician Data Unknown DRESSINGS Final Result [facility] RADIATION ONCOLOGY * RAD ONC ARIA SESSION SUMMARY (04/14/2024 9:37 AM EST) Course ID C1 [facility] RADIATION ONCOLOGY Course Intent Palliative [facility] RADIATION ONCOLOGY Course Start Date 03/30/2024 1:12 PM [facility] RADIATION ONCOLOGY RAD ONC ARIA SESSION NUMBER 9 [facility] RADIATION ONCOLOGY Course First Treatment Date 04/02/2024 9:33 AM [facility] RADIATION ONCOLOGY Course Last Treatment Date 04/14/2024 9:34 AM [facility] RADIATION ONCOLOGY Course Elapsed Days 12 [facility] RADIATION ONCOLOGY Reference Point ID PTV C1-C2 [facility] RADIATION ONCOLOGY Reference Point Dosage Given to Date 27 Gy [facility] RADIATION ONCOLOGY Reference Point Session Dosage Given 3 Gy [facility] RADIATION ONCOLOGY Plan ID 10-C1-C2 [facility] RADIATION ONCOLOGY Plan Fractions Treated to Date 9 [facility] RADIATION ONCOLOGY Plan Total Fractions Prescribed 10 [facility] RADIATION ONCOLOGY Plan Prescribed Dose Per Fraction 3 Gy [facility]A RADIATION ONCOLOGY Plan Total Prescribed Dose 3,000 cGy [facility] RADIATION ONCOLOGY Plan Primary Reference Point PTV C1-C2 [facility] RADIATION ONCOLOGY 04/14/2024 9:37 AM EST us No Physician Data Unknown DRESSINGS Final Result [facility] RADIATION ONCOLOGY documented in this encounter Visit Diagnoses Diagnosis Metastatic cancer to spine (HCC)- Primary Secondary malignant neoplasm of bone and bone marrow documented in this encounter Advance Directives Documents on File Type Date Recorded Patient Auto Clutch Specialist Expl anation POLST 09/26/2021 1:05 PM POLST * Full Code (Latest Code Status on File) Date Activated Date Inactivated Comments 06/28/2011 6:10 PM 06/29/2011 4:46 PM This order r eflects the patients wishes and were consensually agreed upon. Care Teams Geospatial Scientist Relationship Specialty Start Date End Date Otilia Burgos DO [address] [place] [facility] [place] [address] PCP - General Family Medicine 10/14/23 documented as of this encounter
--- NOTE | 2024-04-16 06:03 | History & Physical Report ---
Date of Service April 15, 2024 Assessment & Plan (1) Nausea, vomiting, and diarrhea: Plan: 78-year-old female with past medical history significant for metastatic papillary thyroid carcinoma, dyslipidemia, postoperative hypothyroidism, lung nodules, paroxysmal atrial fibrillation, hypertension, hyponatremia comes because of nausea vomiting and diarrhea. Patient had last radiation treatment to her cervical spine and then she also had a CAT scan from her neck to the pelvis with contrast and after that patient started having nausea vomiting and also had few episodes of diarrhea which prompted her to come to the ER. Currently denies any abdominal pain. Denies any fevers. Denies any chest pain or shortness. No runny nose no sore throat. Has pain in the cervical spine region. Hemodynamics are okay.Currently she is on break from the chemo. Nausea vomiting and diarrhea Possible gastroenteritis Possibly from the p.o. contrast Will follow stool studies N.p.o. for now IV antiemetics as needed Gentle fluids Hyponatremia Sodium 128 Getting gentle fluids Follow repeat labs Hypomagnesia Will replace Follow repeat labs Recurrent metastatic papillary thyroid cancer Bilateral pulmonary nodules radioactive iodine refractory disease Had her CT scans yesterday Follow-up with heme-onc for further plans Currently chemo on hold Completed radiation treatment as per patient Paroxysmal atrial fibrillation and paroxysmal supraventricular tachycardia On metoprolol succinate and aspirin Follows with cardio Hypertension Continue metoprolol succinate Hold lisinopril Monitor Postsurgical hypothyroidism On levothyroxine Free t4 is high hold levothyroxine and repeat tsh profile May need to adjust the dose of levothyroxine DVT prophylaxis Lovenox Disposition Med/telemetry Full code. History of Present Illness Chief Complaint: Nausea, vomiting and diarrhea Primary Care Provider: Otilia Burgos DO 78-year-old female with past medical history significant for metastatic papillary thyroid carcinoma, dyslipidemia, postoperative hypothyroidism, lung nodules, paroxysmal atrial fibrillation, hypertension, hyponatremia comes because of nausea vomiting and diarrhea. Patient had last radiation treatment to her cervical spine and then she also had a CAT scan from her neck to the pel vis with contrast and after that patient started to have nausea vomiting and also had few episodes of diarrhea which prompted her to come to the ER. Currently denies any abdominal pain. Denies any fevers. Denies any chest pain or shortness. No runny nose no sore throat. Has pain in the cervical spine region. Hemodynamics are okay.Currently she is on break from the chemo Past medical history. As mentioned above Past surgical history. Colonoscopy. Hysteroscopy with biopsy. Eyelid surgery. Cervical lymphadenectomy. Thyroidectomy with limited neck dissection. Tonsillectomy and adenoidectomy.. Cholecystectomy. Treatment of anal fissure. Social history. . No smoking. No alcohol use. No drug use. Family history. Sister had leukemia. Father had VA. Mother had dissecting abdominal aortic aneurysm. Allergies Allergy/AdvReac Type Severity Reaction Status Date / Time adhesive Allergy Mild Rash Verified 07/19/22 21:51 latex Allergy Mild Rash Verified 07/19/22 21:51 Home Medications Medication Instructions Recorded Confirmed Type ascorbic acid (vitamin C) 500 mg 500 mg PO QPM 12/10/17 04/15/24 History tablet (Vitamin C) cholecalciferol (vitamin D3) 50 2,000 unit PO QAM 12/10/17 04/15/24 History mcg (2,000 unit) capsule ibuprofen 200 mg tablet (Advil) 400 mg PO BID PRN Fever Or Pain 12/10/17 04/15/24 History levothyroxine 125 mcg tablet 125 mcg PO QAM 12/10/17 04/15/24 History lisinopril 5 mg tablet 5 mg PO QAM 12/10/17 04/15/24 History omega-3 fatty acids 1,000 mg 1,000 mg PO QAM 12/10/17 04/15/24 History capsule aspirin 81 mg tablet,delayed 81 mg PO QPM 06/07/21 04/15/24 History release metoprolol succinate 50 mg 50 mg PO BID 05/17/23 04/15/24 History tablet,extended release 24 hr Past Med/Surg History Problem List Hypocalcemia (Acute) Hypomagnesemia (Acute) Acute hyponatremia (Acute) Nausea, vomiting, and diarrhea (Acute) COVID-19 (Acute) Anal fissure (Chronic) Hypertension (Chronic) Encounter for pre-operative examination Thyroid cancer (Chronic) dx 2011; sx + radioactive iodine x 2 History of cholecystectomy (Chronic) H/O thyroidectomy (Chronic) Hx of tonsillectomy (Chronic) H/O knee surgery (Chronic) Medical History DDD (degenerative disc disease) History of atrial fibrillation follows with Dr. Alvarenga History of COVID-19 03/2021; fatigue, congestion, sore throat, cough, fever, poor appetite; resolved. 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 Osteoarthritis PONV (postoperative nausea and vomiting) Thyroid cancer dx 2011; sx + radioactive iodine x 2 Surgical History H/O knee surgery H/O thyroidectomy History of cardiac catheterization 2013 - no stents History of cataract surgery RT History of cholecystectomy History of colonoscopy History of eyelid surgery Hx of tonsillectomy S/P anal fissurectomy Family History Other Myocardial infarction Social History Smoking Status: Never smoker Second Hand Exposure: No; Do You Dip or Chew Tobacco: No; Tobacco Cessation Education Requested by Patient: No Hx Alcohol Use: No Hx Substance Use: No Preferred Language: Khmer Communication Ability: Effective Accountant Assistant Required: No Beliefs That Will Affect Care: None Current Living Situation: Spouse Other Information That Helps Us Care for You: No Feels Safe at Home: Yes Safety Concerns: Feels Safe At This Time Assistive Devices: None Review of Systems Review of Systems: All systems reviewed & are unremarkable except as noted in HPI & below Physical Exam Physical Exam: General- Not in acute distress. Head- atraumatic Eyes- PERRL. ENT- oropharynx dry Neck- supple, no JVD. Lungs- clear to auscultation no wheezing or crackles. Heart- regular rate and rhythm; no murmur, no gallop. Abdomen- normal bowel sounds, soft, nontender, no distension. Extremities- no pretibial edema, no erythema seen Neuro- alert, oriented PERRL, no facial palsy; no dysarthria; moves extremities Results & Data Results & Data Vital Signs (Past 12 Hours) Vital Signs Temp Pulse Resp BP Pulse Ox O2 Del Method 04/15/24 21:15 66 22 135/83 95 04/15/24 19:06 37.1 C 70 14 165/84 H 96 Room Air 04/15/24 19:03 73 Diagnostic Findings Laboratory Results WBC 6.64 K/ul (4.8-10.8) 04/15/24 19:03 RBC 4.44 M/uL (4.20-5.40) 04/15/24 19:03 Hgb 12.7 g/dl (12.0-16.0) 04/15/24 19:03 Hct 37.2 % (37.0-47.0) 04/15/24 19:03 MCV 83.8 fL (80.0-100.0) 04/15/24 19:03 MCH 28.6 pg (25.0-34.0) 04/15/24 19:03 MCHC 34.1 g/dL (32.0-36.0) 04/15/24 19:03 RDW Std Deviation 42.9 fL (36.4-46.3) 04/15/24 19:03 RDW Coeff of Jairo 14.0 % (11.5-14.5) 04/15/24 19:03 Plt Count 227 K/uL (130-400) 04/15/24 19:03 MPV 9.2 fL (9.4-12.4) L 04/15/24 19:03 Immature Gran % (Auto) 0.5 % 04/15/24 19:03 Neut % (Auto) 83.3 % 04/15/24 19:03 Lymph % (Auto) 9.3 % 04/15/24 19:03 Centre % (Auto) 6.3 % 04/15/24 19:03 Eos % (Auto) 0.3 % 04/15/24 19:03 Baso % (Auto) 0.3 % 04/15/24 19:03 Neut # (Auto) 5.53 K/uL (1.40-6.50) 04/15/24 19:03 Lymph # (Auto) 0.62 K/uL (1.20-3.40) L 04/15/24 19:03 Centre # (Auto) 0.42 K/uL (0.11-0.59) 04/15/24 19:03 Eos # (Auto) 0.02 K/uL (0.00-0.50) 04/15/24 19:03 Baso # (Auto) 0.02 K/uL (0.00-0.20) 04/15/24 19:03 Immature Gran # (Auto) 0.03 K/uL (0.01-0.20) 04/15/24 19:03 PT 10.7 Seconds (9.0-12.0) 04/15/24 19:03 INR 1.0 (0.9-1.1) 04/15/24 19:03 Sodium 128 mmol/L (136-145) L 04/15/24 19:03 Potassium 4.0 mmol/L (3.5-5.1) 04/15/24 19:03 Chloride 96 mmol/L (98-107) L 04/15/24 19:03 Carbon Dioxide 25 mmol/L (21-32) 04/15/24 19:03 Anion Gap 7 (3-11) 04/15/24 19:03 BUN 13 mg/dl (6-23) 04/15/24 19:03 Creatinine 0.69 mg/dl (0.6-1.2) 04/15/24 19:03 Est Cr Clr Drug Dosing 70.6 ml/min 04/15/24 19:03 eGFR 88.23 04/15/24 19:03 BUN/Creatinine Ratio 18.8 (10-20) 04/15/24 19:03 Glucose 117 mg/dl (70-99(Fasting)) H 04/15/24 19:03 Osmolality 270 mOsm/kg (280-300) L 04/15/24 19:06 Calcium 8.3 mg/dl (8.6-10.3) L 04/15/24 19:03 Magnesium 1.4 mg/dl (1.7-2.4) L 04/15/24 19:03 Total Bilirubin 0.8 mg/dl (0.2-1.0) 04/15/24 19:03 AST 17 U/L (13-39) 04/15/24 19:03 ALT 12 U/L (7-52) 04/15/24 19:03 Alkaline Phosphatase 67 U/L (34-104) 04/15/24 19:03 Troponin I High Sens 6.8 pg/ml (0-14) 04/15/24 19:03 Total Protein 6.8 gm/dl (6.0-8.3) 04/15/24 19:03 Albumin 3.7 gm/dl (3.4-5.0) 04/15/24 19:03 Globulin 3.1 gm/dl (2.5-4.0) 04/15/24 19:03 Albumin/Globulin Ratio 1.2 (0.9-2) 04/15/24 19:03 Lipase 11 U/L (11-82) 04/15/24 19:03 TSH 0.226 uIu/ml (0.300-4.500) L 04/15/24 19:03 Free T4 1.83 ng/dl (0.61-1.60) H 04/15/24 19:03 Urine Color Yellow 04/15/24 Unknown Urine Appearance Clear (Clear) 04/15/24 Unknown Urine pH 6.5 (4.5-7.5) 04/15/24 Unknown Ur Specific [place] 1.008 (1.000-1.030) 04/15/24 Unknown Urine Protein Negative (Negative) 04/15/24 Unknown Urine Glucose (UA) Negative (Negative) 04/15/24 Unknown Urine Ketones 1+ (Negative) H 04/15/24 Unknown Urine Blood Negative (Negative) 04/15/24 Unknown Urine Nitrite Negative (Negative) 04/15/24 Unknown Urine Bilirubin Negative (Negative) 04/15/24 Unknown Urine Urobilinogen Negative (Negative) 04/15/24 Unknown Ur Leukocyte Esterase Negative (Negative) 04/15/24 Unknown Urine Osmolality 173 mOsm/kg (500-800) L 04/15/24 Unknown Ur Random Sodium 45 mmol/L 04/15/24 Unknown Adenovirus (PCR) Not Detected (NotDetected) 04/15/24 Unknown B. pertussis DNA (PCR) Not Detected (NotDetected) 04/15/24 Unknown B.parapertussis DNA PCR Not Detected (NotDetected) 04/15/24 Unknown C. pneumoniae DNA (PCR) Not Detected (NotDetected) 04/15/24 Unknown Coronavirus OC43 (PCR) Not Detected (NotDetected) 04/15/24 Unknown Coronavirus HKU1 (PCR) Not Detected (NotDetected) 04/15/24 Unknown Coronavirus 229E (PCR) Not Detected (NotDetected) 04/15/24 Unknown SARS-CoV-2 (PCR) Not Detected (NotDetected) 04/15/24 Unknown Coronavirus NL63 (PCR) Not Detected (NotDetected) 04/15/24 Unknown Human Metapneumovir PCR Not Detected (NotDetected) 04/15/24 Unknown Influenza Type A (PCR) Not Detected (NotDetected) 04/15/24 Unknown Influenza Type B (PCR) Not Detected (NotDetected) 04/15/24 Unknown M. pneumoniae (PCR) Not Detected (NotDetected) 04/15/24 Unknown Parainfluenza 1 (PCR) Not Detected (NotDetected) 04/15/24 Unknown Parainfluenza 2 (PCR) Not Detected (NotDetected) 04/15/24 Unknown Parainfluenza 3 (PCR) Not Detected (NotDetected) 04/15/24 Unknown Parainfluenza 4 (PCR) Not Detected (NotDetected) 04/15/24 Unknown RSV (PCR) Not Detected (NotDetected) 04/15/24 Unknown Entero/Rhino (PCR) Not Detected (NotDetected) 04/15/24 Unknown ECG Additional Comments: EKG sinus rhythm with short NC with rate of 65. Incomplete right bundle branch block. No acute ST changes seen. Code Status & VTE Plan VTE Prophylaxis Plan VTE Prophylaxis will be ordered: Yes
[2024-04-16 06:07] LABS: Basophils # (auto) 0.02 K/uL (0.00-0.20); Basophils % (auto) 0.4 %; Eosinophils # (auto) 0.08 K/uL (0.00-0.50); Eosinophils % (auto) 1.5 %; Hematocrit (blood only) 38.7 % (37.0-47.0); Hemoglobin 13.1 g/dl (12.0-16.0); Immature Granulocytes # (auto) 0.01 K/uL (0.01-0.20); Immature Granulocytes % (auto) 0.2 %; Lymphocytes # (auto) 0.84 K/uL (1.20-3.40); Lymphocytes % (auto) 15.5 %; Mean Corpuscular Hgb Conc 33.9 g/dL (32.0-36.0); Mean Corpuscular Volume 85.8 fL (80.0-100.0); Mean Platelet Volume 9.6 fL (9.4-12.4); Monocytes # (auto) 0.39 K/uL (0.11-0.59); Monocytes % (auto) 7.2 %; Neutrophils # (auto) 4.07 K/uL (1.40-6.50); Neutrophils % (auto) 75.2 %; Platelet Count 229 K/uL (130-400); RDW Standard Deviation 44.1 fL (36.4-46.3); Red Blood Count 4.51 M/uL (4.20-5.40); White Blood Count 5.41 K/ul (4.8-10.8)
[2024-04-16 06:22] LABS: BUN Creatinine Ratio 14.1 (10-20); Calcium 8.9 mg/dl (8.6-10.3); Creatinine Clr Calc Pharmacy 68.6 ml/min; Magnesium 2.3 mg/dl (1.7-2.4); Phosphorus 3.1 mg/dl (2.5-4.9); Potassium 3.8 mmol/L (3.5-5.1)
[2024-04-16] MEDS: LEVOTHYROXINE SODIUM 125 MCG TABLET PO SCH (07:11)
--- NOTE | 2024-04-16 07:41 | Electrocardiogram Report ---
Test Reason : Blood Pressure : */* mmHG Vent. Rate : 65 BPM Atrial Rate : 65 BPM P-R Int : 110 ms QRS Dur : 94 ms QT Int : 470 ms P-R-T Axes : 49 72 51 degrees QTcB Int : 488 ms Sinus rhythm with short OH Incomplete right bundle branch block Borderline ECG When compared with ECG of 17-May-2023 14:25, OH interval has decreased Incomplete right bundle branch block is now Present QT has lengthened Confirmed by Job Chan ([id number] on 04/16/2024 7:40:46 AM Referred By: REFERRED SELF Confirmed By: Job Chan
[2024-04-16 07:52] LABS: Thyroid Stimulating Hormone 0.139 uIu/ml (0.300-4.500)
[2024-04-16] MEDS: METOPROLOL SUCC 50MG EXT REL TAB PO SCH (09:16)
[2024-04-16] MEDS: ENOXAPARIN INJ 40 MG/0.4 ML SYR SQ SCH (09:17)
[2024-04-16] MEDS: DEXTROSE 5% 1,000 ML IV SCH (09:19)
[2024-04-16] MEDS: IBUPROFEN 200 MG/10 ML UDC PO STA (10:25)
[2024-04-16 11:44] VITALS: RESP 15; O2SAT 96
--- NOTE | 2024-04-16 13:47 | Discharge Summary ---
Discharge Summary Date of Service April 16, 2024 Principal Dx & Hospital Course #1 = Principal Diagnosis (1) Nausea, vomiting, and diarrhea: Ms. Livingston is a 78-year-old female with past medical history significant for metastatic papillary thyroid carcinoma, dyslipidemia, postoperative hypothyroidism, lung nodules, paroxysmal atrial fibrillation, hypertension, hyponatremia comes because of nausea vomiting and diarrhea. Patient had last radiation treatment to her cervical spine and then she also had a CAT scan from her neck to the pelvis with contrast and after that patient started having nausea vomiting and also had few episodes of diarrhea which prompted her to come to the ER. Given her comordbities and so hyponatremia, patient was admitted for obs. Patient declined further scans given full body CT obtained day prior. Nausea and vomiting resolved ultimately with symptomatic management and patient able to tolerate regular diet. Labs with corrected abnormalities. Patient eating and at baseline functional status. Notes For Next Care Provider TSH 0.139, FT4 1.83; given follow up day after dispo, discuss dosing regimen perferred with patient Medication Changes From Visit Hold Levothyorxine until regimen discussed with PCP Admission HPI Per Admitting Provider 78-year-old female with past medical history significant for metastatic papillary thyroid carcinoma, dyslipidemia, postoperative hypothyroidism, lung nodules, paroxysmal atrial fibrillation, hypertension, hyponatremia comes because of nausea vomiting and diarrhea. Patient had last radiation treatment to her cervical spine and then she also had a CAT scan from her neck to the pelvis with contrast and after that patient started to have nausea vomiting and also had few episodes of diarrhea which prompted her to come to the ER. Currently denies any abdominal pain. Denies any fevers. Denies any chest pain or shortness. No runny nose no sore throat. Has pain in the cervical spine region. Hemodynamics are okay.Currently she is on break from the chemo Past medical history. As mentioned above Past surgical history. Colonoscopy. Hysteroscopy with biopsy. Eyelid surgery. Cervical lymphadenectomy. Thyroidectomy with limited neck dissection. Tonsillectomy and adenoidectomy.. Cholecystectomy. Treatment of anal fissure. Social history. . No smoking. No alcohol use. No drug use. Family history. Sister had leukemia. Father had AL. Mother had dissecting abdominal aortic aneurysm. Admission Exam Per Admitting Provider General- Not in acute distress. Head- atraumatic Eyes- PERRL. ENT- oropharynx dry Neck- supple, no JVD. Lungs- clear to auscultation no wheezing or crackles. Heart- regular rate and rhythm; no murmur, no gallop. Abdomen- normal bowel sounds, soft, nontender, no distension. Extremities- no pretibial edema, no erythema seen Neuro- alert, oriented PERRL, no facial palsy; no dysarthria; moves extremities Discharge Exam Constitutional WD/WN, vitals as above Respiratory normal respiratory effort, lungs clear to auscultation Cardiovascular RRR, no murmur, no edema Musculoskeletal no cyanosis or clubbing, extremities motor strength 5/5 Updated Medication List Medication Instructions Recorded Confirmed Type ascorbic acid (vitamin C) 500 mg 500 mg PO QPM 12/10/17 04/15/24 History tablet (Vitamin C) cholecalciferol (vitamin D3) 50 2,000 unit PO QAM 12/10/17 04/15/24 History mcg (2,000 unit) capsule ibuprofen 200 mg tablet (Advil) 400 mg PO BID PRN Fever Or Pain 12/10/17 04/15/24 History levothyroxine 125 mcg tablet 125 mcg PO QAM 12/10/17 04/15/24 History lisinopril 5 mg tablet 5 mg PO QAM 12/10/17 04/15/24 History omega-3 fatty acids 1,000 mg 1,000 mg PO QAM 12/10/17 04/15/24 History capsule aspirin 81 mg tablet,delayed 81 mg PO QPM 06/07/21 04/15/24 History release metoprolol succinate 50 mg 50 mg PO BID 05/17/23 04/15/24 History tablet,extended release 24 hr Hospital Stay Data Pending Results Patient Have Any Pending Studies at Discharge: No Discharge Instructions Given to Patient (Per Discharging Provider) You were admitted to [facility] for episode of nausea and vomiting You were treated with IV fluids and symptoms resolved Your thyroid levels were noted to be mildly elevated with TSH at 0.139 and Free T4 at 1.83 Discuss dosing adjustments with your PCP Total Time Total Time Spent Total Time Spent (In Minutes): 45
[2024-04-16 14:40] VITALS: BP 164/85; PULSE 57
[2024-04-16] MEDS ORDERED: ASCORBIC ACID 500 MG TAB PO SCH (21:00)
[2024-04-16] MEDS ORDERED: ASPIRIN 81 MG ECTAB PO SCH (21:00)
== END 2024-04-16 14:37 | disposition home or self-care (01) | DRG 392 ==
LOC: ED 18:54 → EDINP 23:33